=== PATIENT | male | born 1980 | race Caucasian/White ===

== ENCOUNTER 2018-07-06 05:55 | Emergency (ER) | payer OTHER, SELFPAY ==
--- NOTE | 2018-07-06 05:44 | DI.CT.S_ITS ---
PROCEDURE: CT HEAD/BRAIN WO CON INDICATIONS: decreased mental status, fall etoh TECHNIQUE: Noncontrast 4.5 mm thick angled axial sections acquired from the foramen magnum to the vertex, with coronal and sagittal reformats. For radiation dose reduction, the following was used: automated exposure control, adjustment of mA and/or kV according to patient size. COMPARISON: [facility], CT, CT CERVICAL SPINE WO CON, 07/06/2018, 8:41. FINDINGS: Image quality: There is streak artifact noted. CSF spaces: Basal cisterns are patent. No extra-axial fluid collections. Ventricles are normal in size and shape. Brain: No midline shift. No intracranial masses or hemorrhage. Santiago-white matter interface is normal. Skull and face: Calvarium and visualized facial bones are intact, without suspicious lesions. Sinuses: Visualized sinuses and mastoids are clear. IMPRESSION: Limited study, without an acute intracranial abnormality. No acute intracranial hemorrhage can be seen. Dictated by: Rupesh Crenshaw M.D. on 07/06/2018 at 8:19 Approved by: Rupesh Crenshaw M.D. on 07/06/2018 at 8:20
--- NOTE | 2018-07-06 05:45 | DI.RAD.S_ITS ---
PROCEDURE: XR CHEST 1V INDICATIONS: decreased mental status TECHNIQUE: One view of the chest was acquired. COMPARISON: [facility], CR, XR CHEST 1V, 07/06/2018, 6:49. FINDINGS: Surgical changes and devices: None. Lungs and pleura: No pleural effusions or pneumothorax. Lungs are clear. Mediastinum: Mediastinal contours appear normal. Heart size is normal. Bones and chest wall: No suspicious bony lesions. Overlying soft tissues appear unremarkable. IMPRESSION: No acute disease. Dictated by: Mark Pagan M.D. on 07/06/2018 at 7:25 Approved by: Mark Pagan M.D. on 07/06/2018 at 7:27
[2018-07-06 05:52] VITALS: BP 87/48; PULSE 81; RESP 20; O2SAT 100
--- NOTE | 2018-07-06 05:52 | ED_ITS ---
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 Ratio (1.0-2.8) Procalcitonin (<0.5) ng/mL Urine Color Urine Appearance Urine pH (4.5-8.0) Ur Specific [place] (1.000-1.035) Urine Protein (Negative) Urine Glucose (UA) (Normal) g/dL Urine Ketones (NEGATIVE) Urine Occult Blood (Negative) Urine Nitrate (Negative) Urine Bilirubin (NEGATIVE) Urine Urobilinogen (0.2) E.U./dL Ur Leukocyte Esterase (NEGATIVE) Urine RBC (0-5/HPF) Urine WBC (0-5/HPF) Ur Squamous Epith Cells Urine Bacteria (None) Ur Culture Indicated? Micro UA Comment Urine Opiates Screen (Negative) Ur Oxycodone Screen (Negative) Urine Methadone Screen (Negative) Ur Barbiturates Screen (Negative) U Tricyclic Antidepress (Negative) Ur Phencyclidine Scrn (Negative) Ur Amphetamines Screen (Negative) U Methamphetamines Scrn (Negative) Ur MDMA Scrn (Ecstasy) (Negative) U Benzodiazepines Scrn (Negative) Urine Cocaine Screen (Negative) U Marijuana (THC) Screen (Negative) Ethyl Alcohol mg/dL Ketones (<0.27) mmol/L MDM Narrative Medical decision making narrative: Received turned over from night provider. Performed my own history and physical exam. Patient is alert but is confused. His is at bedside. She states she went to bed at 0930 last night and woke up this morning found him on the ground. He was hypothermic which has improved with rewarming. He is in DKA. His receiving fluids and insulin. Head CT and cervical spine CT ordered due to the fact that he was found on the floor next to the couch. Potassium 4.4 on arrival. Repeat 4.0 will continue to monitor this to avoid hypokalemia. No other signs of external trauma. Discussed the case with intensive care medicine at [facility] who accepts the patient in transfer. I discussed the transfer with the patient's . She expressed understanding and agreement with this. Discharge Plan Departure Patient Disposition: [facility] Clinical Impression: DKA (diabetic ketoacidoses), Hypothermia, Fall, Altered mental status Discharge Date/Time: 07/06/18 10:00 Interventions: ED Discharge Assessment Last Done: 07/06/18 10:02 Prescriptions: No Action metoprolol succinate 100 mg Tablet Extended Release 24 Hr 100 mg PO DAILY RF: 0 simvastatin 40 mg Tablet 40 mg PO QPM RF: 0 citalopram 20 mg Tablet 20 mg PO DAILY RF: 0 lisinopril 10 mg Tablet 10 mg PO DAILY RF: 0 prazosin 2 mg Capsule 2 mg PO BID RF: 0 insulin lispro [Humalog KwikPen Insulin] 100 unit/mL Insulin Pen 1 dose subcut ACHS RF: 0 bupropion HCl 150 mg Tablet Extended Release 24 Hr 150 mg PO QAM RF: 0 insulin glargine [Basaglar KwikPen U-100 Insulin] 100 unit/mL (3 mL) Insulin Pen 45 units subcut DAILY RF: 0
[2018-07-06] MEDS: SODIUM CHLORIDE 0.9% 1,000 ML 1000 ML IV ×2 (06:00→07:06)
--- NOTE | 2018-07-06 06:07 | PC.NURSE ---
Pt cold to touch. Oral temp 85F. Dr Hill aware. Currently placing temp-sensing hemphill for accurate core temp. Pt responds to voice, obeys commands.
[2018-07-06 06:17] LABS: HCO3 VBG 4 mmol/L (24-28); PCO2 VBG 21.7 mmHg (45-50); PO2 VBG 81 mmHg (35-45); pH VBG 6.88 (7.31-7.41)
[2018-07-06 06:18] LABS: Oxygen Saturation VBG 84 % (70-75); Total CO2 VBG < 5 mmol/L (24-29)
[2018-07-06 06:26] LABS: Lactate (Lactic Acid) 4.7 mmol/L (0.7-2.1)
[2018-07-06 06:28] LABS: Alanine Aminotransferase 147 IU/L (21-72); Albumin 3.3 g/dL (3.5-5.0); Albumin Globulin Ratio 1.6 (1.0-2.8); Alkaline Phosphatase 178 U/L (38-126); Aspartate Aminotransferase 95 IU/L (17-59); BUN Creatinine Ratio 9.4 (6-22); Bilirubin Total 1.3 mg/dL (0.2-1.3); Blood Urea Nitrogen 17 mg/dL (9-20); Calcium 10.8 mg/dL (8.4-10.2); Chloride 83 mmol/L (98-107); Estimated Glomerular Filt Rate 42.4 mL/min (>60); Ethanol (ETOH) < 10 mg/dL; Globulin 2.1 g/dL (1.7-4.1); Potassium 4.4 mmol/L (3.4-5.1); Sodium 123 mmol/L (137-145); Total Protein 5.4 g/dL (6.3-8.2)
--- NOTE | 2018-07-06 06:30 | PC.NURSE ---
patient placed in soft restraints. Provider aware.
[2018-07-06 06:45] LABS: Glucose 889 mg/dL (70-100)
[2018-07-06 06:46] LABS: Carbon Dioxide < 5 mmol/L (22-32)
--- NOTE | 2018-07-06 06:46 | DI.RAD.S_ITS ---
PROCEDURE: XR CHEST 1V INDICATIONS: failed attempt right IJ TECHNIQUE: One view of the chest was acquired. COMPARISON: [facility], CR, XR CHEST 1V, 07/06/2018, 5:53. FINDINGS: Surgical changes and devices: None. Lungs and pleura: No pleural effusions or pneumothorax. Lung volumes are low. No acute consolidation. There is scattered subsegmental atelectasis and/or scarring Mediastinum: Mediastinal contours appear normal. Heart size is normal. Bones and chest wall: No suspicious bony lesions. Overlying soft tissues appear unremarkable. IMPRESSION: No acute disease. Low lung volumes and scattered atelectasis Dictated by: Mark Pagan M.D. on 07/06/2018 at 7:12 Approved by: Mark Pagan M.D. on 07/06/2018 at 7:12
[2018-07-06 06:55] LABS: Urine Amphetamines Negative (Negative); Urine Cocaine Negative (Negative); Urine Methamphetamines Negative (Negative); Urine Morphine/Opi cutoff 2000 Negative (Negative); Urine Phencyclidine Negative (Negative); Urine Tetrahydrocannabinol Negative (Negative)
[2018-07-06 06:56] LABS: Urine Barbiturates Negative (Negative); Urine Benzodiazepines Negative (Negative); Urine MDMA Negative (Negative); Urine Methadone Negative (Negative); Urine Oxycodone Negative (Negative); Urine Tricyclic Antidepressant Negative (Negative)
[2018-07-06 07:00] VITALS: BP 117/94; PULSE 68; O2SAT 100
--- NOTE | 2018-07-06 07:01 | PC.NURSE ---
patient temp 87.0 via temperature sensing foley. LOPEZ aware.
[2018-07-06 07:15] LABS: HEMOLYSIS 19 (0-50)
[2018-07-06 07:20] VITALS: BP 140/114; PULSE 70; O2SAT 100
--- NOTE | 2018-07-06 07:20 | PC.NURSE ---
patients rectal temperature is 87.4 F. Provider aware.
[2018-07-06 07:22] LABS: Procalcitonin 2.88 ng/mL (<0.5)
[2018-07-06] MEDS: INSULIN REGULAR, HUMAN 100 UNIT in SODIUM CHLORIDE 0.9% 100 ML 6 ML IV (07:27)
[2018-07-06] MEDS: SODIUM CHLORIDE 0.9% 1,000 ML 200 ML IV (07:30)
[2018-07-06 08:11] LABS: Add Manual Diff / Slide Review NO; Basophils Percent Auto 0.9 % (0-2); Eosinophils Percent Auto 0.2 % (2-4); Hematocrit 40.2 % (41-53); Hemoglobin 13.1 g/dL (13.5-17.5); Lymphocytes Percent Auto 9.2 % (25-40); Mean Corpuscular HGB Conc 32.7 % (30-36); Mean Corpuscular Hemoglobin 33.9 PG (26-34); Mean Corpuscular Volume 103.9 fL (80-100); Monocytes Percent Auto 8.5 % (3-14); Neutrophils Absolute Auto 12300 /uL (3000-5900); Neutrophils Percent Auto 81.2 % (50-75); Platelet Count 256 X10^3/uL (150-400); Red Blood Cell Count 3.87 X10^6/uL (4.5-5.9); Red Cell Distribution Width 13.9 % (11.6-14.8); White Blood Cell Count 15.1 X10^3/uL (4.5-11.0)
--- NOTE | 2018-07-06 08:12 | PC.NURSE ---
dr. beebe placed r femeral central line/ 3 luman. labs drawn at that time pt daisy well. at bedside. apparetnly pt non compliant with meds/ also hx of mental health issues.
[2018-07-06 08:16] VITALS: BP 111/60; PULSE 80; RESP 22
[2018-07-06 08:24] LABS: Chloride 93 mmol/L (98-107); HEMOLYSIS < 15 (0-50); Magnesium 2.2 mg/dL (1.6-2.3); Phosphorous 7.1 mg/dL (2.5-4.5); Sodium 127 mmol/L (137-145)
[2018-07-06 08:27] LABS: Carbon Dioxide < 5 mmol/L (22-32)
[2018-07-06 08:29] LABS: Appearance Urine UA CLEAR; Bilirubin Urine UA NEGATIVE (NEGATIVE); Color Urine UA YELLOW; Glucose Urine UA 1+ g/dL (Normal); Ketones Urine UA 3+ (NEGATIVE); Leukocyte Esterase Urine UA NEGATIVE (NEGATIVE); Nitrite Urine UA NEGATIVE (Negative); Occult Blood Urine UA 1+ (Negative); Protein Urine UA TRACE (Negative); Urobilinogen Urine UA 0.2 E.U./dL (0.2)
[2018-07-06 08:38] VITALS: BP 104/67; PULSE 82; RESP 22; O2SAT 100
--- NOTE | 2018-07-06 08:40 | PC.NURSE ---
temp 90 core/hemphill
[2018-07-06 08:44] LABS: Bacteria Urine Moderate (10-30); Culture Indicated Urine Cult Not Indicated; RBC Urine 0-1/HPF (0-5/HPF); Squamous Epithelial Cell Urine 0-1 /HPF; WBC Urine 1-5/HPF (0-5/HPF)
--- NOTE | 2018-07-06 08:46 | DI.CT.S_ITS ---
PROCEDURE: CT CERVICAL SPINE WO CON INDICATIONS: fall TECHNIQUE: Noncontrast 3 mm thick sections acquired from the skull base to the T4 level. Sagittal and coronal reformats were then constructed. For radiation dose reduction, the following was used: automated exposure control, adjustment of mA and/or kV according to patient size. COMPARISON: None. FINDINGS: Image quality: Excellent. Bones: No fractures or dislocations. Visualized superior ribs are intact. Soft tissues: Prevertebral soft tissues are normal in thickness. No paravertebral hematomas. No apical pneumothoraces. IMPRESSION: No trauma found. Dictated by: Derrell Caldwell M.D. on 07/06/2018 at 9:20 Approved by: Derrell Caldwell M.D. on 07/06/2018 at 9:21
[2018-07-06 08:55] LABS: Glucose 726 mg/dL (70-100)
[2018-07-06 09:17] VITALS: BP 112/74; PULSE 86; RESP 22; O2SAT 100
--- NOTE | 2018-07-06 09:19 | PC.NURSE ---
ct/ c-collar placed prior to ct of neck and head. while in ct. pt pulled out r femoral vein line. pressure held. md aware. pt daisy ct well. glucose in 700 by blood work. iv cont. 2 18g ac lines hemphill cont anitra choi to keep warm pt awake, verbal at times. opens eyes moves x 4. c-collar removed by md when arrived into pt room. insulin gtt cont/ plan transfer to [facility]. temp = 91.8
[2018-07-06] MEDS: POTASSIUM CHLORIDE 40 MEQ in SODIUM CHLORIDE 0.9% 500 ML 130 ML IV (09:35)
[2018-07-06 09:53] LABS: BUN Creatinine Ratio 11.9 (6-22); Blood Urea Nitrogen 19 mg/dL (9-20); Calcium 9.5 mg/dL (8.4-10.2); Chloride 96 mmol/L (98-107); Estimated Glomerular Filt Rate 48.6 mL/min (>60); HEMOLYSIS < 15 (0-50); Potassium 3.9 mmol/L (3.4-5.1); Sodium 132 mmol/L (137-145)
[2018-07-06 09:54] LABS: Carbon Dioxide < 5 mmol/L (22-32); Glucose 623 mg/dL (70-100)
--- NOTE | 2018-07-06 10:08 | PC.NURSE ---
last lab work, called into [facility]. k=3.9 and glucose 623
[2018-07-06 10:13] LABS: Reflexed Lactate in 2 Hours Y
--- NOTE | 2018-07-06 10:20 | PC.NURSE ---
pt weight 146/ report to transfer center. Sunil. phone # [phone]
--- NOTE | 2018-07-06 14:47 | PC.NURSE ---
late entry/ pt on continuous monitor/ hr/ oximeter/ etc..
[2018-07-08 04:17] LABS: Acinetobacter baumannii Not Detected (Not Detect); Enterococcus species Not Detected (Not Detect); Listeria monocytogenes Not Detected (Not Detect); Staphylococcus species Not Detected (Not Detect); Streptococcus agalactiae (Gr B Not Detected (Not Detect); Streptococcus pneumonia Not Detected (Not Detect); Streptococcus pyogenes (Gr A) Not Detected (Not Detect); Streptococcus species Not Detected (Not Detect)
[2018-07-08 04:18] LABS: Candida albicans Not Detected (Not Detect); Candida glabrata Not Detected (Not Detect); Candida krusei Not Detected (Not Detect); Candida parapsilosis Not Detected (Not Detect); Candida tropicalis Not Detected (Not Detect); E. coli Not Detected (Not Detect); Enterobacter cloacae complex Not Detected (Not Detect); Enterobacteriaceae species Not Detected (Not Detect); Haemophilus influenzae Not Detected (Not Detect); Neisseria meningitidis Not Detected (Not Detect); Proteus species Not Detected (Not Detect); Pseudomonas aeruginosa Not Detected (Not Detect); Serratia marcescens Not Detected (Not Detect)
== END 2018-07-06 10:00 | disposition short-term general hospital (02) ==
PROVIDERS: Emergency Medicine; Emergency Provider Emergency Medicine
DX: E13.10 Other specified diabetes mellitus with ketoacidosis without coma (principal); T68.XXXA Hypothermia, initial encounter; W19.XXXA Unspecified fall, initial encounter; R41.82 Altered mental status, unspecified
CPT/HCPCS: 36415; 51705; 70450; 71045; 72125; 80048; 80051; 80053; 80305; 80320; 81001; 82009; 82805; 82947; 82962; 83605; 83735; 84100; 84145; 85025; 87040; 87077; 87150; 87205; 93005; 93010; 96361; 96365; 96366; 96368; 99285; 99291; 99292; J3480

== ENCOUNTER 2019-08-21 14:24 | Inpatient (IN) | payer OTHER, SELFPAY ==
[2019-08-21] VITALS (14 sets, daily range): BP systolic 129–196; BP diastolic 86–120; PULSE 104–137; RESP 12–24; TEMP 36.6–37.6; O2SAT 97–100; BMI 28.8
--- NOTE | 2019-08-21 14:40 | ED_ITS ---
HPI - Nausea/Vomiting/Diarrhea General Chief complaint: Nausea/Vomiting/Diarrhea Stated complaint: N/V Time Seen by Provider: 08/21/19 14:31 Source: patient Mode of arrival: Wheelchair Limitations: no limitations History of Present Illness HPI Narrative: Patient is a 39-year-old male type 1 diabetic on insulin prese nting with his nausea vomiting for last 2 days. He says Thanksgiving which was 4 days ago started feeling nauseous today after on Thursday he started vomiting. Sugars were high insulin however he continues to vomit and feel nauseous. He has sweats and chills. He did have a cough, but denies any chest pain. He has some epigastric pain. He has had DKA in the past but it has been awhile he has been fairly well controlled up until now. MD complaint: nausea, vomiting and abdominal pain Onset (ago): day(s) (3) Description of Diarrhea: none Review of Systems Review of Systems Narrative: GENERAL: Denies chills, fatigue, malaise, fever, sweats, travel HEENT: Denies sinus pain, ear pain, sore throat, difficulty swallowing, neck pain RESPIRATORY: Denies dyspnea, cough, wheezing, hemoptysis, sputum. CARDIOVASCULAR: Denies chest pain, palpitations, orthopnea, edema GASTROINTESTINAL: See HPI : Denies dysuria, frequency, incontinence, hematuria, urinary retention, flank pain. MUSCULOSKELETAL: Denies weakness, joint pain, or bony pain SKIN: No rash, no erythema, no pruritus NEUROLOGIC: Denies weakness, dizziness, headache, numbness, change in speech, confusion PSYCHIATRIC: No concerning psychosocial issues. 12 point review of systems is negative except for those stated above and HPI Patient History Medical History (Updated 08/21/19 @ 17:14 by Seamus Kim MD) Anxiety (Acute) Hypokalemia (Acute) PTSD (post-traumatic stress disorder) (Acute) Type 1 diabetes (Acute) Family History (Updated 08/21/19 @ 17:15 by Seamus Kim MD) Father Diabetes mellitus Social History household members: spouse Smoking Status: Never smoker Exam Initial Vital Signs Initial Vital Signs: Vital Signs Temperature 97.9 F 08/21/19 14:39 Pulse Rate 125 H 08/21/19 14:39 Respiratory Rate 24 08/21/19 14:39 Pulse Oximetry 97 08/21/19 14:39 GENERAL: Alert male appears weak HEENT: Head atraumatic,EOMI, pupils reactive, face symmetric, dry mucous membranes CARDIOVASCULAR: Regular rate and rhythm without murmurs, rubs or gallops. RESPIRATORY: Breath sounds equal bilaterally, no wheezes rales or rhonchi. ABDOMEN: Soft, nontender. Normoactive bowel sounds all 4 quadrants. No guarding or rebound. EXTREMITIES: Normal range of motion, no clubbing or edema. Neurovascularly intact NEUROLOGICAL: Alert and oriented x4.Normal gait and speech. SKIN: Warm, dry, no laceration, no petechiae, no rashes or lesions. Course Orders Ordered: ED Orders 08/21/19 14:38 XR chest 1V Stat EKG-12 Lead Stat 08/21/19 14:42 Venous Blood Gas Stat 08/21/19 14:45 Complete Blood Count AUTO DIFF Stat Comprehensive Metabolic Panel Stat Ketones (Beta-Hydroxybutyrate) Stat Lactate (Lactic Acid) Stat Procalcitonin Stat 08/21/19 15:38 Blood Culture Stat 08/22/19 Basic Metabolic Panel Stat Complete Blood Count AUTO DIFF Stat Acetaminophen (Tylenol) 650 mg PO Q4HR PRN PRN Reason: As Needed for Fever/Mild Pain Dextrose (D50w) 25 gm IV PRN PRN PRN Reason: Hypoglycemia Enoxaparin Sodium (Lovenox) 40 mg SUBCUT DAILY LEAH Hydralazine HCl (Apresoline) 10 mg IV Q6HR PRN PRN Reason: Hypertension Last Admin: 08/21/19 17:41 Dose: 10 mg Documented by: LILLIE Insulin Human Regular 100 unit (/ Sodium Chloride) 100 mls @ 6 mls/hr IV TITRATE ELAH; Protocol Last Titration: 08/21/19 16:59 Dose: 6 mls/hr, 6 mls/hr Documented by: DELPHINE Cosigned by: KEYANNA Admin: 08/21/19 15:49 Dose: 6 mls/hr, 6 mls/hr Documented by: DELPHINE Cosigned by: KEYANNA Sodium Chloride (Normal Saline 0.45%) 1,000 mls @ 100 mls/hr IV CONT LEAH Last Admin: 08/21/19 17:41 Dose: 100 mls/hr Documented by: LILLIE Insulin Human Regular 100 unit (/ Sodium Chloride) 100 mls @ 6 mls/hr IV TITR ATE LEAH; Protocol Last Admin: 08/21/19 17:43 Dose: Not Given Documented by: LILLIE Dextrose/Sodium Chloride (Dextrose 5%-0.45% Ns) 1,000 mls @ 125 mls/hr IV CONT LEAH Naloxone HCl (Narcan) 0.2 mg IV Q2MIN PRN PRN Reason: Opiate Reversal Ondansetron HCl (Zofran) 4 mg IV Q4HR PRN PRN Reason: Nausea And Vomiting Discontinued Medications Sodium Chloride (Normal Saline 0.9%) 1,000 mls @ 1,000 mls/hr IV BOLUS ONE Stop: 08/21/19 15:37 Last Infusion: 08/21/19 16:40 Dose: 0 mls/hr Documented by: Admin: 08/21/19 14:53 Dose: 1,000 mls/hr Documented by: PERLA Potassium Chloride 40 meq/ (Sodium Chloride) 520 mls @ 130 mls/hr IV NOW ONE Stop: 08/21/19 15:52 Last Infusion: 08/21/19 17:00 Dose: 130 mls/hr Documented by: DELPHINE Cosigned by: KEYANNA Admin: 08/21/19 16:36 Dose: 130 mls/hr Documented by: DELPHINE Cosigned by: NENA Ondansetron HCl (Zofran) 4 mg IV NOW ONE Stop: 08/21/19 14:39 Last Admin: 08/21/19 14:53 Dose: 4 mg Documented by: PERLA Vital Signs Vital signs: Vital Signs - 8 hr 08/21/19 14:39 08/21/19 15:35 Temperature 97.9 F Pulse Rate 125 H 132 H Respiratory Rate 24 16 Blood Pressure [Left Arm] 180/103 H Pulse Oximetry 97 MDM - Nausea/Vomiting/Diarrhea Lab Data Attestation: I reviewed the patient's lab results. Result diagrams: 08/21/19 14:45 08/21/19 14:45 Labs: Lab Results 08/21/19 08/21/19 08/21/19 Range/Units 14:42 14:45 14:45 WBC 13.7 H (4.5-11.0) X10^3/uL RBC 5.48 (4.5-5.9) X10^6/uL Hgb 18.3 H (13.5-17.5) g/dL Hct 54.1 H (41-53) % MCV 98.7 (80-100) fL MCH 33.3 (26-34) PG MCHC 33.8 (30-36) % RDW 12.3 (11.6-14.8) % Plt Count 239 (150-400) X10^3/uL Neut % (Auto) 86.4 H (50-75) % Lymph % (Auto) 6.2 L (25-40) % [place] % (Auto) 7.1 (3-14) % Eos % (Auto) 0.0 L (2-4) % Baso % (Auto) 0.3 (0-2) % Neut # (Auto) 67171 H (9748-7792) /uL Lymph # (Auto) 800 L (4159-6061) /uL [place] # (Auto) 1000 H (0-900) /uL Eos # (Auto) 0 (0-450) /uL Baso # (Auto) 0 (0-100) /uL VBG pH 7.22 L (7.33-7.43) VBG pCO2 19.9 L (45-50) mmHg VBG pO2 39 (35-45) mmHg VBG HCO3 8 L (23-28) mmol/L VBG Total CO2 9 L (24-29) mmol/L VBG O2 Saturation 65 L (70-75) % VBG Base Excess -20.0 L (0-4) mmol/L Sodium (137-145) mmol/L Potassium (3.4-5.1) mmol/L Chloride (98-107) mmol/L Carbon Dioxide (22-32) mmol/L BUN (9-20) mg/dL Creatinine (0.66-1.25) mg/dL Estimated GFR (>60) mL/min BUN/Creatinine Ratio (6-22) Glucose (70-100) mg/dL Lactate (0.7-2.1) mmol/L Calcium (8.4-10.2) mg/dL Total Bilirubin (0.2-1.3) mg/dL AST (17-59) IU/L ALT (<50) IU/L Alkaline Phosphatase (38-126) U/L Total Protein (6.3-8.2) g/dL Albumin (3.5-5.0) g/dL Globulin (1.7-4.1) g/dL Albumin/Globulin Ratio (1.0-2.8) Procalcitonin 0.56 H (<0.5) ng/mL Ketones (<0.27) mmol/L 08/21/19 08/21/19 Range/Units 14:45 14:45 WBC (4.5-11.0) X10^3/uL RBC (4.5-5.9) X10^6/uL Hgb (13.5-17.5) g/dL Hct (41-53) % MCV (80-100) fL MCH (26-34) PG MCHC (30-36) % RDW (11.6-14.8) % Plt Count (150-400) X10^3/uL Neut % (Auto) (50-75) % Lymph % (Auto) (25-40) % [place] % (Auto) (3-14) % Eos % (Auto) (2-4) % Baso % (Auto) (0-2) % Neut # (Auto) (7269-3983) /uL Lymph # (Auto) (1383-1578) /uL [place] # (Auto) (0-900) /uL Eos # (Auto) (0-450) /uL Baso # (Auto) (0-100) /uL VBG pH (7.33-7.43) VBG pCO2 (45-50) mmHg VBG pO2 (35-45) mmHg VBG HCO3 (23-28) mmol/L VBG Total CO2 (24-29) mmol/L VBG O2 Saturation (70-75) % VBG Base Excess (0-4) mmol/L Sodium 136 L (137-145) mmol/L Potassium 3.3 L (3.4-5.1) mmol/L Chloride 93 L (98-107) mmol/L Carbon Dioxide 8 L* (22-32) mmol/L BUN 57 H (9-20) mg/dL Creatinine 1.80 H (0.66-1.25) mg/dL Estimated GFR 42.2 L (>60) mL/min BUN/Creatinine Ratio 31.7 H (6-22) Glucose 621 H* (70-100) mg/dL Lactate 1.9 (0.7-2.1) mmol/L Calcium 9.9 (8.4-10.2) mg/dL Total Bilirubin 1.3 (0.2-1.3) mg/dL AST 55 (17-59) IU/L ALT 35 (<50) IU/L Alkaline Phosphatase 211 H (38-126) U/L Total Protein 9.0 H (6.3-8.2) g/dL Albumin 5.2 H (3.5-5.0) g/dL Globulin 3.8 (1.7-4.1) g/dL Albumin/Globulin Ratio 1.4 (1.0-2.8) Procalcitonin (<0.5) ng/mL Ketones 13.38 H (<0.27) mmol/L Imaging Data Chest x-ray: Radiologist's impression: PROCEDURE: XR CHEST 1V INDICATIONS: cough chest pain TECHNIQUE: One view of the chest was acquired. COMPARISON: None. FINDINGS: Surgical changes and devices: None. Lungs and pleura: Lungs are clear. No pleural effusions or pneumothorax. Mediastinum: Mediastinal contours appear normal. Heart size is normal. Bones and chest wall: No suspicious bony lesions. Overlying soft tissues appear unremarkable. IMPRESSION: No acute cardiopulmonary findings. Dictated by: Bhavana Elizabeth M.D. on 08/21/2019 at 14:18 ECG Data Attestation: I personally reviewed and interpreted this ECG as follows: Prior ECG tracings: not available for review Interpretation: Normal sinus rhythm rate 134 do not agree with computer readout of atrial fibrillation MDM Narrative Medical decision making narrative: Anion gap 35. Patient has DKA with acidosis of 7.2. Unclear cause at this time. He is started on an insulin drip and IV fluids. Dr. kim in ED to see and evaluate patient. He will be going to the ICU for further management. Discharge Plan Departure Patient Disposition: Admitted As Inpatient Clinical Impression: Type 1 diabetes mellitus Discharge Date/Time: 08/21/19 17:01 Admit Date/Time: 08/21/19 15:53 Admit Provider: Seamus Kim
[2019-08-21] MEDS: ONDANSETRON 4 MG/2 ML INJ IV ×2 (14:53→20:11)
[2019-08-21] MEDS: SODIUM CHLORIDE 0.9% 1,000 ML 1000 ML IV (14:53)
[2019-08-21 14:56] LABS: Add Manual Diff / Slide Review NO; Basophils Absolute Auto 0 /uL (0-100); Basophils Percent Auto 0.3 % (0-2); Eosinophils Absolute Auto 0 /uL (0-450); Hematocrit 54.1 % (41-53); Hemoglobin 18.3 g/dL (13.5-17.5); Lymphocytes Absolute Auto 800 /uL (1100-4500); Lymphocytes Percent Auto 6.2 % (25-40); Mean Corpuscular HGB Conc 33.8 % (30-36); Mean Corpuscular Hemoglobin 33.3 PG (26-34); Mean Corpuscular Volume 98.7 fL (80-100); Monocytes Absolute Auto 1000 /uL (0-900); Monocytes Percent Auto 7.1 % (3-14); Neutrophils Absolute Auto 11800 /uL (1500-7000); Neutrophils Percent Auto 86.4 % (50-75); Platelet Count 239 X10^3/uL (150-400); Red Blood Cell Count 5.48 X10^6/uL (4.5-5.9); Red Cell Distribution Width 12.3 % (11.6-14.8); White Blood Cell Count 13.7 X10^3/uL (4.5-11.0)
[2019-08-21 15:06] LABS: HEMOLYSIS 43 (0-50)
[2019-08-21 15:11] LABS: Alanine Aminotransferase 35 IU/L (<50); Albumin 5.2 g/dL (3.5-5.0); Albumin Globulin Ratio 1.4 (1.0-2.8); Alkaline Phosphatase 211 U/L (38-126); Aspartate Aminotransferase 55 IU/L (17-59); BUN Creatinine Ratio 31.7 (6-22); Bilirubin Total 1.3 mg/dL (0.2-1.3); Blood Urea Nitrogen 57 mg/dL (9-20); Calcium 9.9 mg/dL (8.4-10.2); Chloride 93 mmol/L (98-107); Estimated Glomerular Filt Rate 42.2 mL/min (>60); Globulin 3.8 g/dL (1.7-4.1); Potassium 3.3 mmol/L (3.4-5.1); Sodium 136 mmol/L (137-145)
[2019-08-21 15:12] LABS: Lactate (Lactic Acid) 1.9 mmol/L (0.7-2.1)
[2019-08-21 15:18] LABS: PCO2 VBG 19.9 mmHg (45-50); PO2 VBG 39 mmHg (35-45)
[2019-08-21 15:19] LABS: HCO3 VBG 8 mmol/L (23-28); Oxygen Saturation VBG 65 % (70-75); Total CO2 VBG 9 mmol/L (24-29); pH VBG 7.22 (7.33-7.43)
[2019-08-21 15:28] LABS: Carbon Dioxide 8 mmol/L (22-32)
[2019-08-21 15:29] LABS: Glucose 621 mg/dL (70-100)
[2019-08-21 15:32] LABS: Procalcitonin 0.56 ng/mL (<0.5)
[2019-08-21] MEDS: INSULIN REGULAR, HUMAN 100 UNIT in SODIUM CHLORIDE 0.9% 100 ML 6 ML IV (15:49)
--- NOTE | 2019-08-21 15:57 | P.HP_ITS ---
History of Present Illness History of Present Illness Date Patient Seen: 08/21/19 Time Patient Seen: 17:29 Chief complaint: N/V Narrative: Tyrone Marquez is a 39-year-old male who presents to the ED with DKA, he has had 7-8 episodes of DKA since he has been diagnosed at age 25. His last DKA hospitalization was in June 2019 at [facility]. He says that his c urrent symptoms are similar to his last episode. On 08/14 he started to feel nauseous and by Sunday 08/19 he vomited on multiple occasions. According to his he was not able to keep any solids or liquids down all week. On Tuesday 08/21 it became severe enough that his decided that he needed to come into the hospital. He complains of headache, sore throat, and shortness of breath due to his multiple episodes of vomiting. He denies fever, vision changes, dizziness, and lightheadedness. He is well aware of the hospital course to get him back to normal health. He has been compliant with his insulin regimen and his strict low carb diet. 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 Review of Systems Constitutional Constitutional: Denies headache(s) Eyes Eyes: Denies blind spots, Denies blurry vision and Denies eye pain ENT Ears, Nose, Mouth, and Throat: No headache(s), No hearing loss, No pain with swallowing and Yes sore throat (due to frequent vomiting) Cardiovascular Cardiovascular: Reports chest pain and Reports shortness of breath Respiratory Respiratory: Denies pain with cough and Reports dyspnea Gastrointestinal Gastrointestinal: Denies abdominal pain, Denies constipation, Denies odynophagia and Reports vomiting Genitourinary Genitourinary: Denies hematuria and Denies difficulty urinating Musculoskeletal Musculoskeletal: Denies myalgias and Denies arthralgias Integumentary/Breasts Skin/Breast: Denies acne and Denies rash Neurologic Neurologic: Denies headache(s) Psychiatric Psychiatric: Reports anxiety Exam Vital Signs (past 8 hours): - 08/21/19 14:39 08/21/19 15:35 Temperature 97.9 F Pulse Rate 125 H 132 H Respiratory Rate 24 16 Blood Pressure [Left Arm] 180/103 H Pulse Oximetry 97 Oxygen Delivery Method Room Air Const General: cooperative, well groomed and in distress Orientation: alert, awake and oriented x3 HENMT Head: normocephalic and atraumatic Nose: external nose normal and nares normal Face and sinus: dry mucous membranes Mouth: other (dry mucous membranes ) Teeth and gingiva: dentition normal Throat: other (Erythematous oropharynx) Eyes Sclera: sclerae normal Pupils: PERRL EOM: EOM intact bilaterally Chest Chest: normal inspection of the chest Resp Effort & Inspection: able to speak in complete sentences, abnormal respiratory pattern, no cough and no use of accessory muscles Auscultation: clear to auscultation bilaterally Cardio Rate: regular rate and tachycardic Rhythm: regular rhythm Heart Sounds: S1 normal and S2 normal GI Inspection: normal to inspection Palpation: soft, no hepatosplenomegaly, guarding and No tender Skin General: no rashes or lesions noted Neuro General: alert, awake and oriented x3 Psych Appearance: grossly normal Attitude: cooperative Thought Process: normal Thought Content: normal Objective Labs Result Diagrams: 08/21/19 14:45 08/21/19 14:45 Labs: Laboratory Results - last 24 hr 08/21/19 08/21/19 08/21/19 14:42 14:45 14:45 WBC 13.7 H RBC 5.48 Hgb 18.3 H Hct 54.1 H MCV 98.7 MCH 33.3 MCHC 33.8 RDW 12.3 Plt Count 239 Neut % (Auto) 86.4 H Lymph % (Auto) 6.2 L [place] % (Auto) 7.1 Eos % (Auto) 0.0 L Baso % (Auto) 0.3 Neut # (Auto) 37056 H Lymph # (Auto) 800 L [place] # (Auto) 1000 H Eos # (Auto) 0 Baso # (Auto) 0 VBG pH 7.22 L VBG pCO2 19.9 L VBG pO2 39 VBG HCO3 8 L VBG Total CO2 9 L VBG O2 Saturation 65 L VBG Base Excess -20.0 L Sodium Potassium Chloride Carbon Dioxide BUN Creatinine Estimated GFR BUN/Creatinine Ratio Glucose Lactate Calcium Total Bilirubin AST ALT Alkaline Phosphatase Total Protein Albumin Globulin Albumin/Globulin Ratio Procalcitonin 0.56 H 08/21/19 08/21/19 14:45 14:45 WBC RBC Hgb Hct MCV MCH MCHC RDW Plt Count Neut % (Auto) Lymph % (Auto) [place] % (Auto) Eos % (Auto) Baso % (Auto) Neut # (Auto) Lymph # (Auto) [place] # (Auto) Eos # (Auto) Baso # (Auto) VBG pH VBG pCO2 VBG pO2 VBG HCO3 VBG Total CO2 VBG O2 Saturation VBG Base Excess Sodium 136 L Potassium 3.3 L Chloride 93 L Carbon Dioxide 8 L* BUN 57 H Creatinine 1.80 H Estimated GFR 42.2 L BUN/Creatinine Ratio 31.7 H Glucose 621 H* Lactate 1.9 Calcium 9.9 Total Bilirubin 1.3 AST 55 ALT 35 Alkaline Phosphatase 211 H Total Protein 9.0 H Albumin 5.2 H Globulin 3.8 Albumin/Globulin Ratio 1.4 Procalcitonin Assessment & Plan Assessment & Plan narrative: Diabetic Ketoacidosis -started on insulin drip, IV fluids, and Zofran in the ED -assess chemistries/ anion gap every 4 hours -Follow DKA protocol in ICU Hypokalemia -Correct with IV potassium - Follow q4hrs Elevated blood pressure -administer hydralazine 10 mg IV as needed Polycythemia Secondary to hemoconcentration - Repeat CBC in am after IV fluid PTSD - Hydroxyzine prn Anxiety -Hydroxyzine prn
[2019-08-21] MEDS: POTASSIUM CHLORIDE 40 MEQ in SODIUM CHLORIDE 0.9% 500 ML 130 ML IV (16:36)
[2019-08-21 17:35] LABS: Bacteria Urine None Seen; WBC Urine None Seen (0-5/HPF)
[2019-08-21 17:36] LABS: Appearance Urine UA CLEAR; Bilirubin Urine UA 1+ (NEGATIVE); Color Urine UA YELLOW; Glucose Urine UA 2+ g/dL (Negative); Ketones Urine UA 3+ (NEGATIVE); Leukocyte Esterase Urine UA NEGATIVE (NEGATIVE); Nitrite Urine UA NEGATIVE (Negative); Occult Blood Urine UA 1+ (Negative); Protein Urine UA 1+ (Negative); Urobilinogen Urine UA 0.2 E.U./dL (0.2); pH Urine UA 5.5 (4.5-8.0)
[2019-08-21] MEDS: HYDRALAZINE 20 MG/ML VIAL 10 MG IV (17:41)
[2019-08-21] MEDS: SODIUM CHLORIDE 0.45% 1,000 ML 100 ML IV (17:41)
[2019-08-21 17:47] LABS: Amorphous Sediment Urine 2+; Hyaline Casts Urine 0-1/LPF; Ictotest Urine Negative (Negative); RBC Urine 1-5/HPF (0-5/HPF)
[2019-08-21 17:48] LABS: Culture Indicated Urine Cult Not Indicated
[2019-08-21 18:23] LABS: Ketones (Beta-Hydroxybutyrate) 13.38 mmol/L (<0.27)
[2019-08-21] MEDS: DEXTROSE 5%-0.45% NS 1,000 ML 125 ML IV (19:39)
[2019-08-21] MEDS: SODIUM CHLORIDE 0.9% 1,000 ML 500 ML IV (21:00)
--- NOTE | 2019-08-21 22:20 | PM.EVENT ---
Event Note Date Patient Seen: 08/21/19 Time Patient Seen: 20:03 Event Note: Follow-up on diabetic ketoacidosis. Mr. Tyrone Marquez is a 39-year-old male who presents to the ED with DKA, he has had 7-8 episodes of DKA since he has been diagnosed at age 25. His last DKA hospitalization was in June 2019 at [facility]. The patient is presently admitted to the ICU and is found to be tachycardic in the 140s, is hypertensive and uncomfortable appearing. The patient denies pain and states his nausea resolved with medication received in the ER. Patient's most recent glucose is 148 and continues on insulin infusion with normal saline infusing at 100 cc/hour. The patient continues to appear dehydrated. Laboratory results are reviewed and significant for potassium 2.9, chloride of 108, CO of 18, BUN of 51 and improvement in creatinine from 1.8 to 1.1, his magnesium is 2.4 and his phosphorus is 0.9. Blood sugar is 143. Acute diabetic ketoacidosis, improving. -initial VBG showed a pH of 7.22 with a bedside very pleased CO2 of 19.9. The patient was tachypneic at 24 on admission down to respiratory rate of 20 now -serum CO level at 18 improved from 8. -patient remains tachycardic in the 130s, 1 L normal saline bolus over 2 hours. -will continue glucose infusion with transition of patient to D5 1/2 NS at 125 cc/hour. -will continue serial electrolyte monitoring and treat as indicated. -Reglan 10 mg IV as needed for epigastric discomfort. Hypophosphatemia, acute -phosphate on laboratory analysis found to be 0.9. The patient is started on potassium phosphate 15 millimoles. -will recheck phosphate upon completion of infusion. Hypokalemia, acute -the patient previously received 40 mEq of potassium IV. -on recheck potassium level is 2.9. -will provide an additional 60 mEq of potassium IV. Patient receive 22.5 mEq potassium through the K-Phos infusion. Essential hypertension, chronic -patient with minimal response to hydralazine 25 mg IV, blood pressure is 196/115. -labetalol 10 mg IV every 4 hours as needed for SBP greater than 180 or DBP greater than 110. -losartan 50 mg p.o. daily
[2019-08-21 22:27] LABS: Magnesium 2.4 mg/dL (1.6-2.3)
[2019-08-21 22:28] LABS: BUN Creatinine Ratio 46.4 (6-22); Blood Urea Nitrogen 51 mg/dL (9-20); Calcium 8.8 mg/dL (8.4-10.2); Carbon Dioxide 18 mmol/L (22-32); Chloride 108 mmol/L (98-107); Estimated Glomerular Filt Rate > 60.0 mL/min (>60); Glucose 143 mg/dL (70-100); HEMOLYSIS < 15 (0-50); Potassium 2.9 mmol/L (3.4-5.1); Sodium 139 mmol/L (137-145)
[2019-08-21] MEDS: METOCLOPRAMIDE 10 MG/2 ML INJ IV (22:29)
[2019-08-21 22:34] LABS: Phosphorous 0.9 mg/dL (2.5-4.5)
[2019-08-21] MEDS: LABETALOL 20 MG/4 ML SYRINGE 10 MG IV (22:54)
--- NOTE | 2019-08-21 23:09 | PC.NURSE ---
2300- Labs returned orders rec. from Otoniel SINGH. BP remains high hydralazine given x1 then Labetolol IV given x1 will recheck BP in 30min. Bolus x1 .9ns 1 liter given per order. Remains tachy cardic. Insulin gtt infusion going at 2ml/hr. Reglan given for abdominal discomfort.
[2019-08-22] VITALS (10 sets, daily range): BP systolic 149–183; BP diastolic 84–109; PULSE 72–110; RESP 6–22; TEMP 36.4–37.7; O2SAT 96–100
[2019-08-22] MEDS: POTASSIUM CHLORIDE 60 MEQ in SODIUM CHLORIDE 0.9% 500 ML 88.333 ML IV (00:40)
[2019-08-22] MEDS: POTASSIUM PHOSPHATE 15 MMOL in DEXTROSE 5% IN WATER 250 ML 63.75 ML IV (00:41)
[2019-08-22 01:51] LABS: BUN Creatinine Ratio 48.9 (6-22); Blood Urea Nitrogen 44 mg/dL (9-20); Calcium 8.2 mg/dL (8.4-10.2); Carbon Dioxide 22 mmol/L (22-32); Chloride 110 mmol/L (98-107); Estimated Glomerular Filt Rate > 60.0 mL/min (>60); Glucose 153 mg/dL (70-100); HEMOLYSIS < 15 (0-50); Magnesium 2.2 mg/dL (1.6-2.3); Sodium 139 mmol/L (137-145)
[2019-08-22] MEDS: DEXTROSE 5%-0.45% NS 1,000 ML 125 ML IV (03:31)
[2019-08-22 05:45] LABS: Add Manual Diff / Slide Review NO; Basophils Absolute Auto 0 /uL (0-100); Basophils Percent Auto 0.4 % (0-2); Eosinophils Absolute Auto 0 /uL (0-450); Hematocrit 42.3 % (41-53); Hemoglobin 14.8 g/dL (13.5-17.5); Lymphocytes Absolute Auto 1200 /uL (1100-4500); Lymphocytes Percent Auto 12.4 % (25-40); Mean Corpuscular HGB Conc 35.1 % (30-36); Mean Corpuscular Volume 94.1 fL (80-100); Monocytes Absolute Auto 1000 /uL (0-900); Monocytes Percent Auto 10.6 % (3-14); Neutrophils Absolute Auto 7300 /uL (1500-7000); Neutrophils Percent Auto 76.6 % (50-75); Platelet Count 166 X10^3/uL (150-400); Red Blood Cell Count 4.49 X10^6/uL (4.5-5.9); Red Cell Distribution Width 12.1 % (11.6-14.8); White Blood Cell Count 9.5 X10^3/uL (4.5-11.0)
[2019-08-22 05:56] LABS: BUN Creatinine Ratio 51.3 (6-22); Blood Urea Nitrogen 41 mg/dL (9-20); Calcium 7.9 mg/dL (8.4-10.2); Carbon Dioxide 21 mmol/L (22-32); Chloride 110 mmol/L (98-107); Estimated Glomerular Filt Rate > 60.0 mL/min (>60); Glucose 177 mg/dL (70-100); HEMOLYSIS 35 (0-50); Potassium 3.4 mmol/L (3.4-5.1); Sodium 140 mmol/L (137-145)
[2019-08-22 05:57] LABS: Magnesium 2.2 mg/dL (1.6-2.3); Phosphorous 1.4 mg/dL (2.5-4.5)
--- NOTE | 2019-08-22 06:46 | PC.NURSE ---
J2Ee Programmer Note-Patient has been fatigued, burping frequently but denies nausea, diet advanced as tolerated, taking liquids well so far. CBGs 141-228, insulin gtt titrated 2-8.5units/hr per protocol. K+ rider and K+phos infused along with D5 1/2NS @ 125ml/hr overnight.
[2019-08-22 08:39] LABS: Hemoglobin A1C% w Est Avg Glu 10.5 % (4.0-6.0)
[2019-08-22] MEDS: ENOXAPARIN 40 MG/0.4 ML SYRINGE SUBCUT (08:47)
[2019-08-22] MEDS: INSULIN GLARGINE 100 UNIT/ML 3ML PEN 10 UNIT SUBCUT (08:47)
[2019-08-22] MEDS: LOSARTAN 50 MG TABLET PO ×2 (08:47→14:22)
--- NOTE | 2019-08-22 10:46 | CM.DANOTE ---
DCP: Case received, EMR reviewed and met with patient. Introduced self and role. Was able to meet with patient and obtain baseline health and activity information. DCP assessment completed with information currently available. Patient is a 39 year old male who admitted yesterday afternoon to the care of the hospitalist team. PCP: Dr. Ava Gil. Payer: confirmed: [employer]. Patient came to the hospital via family vehicle secondary to nausea and vomiting. Patient has history of Diabetes type 1. He holds current diagnosis of diabetes ketoacidosis. Patient also has hypokalemia, as well as polycythemia. Met with patient in his room. He is alert and oriented, laying in bed. 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 He is independent. Dr. Gil is is provider, verified, and manages his diabetes as well. Patient stated he is not having any issues with his medications, or insulin. He resides in [place] with his spouse, Peyton. P: DCP to continue to follow. He should be able to go home when he is medically stable, possibly tomorrow. Mayela Palma RN/Flyer Builder
[2019-08-22] MEDS: INSULIN ASPART 100 UNIT/ML INSULN PEN SUBCUT (12:19)
--- NOTE | 2019-08-22 13:15 | PM.DS.1 ---
History of Present Illness History of Present Illness Date Patient Seen: 08/21/19 Chief complaint: N/V Narrative: Written by Dr. Kim: Tyrone Marquez is a 39-year-old male who presents to the ED with DKA, he has had 7-8 episodes of DKA since he has been diagnosed at age 25. His last DKA hospitalization was in June 2019 at [facility]. He says that his current symptoms are similar to his last episode. On 08/14 he started to feel nauseous and by Sunday 08/19 he vomited on multiple occasions. According to his he was not able to keep any solids or liquids down all week. On Tuesday 08/21 it became severe enough that his decided that he needed to come into the hospital. He complains of headache, sore throat, and shortness of breath due to his multiple episodes of vomiting. He denies fever, vision changes, dizziness, and lightheadedness. He is well aware of the hospital course to get him back to normal health. He has been compliant with his insulin regimen and his strict low carb diet. He presented with Glucose of 621, HCO3 of 8, pH 7.22, Anion Gap of 35, and K+ 3.3 Discharge Providers Provider Date of admission: 08/21/19 15:53 Discharge Date: 08/22/19 Primary care physician: Ava Gil MD Discharge provider: Rosa Kumar DO Summary Hospital Course Discharge Diagnosis: 1. Acute diabetic ketoacidosis, present on admission. Resolved. 2. Acute kidney injury, present on admission. Resolved. 3. Hypertension, chronic, present on admission. Stable. 4. Polycythemia secondary to hemoconcentration, present on admission. Resolved. 5. PTSD, chronic, present on admission. Stable. 6. Anxiety, chronic, present on admission. Stable. Hospital Course: Tyrone Marquez is a 39-year-old male with a past medical history significant for diabetes mellitus type 1 who presented to the ED with DKA. 1. Acute diabetic ketoacidosis, present on admission. Resolved. -Hemoglobin A1c 10.5% reflective of poor glycemic control likely due to medical non-compliance as patient readily admits to forgetting Lantus dose occasionally. -Patient has had recent DKA hospitalization with most recent 06/2019 at [facility]. He reports 7-8 episodes of DKA since he has been diagnosed at age 25. -Initial blood glucose 621. Serum ketones 13.38. Anion Gap 35. VBG demonstrarted metabolic acidosis with respiratory compensation pH 7.22, pCO2 20, pO2 39, HCO3 8. -Chest x-ray did not demonstrate any acute cardiopulmonary process. Respiratory viral PCR negative. Urinalysis did not appear to be infected. -Initiated DKA protocol with insulin gtt, fluid replacement with normal saline then transitioned to 0.45% normal saline and then D5 0.45% normal saline until blood glucose was less than 250. Monitored blood glucose and electrolytes every 4 hours until anion gap closed and repleted as necessary. Transitioned off insulin gtt and restarted home regimen. -Continued Lantus increased from 22 to 25 units daily at bedtime, nutritional insulin with NovoLog 12 units with meals and medium dose correctional scale insulin. 2. Acute kidney injury, present on admission. Resolved. -Secondary to prerenal azotemia with decreased PO intake and nausea/vomiting. -Initial creatinine 1.8. Creatinine now 0.80. -Avoided nephrotoxin agents. -Continued IV fluid hydration until adequately hydrated then discontinued. 3. Hypertension, chronic, present on admission. Stable. -Patient reports blood pressure has been elevated in the past and at other times normal. -Started losartan at 50 mg daily and increase to 100 mg daily for further blood pressure control. 4. Polycythemia secondary to hemoconcentration, present on admission. Resolved. -Initial hemoglobin 18.3. Continued IV fluid hydration until adequately hydrated discontinued. Hemoglobin now normal at 14.8. 5. PTSD, chronic, present on admission. Stable. -Continued hydroxyzine 12.5 mg as needed. 6. Anxiety, chronic, present on admission. Stable. -Continued hydroxyzine 12.5 mg as needed. Exam Vital Signs (past 8 hours): - 08/22/19 06:00 08/22/19 07:50 08/22/19 09:39 Temperature 99.3 F Pulse Rate 109 H 103 H 104 H Respiratory Rate 20 19 18 Blood Pressure 168/105 H 183/109 H 149/106 H Pulse Oximetry 96 100 08/22/19 12:28 Temperature 98.1 F Pulse Rate 96 H Respiratory Rate 17 Blood Pressure 159/95 H Pulse Oximetry 99 Oxygen Delivery Method Room Air Oxygen Flow Rate 0 Narrative Exam Narrative: General: Middle-aged gentleman lying in bed and in no acute distress, well-developed, well-nourished, appears fatigued and mildly flushed, appropriately interactive. HEENT: Normocephalic, atraumatic. External ears without defect. Pupils equal, round, and reactive to light and accommodation. Anicteric sclerae, moist conjunctivae, and no lid lag. Neck: Supple with full range of motion. No lymphadenopathy or thyromegaly. Cardiovascular: Regular rhythm and rate without murmurs, rubs, or gallops appreciated. Pulmonary: Clear to auscultation bilaterally without crackles, wheezes, or rhonchi. Normal respiratory effort with no use of accessory muscles. Abdomen: Soft, bowel sounds present, nontender, nondistended. No hepatosplenomegaly or masses appreciated. Extremities: No clubbing, cyanosis, or edema. Skin: Normal temperature, turgor, and texture; no rash, ulcers, or subcutaneous nodules appreciated. Neurological: Cranial nerves grossly intact. Psychiatric: Normal mood and flat affect. Alert and oriented to person, place, and time. Objective Labs Result Diagrams: 08/22/19 05:31 08/22/19 05:31 Labs: Laboratory Results - last 24 hr 08/21/19 08/21/19 08/21/19 14:42 14:45 14:45 WBC 13.7 H RBC 5.48 Hgb 18.3 H Hct 54.1 H MCV 98.7 MCH 33.3 MCHC 33.8 RDW 12.3 Plt Count 239 Neut % (Auto) 86.4 H Lymph % (Auto) 6.2 L [place] % (Auto) 7.1 Eos % (Auto) 0.0 L Baso % (Auto) 0.3 Neut # (Auto) 87857 H Lymph # (Auto) 800 L [place] # (Auto) 1000 H Eos # (Auto) 0 Baso # (Auto) 0 VBG pH 7.22 L VBG pCO2 19.9 L VBG pO2 39 VBG HCO3 8 L VBG Total CO2 9 L VBG O2 Saturation 65 L VBG Base Excess -20.0 L Sodium Potassium Chloride Carbon Dioxide BUN Creatinine Estimated GFR BUN/Creatinine Ratio Glucose Hemoglobin A1c Lactate Calcium Phosphorus Magnesium Total Bilirubin AST ALT Alkaline Phosphatase Total Protein Albumin Globulin Albumin/Globulin Ratio Procalcitonin 0.56 H Urine Color Urine Appearance Urine pH Ur Specific [place] Urine Protein Urine Glucose (UA) Urine Ketones Urine Occult Blood Urine Nitrate Urine Bilirubin Urine Ictotest Urine Urobilinogen Ur Leukocyte Esterase Urine RBC Urine WBC Amorphous Sediment Urine Bacteria Hyaline Casts Ur Culture Indicated? Nasal Screen MRSA (PCR) Ketones 08/21/19 08/21/19 08/21/19 14:45 14:45 17:05 WBC RBC Hgb Hct MCV MCH MCHC RDW Plt Count Neut % (Auto) Lymph % (Auto) [place] % (Auto) Eos % (Auto) Baso % (Auto) Neut # (Auto) Lymph # (Auto) [place] # (Auto) Eos # (Auto) Baso # (Auto) VBG pH VBG pCO2 VBG pO2 VBG HCO3 VBG Total CO2 VBG O2 Saturation VBG Base Excess Sodium 136 L Potassium 3.3 L Chloride 93 L Carbon Dioxide 8 L* BUN 57 H Creatinine 1.80 H Estimated GFR 42.2 L BUN/Creatinine Ratio 31.7 H Glucose 621 H* Hemoglobin A1c Lactate 1.9 Calcium 9.9 Phosphorus Magnesium Total Bilirubin 1.3 AST 55 ALT 35 Alkaline Phosphatase 211 H Total Protein 9.0 H Albumin 5.2 H Globulin 3.8 Albumin/Globulin Ratio 1.4 Procalcitonin Urine Color Urine Appearance Urine pH Ur Specific [place] Urine Protein Urine Glucose (UA) Urine Ketones Urine Occult Blood Urine Nitrate Urine Bilirubin Urine Ictotest Urine Urobilinogen Ur Leukocyte Esterase Urine RBC Urine WBC Amorphous Sediment Urine Bacteria Hyaline Casts Ur Culture Indicated? Nasal Screen MRSA (PCR) Negative for mrsa Ketones 13.38 H 08/21/19 08/21/19 08/21/19 17:30 21:56 21:56 WBC RBC Hgb Hct MCV MCH MCHC RDW Plt Count Neut % (Auto) Lymph % (Auto) [place] % (Auto) Eos % (Auto) Baso % (Auto) Neut # (Auto) Lymph # (Auto) [place] # (Auto) Eos # (Auto) Baso # (Auto) VBG pH VBG pCO2 VBG pO2 VBG HCO3 VBG Total CO2 VBG O2 Saturation VBG Base Excess Sodium 139 Potassium 2.9 L Chloride 108 H Carbon Dioxide 18 L BUN 51 H Creatinine 1.10 Estimated GFR > 60.0 BUN/Creatinine Ratio 46.4 H Glucose 143 H D Hemoglobin A1c Lactate Calcium 8.8 Phosphorus 0.9 L* Magnesium 2.4 H Total Bilirubin AST ALT Alkaline Phosphatase Total Protein Albumin Globulin Albumin/Globulin Ratio Procalcitonin Urine Color Yellow Urine Appearance Clear Urine pH 5.5 Ur Specific [place] 1.010 Urine Protein 1+ H Urine Glucose (UA) 2+ H Urine Ketones 3+ H Urine Occult Blood 1+ H Urine Nitrate Negative Urine Bilirubin 1+ H Urine Ictotest Negative Urine Urobilinogen 0.2 Ur Leukocyte Esterase Negative Urine RBC 1-5/hpf Urine WBC None seen Amorphous Sediment 2+ Urine Bacteria None seen Hyaline Casts 0-1/lpf Ur Culture Indicated? Cult not indicated Nasal Screen MRSA (PCR) Ketones 08/22/19 08/22/19 08/22/19 01:31 01:31 05:31 WBC 9.5 RBC 4.49 L Hgb 14.8 Hct 42.3 MCV 94.1 D MCH 33.0 MCHC 35.1 RDW 12.1 Plt Count 166 Neut % (Auto) 76.6 H Lymph % (Auto) 12.4 L [place] % (Auto) 10.6 Eos % (Auto) 0.0 L Baso % (Auto) 0.4 Neut # (Auto) 7300 H Lymph # (Auto) 1200 [place] # (Auto) 1000 H Eos # (Auto) 0 Baso # (Auto) 0 VBG pH VBG pCO2 VBG pO2 VBG HCO3 VBG Total CO2 VBG O2 Saturation VBG Base Excess Sodium 139 Potassium 3.0 L Chloride 110 H Carbon Dioxide 22 BUN 44 H Creatinine 0.90 Estimated GFR > 60.0 BUN/Creatinine Ratio 48.9 H Glucose 153 H Hemoglobin A1c Lactate Calcium 8.2 L Phosphorus Magnesium 2.2 Total Bilirubin AST ALT Alkaline Phosphatase Total Protein Albumin Globulin Albumin/Globulin Ratio Procalcitonin Urine Color Urine Appearance Urine pH Ur Specific [place] Urine Protein Urine Glucose (UA) Urine Ketones Urine Occult Blood Urine Nitrate Urine Bilirubin Urine Ictotest Urine Urobilinogen Ur Leukocyte Esterase Urine RBC Urine WBC Amorphous Sediment Urine Bacteria Hyaline Casts Ur Culture Indicated? Nasal Screen MRSA (PCR) Ketones 08/22/19 08/22/19 08/22/19 05:31 05:31 05:31 WBC RBC Hgb Hct MCV MCH MCHC RDW Plt Count Neut % (Auto) Lymph % (Auto) [place] % (Auto) Eos % (Auto) Baso % (Auto) Neut # (Auto) Lymph # (Auto) [place] # (Auto) Eos # (Auto) Baso # (Auto) VBG pH VBG pCO2 VBG pO2 VBG HCO3 VBG Total CO2 VBG O2 Saturation VBG Base Excess Sodium 140 Potassium 3.4 Chloride 110 H Carbon Dioxide 21 L BUN 41 H Creatinine 0.80 Estimated GFR > 60.0 BUN/Creatinine Ratio 51.3 H Glucose 177 H Hemoglobin A1c Lactate Calcium 7.9 L Phosphorus 1.4 L Magnesium 2.2 Total Bilirubin AST ALT Alkaline Phosphatase Total Protein Albumin Globulin Albumin/Globulin Ratio Procalcitonin Urine Color Urine Appearance Urine pH Ur Specific [place] Urine Protein Urine Glucose (UA) Urine Ketones Urine Occult Blood Urine Nitrate Urine Bilirubin Urine Ictotest Urine Urobilinogen Ur Leukocyte Esterase Urine RBC Urine WBC Amorphous Sediment Urine Bacteria Hyaline Casts Ur Culture Indicated? Nasal Screen MRSA (PCR) Ketones 08/22/19 05:31 WBC RBC Hgb Hct MCV MCH MCHC RDW Plt Count Neut % (Auto) Lymph % (Auto) [place] % (Auto) Eos % (Auto) Baso % (Auto) Neut # (Auto) Lymph # (Auto) [place] # (Auto) Eos # (Auto) Baso # (Auto) VBG pH VBG pCO2 VBG pO2 VBG HCO3 VBG Total CO2 VBG O2 Saturation VBG Base Excess Sodium Potassium Chloride Carbon Dioxide BUN Creatinine Estimated GFR BUN/Creatinine Ratio Glucose Hemoglobin A1c 10.5 H Lactate Calcium Phosphorus Magnesium Total Bilirubin AST ALT Alkaline Phosphatase Total Protein Albumin Globulin Albumin/Globulin Ratio Procalcitonin Urine Color Urine Appearance Urine pH Ur Specific [place] Urine Protein Urine Glucose (UA) Urine Ketones Urine Occult Blood Urine Nitrate Urine Bilirubin Urine Ictotest Urine Urobilinogen Ur Leukocyte Esterase Urine RBC Urine WBC Amorphous Sediment Urine Bacteria Hyaline Casts Ur Culture Indicated? Nasal Screen MRSA (PCR) Ketones Discharge Plan Discharge Plan Patient Disposition: Home Discharge comment: You are being discharged home. Your hemoglobin A1c is 10.5% indicative of very poor blood glucose control and an average blood glucose level of 250 at all times. You were hospitalized for DKA which is likely from missing your Lantus dose. Your Lantus dose has been increased from 22 units to 25 units at bedtime. Please do not miss your Lantus dose and try to stay well hydrated. Recommend you be referred to Endocrinology for further management of your diabetes and consideration of an insulin pump. Your blood pressure has been elevated and you were started on losartan 100 mg daily. Your kidney function will need to be checked in the next 5-7 days while on these medications. Discharge orders & Medications Prescriptions: New losartan 100 mg tablet 100 mg PO DAILY Qty: 30 RF: 0 Continued hydroxyzine HCl 25 mg tablet 12.5 mg PRN (Reason: Anxiety) RF: 0 insulin lispro 100 unit/mL insulin pen SUBCUT RF: 0 Changed Lantus U-100 Insulin 25 units subcut BEDTIME Qty: 0 RF: 0 Other Ambulatory Orders: Basic Metabolic Panel (Stat) Timeframe: 5 Days Facility: [facility] - Location: Laboratory Ordered By: Rosa Kumar Follow up/Referrals: Ava Gil MD [Primary Care Provider] - 1 Week (Please call and schedule this appointment today and let Dr. Gil's office know that you have been instructed to follow up within a week. ) Diet/Activity/Treatments Diet: Carb-consistent/Diabetic, Low-fat, Low-sodium and Low-cholesterol Activity: Activity as tolerated Visit Report/Discharge Packet Instructions: The Mediterranean Diet and Good Health, The DASH Diet, DI for Diabetic Ketoacidosis, Losartan (By mouth) Visit Report Forms: Patient Portal/API, Stroke Signs & Symptoms Discharge Data Primary Care Provider: Ava Gil Discharges patient from system. Discharge Date/Time: 08/22/19 14:40
--- NOTE | 2019-08-22 14:43 | PC.NURSE ---
Pt d/c'd to home per order. Provided d/c packet, medication list, educational materials and provided verbal review. Gave pt/ hard rx for lantus and losartan. Reviewed med list, doses, times, next dose due. Reviewed purpose and side effects. Both pt and verbalized understanding. Removed PIV x2 with cath tips intact. Pt dressed self and ambulated independently to POV with and this RN in no acute distress.
[2019-08-22 14:51] LABS: Adenovirus Not Detected (Not Detect); Bordetella pertussis Not Detected (Not Detect); Chlamydophila pneumoniae Not Detected (Not Detect); Coronavirus 229E Not Detected (Not Detect); Coronavirus HKU1 Not Detected (Not Detect); Coronavirus NL 63 Not Detected (Not Detect); Coronavirus OC43 Not Detected (Not Detect); Human Metapneumovirus Not Detected (Not Detect); Human Rhinovirus/Enterovirus Not Detected (Not Detect); Influenza A Not Detected (Not Detect); Influenza B Not Detected (Not Detect); Mycoplasma pneumoniae Not Detected (Not Detect); Parainfluenza Virus 1 Not Detected (Not Detect); Parainfluenza Virus 2 Not Detected (Not Detect); Parainfluenza Virus 3 Not Detected (Not Detect); Parainfluenza Virus 4 Not Detected (Not Detect); Respiratory Syncytial Virus Not Detected (Not Detect)
== END 2019-08-22 14:40 | disposition home or self-care (01) | DRG 639 ==
LOC: ED 14:31 → AC 15:54 → ICU 17:03
PROVIDERS: Internal Medicine; Nurse Practitioner Adult Health; Admitting Provider Family Medicine; Emergency Provider Emergency Medicine; PCP Internal Medicine; Visit Provider Family Medicine
DX: E10.10 Type 1 diabetes mellitus with ketoacidosis without coma (principal); E87.6 Hypokalemia; E83.39 Other disorders of phosphorus metabolism; I10 Essential (primary) hypertension; D75.1 Secondary polycythemia; F41.9 Anxiety disorder, unspecified; F43.10 Post-traumatic stress disorder, unspecified; R07.9 Chest pain, unspecified
CPT/HCPCS: 36415; 71045; 80048; 80053; 81001; 82009; 82805; 82962; 83036; 83605; 83735; 84100; 84145; 85025; 87040; 87633; 87797; 93005; 96361; 96374; 99284; 99285; J0360; J1650; J2405; J2765; J3480; J7050

== ENCOUNTER → 2022-01-31 13:13 | Outpatient (CLI) | payer OTHER, SELFPAY ==
[2022-01-31 11:39] VITALS: BMI 28.8
--- NOTE | 2022-01-31 13:15 | DI.RAD.S_ITS ---
PROCEDURE: XR CHEST 2V INDICATIONS: short of breath TECHNIQUE: 2 views of the chest were acquired. COMPARISON: [facility], CR, XR CHEST 1V, 07/06/2018, 6:49. FINDINGS: Surgical changes and devices: None. Lungs and pleura: Patchy airspace opacities are seen scattered in bilateral mid to lower lung obrien concerning for bilateral multilobar infiltrates.. No pleural effusions or pneumothorax. Mediastinum: Mediastinal contours are normal. Heart size is normal. Bones and chest wall: No suspicious bony abnormalities. Soft tissues appear unremarkable. IMPRESSION: Finding is suggestive of bilateral mid to lower lung field small patchy infiltrate/atelectasis. No pleural effusion or pneumothorax. Dictated by: Corbin Martinez M.D. on 01/31/2022 at 13:32 Approved by: Corbin Martinez M.D. on 01/31/2022 at 13:38
== END ==
PROVIDERS: PCP Internal Medicine; Referring Provider Physician Assistant; Visit Provider Physician Assistant
DX: R06.02 Shortness of breath (principal)
CPT/HCPCS: 71046

== ENCOUNTER 2024-04-12 12:49 | Inpatient (IN) | payer OTHER, SELFPAY ==
[2022-01-31 11:39] VITALS: BMI 28.8
[2024-04-12] VITALS (25 sets, daily range): BP systolic 115–195; BP diastolic 58–131; PULSE 100–125; RESP 12–52; TEMP 36.4–37.1; O2SAT 95–100; BMI 31.9
--- NOTE | 2024-04-12 13:58 | DI.RAD.S_ITS ---
PROCEDURE: XR FOOT RT MIN 3V INDICATIONS: necrotic diabetic foot wound TECHNIQUE: 3 views of the foot were acquired. COMPARISON: None. FINDINGS: Bones: Mild scattered degenerative changes. There is slight valgus alignment. Possible trace osseous irregularity in osteopenia is seen at the medial 1st metatarsal head. Soft tissues: Soft tissue irregularity is seen adjacent to the 1st metatarsal head. There are vascular calcifications. IMPRESSION: Possible mild osseous irregularity of the 1st metatarsal head, adjacent to a possible soft tissue ulcer. If there is high concern for further derangement, consider MRI evaluation. Dictated by: Troy Reza M.D. on 04/12/2024 at 15:35 Approved by: Troy Reza M.D. on 04/12/2024 at 15:36
--- NOTE | 2024-04-12 14:00 | ED_ITS ---
HPI - General Adult General Chief complaint: Diabetic Problem Stated complaint: poss foot ulcer, diabetic problem,high blood sugar Time Seen by Provider: 04/12/24 13:12 Source: patient Mode of arrival: Ambulatory History of Present Illness HPI narrative: 44-year-old male with history of insulin-dependent diabetes, PTSD, anxiety, depression presents for foul-smelling ulcer on right foot. Patient states that he peeled a callus off of his foot and developed a worsening infection in the area of the removed callus. Patient has bad peripheral neuropathy and normally does not feel his feet, but has a dull aching sensation in the area of the ulcer. Patient states his blood sugars has been in the 200s or above recently. No recent A1c Related Data Home Medications Medication Instructions Recorded Confirmed insulin lispro 100 unit/mL 6 - 15 dose SUBCUT ACHS 07/06/18 04/12/24 subcutaneous pen (Humalog KwikPen (U-100) Insulin) escitalopram oxalate 10 mg tablet 10 mg PO DAILY 04/12/24 04/12/24 insulin glargine-yfgn 100 unit/mL 40 unit SUBCUT QPM 04/12/24 04/12/24 (3 mL) subcutaneous pen (Semglee (insulin glargine-yfgn) Pen) lisinopril 20 mg tablet 20 mg PO DAILY 04/12/24 04/12/24 trazodone 50 mg tablet 100 mg PO ONCE PM PRN Sleep 04/12/24 04/12/24 Allergies Allergy/AdvReac Type Severity Reaction Status Date / Time No Known Drug Allergies Allergy Verified 09/23/23 10:28 Patient History Medical History Anxiety Hypokalemia PTSD (post-traumatic stress disorder) Type 1 diabetes Insulin dependent diabetes mellitus Family History Father Diabetes mellitus Social History marital status: household members: spouse and children occupational status: employed Smoking Status: Never smoker Smoking Status: Never smoker alcohol intake frequency: holidays/special occasions only Substance Use Type: marijuana Exam Initial Vital Signs Initial Vital Signs: Vital Signs Temperature 97.9 F 04/12/24 12:57 Pulse Rate 125 H 07/23/24 12:57 Respiratory Rate 32 H 04/12/24 12:57 Blood Pressure 187/80 H 04/12/24 12:57 Pulse Oximetry 100 04/12/24 12:57 Oxygen Delivery Method Room Air 04/12/24 12:57 Const: Awake, alert, anxious, ill-appearing, nontoxic Cardiac: Tachycardia, regular rhythm RESP: unlabored, clear bilaterally, no wheezing MSK: No deformity, 3 cm diameter necrotic ulcer plantar side base of right foot, unstageable Skin: 3 cm necrotic ulcer right foot, surrounding erythema and warmth Neuro: AO x3, CN II-XII grossly intact, moves all extremities Course Orders Ordered: ED Orders 04/14/24 06:14 Vancomycin Trough Urgent 04/14/24 06:41 Basic Metabolic Panel DAILY Complete Blood Count AUTO DIFF DAILY 04/15/24 05:00 Basic Metabolic Panel DAILY Complete Blood Count AUTO DIFF DAILY Acetaminophen (Acetaminophen 325 Mg Tablet) 650 mg PO Q6H PRN PRN Reason: Fever/Mild Pain (1-3) Escitalopram Oxalate (Escitalopram 10 Mg Tablet) 10 mg PO DAILY [facility] Last Admin: 04/14/24 08:51 Dose: Not Given Documented By: Admin: 04/13/24 08:35 Dose: 10 mg Documented By: Heparin Sodium (Porcine) (Heparin 5,000 Unit/Ml Vial) 5,000 unit SUBCUT BID [facility] Last Admin: 04/13/24 21:05 Dose: 5,000 unit Documented By: Admin: 04/13/24 08:35 Dose: 5,000 unit Documented By: Admin: 04/12/24 20:39 Dose: 5,000 unit Documented By: JAY Piperacillin Sod/Tazobactam (Sod 3.375 gm/ Sodium Chloride) 100 mls @ 25 mls/hr IV Q8H [facility] Last Infusion: 04/14/24 07:04 Dose: Infused Documented By: Admin: 04/14/24 02:55 Dose: 25 mls/hr Documented By: Infusion: 04/14/24 01:14 Dose: Infused Documented By: Admin: 04/13/24 21:14 Dose: 25 mls/hr Documented By: Infusion: 04/13/24 14:33 Dose: Infused Documented By: Admin: 04/13/24 10:33 Dose: 25 mls/hr Documented By: Infusion: 04/13/24 06:23 Dose: Infused Documented By: Admin: 04/13/24 01:59 Dose: 25 mls/hr Documented By: Infusion: 04/13/24 01:04 Dose: Infused Documented By: Admin: 04/12/24 20:38 Dose: 25 mls/hr Documented By: JAY Dextrose (D10w) 100 mls @ 999 mls/hr IV PRN PRN PRN Reason: Hypoglycemia Vancomycin HCl (Vancomycin) 1,250 mg in 250 mls @ 250 mls/hr IV Q8H [facility] Last Admin: 04/14/24 08:00 Dose: 250 mls/hr Documented By: Infusion: 04/14/24 00:55 Dose: Infused Documented By: Admin: 04/13/24 23:53 Dose: 250 mls/hr Documented By: Infusion: 04/13/24 16:44 Dose: Infused Documented By: Admin: 04/13/24 15:44 Dose: 250 mls/hr Documented By: Infusion: 04/13/24 07:11 Dose: Infused Documented By: Admin: 04/13/24 06:11 Dose: 250 mls/hr Documented By: Infusion: 04/13/24 01:04 Dose: Infused Documented By: Admin: 04/12/24 23:57 Dose: 250 mls/hr Documented By: JAY Insulin Glargine (Insulin Glargine 100 Unit/Ml 3ml Pen) 40 unit SUBCUT BEDTIME [facility] Last Admin: 04/13/24 21:04 Dose: 40 unit Documented By: KOSTAS Co-signed By: Admin: 04/12/24 20:40 Dose: 40 unit Documented By: JAY Co-signed By: Insulin Human Lispro (Insulin Lispro 100 Unit/Ml 3ml Vial) 0 unit SUBCUT ACHS [facility]; Protocol Last Admin: 04/14/24 08:44 Dose: 1 unit Documented By: DANIEL Co-signed By: Admin: 04/13/24 21:02 Dose: 7 unit Documented By: KOSTAS Co-signed By: JAY Admin: 04/13/24 17:45 Dose: 5 unit Documented By: Co-signed By: IVELISSE Admin: 04/13/24 12:26 Dose: 5 unit Documented By: Co-signed By: IVELISSE Admin: 04/13/24 08:34 Dose: 3 unit Documented By: Co-signed By: IVELISSE Admin: 04/12/24 20:41 Dose: 3 unit Documented By: JAY Co-signed By: Lisinopril (Lisinopril 20 Mg Tablet) 20 mg PO DAILY [facility] Last Admin: 04/14/24 08:14 Dose: 20 mg Documented By: Admin: 04/13/24 08:35 Dose: 20 mg Documented By: Naloxone HCl (Naloxone 0.4 Mg/Ml Vial) 0.2 mg IV Q2MIN PRN PRN Reason: Opiate Reversal Ondansetron HCl (Ondansetron 4 Mg/2 Ml Inj) 4 mg IV Q8HR PRN PRN Reason: Nausea And Vomiting Oxycodone HCl (Oxycodone Ir 5 Mg Tablet) 5 mg PO Q4HR PRN PRN Reason: Pain, Moderate (4-6) Last Admin: 04/14/24 08:19 Dose: 5 mg Documented By: DANIEL Sodium Chloride (Sodium Chloride 0.9% Flush) 10 ml IV PRN PRN PRN Reason: Flush Trazodone HCl (Trazodone 50 Mg Tablet) 100 mg PO BEDTIME PRN PRN Reason: Sleep Last Admin: 04/13/24 23:53 Dose: 100 mg Documented By: Admin: 04/13/24 01:10 Dose: 100 mg Documented By: JAY Discontinued Medications Sodium Chloride (Normal Saline 0.9%) 1,000 mls @ 1,000 mls/hr IV BOLUS ONE Stop: 04/12/24 14:57 Last Infusion: 04/12/24 15:30 Dose: Infused Documented By: Admin: 04/12/24 14:31 Dose: 1,000 mls/hr Documented By: MATTHEW Vancomycin HCl/Dextrose (Vancomycin) 2,000 mg in 400 mls @ 200 mls/hr IV NOW ONE Stop: 04/12/24 15:59 Last Infusion: 04/12/24 20:38 Dose: Infused Documented By: Infusion: 04/12/24 17:00 Dose: 200 mls/hr Documented By: Admin: 04/12/24 15:12 Dose: 200 mls/hr Documented By: MATTHEW Piperacillin Sod/Tazobactam (Sod 4.5 gm/ Sodium Chloride) 100 mls @ 200 mls/hr IV NOW ONE Stop: 04/12/24 13:59 Last Infusion: 04/12/24 15:13 Dose: Infused Documented By: Admin: 04/12/24 14:32 Dose: 200 mls/hr Documented By: MATTHEW Sodium Chloride (Normal Saline 0.9%) 1,000 mls @ 1,000 mls/hr IV BOLUS ONE Stop: 04/12/24 16:24 Last Infusion: 04/12/24 17:00 Dose: Infused Documented By: Admin: 04/12/24 15:29 Dose: 1,000 mls/hr Documented By: MATTHEW Sodium Chloride (Normal Saline 0.9%) 1,000 mls @ 1,000 mls/hr IV BOLUS ONE Stop: 04/12/24 16:37 Last Admin: 04/12/24 16:36 Dose: Not Given Documented By: MATTHEW Vancomycin HCl (Vancomycin Trough) 1 request MIS 1430 ONE Stop: 04/13/24 14:31 Last Admin: 04/13/24 17:41 Dose: Not Given Documented By: Vancomycin HCl (Vancomycin Trough) 1 request MIS 0630 LEAH Stop: 04/14/24 06:31 Vital Signs Vital signs: Vital Signs - 8 hr 04/14/24 08:00 04/14/24 08:14 Temperature 98.0 F Pulse Rate 92 H 75 Respiratory Rate 17 Blood Pressure 203/91 H 203/91 H Pulse Oximetry 98 Oxygen Flow Rate 0 Medical Decision Making Lab Data 04/14/24 06:41 04/14/24 06:41 Labs: Lab Results 04/12/24 04/12/24 04/12/24 Range/Units 13:20 15:48 19:00 WBC 10.5 (4.5-11.0) X10^3/uL RBC 4.13 L (4.5-5.9) X10^6/uL Hgb 13.6 (13.5-17.5) g/dL Hct 39.8 L (41-53) % MCV 96.2 (80-100) fL MCH 32.9 (26-34) PG MCHC 34.2 (30-36) % RDW 12.8 (11.6-14.8) % Plt Count 349 (150-400) X10^3/uL Neut % (Auto) 73.7 (50-75) % Lymph % (Auto) 16.9 L (25-40) % [place] % (Auto) 7.4 (3-14) % Eos % (Auto) 1.8 L (2-4) % Baso % (Auto) 0.2 (0-2) % Neut # (Auto) 7700 H (1211-1276) /uL Lymph # (Auto) 1800 (8130-0323) /uL [place] # (Auto) 800 (0-900) /uL Eos # (Auto) 200 (0-450) /uL Baso # (Auto) 0 (0-100) /uL ESR 69 H (0-15) MM/HR Sodium 134 L (137-145) mmol/L Potassium 4.1 (3.4-5.1) mmol/L Chloride 96 L (98-107) mmol/L Carbon Dioxide 14 L (22-32) mmol/L BUN 10 (9-20) mg/dL Creatinine 0.67 (0.66-1.25) mg/dL Estimated GFR > 60 (>60) mL/min BUN/Creatinine Ratio 14.9 (6-22) Glucose 330 H (70-100) mg/dL Hemoglobin A1c 9.6 H (4.0-6.0) % Lactate 4.8 H* 1.7 (0.7-2.1) mmol/L Calcium 9.4 (8.4-10.2) mg/dL Total Bilirubin 1.4 H (0.2-1.3) mg/dL AST 27 (17-59) IU/L ALT 64 H (<50) IU/L Alkaline Phosphatase 216 H (38-126) U/L C-Reactive Protein 5.6 H (<1.0) mg/dL Total Protein 7.9 (6.3-8.2) g/dL Albumin 4.2 (3.5-5.0) g/dL Globulin 3.7 (1.7-4.1) g/dL Albumin/Globulin Ratio 1.1 (1.0-2.8) Procalcitonin 0.234 (<0.5) ng/mL Nasal Screen MRSA (PCR) Not detected (Not Detect) Vancomycin Trough (10-20) ug/mL 04/13/24 04/14/24 04/14/24 Range/Units 05:56 06:14 06:41 WBC 6.0 5.3 (4.5-11.0) X10^3/uL RBC 3.79 L 3.63 L (4.5-5.9) X10^6/uL Hgb 12.4 L 11.9 L (13.5-17.5) g/dL Hct 36.3 L 34.6 L (41-53) % MCV 95.7 95.3 (80-100) fL MCH 32.7 32.8 (26-34) PG MCHC 34.2 34.4 (30-36) % RDW 12.8 12.6 (11.6-14.8) % Plt Count 288 277 (150-400) X10^3/uL Neut % (Auto) 52.5 D 52.9 (50-75) % Lymph % (Auto) 32.1 29.5 (25-40) % [place] % (Auto) 11.0 12.5 (3-14) % Eos % (Auto) 4.0 4.8 H (2-4) % Baso % (Auto) 0.4 0.3 (0-2) % Neut # (Auto) 3100 2800 (5115-5827) /uL Lymph # (Auto) 1900 1500 (1780-2098) /uL [place] # (Auto) 700 700 (0-900) /uL Eos # (Auto) 200 300 (0-450) /uL Baso # (Auto) 0 0 (0-100) /uL ESR (0-15) MM/HR Sodium 137 136 L (137-145) mmol/L Potassium 4.2 3.7 (3.4-5.1) mmol/L Chloride 103 105 (98-107) mmol/L Carbon Dioxide 25 24 (22-32) mmol/L BUN 10 13 (9-20) mg/dL Creatinine 0.60 L 0.61 L (0.66-1.25) mg/dL Estimated GFR > 60 > 60 (>60) mL/min BUN/Creatinine Ratio 16.7 21.3 (6-22) Glucose 213 H D 186 H (70-100) mg/dL Hemoglobin A1c (4.0-6.0) % Lactate (0.7-2.1) mmol/L Calcium 8.4 8.5 (8.4-10.2) mg/dL Total Bilirubin (0.2-1.3) mg/dL AST (17-59) IU/L ALT (<50) IU/L Alkaline Phosphatase (38-126) U/L C-Reactive Protein (<1.0) mg/dL Total Protein (6.3-8.2) g/dL Albumin (3.5-5.0) g/dL Globulin (1.7-4.1) g/dL Albumin/Globulin Ratio (1.0-2.8) Procalcitonin (<0.5) ng/mL Nasal Screen MRSA (PCR) (Not Detect) Vancomycin Trough 13.7 (10-20) ug/mL Point of Care Testing Glucose POC 190 Point of care testing: Point of Care Testing Glucose POC 190 MDM Narrative Additional Information: Foul-smelling, necrotic, unstageable ulcer the ball of the right foot. Concern is for underlying osteomyelitis. Blood cultures, wound culture, broad-spectrum antibiotics ordered including vancomycin and Zosyn. WBC count 10.5, hemoglobin 13.6, sodium 134, potassium 4.1, creatinine 0.67, glucose 330, hemoglobin A1c 9.6, initial lactic acid 4.8, repeat 1.7. T bili 1.4, AST 27, ALT 64. CRP 5.6, ESR 69, procalcitonin 0.234. X-ray shows cortical regularity concerning for osteomyelitis. Discussed case with on-call Orthopedic surgery Dr. Ram, who agreed to see patient in consult. Patient admitted for further treatment of his condition. Discharge Plan Departure Patient Disposition: Home Clinical Impression: Osteomyelitis, Diabetes mellitus with hyperglycemia, Hemoglobin A1c 8.0% or greater
[2024-04-12] MEDS: SODIUM CHLORIDE 0.9% 1,000 ML 1000 ML IV ×2 (14:31→15:29)
[2024-04-12] MEDS: PIPERACILLIN/TAZO 4.5 GM in SODIUM CHLORIDE 0.9% 100 ML IV (14:32)
[2024-04-12 14:36] LABS: Add Manual Diff / Slide Review NO; Basophils Absolute Auto 0 /uL (0-100); Basophils Percent Auto 0.2 % (0-2); Eosinophils Absolute Auto 200 /uL (0-450); Eosinophils Percent Auto 1.8 % (2-4); Hematocrit 39.8 % (41-53); Hemoglobin 13.6 g/dL (13.5-17.5); Lymphocytes Absolute Auto 1800 /uL (1100-4500); Lymphocytes Percent Auto 16.9 % (25-40); Mean Corpuscular HGB Conc 34.2 % (30-36); Mean Corpuscular Hemoglobin 32.9 PG (26-34); Mean Corpuscular Volume 96.2 fL (80-100); Monocytes Absolute Auto 800 /uL (0-900); Monocytes Percent Auto 7.4 % (3-14); Neutrophils Absolute Auto 7700 /uL (1500-7000); Neutrophils Percent Auto 73.7 % (50-75); Platelet Count 349 X10^3/uL (150-400); Red Blood Cell Count 4.13 X10^6/uL (4.5-5.9); Red Cell Distribution Width 12.8 % (11.6-14.8); White Blood Cell Count 10.5 X10^3/uL (4.5-11.0)
[2024-04-12 14:48] LABS: Lactate (Lactic Acid) 4.8 mmol/L (0.7-2.1)
[2024-04-12 14:49] LABS: Alanine Aminotransferase 64 IU/L (<50); Albumin 4.2 g/dL (3.5-5.0); Albumin Globulin Ratio 1.1 (1.0-2.8); Alkaline Phosphatase 216 U/L (38-126); Aspartate Aminotransferase 27 IU/L (17-59); BUN Creatinine Ratio 14.9 (6-22); Bilirubin Total 1.4 mg/dL (0.2-1.3); Blood Urea Nitrogen 10 mg/dL (9-20); C-Reactive Protein Quant 5.6 mg/dL (<1.0); Calcium 9.4 mg/dL (8.4-10.2); Carbon Dioxide 14 mmol/L (22-32); Chloride 96 mmol/L (98-107); Estimated Glomerular Filt Rate > 60 mL/min (>60); Globulin 3.7 g/dL (1.7-4.1); Glucose 330 mg/dL (70-100); HEMOLYSIS < 15 (0-50); Potassium 4.1 mmol/L (3.4-5.1); Sodium 134 mmol/L (137-145); Total Protein 7.9 g/dL (6.3-8.2)
[2024-04-12 14:53] LABS: Hemoglobin A1C% w Est Avg Glu 9.6 % (4.0-6.0)
[2024-04-12 14:56] LABS: Erythrocyte Sedimentation Rate 69 MM/HR (0-15)
[2024-04-12 15:02] LABS: Procalcitonin 0.234 ng/mL (<0.5)
[2024-04-12] MEDS: VANCOMYCIN 2,000 MG/400 ML PIGGYBACK 200 MG IV (15:12)
[2024-04-12 16:07] LABS: Reflexed Lactate in 2 Hours Y
[2024-04-12 16:14] LABS: Lactate 2HR (Lactic Acid Rflx) 1.7 mmol/L (0.7-2.1)
--- NOTE | 2024-04-12 16:36 | P.HP_ITS ---
History of Present Illness History of Present Illness Date Patient Seen: 04/12/24 Chief complaint: poss foot ulcer, diabetic problem,high blood sugar Narrative: From ED doctor: 44-year-old male with history of insulin-dependent diabetes, PTSD, anxiety, depression presents for foul-smelling ulcer on right foot. Patient states that he peeled a callus off of his foot and developed a worsening infection in the area of the removed callus. Patient has bad peripheral neuropathy and normally does not feel his feet, but has a dull aching sensation in the area of the ulcer. Patient states his blood sugars has been in the 200s or above recently. No recent A1c Additional information: He presents with a right foot ulcer at the ball of his foot. This is covered with a callus and apparently he pulled the callus off several days ago and since has developed a discharge and pain as well as a malodorous smell. He denies fevers or chills. He has an insulin-dependent diabetic and has relatively poor control of his sugars. They run in the 200s. He checks his sugar several times a day. He has not had an A1c for some time, it was 8.4 today. X-ray notable for some ostial changes. Orthopedics was consulted from the emergency department requested an MRI. The patient does have decreased sensation in the feet. He has no history of diabetic foot infection. He does have relatively severe PTSD from the . He was quite anxious about being in the hospital. He is , his accompanies him. He denies recent fevers, or rigors. No chest pain, or shortness a breath. All else reviewed otherwise negative. FOR[facility]LY [facility], [facility] Medical History Anxiety Hypokalemia PTSD (post-traumatic stress disorder) Type 1 diabetes Insulin dependent diabetes mellitus Family History Father Diabetes mellitus Social History household members: spouse and children occupational status: employed Smoking Status: Never smoker Meds Home Medications and Allergies Home Medications Medication Instructions Recorded Confirmed Type insulin lispro 100 unit/mL 6 - 15 dose SUBCUT ACHS 07/06/18 04/12/24 History subcutaneous pen (Humalog KwikPen (U-100) Insulin) escitalopram oxalate 10 mg tablet 10 mg PO DAILY 04/12/24 04/12/24 History insulin glargine-yfgn 100 unit/mL 40 unit SUBCUT QPM 04/12/24 04/12/24 History (3 mL) subcutaneous pen (Semglee (insulin glargine-yfgn) Pen) lisinopril 20 mg tablet 20 mg PO DAILY 04/12/24 04/12/24 History trazodone 50 mg tablet 100 mg PO ONCE PM PRN Sleep 04/12/24 04/12/24 History Allergies Allergy/AdvReac Type Severity Reaction Status Date / Time No Known Drug Allergies Allergy Verified 09/23/23 10:28 Review of Systems Review of Systems Narrative: All else reviewed and otherwise unremarkable except as noted in the history and physical. Exam Vital Signs (past 8 hours): - 04/12/24 12:57 04/12/24 13:19 04/12/24 13:28 Temperature 97.9 F Pulse Rate 125 H 119 H Respiratory Rate 32 H 43 H Blood Pressure 187/80 H 195/88 H Pulse Oximetry 100 Oxygen Delivery Method Room Air 04/12/24 13:28 04/12/24 13:30 04/12/24 13:31 Temperature Pulse Rate 118 H 118 H Respiratory Rate 46 H 52 H Blood Pressure 185/103 H Pulse Oximetry 100 100 Oxygen Delivery Method 04/12/24 13:31 04/12/24 13:45 04/12/24 13:45 Temperature Pulse Rate 118 H 116 H Respiratory Rate 37 H 31 H Blood Pressure 167/90 H Pulse Oximetry 100 100 Oxygen Delivery Method 04/12/24 14:00 04/12/24 14:01 04/12/24 14:01 Temperature Pulse Rate 112 H 111 H Respiratory Rate 29 H 26 H Blood Pressure 167/131 H Pulse Oximetry 100 100 Oxygen Delivery Method 04/12/24 14:15 04/12/24 14:15 04/12/24 14:30 Temperature Pulse Rate 109 H Respiratory Rate 20 Blood Pressure 166/72 H 160/67 H Pulse Oximetry 100 Oxygen Delivery Method 04/12/24 14:30 04/12/24 14:45 04/12/24 14:45 Temperature Pulse Rate 109 H 108 H Respiratory Rate 19 13 Blood Pressure 153/72 H Pulse Oximetry 99 99 Oxygen Delivery Method 04/12/24 15:00 04/12/24 15:01 04/12/24 15:01 Temperature Pulse Rate 106 H 106 H Respiratory Rate 27 H 17 Blood Pressure 115/59 L Pulse Oximetry 99 99 Oxygen Delivery Method 04/12/24 15:15 04/12/24 15:15 Temperature Pulse Rate 104 H Respiratory Rate 14 Blood Pressure 127/60 Pulse Oximetry 100 Oxygen Delivery Method Oxygen Delivery Method Room Air Narrative Exam Narrative: NAD, alert and oriented, fluent speech, anxious. Normocephalic skull, EOMI, anicteric sclera, symmetric pupils. Oropharynx unremarkable, no droop. Neck supple, midline trachea, no adenopathy. Lungs clear, normal rate and effort. Heart regular, no murmur gallop or rub. Abdomen is soft, non distended and non tender. Extremities are free of edema. Skin is free of rash or lesions. Joints are not swollen or deformed. Judgment appears to be normal. He does have a large black ulcer about the size of 2 quarters over the right foot, ball of the foot. This is malodorous. There is a rim of erythema around this. There has no fluctuance or active drainage when I looked at it. Objective Imaging Foot X-ray:: Radiologist's impression: Possible mild osseous irregularity of the 1st metatarsal head, adjacent to a possible soft tissue ulcer. If there is high concern for further derangement, consider MRI evaluation. Labs 04/12/24 13:20 04/12/24 13:20 Labs: Laboratory Results - last 24 hr 04/12/24 04/12/24 13:20 15:48 WBC 10.5 RBC 4.13 L Hgb 13.6 Hct 39.8 L MCV 96.2 MCH 32.9 MCHC 34.2 RDW 12.8 Plt Count 349 Neut % (Auto) 73.7 Lymph % (Auto) 16.9 L [place] % (Auto) 7.4 Eos % (Auto) 1.8 L Baso % (Auto) 0.2 Neut # (Auto) 7700 H Lymph # (Auto) 1800 [place] # (Auto) 800 Eos # (Auto) 200 Baso # (Auto) 0 ESR 69 H Sodium 134 L Potassium 4.1 Chloride 96 L Carbon Dioxide 14 L BUN 10 Creatinine 0.67 Estimated GFR > 60 BUN/Creatinine Ratio 14.9 Glucose 330 H Hemoglobin A1c 9.6 H Lactate 4.8 H* 1.7 Calcium 9.4 Total Bilirubin 1.4 H AST 27 ALT 64 H Alkaline Phosphatase 216 H C-Reactive Protein 5.6 H Total Protein 7.9 Albumin 4.2 Globulin 3.7 Albumin/Globulin Ratio 1.1 Procalcitonin 0.234 Assessment & Plan Assessment & Plan narrative: 1. Right diabetic foot infection, present on admission and active. 2. IDDM, present on admission and active. 3. PTSD, present on admission and active. 4. Anxiety and depression, present on admission and active. PLAN: -broad-spectrum antibiotics with Zosyn and vancomycin. -MRI of the foot to rule out osteomyelitis. -orthopedics consult for recommendations. -assess diabetic control, A1c is over 8. He is full resuscitation. Observation status, expected 1 night need for stay well reassess the wound and come up with an antibiotic plan. COSTA is 04/13. Time-Based Coding :: 35 spent with patient and on the chart (including review of chart, obtaining history, exam, reviewing outside data, placing orders, documenting exam and treatment plan, and counseling patient) on 04/12. Quality MIPS - Admit The patient?s Advance Care plan is not present because I confirmed today that the patient does not wish or was not able to name a surrogate decision maker or provide an Advance Care Plan.: Yes MIPS - Meds 'Current medications' to include all prescriptions, [id number] products, herbals, cannabis/cannabidiol products, and vitamin/mineral/dietary (nutritional) supplements. I have utilized all available resources to obtain, update, or review the patient?s current medications. [If Yes, STOP here]: No
--- NOTE | 2024-04-12 17:50 | DI.MRI.S_ITS ---
PROCEDURE: MR FOOT RT WO/W CON INDICATIONS: Diabetic foot infection TECHNIQUE: Multiphasic, multisequence MRI of the forefoot was performed, before and after intravenous contrast administration. COMPARISON: [facility], CR, XR FOOT RT MIN 3V, 04/12/2024, 14:01. FINDINGS: Image quality: Diagnostic. There is subtle increased T2 signal intensity involving the head of the 1st metatarsal correlating with possible osseous erosions seen on comparison radiograph. There is a joint effusion with joint capsule enhancement involving the 1st metatarsophalangeal joint. No suspicious intraosseous lesions. There is diffuse soft tissue edema and enhancement of the right forefoot. No evidence for organized fluid collection seen. No acute fracture identified. IMPRESSION: Subtle increased T2 marrow signal intensity and enhancement of the distal 1st metatarsal correlating with area of possible osseous erosion seen on comparison radiograph. There is associated enhancing effusion of the 1st metatarsophalangeal joint. Additionally, diffuse soft tissue edema of the right forefoot. Combination of findings are concerning for osteomyelitis with possible infectious/inflammatory joint effusion. Dictated by: Tobin Saab M.D. on 04/12/2024 at 20:26 Approved by: Tobin Saab M.D. on 04/12/2024 at 20:34
[2024-04-12 20:20] LABS: MRSA (Nasal) PCR NOT DETECTED (Not Detect)
[2024-04-12] MEDS: PIPERACILLIN/TAZO 3.375 GM in SODIUM CHLORIDE 0.9% 100 ML IV (20:38)
[2024-04-12] MEDS: HEPARIN 5,000 UNIT/ML VIAL 5000 UNIT SUBCUT (20:39)
[2024-04-12] MEDS: INSULIN GLARGINE 100 UNIT/ML 3ML PEN 40 UNIT SUBCUT (20:40)
[2024-04-12] MEDS: INSULIN LISPRO 100 UNIT/ML 3ML VIAL SUBCUT (20:41)
[2024-04-12] MEDS: VANCOMYCIN 1,250 MG/250 ML PIGGYBACK 250 MG IV (23:57)
[2024-04-13] VITALS (10 sets, daily range): BP systolic 150–195; BP diastolic 66–87; PULSE 90–107; RESP 17; TEMP 36.6; O2SAT 93–99
--- NOTE | 2024-04-13 00:57 | RT ---
At 0057 this morning, spoke to pt's RN Mainor regarding pending ER EKG for this patient that has not been done. per Mainor, EKG is not needed at this time
[2024-04-13] MEDS: TRAZODONE 50 MG TABLET 100 MG PO ×2 (01:10→23:53)
[2024-04-13] MEDS: PIPERACILLIN/TAZO 3.375 GM in SODIUM CHLORIDE 0.9% 100 ML IV ×3 (01:59→21:14)
[2024-04-13] MEDS: VANCOMYCIN 1,250 MG/250 ML PIGGYBACK 250 MG IV ×3 (06:11→23:53)
[2024-04-13 06:12] LABS: Add Manual Diff / Slide Review NO; Basophils Absolute Auto 0 /uL (0-100); Basophils Percent Auto 0.4 % (0-2); Eosinophils Absolute Auto 200 /uL (0-450); Hematocrit 36.3 % (41-53); Hemoglobin 12.4 g/dL (13.5-17.5); Lymphocytes Absolute Auto 1900 /uL (1100-4500); Lymphocytes Percent Auto 32.1 % (25-40); Mean Corpuscular HGB Conc 34.2 % (30-36); Mean Corpuscular Hemoglobin 32.7 PG (26-34); Mean Corpuscular Volume 95.7 fL (80-100); Monocytes Absolute Auto 700 /uL (0-900); Neutrophils Absolute Auto 3100 /uL (1500-7000); Neutrophils Percent Auto 52.5 % (50-75); Platelet Count 288 X10^3/uL (150-400); Red Blood Cell Count 3.79 X10^6/uL (4.5-5.9); Red Cell Distribution Width 12.8 % (11.6-14.8)
[2024-04-13 06:22] LABS: BUN Creatinine Ratio 16.7 (6-22); Blood Urea Nitrogen 10 mg/dL (9-20); Calcium 8.4 mg/dL (8.4-10.2); Carbon Dioxide 25 mmol/L (22-32); Chloride 103 mmol/L (98-107); Estimated Glomerular Filt Rate > 60 mL/min (>60); Glucose 213 mg/dL (70-100); HEMOLYSIS < 15 (0-50); Potassium 4.2 mmol/L (3.4-5.1); Sodium 137 mmol/L (137-145)
[2024-04-13] MEDS: INSULIN LISPRO 100 UNIT/ML 3ML VIAL SUBCUT ×4 (08:34→21:02)
[2024-04-13] MEDS: lisinopriL 20 MG TABLET PO (08:35)
[2024-04-13] MEDS: ESCITALOPRAM 10 MG TABLET PO (08:35)
[2024-04-13] MEDS: HEPARIN 5,000 UNIT/ML VIAL 5000 UNIT SUBCUT ×2 (08:35→21:05)
--- NOTE | 2024-04-13 08:42 | PM.PN.1 ---
Subjective Subjective Interval history: He is doing well. No pain from the ulcer. His anxietie is reasonably controlled. No dyspnea. Exam Vital Signs (past 8 hours): - 04/13/24 08:35 Pulse Rate 90 Blood Pressure 195/87 H Oxygen Delivery Method Room Air Oxygen Flow Rate 0 Narrative Exam Narrative: NAD, alert and oriented. Fluent speech. Lungs are clear, normal rate and effort. Heart is regular, no murmur gallop or rub. Abdomen is soft, non distended. Extremities are free of edema. Objective Imaging Foot MRI:: Radiologist's impression: Subtle increased T2 marrow signal intensity and enhancement of the distal 1st metatarsal correlating with area of possible osseous erosion seen on comparison radiograph. There is associated enhancing effusion of the 1st metatarsophalangeal joint. Additionally, diffuse soft tissue edema of the right forefoot. Combination of findings are concerning for osteomyelitis with possible infectious/inflammatory joint effusion. Labs 04/13/24 05:56 04/13/24 05:56 Labs: Laboratory Results - last 24 hr 04/12/24 04/12/24 04/12/24 13:20 15:48 19:00 WBC 10.5 RBC 4.13 L Hgb 13.6 Hct 39.8 L MCV 96.2 MCH 32.9 MCHC 34.2 RDW 12.8 Plt Count 349 Neut % (Auto) 73.7 Lymph % (Auto) 16.9 L [place] % (Auto) 7.4 Eos % (Auto) 1.8 L Baso % (Auto) 0.2 Neut # (Auto) 7700 H Lymph # (Auto) 1800 [place] # (Auto) 800 Eos # (Auto) 200 Baso # (Auto) 0 ESR 69 H Sodium 134 L Potassium 4.1 Chloride 96 L Carbon Dioxide 14 L BUN 10 Creatinine 0.67 Estimated GFR > 60 BUN/Creatinine Ratio 14.9 Glucose 330 H Hemoglobin A1c 9.6 H Lactate 4.8 H* 1.7 Calcium 9.4 Total Bilirubin 1.4 H AST 27 ALT 64 H Alkaline Phosphatase 216 H C-Reactive Protein 5.6 H Total Protein 7.9 Albumin 4.2 Globulin 3.7 Albumin/Globulin Ratio 1.1 Procalcitonin 0.234 Nasal Screen MRSA (PCR) Not detected 04/13/24 05:56 WBC 6.0 RBC 3.79 L Hgb 12.4 L Hct 36.3 L MCV 95.7 MCH 32.7 MCHC 34.2 RDW 12.8 Plt Count 288 Neut % (Auto) 52.5 D Lymph % (Auto) 32.1 [place] % (Auto) 11.0 Eos % (Auto) 4.0 Baso % (Auto) 0.4 Neut # (Auto) 3100 Lymph # (Auto) 1900 [place] # (Auto) 700 Eos # (Auto) 200 Baso # (Auto) 0 ESR Sodium 137 Potassium 4.2 Chloride 103 Carbon Dioxide 25 BUN 10 Creatinine 0.60 L Estimated GFR > 60 BUN/Creatinine Ratio 16.7 Glucose 213 H D Hemoglobin A1c Lactate Calcium 8.4 Total Bilirubin AST ALT Alkaline Phosphatase C-Reactive Protein Total Protein Albumin Globulin Albumin/Globulin Ratio Procalcitonin Nasal Screen MRSA (PCR) [facility] Medical History Anxiety Hypokalemia PTSD (post-traumatic stress disorder) Type 1 diabetes Insulin dependent diabetes mellitus Family History Father Diabetes mellitus Social History household members: spouse and children occupational status: employed Smoking Status: Never smoker Assessment & Plan Assessment & Plan narrative: 1. Right diabetic foot infection, present on admission and active. MRI suggestive of 1st metatarsal osteomyelitis. 2. IDDM, present on admission and active. 3. PTSD, present on admission and active. 4. Anxiety and depression, present on admission and active. PLAN: -broad-spectrum antibiotics with Zosyn and vancomycin. -MRI of the foot to rule out osteomyelitis. -orthopedics consult for recommendations. -assess diabetic control, A1c is over 8. He is full resuscitation. Observation status, expected 1 night need for stay well reassess the wound and come up with an antibiotic plan. Time-Based Coding :: 30 min spent with patient and on the chart (including review of chart, obtaining history, exam, reviewing outside data, placing orders, documenting exam and treatment plan, and counseling patient) on 04/13.
--- NOTE | 2024-04-13 13:57 | DIET.CONS ---
Dietary Consultation Note Admission Date: 04/12/2024 16:15 Assessment: 44 y M admitted for diabetic foot infection. PMH DM1. Nutrition consulted for foot ulcer. Met w/ pt at bedside. Reports checking BG 2x/d manually before meals d/t previously CGM not working accurately. BG running in 200s. Plans to see endo to get set up w/ CGM. Pt open to John BID. Ht: 172.72 cm Wt: 95.254 kg BMI: 31.9 UBW: 99.535 kg 09/23/23 Last BM: 04/13/24 (04/13/24 10:00) MNA: 14 Otis Score: 22 Diet: 04/12/24 Dinner Carbohydrate Consistent Diet Diet Modifications: Carbohydrate level: Medium (3 CHO) Reflex DM orders: No Nutrition Percent Meal Consumed 100% 04/13/24 10:00 Percent Meal Consumed 50% 04/12/24 18:00 Labs: RBC 3.79 X10^6/uL (4.5-5.9) L 04/13/24 05:56 Hgb 12.4 g/dL (13.5-17.5) L 04/13/24 05:56 Hct 36.3 % (41-53) L 04/13/24 05:56 Creatinine 0.60 mg/dL (0.66-1.25) L 04/13/24 05:56 Hemoglobin A1c 9.6 % (4.0-6.0) H 04/12/24 13:20 Lactate 1.7 mmol/L (0.7-2.1) 04/12/24 15:48 Nutrition Diagnosis: Increased nutrient needs (protein) r/t wound healing aeb foot ulcer Altered lab value (A1c) r/t endocrine dysfunction aeb A1c 9.6% on 04/12/24 Interventions: John BID Recc referral from future PCP for outpatient diabetes educ w/ [facility] EER: 95-105 g protein (1.25 g/kg wound healing) Monitoring/Evaluations: BG, po intakes, John tolerance Electronically Signed by: Carolina Cheema 04/13/24 13:57 Clinical Dietitian [address] [address]
--- NOTE | 2024-04-13 16:21 | PM.CN ---
History of Present Illness Consult details Date Patient Seen: 04/13/24 Time Patient Seen: 12:00 Chief complaint: poss foot ulcer, diabetic problem,high blood sugar Narrative: 44 yo male w/ h/o insulin-dependent diabetes and resultant peripheral neuropathy, no h/o diabetic foot ulcer. Had a callus on the ball of his right foot that he peeled off several days ago. Since that time, he developed discharge and noticed a foul odor from the foot. Blood sugars normally in the 200s. He was admitted for IV abx and work up for osteomyelitis. Dr Ram was consulted and requested an MRI to rule out an abscess. Meds Home Medications and Allergies Home Medications Medication Instructions Recorded Confirmed Type insulin lispro 100 unit/mL 6 - 15 dose SUBCUT ACHS 07/06/18 04/12/24 History subcutaneous pen (Humalog KwikPen (U-100) Insulin) escitalopram oxalate 10 mg tablet 10 mg PO DAILY 04/12/24 04/12/24 History insulin glargine-yfgn 100 unit/mL 40 unit SUBCUT QPM 04/12/24 04/12/24 History (3 mL) subcutaneous pen (Semglee (insulin glargine-yfgn) Pen) lisinopril 20 mg tablet 20 mg PO DAILY 04/12/24 04/12/24 History trazodone 50 mg tablet 100 mg PO ONCE PM PRN Sleep 04/12/24 04/12/24 History Allergies Allergy/AdvReac Type Severity Reaction Status Date / Time No Known Drug Allergies Allergy Verified 09/23/23 10:28 Review of Systems Review of Systems Narrative: Noncontributory. Exam Vital Signs (past 8 hours): - 04/13/24 08:35 04/13/24 08:36 04/13/24 08:37 Pulse Rate 90 98 H Blood Pressure 195/87 H 195/87 H Pulse Oximetry 98 04/13/24 08:37 Pulse Rate 98 H Blood Pressure Pulse Oximetry 99 Oxygen Delivery Method Room Air Oxygen Flow Rate 0 Narrative Exam Narrative: There is a large, area of eschar over the skin overlying the 1st MTP joint on the sole of the foot, about 4 cm in diameter. The periwound area is erythematous and raised forming a rim of about 3mm around the eschar, and there is purulent drainage noted between the eschar and the skin. Pt is able to wiggle toes, but sensation to touch is absent in the plantar foot. DP and PT pulses intact. Calf is soft and compressible. Objective Imaging MRI right foot: Radiologist's impression: FINDINGS: Image quality: Diagnostic. There is subtle increased T2 signal intensity involving the head of the 1st metatarsal correlating with possible osseous erosions seen on comparison radiograph. There is a joint effusion with joint capsule enhancement involving the 1st metatarsophalangeal joint. No suspicious intraosseous lesions. There is diffuse soft tissue edema and enhancement of the right forefoot. No evidence for organized fluid collection seen. No acute fracture identified. IMPRESSION: Subtle increased T2 marrow signal intensity and enhancement of the distal 1st metatarsal correlating with area of possible osseous erosion seen on comparison radiograph. There is associated enhancing effusion of the 1st metatarsophalangeal joint. Additionally, diffuse soft tissue edema of the right forefoot. Combination of findings are concerning for osteomyelitis with possible infectious/inflammatory joint effusion. Labs 04/13/24 05:56 04/13/24 05:56 Labs: Laboratory Results - last 24 hr 04/12/24 04/13/24 19:00 05:56 WBC 6.0 RBC 3.79 L Hgb 12.4 L Hct 36.3 L MCV 95.7 MCH 32.7 MCHC 34.2 RDW 12.8 Plt Count 288 Neut % (Auto) 52.5 D Lymph % (Auto) 32.1 [place] % (Auto) 11.0 Eos % (Auto) 4.0 Baso % (Auto) 0.4 Neut # (Auto) 3100 Lymph # (Auto) 1900 [place] # (Auto) 700 Eos # (Auto) 200 Baso # (Auto) 0 Sodium 137 Potassium 4.2 Chloride 103 Carbon Dioxide 25 BUN 10 Creatinine 0.60 L Estimated GFR > 60 BUN/Creatinine Ratio 16.7 Glucose 213 H D Calcium 8.4 Nasal Screen MRSA (PCR) Not detected [facility] Medical History Anxiety Hypokalemia PTSD (post-traumatic stress disorder) Type 1 diabetes Insulin dependent diabetes mellitus Family History Father Diabetes mellitus Social History household members: spouse and children occupational status: employed Tobacco & Substance Use Smoking Status: Never smoker Assessment & Plan Assessment and plan (1) Osteomyelitis: Status: Acute (2) Diabetic foot ulcer associated with type 1 diabetes mellitus: Status: Acute Plan: Dr Ram discussed case w/ Dr Payan. Dr Ram does not feel this is currently presents a need for surgical I&D and recommends obtaining a wound care consult. Dr Payan will also assess pt during this admission. I let Dr Gar, current hospitalist, know Dr Ram's recommendations and that Dr Payan would also give her input. Time-Based Coding :: [TOTAL MINUTES] spent with patient and on the chart (including review of chart, obtaining history, exam, reviewing outside data, placing orders, documenting exam and treatment plan, and counseling patient) on [DATE].
--- NOTE | 2024-04-13 17:34 | PM.CN ---
History of Present Illness Consult details Date Patient Seen: 04/13/24 Time Patient Seen: 16:15 Chief complaint: poss foot ulcer, diabetic problem,high blood sugar Narrative: The patient is a 44-year-old male with poorly controlled diabetes and peripheral neuropathy who was admitted to the hospital with a right diabetic foot infection. He reports that he had a large callus on the plantar aspect of his foot that fell off and the area became infected. He describes a dull aching pain and some slight drainage with a foul odor. The patient denies having any fever or chills. The patient has never had any similar problems in the past. He does not use any diabetic footwear or inserts. Patient reports a good appetite and denies having any other recent changes in his overall health. MRI showed possible early osteomyelitis involving the 1st metatarsal head and some surrounding cellulitis. Hemoglobin A1c is elevated. The patient does not smoke cigarettes. The patient was seen by orthopedic surgery who did not feel that he requires surgical debridement. Meds Home Medications and Allergies Home Medications Medication Instructions Recorded Confirmed Type insulin lispro 100 unit/mL 6 - 15 dose SUBCUT ACHS 07/06/18 04/12/24 History subcutaneous pen (Humalog KwikPen (U-100) Insulin) escitalopram oxalate 10 mg tablet 10 mg PO DAILY 04/12/24 04/12/24 History insulin glargine-yfgn 100 unit/mL 40 unit SUBCUT QPM 04/12/24 04/12/24 History (3 mL) subcutaneous pen (Semglee (insulin glargine-yfgn) Pen) lisinopril 20 mg tablet 20 mg PO DAILY 04/12/24 04/12/24 History trazodone 50 mg tablet 100 mg PO ONCE PM PRN Sleep 04/12/24 04/12/24 History Allergies Allergy/AdvReac Type Severity Reaction Status Date / Time No Known Drug Allergies Allergy Verified 09/23/23 10:28 Review of Systems Constitutional Comments: No fever or chills Cardiovascular Comments: No chest pain Respiratory Comments: No shortness of breath Exam Vital Signs (past 8 hours): Oxygen Delivery Method Room Air Oxygen Flow Rate 0 Const Other: Well-developed well-nourished male who is alert and oriented and in no apparent distress Skin Other: Necrotic Castro 3 diabetic ulcer plantar aspect right foot over head of 1st metatarsal associated with foul odor and slight serous drainage, mild periwound erythema Neuro Other: Decreased lower extremity sensation Extrem Other: Palpable pedal pulses Objective Labs 04/13/24 05:56 04/13/24 05:56 Labs: Laboratory Results - last 24 hr 04/12/24 04/13/24 19:00 05:56 WBC 6.0 RBC 3.79 L Hgb 12.4 L Hct 36.3 L MCV 95.7 MCH 32.7 MCHC 34.2 RDW 12.8 Plt Count 288 Neut % (Auto) 52.5 D Lymph % (Auto) 32.1 [place] % (Auto) 11.0 Eos % (Auto) 4.0 Baso % (Auto) 0.4 Neut # (Auto) 3100 Lymph # (Auto) 1900 [place] # (Auto) 700 Eos # (Auto) 200 Baso # (Auto) 0 Sodium 137 Potassium 4.2 Chloride 103 Carbon Dioxide 25 BUN 10 Creatinine 0.60 L Estimated GFR > 60 BUN/Creatinine Ratio 16.7 Glucose 213 H D Calcium 8.4 Nasal Screen MRSA (PCR) Not detected [facility] Medical History Anxiety Hypokalemia PTSD (post-traumatic stress disorder) Type 1 diabetes Insulin dependent diabetes mellitus Family History Father Diabetes mellitus Social History household members: spouse and children occupational status: employed Tobacco & Substance Use Smoking Status: Never smoker Assessment & Plan Assessment and plan (1) Diabetic foot ulcer associated with type 1 diabetes mellitus: Status: Acute (2) Non-pressure chronic ulcer of right heel and midfoot with fat layer exposed: Status: Acute (3) Cellulitis of foot, right: Status: Acute Assessment & Plan narrative: Ulcer will need surgical debridement. If this is not done during this hospital stay the patient should be seen at the wound center shortly after discharge so the ulcer can be debrided and appropriate wound care initiated. Continue antibiotic therapy until all signs and symptoms of infection have resolved and would recommend discussion with ID service regarding type and duration of antibiotic therapy since he likely has osteomyelitis. In the meantime we will start dressing changes with Iodoflex. Time-Based Coding :: [50 minutes] spent with patient and on the chart (including review of chart, obtaining history, exam, reviewing outside data, placing orders, documenting exam and treatment plan, and counseling patient) on [04/13/24].
--- NOTE | 2024-04-13 19:38 | PM.CN ---
History of Present Illness Consult details Date Patient Seen: 04/13/24 Time Patient Seen: 19:39 Chief complaint: poss foot ulcer, diabetic problem,high blood sugar Reason for consult: foot ulcer Requesting provider: Phyllis Ram Narrative: 44 yo male w/ h/o insulin-dependent diabetes and resultant peripheral neuropathy, no h/o diabetic foot ulcer. Had a callus on the ball of his right foot that he peeled off several days to a week ago. Since that time, he developed discharge and noticed a foul odor from the foot. Blood sugars normally in the 200s. He was admitted for IV abx and work up for osteomyelitis. I was asked by my partner Dr. Ram to evaluate the patient. He has a right plantar forefoot full-thickness eschar unstageable ulcer with necrotic eschar. He has had diabetes for about 20 years in his insulin dependent. Actually previously took care of his for an unrelated foot injury. He endorses some decreased sensation up to about the ankle level. No previous history of diabetic ulcers or infections. He does have a remote history of a staph infection in his knee that required surgeries in packing changes Meds Home Medications and Allergies Home Medications Medication Instructions Recorded Confirmed Type insulin lispro 100 unit/mL 6 - 15 dose SUBCUT ACHS 07/06/18 04/12/24 History subcutaneous pen (Humalog KwikPen (U-100) Insulin) escitalopram oxalate 10 mg tablet 10 mg PO DAILY 04/12/24 04/12/24 History insulin glargine-yfgn 100 unit/mL 40 unit SUBCUT QPM 04/12/24 04/12/24 History (3 mL) subcutaneous pen (Semglee (insulin glargine-yfgn) Pen) lisinopril 20 mg tablet 20 mg PO DAILY 04/12/24 04/12/24 History trazodone 50 mg tablet 100 mg PO ONCE PM PRN Sleep 04/12/24 04/12/24 History Allergies Allergy/AdvReac Type Severity Reaction Status Date / Time No Known Drug Allergies Allergy Verified 09/23/23 10:28 Review of Systems Review of Systems ROS: Yes All systems reviewed with the patient and are negative except as otherwise documented Exam Vital Signs (past 8 hours): Oxygen Delivery Method Room Air Oxygen Flow Rate 0 Narrative Exam Narrative: Alert oriented male in no acute distress sitting in bed. I watched him use the walker to navigate nonweightbearing with a walker to the bed. Lungs clear to auscultation bilaterally. Heart regular rate and rhythm Bilateral upper extremities benign. Left lower extremity benign no lesions. Palpable dorsalis pedis pulse Right lower extremity palpable dorsalis pedis pulse. Calf is soft. No ascending cellulitis. There is a large black eschar at the plantar 1st MTP joint proximally 4 x 4 cm plantar to the 1st MTP joint and sesamoid area. There is some foul smelling purulence around the edges but no gross fluctuance or ascending erythema. No other foot wounds are noted. Patient is able to dorsiflex 10? plantar flex 40?. Decreased sensation with peripheral neuropathy to ankle level Objective Imaging mri foot right: My impression: MRI of the right foot is viewed. There was a plantar ulceration at the level of the 1st MTP joint plantarly. Some questionable signal within the medial sesamoid. Possible early osteomyelitis versus inflammation. Also 1st MTP effusion Radiologist's impression: Subtle?increased?T2?marrow?signal?intensity?and?enhancement?of?the?distal?1st?metatarsal?correlating?with?area?of?possible?osseous?erosion?seen?on?comparison?radiograph.??There?is?associated?enhancing?effusion?of?the?1st?metatarsophalangeal?joint.??A dditionally,?diffuse?soft?tissue?edema?of?the?right?forefoot.??Combination?of?findings?are?concerning?for?osteomyelitis?with?possible?infectious/inflammatory?joint?effusion. Dictated?by:?Tobin?Katiana?Deepak?on?04/12/2024?at?20:26?? Labs 04/13/24 05:56 04/13/24 05:56 Labs: Laboratory Results - last 24 hr 04/12/24 04/13/24 19:00 05:56 WBC 6.0 RBC 3.79 L Hgb 12.4 L Hct 36.3 L MCV 95.7 MCH 32.7 MCHC 34.2 RDW 12.8 Plt Count 288 Neut % (Auto) 52.5 D Lymph % (Auto) 32.1 [place] % (Auto) 11.0 Eos % (Auto) 4.0 Baso % (Auto) 0.4 Neut # (Auto) 3100 Lymph # (Auto) 1900 [place] # (Auto) 700 Eos # (Auto) 200 Baso # (Auto) 0 Sodium 137 Potassium 4.2 Chloride 103 Carbon Dioxide 25 BUN 10 Creatinine 0.60 L Estimated GFR > 60 BUN/Creatinine Ratio 16.7 Glucose 213 H D Calcium 8.4 Nasal Screen MRSA (PCR) Not detected [facility] Medical History Anxiety Hypokalemia PTSD (post-traumatic stress disorder) Type 1 diabetes Insulin dependent diabetes mellitus Family History Father Diabetes mellitus Social History marital status: household members: spouse and children occupational status: employed Tobacco & Substance Use Smoking Status: Never smoker Assessment & Plan Assessment and plan (1) Diabetic foot ulcer associated with type 1 diabetes mellitus: Qualifiers: Diabetic foot ulcer location: unspecified part of foot Non-pressure ulcer stage: unspecified non-pressure ulcer stage Laterality: right Qualified Code(s): E10.621 - Type 1 diabetes mellitus with foot ulcer; L97.519 - Non-pressure chronic ulcer of other part of right foot with unspecified severity Status: Acute Plan Tyrone Marquez is a 44-year-old type 1 diabetic with a right foot ulcer, stage IV unstageable with eschar. Came in with cellulitis and eschar has been on IV antibiotics. Hemoglobin A1c is 8.4. Concern for deep involvement with a large necrotic eschar. No current sepsis or ascending erythema. Discussed debridement of the eschar deep tissue, bone biopsy possible sesamoidectomy. Would potentially need additional surgeries or multiple debridements depending on progress. Discussed risk for need for multiple procedures risks for need for prolonged wound care and risks of amputation. Discussed with the patient based on operative timing either myself or 1 of my partners would work on getting him onto the operative schedule for debridement and biopsy of his foot wound. Discussed this would be packed with wet-to-dry dressings or dressing changes which would then be taken over with the wound care center. The patient understands and agrees with the plan. Surgical consent was signed. Will discuss with my other partners and we will work on OR availability. Addendum I did discuss the patient with Dr. Rowley,who was some operative time tomorrow. we will work on scheduling a debridement with Dr. Rowley tomorrow afternoon. If for some reason there is a change in schedule or need to be an adjustment would be available on late in the evening on 04/14/2024 or 04/15/2024 in the evening as well. Time-Based Coding :: 55 spent with patient and on the chart (including review of chart, obtaining history, exam, reviewing outside data, placing orders, documenting exam and treatment plan, and counseling patient) on 04/13/25
[2024-04-13] MEDS: INSULIN GLARGINE 100 UNIT/ML 3ML PEN 40 UNIT SUBCUT (21:04)
[2024-04-14] VITALS (24 sets, daily range): BP systolic 109–222; BP diastolic 62–110; PULSE 75–100; RESP 15–20; TEMP 35.8–37.2; O2SAT 91–100; BMI 31.9
[2024-04-14] MEDS: PIPERACILLIN/TAZO 3.375 GM in SODIUM CHLORIDE 0.9% 100 ML IV ×3 (02:55→19:56)
[2024-04-14 06:52] LABS: Add Manual Diff / Slide Review NO; Basophils Absolute Auto 0 /uL (0-100); Basophils Percent Auto 0.3 % (0-2); Eosinophils Absolute Auto 300 /uL (0-450); Eosinophils Percent Auto 4.8 % (2-4); Hematocrit 34.6 % (41-53); Hemoglobin 11.9 g/dL (13.5-17.5); Lymphocytes Absolute Auto 1500 /uL (1100-4500); Lymphocytes Percent Auto 29.5 % (25-40); Mean Corpuscular HGB Conc 34.4 % (30-36); Mean Corpuscular Hemoglobin 32.8 PG (26-34); Mean Corpuscular Volume 95.3 fL (80-100); Monocytes Absolute Auto 700 /uL (0-900); Monocytes Percent Auto 12.5 % (3-14); Neutrophils Absolute Auto 2800 /uL (1500-7000); Neutrophils Percent Auto 52.9 % (50-75); Platelet Count 277 X10^3/uL (150-400); Red Blood Cell Count 3.63 X10^6/uL (4.5-5.9); Red Cell Distribution Width 12.6 % (11.6-14.8); White Blood Cell Count 5.3 X10^3/uL (4.5-11.0)
[2024-04-14 07:05] LABS: BUN Creatinine Ratio 21.3 (6-22); Blood Urea Nitrogen 13 mg/dL (9-20); Calcium 8.5 mg/dL (8.4-10.2); Carbon Dioxide 24 mmol/L (22-32); Chloride 105 mmol/L (98-107); Estimated Glomerular Filt Rate > 60 mL/min (>60); Glucose 186 mg/dL (70-100); HEMOLYSIS < 15 (0-50); Potassium 3.7 mmol/L (3.4-5.1); Sodium 136 mmol/L (137-145)
[2024-04-14 07:20] LABS: Vancomycin Trough 13.7 ug/mL (10-20)
[2024-04-14] MEDS: VANCOMYCIN 1,250 MG/250 ML PIGGYBACK 250 MG IV ×2 (08:00→17:01)
[2024-04-14] MEDS: lisinopriL 20 MG TABLET PO (08:14)
--- NOTE | 2024-04-14 08:18 | P.PN_ITS ---
Subjective Subjective Interval history: S: Doing about the same. No real pain issues from his foot ulcer. He was scheduled for debridement and some bone resection today. Cultures are not quite finalized. He appears to have some Enterococcus in the wound. Exam Vital Signs (past 8 hours): - 04/14/24 08:14 Pulse Rate 75 Blood Pressure 203/91 H Oxygen Delivery Method Room Air Oxygen Flow Rate 0 Narrative Exam Narrative: NAD, alert and oriented. Fluent speech. Lungs are clear, normal rate and effort. Heart is regular, no murmur gallop or rub. Abdomen is soft, non distended. Extremities are free of edema. Malodorous foot ulcer. Objective Labs 04/14/24 06:41 04/14/24 06:41 Labs: Laboratory Results - last 24 hr 04/14/24 04/14/24 06:14 06:41 WBC 5.3 RBC 3.63 L Hgb 11.9 L Hct 34.6 L MCV 95.3 MCH 32.8 MCHC 34.4 RDW 12.6 Plt Count 277 Neut % (Auto) 52.9 Lymph % (Auto) 29.5 [place] % (Auto) 12.5 Eos % (Auto) 4.8 H Baso % (Auto) 0.3 Neut # (Auto) 2800 Lymph # (Auto) 1500 [place] # (Auto) 700 Eos # (Auto) 300 Baso # (Auto) 0 Sodium 136 L Potassium 3.7 Chloride 105 Carbon Dioxide 24 BUN 13 Creatinine 0.61 L Estimated GFR > 60 BUN/Creatinine Ratio 21.3 Glucose 186 H Calcium 8.5 Vancomycin Trough 13.7 PFSH Medical History Anxiety Hypokalemia PTSD (post-traumatic stress disorder) Type 1 diabetes Insulin dependent diabetes mellitus Family History Father Diabetes mellitus Social History marital status: household members: spouse and children occupational status: employed Smoking Status: Never smoker Assessment & Plan Assessment & Plan narrative: 1. Right diabetic foot infection, present on admission and active. MRI suggestive of 1st metatarsal osteomyelitis. 2. IDDM, present on admission and active. 3. PTSD, present on admission and active. 4. Anxiety and depression, present on admission and active. PLAN: -broad-spectrum antibiotics with Zosyn and vancomycin. Await cultures and bone cultures. -MRI of the foot consistent with osteomyelitis. -orthopedics consult for debridement today. -assess diabetic control, A1c is over 8. Increase to moderate correctional. -he will likely need access for long-term IV antibiotics as cultures become available. -have yet to discuss the case with ID pending cultures and debridement results. Full resuscitation. He has exceed a reasonable period for observation services, he was appropriate for inpatient status. He was still require surgical debridement and ongoing IV antibiotics. Time-Based Coding :: 25 min spent with patient and on the chart (including review of chart, obtaining history, exam, reviewing outside data, placing orders, documenting exam and treatment plan, and counseling patient) on 04/14.
[2024-04-14] MEDS: OXYCODONE IR 5 MG TABLET PO ×2 (08:19→17:21)
[2024-04-14] MEDS: INSULIN LISPRO 100 UNIT/ML 3ML VIAL SUBCUT ×3 (08:44→20:41)
--- NOTE | 2024-04-14 12:27 | CM.DANOTE ---
Patient is a 44 yo male who was admitted OBS and changed to INPT Status on 04/12/24 for foot ulcer/r/o osteo. Pt has [employer] for insurance and his PCP is Dr. Ava Gil. EMR was reviewed. Per MD, pt with hx of DM, PTSD, anxiety, depression and foot neuropathy and admitted for foot ulcer and IV-Abx and MRI results concerning for possible osteomyelitis. 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 SW met bedside with pt and spouse and explained role and they confirm they lives at home in [place] and both are active and independent at baseline and have kids at home. Pt currently not working and spouse will assist with applying for short term disability. Pt does not use DME for ambulation at baseline but does not have much feeling in his feet and still drives and denies any hx of HH or SNF. Spouse recently had a planned foot surgery herself and therefore they have crutches, walking boot, and knee scooter at home for use if needed pending I&D results and eventual PT eval. 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 Plan: SW to follow closely after 1400 I&D today and cultures and biopsy to r/o group home IV-Abx, possible additional I&Ds, PT eval and any further discharge planning needs. AUBREY Garrett Discharge Planning/Care Management CM Discharge Assessment Start: 04/14/24 11:56 Freq: Status: Active Protocol: Document 04/14/24 11:56 BF (Rec: 04/14/24 12:27 BF [id number]) Discharge Planning Assessment Assigned Insurance Adjuster AUBREY Dinh DPOA/Assigned Designee Name informally spouse Peyton Contact Information [phone] Advance Directives? No Advance Directives on File No History Provided By Patient,Significant Other, Medical Record Has Patient been admitted in last 30 No days? Prior Living Arrangements House Household Members spouse,children Type of transporation used prior to Drives own vehicle admit Independent with ADL's Yes Is patient alert and oriented? Yes Caregiver for Another No Comment spouse has crutches and boot and knee scooter at home that pt can use if needed Comment Pending I&D and recommendations, r/o IV-Abx Discharge Plan Home [facility] IV Therapy Transportation Arrangement Spouse Additional Comment Pending I&D and if IV-Abx needed and PT eval Whiteboard Updated in Patient Room with Yes name and ext. # of Insurance Adjuster Review Status In Process Please Provide Date Initial DC 04/14/24 Assessment Was Performed Next Review Type Continued Stay Review
--- NOTE | 2024-04-14 15:26 | PM.HP.1 ---
History of Present Illness History of Present Illness Date Patient Seen: 04/14/24 Time Patient Seen: 15:26 Chief complaint: poss foot ulcer, diabetic problem,high blood sugar Narrative: This is a 44-year-old male who I am seeing in preoperative holding unit for discussion of debridement of a diabetic foot ulcer. He was previously seen by my partner Dr. Payan and operative plan was made. He has not had any changes in the last 24 hours. [facility] Medical History Anxiety Hypokalemia PTSD (post-traumatic stress disorder) Type 1 diabetes Insulin dependent diabetes mellitus Family History Father Diabetes mellitus Social History marital status: household members: spouse and children occupational status: employed Smoking Status: Never smoker Meds Home Medications and Allergies Home Medications Medication Instructions Recorded Confirmed Type insulin lispro 100 unit/mL 6 - 15 dose SUBCUT ACHS 07/06/18 04/12/24 History subcutaneous pen (Humalog KwikPen (U-100) Insulin) escitalopram oxalate 10 mg tablet 10 mg PO DAILY 04/12/24 04/12/24 History insulin glargine-yfgn 100 unit/mL 40 unit SUBCUT QPM 04/12/24 04/12/24 History (3 mL) subcutaneous pen (Semglee (insulin glargine-yfgn) Pen) lisinopril 20 mg tablet 20 mg PO DAILY 04/12/24 04/12/24 History trazodone 50 mg tablet 100 mg PO ONCE PM PRN Sleep 04/12/24 04/12/24 History Allergies Allergy/AdvReac Type Severity Reaction Status Date / Time No Known Drug Allergies Allergy Verified 09/23/23 10:28 Review of Systems Review of Systems ROS: Yes All systems reviewed with the patient and are negative except as otherwise documented Exam Vital Signs (past 8 hours): - 04/14/24 08:00 04/14/24 08:14 04/14/24 09:00 Temperature 98.0 F Pulse Rate 92 H 75 Respiratory Rate 17 Blood Pressure 203/91 H 203/91 H Pulse Oximetry 98 Oxygen Delivery Method Room Air Oxygen Flow Rate 0 04/14/24 12:35 Temperature Pulse Rate 98 H Respiratory Rate 20 Blood Pressure 170/72 H Pulse Oximetry 100 Oxygen Delivery Method Oxygen Flow Rate 0 Oxygen Delivery Method Room Air Oxygen Flow Rate 0 Narrative Exam Narrative: HEENT: Head atraumatic eyes anicteric moist mucous membranes Cardiovascular: Palpable peripheral pulses extremities are warm and well perfused Respiratory: Breathing comfortably on room air Psychiatric: Appropriate mood and affect Neuro: No acute deficits Musculoskeletal: Exam of the right lower extremity demonstrates a large 4x4s cm diabetic foot ulcer. No sensation around the lesion. 2+ dorsalis pedis pulse. Able to flex EHL, FHL, tibialis anterior, gastrocs Objective Labs 04/14/24 06:41 04/14/24 06:41 Labs: Laboratory Results - last 24 hr 04/14/24 04/14/24 06:14 06:41 WBC 5.3 RBC 3.63 L Hgb 11.9 L Hct 34.6 L MCV 95.3 MCH 32.8 MCHC 34.4 RDW 12.6 Plt Count 277 Neut % (Auto) 52.9 Lymph % (Auto) 29.5 [place] % (Auto) 12.5 Eos % (Auto) 4.8 H Baso % (Auto) 0.3 Neut # (Auto) 2800 Lymph # (Auto) 1500 [place] # (Auto) 700 Eos # (Auto) 300 Baso # (Auto) 0 Sodium 136 L Potassium 3.7 Chloride 105 Carbon Dioxide 24 BUN 13 Creatinine 0.61 L Estimated GFR > 60 BUN/Creatinine Ratio 21.3 Glucose 186 H Calcium 8.5 Vancomycin Trough 13.7 Assessment & Plan Assessment & Plan narrative: Assessment: 44-year-old male with right diabetic foot ulcer Plan: We discussed irrigation and debridement of the right foot ulcer. Risks and benefits of surgery were discussed again including the risk of infection, damage to internal structures, bleeding, nerve injury, instability, need for revision surgery, blood clots, anesthesia and . No guarantees were made regarding outcomes. Patient expressed understanding and accepted these risks and wished to go forward with surgery and consent was signed. Time-Based Coding :: [TOTAL MINUTES] spent with patient and on the chart (including review of chart, obtaining history, exam, reviewing outside data, placing orders, documenting exam and treatment plan, and counseling patient) on [DATE].
[2024-04-14] MEDS: LACTATED RINGERS 1,000 ML 42 ML IV (15:37)
--- NOTE | 2024-04-14 15:56 | SUR.OPER ---
Supine on padded OR bed, head on pillow, arms secured on padded arm boards at <90 degrees abduction, legs uncrossed, safety belt at thigh, tape over blanket over lower left leg
[2024-04-14] MEDS: BUPIVACAINE 0.25% (PF) 30 ML, EPINEPHrine 0.15 MG INJ (16:05)
--- NOTE | 2024-04-14 16:10 | PM.OP.1 ---
Operative Date/Time/Diagnoses Date of procedure: 04/14/24 Time of procedure: 16:11 Pre-op diagnosis: Right diabetic foot ulcer Post-op diagnosis: same Procedure & Clinicians Procedure: Irrigation debridement of skin, subcutaneous tissue, and bone right foot Same procedure as scheduled: Yes Indications: This is a 44-year-old man with a right diabetic foot ulcer. To prevent rapid progression and infection we discussed performing irrigation debridement. Risks and benefits of surgery were discussed again including the risk of infection, damage to internal structures, bleeding, nerve injury, instability, need for revision surgery, blood clots, anesthesia and . No guarantees were made regarding outcomes. Patient expressed understanding and accepted these risks and wished to go forward with surgery and consent was signed. Surgeon: Drake Rowley Click Yes if Unassisted: Yes Anesthesia Type: General Operative Notes Findings: 3 x 3 cm diabetic foot ulcer over the 1st MTP sesamoids on the plantar surface Closure Type: non-primary Specimen(s): other (Soft tissue and bone cultures) Prosthetic devices, grafts, tissues, transplants, or devices: None Estimated Blood Loss (mL): 5 Procedure in detail: Patient was met in the preoperative holding area his right lower extremity was marked with initials. He was given 2 g of Ancef IV. He was then brought back to the operating room placed supine on the operating table. All bony prominences were padded. He underwent smooth induction of anesthesia. The right lower extremity was prepped and draped in the standard sterile fashion. A time-out was performed and my initials were again confirmed on the right foot. I began the procedure with sharp dissection around the plantar ulcer. This was taken down to subcutaneous tissue, fat and down to bone. The debridement was taken back to healthy bleeding tissue. A rongeur was used to obtain a sample of bone for culture. I then used a curette for thorough debridement while irrigating with 3 L of sterile saline. After this was performed a wet-to-dry dressing was placed followed by Kerlix and a Sanket bandage. Wet-to-dry dressing changes will be commenced within 24 hours and be performed b.i.d. Complications: none Post-operative Condition: stable Disposition: PACU Plan for aftercare: Wet-to-dry dressing changes b.i.d.
[2024-04-14] MEDS: AMLODIPINE 5 MG TABLET PO (17:01)
[2024-04-14] MEDS: ACETAMINOPHEN 325 MG TABLET 650 MG PO (17:21)
[2024-04-14] MEDS: INSULIN GLARGINE 100 UNIT/ML 3ML PEN 40 UNIT SUBCUT (20:42)
[2024-04-14] MEDS: HEPARIN 5,000 UNIT/ML VIAL 5000 UNIT SUBCUT (21:29)
[2024-04-15] MEDS: OXYCODONE IR 5 MG TABLET PO ×4 (00:21→23:56)
[2024-04-15] MEDS: TRAZODONE 50 MG TABLET 100 MG PO ×2 (00:21→23:56)
[2024-04-15] MEDS: VANCOMYCIN 1,250 MG/250 ML PIGGYBACK 250 MG IV ×2 (00:21→08:17)
[2024-04-15] MEDS: PIPERACILLIN/TAZO 3.375 GM in SODIUM CHLORIDE 0.9% 100 ML IV ×3 (02:50→17:58)
[2024-04-15 04:54] LABS: Add Manual Diff / Slide Review NO; Basophils Absolute Auto 0 /uL (0-100); Basophils Percent Auto 0.1 % (0-2); Eosinophils Absolute Auto 300 /uL (0-450); Eosinophils Percent Auto 4.1 % (2-4); Hematocrit 35.3 % (41-53); Hemoglobin 12.1 g/dL (13.5-17.5); Lymphocytes Absolute Auto 1400 /uL (1100-4500); Lymphocytes Percent Auto 20.6 % (25-40); Mean Corpuscular HGB Conc 34.3 % (30-36); Mean Corpuscular Volume 96.1 fL (80-100); Monocytes Absolute Auto 700 /uL (0-900); Monocytes Percent Auto 9.8 % (3-14); Neutrophils Absolute Auto 4500 /uL (1500-7000); Neutrophils Percent Auto 65.4 % (50-75); Platelet Count 278 X10^3/uL (150-400); Red Blood Cell Count 3.67 X10^6/uL (4.5-5.9); White Blood Cell Count 6.9 X10^3/uL (4.5-11.0)
[2024-04-15 05:25] LABS: BUN Creatinine Ratio 18.2 (6-22); Blood Urea Nitrogen 10 mg/dL (9-20); Calcium 8.3 mg/dL (8.4-10.2); Carbon Dioxide 25 mmol/L (22-32); Chloride 104 mmol/L (98-107); Estimated Glomerular Filt Rate > 60 mL/min (>60); Glucose 170 mg/dL (70-100); HEMOLYSIS < 15 (0-50); Potassium 3.6 mmol/L (3.4-5.1); Sodium 136 mmol/L (137-145)
--- NOTE | 2024-04-15 06:02 | PC.NURSE ---
Moderate pain in R foot - relieved with 5mg oxycodone. Wound dressing change to be done today and then BID.
[2024-04-15 07:19] VITALS: BP 144/67; O2SAT 94
[2024-04-15 07:24] VITALS: BP 144/67; PULSE 94; RESP 18; TEMP 36.2; O2SAT 93
--- NOTE | 2024-04-15 07:42 | PM.PN.1 ---
Subjective Subjective Date Patient Seen: 04/15/24 Time Patient Seen: 08:25 Interval history: Yesterday: Doing about the same. No real pain issues from his foot ulcer. He was scheduled for debridement and some bone resection today. Cultures are not quite finalized. He appears to have some Enterococcus in the wound. Interval history: Underwent debridement yesterday of right 1st MTP 3x3cm foot ulcer with bone biopsy. He has no complaints today. Wound culture is growing out enterococcus from 04/12/2025. Exam Vital Signs (past 8 hours): - 04/15/24 07:24 Temperature 97.1 F L Pulse Rate 94 H Respiratory Rate 18 Blood Pressure 144/67 H Pulse Oximetry 93 Oxygen Flow Rate 0 Oxygen Delivery Method Room Air Oxygen Flow Rate 0 Narrative Exam Narrative: GENERAL: This is a well-nourished, well-developed patient, in no apparent distress. EYES: Pupils equal round and reactive. Extraocular motions intact. No scleral icterus. No injection or drainage. ENT: Mucous membranes pink and moist. NECK: Supple, nontender, no meningeal signs. CARDIOVASCULAR: Regular rate and rhythm without murmurs, gallops, or rubs. RESPIRATORY: Clear to auscultation. GASTROINTESTINAL: Abdomen soft, non-tender, nondistended. EXTREMITIES: No clubbing, cyanosis, or edema. BACK: Nontender without deformity or crepitance. No flank tenderness. NEUROLOGIC: Alert, oriented, speech fluent, full upper and lower motor strength, no focal deficits evident. DERMATOLOGIC: Right foot bandage in place, clean, dry and intact. Distal toes are uncovered and sensation is intact, no cellulitic changes. Objective Labs 04/15/24 04:10 04/15/24 04:10 Labs: Laboratory Results - last 24 hr 04/15/24 04:10 WBC 6.9 RBC 3.67 L Hgb 12.1 L Hct 35.3 L MCV 96.1 MCH 33.0 MCHC 34.3 RDW 13.0 Plt Count 278 Neut % (Auto) 65.4 Lymph % (Auto) 20.6 L [place] % (Auto) 9.8 Eos % (Auto) 4.1 H Baso % (Auto) 0.1 Neut # (Auto) 4500 Lymph # (Auto) 1400 [place] # (Auto) 700 Eos # (Auto) 300 Baso # (Auto) 0 Sodium 136 L Potassium 3.6 Chloride 104 Carbon Dioxide 25 BUN 10 Creatinine 0.55 L Estimated GFR > 60 BUN/Creatinine Ratio 18.2 Glucose 170 H Calcium 8.3 L [facility] Medical History Anxiety Hypokalemia PTSD (post-traumatic stress disorder) Type 1 diabetes Insulin dependent diabetes mellitus Family History Father Diabetes mellitus Social History marital status: household members: spouse and children occupational status: employed Smoking Status: Never smoker Assessment & Plan Assessment & Plan narrative: 1. Right diabetic foot infection, present on admission and active, status post surgical debridement . MRI suggestive of 1st metatarsal osteomyelitis. Bone biopsy obtained and pending. G positive cocci growing out on deep wound culture 04/14/2024, and gentamicin resistant Enterococcus on initial surface culture from 04/12/2024. 2. IDDM, present on admission and active. Inadequate control. Compliance encouraged. 3. PTSD, present on admission and active. 4. Anxiety and depression, present on admission and active. PLAN: -broad-spectrum antibiotics with Zosyn, stop vancomycin at this point. Await cultures and bone cultures. -MRI of the foot consistent with osteomyelitis. -orthopedics consult appreciated -assess diabetic control, A1c is over 8. Increase to moderate correctional. -he will likely need access for long-term IV antibiotics as cultures become available. PICC line placed today. -case reviewed by phone today with Dr. Vero Aj of [facility] who will see him in outpatient follow-up, and offer further advice over the weekend pending culture Full resuscitation. Time-Based Coding :: [TOTAL MINUTES] spent with patient and on the chart (including review of chart, obtaining history, exam, reviewing outside data, placing orders, documenting exam and treatment plan, and counseling patient) on [DATE]. PROFEE Charge codes Subsequent inpatient/observation care: 26808
--- NOTE | 2024-04-15 07:52 | P.PN_ITS ---
Subjective Subjective Interval history: Tyrone is a pleasant 44 year old male w/ mphx sig for IDDM who is POD#1 s/p Irrigation debridement of skin, subcutaneous tissue, and bone right foot by Dr. Rowley. Patient reports he is doing well overall, no significant pain. He feels foot pain is well controlled oral oxycodone. He lives at home w/ his who is willing and able to aid in his post-op pain. He has a walker and knee scooter at home already which he can use for NWB to his RLE. No specific questions or concerns for me today. Denies fever, chills, chest pain, SOB, nausea, vomiting. Exam Vital Signs (past 8 hours): - 04/15/24 07:24 Temperature 97.1 F L Pulse Rate 94 H Respiratory Rate 18 Blood Pressure 144/67 H Pulse Oximetry 93 Oxygen Flow Rate 0 Oxygen Delivery Method Room Air Oxygen Flow Rate 0 Narrative Exam Narrative: Patient lying comfortably in bed during our interview today. No acute distress. AOx3. 5/5 strength with DF, PF, EHL bilaterally. Gross sensation intact throughout the RLE. Calves soft and non-tender bilaterally. SCDs are on and functioning. Post-surgical dressing intact, there is no drainage through the Kerlix and shar bandage. Resp Effort & Inspection: normal respiratory effort and able to speak in complete sentences Psych Appearance: grossly normal Mental Status: mental status grossly normal Speech and Movement: speech and movement normal Objective Labs 04/15/24 04:10 04/15/24 04:10 Labs: Laboratory Results - last 24 hr 04/15/24 04:10 WBC 6.9 RBC 3.67 L Hgb 12.1 L Hct 35.3 L MCV 96.1 MCH 33.0 MCHC 34.3 RDW 13.0 Plt Count 278 Neut % (Auto) 65.4 Lymph % (Auto) 20.6 L [place] % (Auto) 9.8 Eos % (Auto) 4.1 H Baso % (Auto) 0.1 Neut # (Auto) 4500 Lymph # (Auto) 1400 [place] # (Auto) 700 Eos # (Auto) 300 Baso # (Auto) 0 Sodium 136 L Potassium 3.6 Chloride 104 Carbon Dioxide 25 BUN 10 Creatinine 0.55 L Estimated GFR > 60 BUN/Creatinine Ratio 18.2 Glucose 170 H Calcium 8.3 L PFSH Medical History Anxiety Hypokalemia PTSD (post-traumatic stress disorder) Type 1 diabetes Insulin dependent diabetes mellitus Family History Father Diabetes mellitus Social History marital status: household members: spouse and children occupational status: employed Smoking Status: Never smoker Assessment & Plan Post-op Postoperative Procedures: Procedures Operation Date: 04/14/24 14:15 Actual Procedure Side Surgeon p Incision and Drainage Foot, diabetic infection, biopsy Right Drake Rowley MD Postoperative day: 1 Postoperative plan narrative: 1) Discharge disposition per Medicine. Still pending wound cultures, will likely require IV abx upon discharge. 2) Continue multimodal pain management. 3) He is currently getting Heparin for DVT prophylaxis. 4) Continue to work w/ PT. NWB to the [facility]. 5) Currently getting Zosyn for abx, still awaiting final wound cultures. Abx management per medicine, may need ID consult once cultures are back. 6) Patient will need wet-to-dry dressing changes b.i.d. 7) Follow up at [facility] orthopedics in 1 week for a postop appointment and wound check. All patient's questions were answered, he demonstrates understanding and is in agreement with the plan. Call our office if any questions or concerns arise.
[2024-04-15] MEDS: HEPARIN 5,000 UNIT/ML VIAL 5000 UNIT SUBCUT ×2 (08:11→20:13)
[2024-04-15 08:16] VITALS: BP 144/67; PULSE 80
[2024-04-15] MEDS: ESCITALOPRAM 10 MG TABLET PO (08:16)
[2024-04-15] MEDS: lisinopriL 20 MG TABLET PO (08:16)
[2024-04-15] MEDS: SODIUM CHLORIDE 0.9% 250 ML 21 ML IV (08:16)
[2024-04-15] MEDS: AMLODIPINE 5 MG TABLET PO (08:16)
[2024-04-15] MEDS: INSULIN LISPRO 100 UNIT/ML 3ML VIAL SUBCUT ×4 (08:17→20:54)
[2024-04-15] MEDS: LACTOBACILLUS ACIDOPHILUS TABLET 1 EACH PO ×2 (09:52→16:21)
--- NOTE | 2024-04-15 11:34 | DI.RAD.S_ITS ---
PROCEDURE: XR CHEST 1V INDICATIONS: PICC placement TECHNIQUE: One view of the chest was acquired. COMPARISON: [facility], CR, XR CHEST 2V, 01/31/2022, 13:03. FINDINGS: Surgical changes and devices: Left PICC line is present distal tip projecting over the distal SVC. Lungs and pleura: Lungs are clear. No pleural effusions or pneumothorax. Mediastinum: Mediastinal contours appear normal. Heart size is normal. Bones and chest wall: No suspicious bony lesions. Overlying soft tissues appear unremarkable. IMPRESSION: No acute pulmonary process. Left PICC line projecting over the distal SVC. Dictated by: Dinorah Barroso M.D. on 04/15/2024 at 12:18 Approved by: Dinorah Barroso M.D. on 04/15/2024 at 12:18
--- NOTE | 2024-04-15 14:40 | CM.DPC ---
DCP Cont: Per Ortho, I&D completed and biopsy of bone taken and awaiting cultures for likely need of correction IV-Abx. Per MD, PICC order placed and consulted with Dr. Aj at [facility] and she will follow for recommendations. Per RN, PICC placed this afternoon and PT orderd placed and pending. SW called [facility] and provided new referral and still awaiting cultures to determine IV-Abx frequency and dosing towards determining any out of pocket costs. [facility] will continue to follow. KOSTAS Syed kindly faxed new referral to review. No referral sent to outpt [facility]fusion [facility] yet as they are closed today Thu and this weekend and still waiting to determine if once a day or multiple times a day frequency. Plan: SW to follow closely in the AM to determine if culture results returned yet and PT eval towards ongoing discussion with pt and spouse for d/c planning needs. AUBREY Garrett
[2024-04-15] MEDS: ACETAMINOPHEN 325 MG TABLET 650 MG PO (16:20)
[2024-04-15 20:07] VITALS: O2SAT 95
[2024-04-15 20:08] VITALS: BP 189/79; PULSE 92; O2SAT 94
[2024-04-15 20:25] VITALS: BP 189/79; PULSE 93; RESP 18; TEMP 36.8; O2SAT 97
[2024-04-15] MEDS: INSULIN GLARGINE 100 UNIT/ML 3ML PEN 40 UNIT SUBCUT (20:54)
[2024-04-16] MEDS: PIPERACILLIN/TAZO 3.375 GM in SODIUM CHLORIDE 0.9% 100 ML IV ×3 (02:11→18:00)
[2024-04-16 07:37] VITALS: O2SAT 92
[2024-04-16 07:38] VITALS: BP 158/74; PULSE 111; O2SAT 99
[2024-04-16 07:45] VITALS: BP 158/74; PULSE 110; RESP 18; TEMP 36.4; O2SAT 99
[2024-04-16] MEDS: lisinopriL 20 MG TABLET PO (08:22)
[2024-04-16] MEDS: ESCITALOPRAM 10 MG TABLET PO (08:22)
[2024-04-16] MEDS: HEPARIN 5,000 UNIT/ML VIAL 5000 UNIT SUBCUT ×2 (08:22→21:13)
[2024-04-16] MEDS: INSULIN LISPRO 100 UNIT/ML 3ML VIAL SUBCUT ×4 (08:22→21:14)
[2024-04-16] MEDS: AMLODIPINE 5 MG TABLET PO (08:22)
[2024-04-16] MEDS: LACTOBACILLUS ACIDOPHILUS TABLET 1 EACH PO ×2 (08:25→17:00)
[2024-04-16] MEDS: OXYCODONE IR 5 MG TABLET PO (08:27)
--- NOTE | 2024-04-16 09:13 | PM.PN.1 ---
Subjective Subjective Date Patient Seen: 04/16/24 Time Patient Seen: 08:10 Interval history: The patient has no complaints. No new events. Exam Vital Signs (past 8 hours): - 04/16/24 07:45 Temperature 97.6 F Pulse Rate 110 H Respiratory Rate 18 Blood Pressure 158/74 H Pulse Oximetry 99 Oxygen Flow Rate 0 Oxygen Delivery Method Room Air Oxygen Flow Rate 0 Narrative Exam Narrative: GENERAL: This is a well-nourished, well-developed patient, in no apparent distress. ENT: Mucous membranes pink and moist. NECK: Supple. EXTREMITIES: No clubbing, cyanosis, or edema. NEUROLOGIC: Alert, oriented, speech fluent, full upper and lower motor strength, no focal deficits evident. DERMATOLOGIC: Right foot bandage in place, clean, dry and intact. Distal toes are uncovered and sensation is intact, no cellulitic changes. Objective Labs 04/15/24 04:10 04/15/24 04:10 [facility] Medical History Anxiety Hypokalemia PTSD (post-traumatic stress disorder) Type 1 diabetes Insulin dependent diabetes mellitus Family History Father Diabetes mellitus Social History marital status: household members: spouse and children occupational status: employed Smoking Status: Never smoker Assessment & Plan Assessment & Plan narrative: 1. Right diabetic foot infection with osteomyelitis, present on admission and active, status post surgical debridement 04/14/2024. MRI suggestive of 1st metatarsal osteomyelitis. Bone biopsy obtained and final culture pending for anaerobes, with E. faecalis growing out on deep wound culture 04/14/2024, and gentamicin resistant Enterococcus on initial surface culture from 04/12/2024. 2. IDDM, present on admission and active. Inadequate control. Compliance encouraged. 3. PTSD, present on admission and active. 4. Anxiety and depression, present on admission and active. PLAN: -broad-spectrum antibiotics with Zosyn. Await anaerobe cultures and bone biopsy. -MRI of the foot consistent with osteomyelitis. -orthopedics and ID consult appreciated -assess diabetic control, A1c is over 8. Increase to moderate correctional. -he will likely need access for long-term IV antibiotics as cultures become available. PICC line placed today. -case reviewed by phone again today with Dr. Vero Aj of [facility] who will see him in outpatient follow-up, and offer further advice over the weekend pending culture Full resuscitation. Time-Based Coding :: [TOTAL MINUTES] spent with patient and on the chart (including review of chart, obtaining history, exam, reviewing outside data, placing orders, documenting exam and treatment plan, and counseling patient) on [DATE]. PROFEE Charge codes Subsequent inpatient/observation care: 93892
--- NOTE | 2024-04-16 11:30 | PT.IIE ---
Current Diagnoses Type 1 diabetes mellitus with foot ulcer (04/14/24) Cellulitis of right lower limb (04/14/24) Non-pressure chronic ulcer of right heel and midfoot with fat layer exposed (04/14/24) Non-pressure chronic ulcer of other part of unspecified foot with unspecified severity (04/14/24) Non-pressure chronic ulcer of other part of right foot with unspecified severity (04/14/24) Osteomyelitis, unspecified (04/14/24) Surgery Performed Operation Date: 04/14/24 14:15 Actual Procedures p Incision and Drainage Foot, diabetic infection, biopsy(Right) - Drake Rowley MD Medical History (Last Reviewed 04/16/24 @ 09:15 by Ranulfo Reyes MD) Anxiety Hypokalemia Insulin dependent diabetes mellitus PTSD (post-traumatic stress disorder) Type 1 diabetes Physical Therapy Inpatient Evaluation/Re-Eval M1 PT/OT-IP Prior Functional Status Start: 04/16/24 13:11 Freq: NEEDED Status: Active Protocol: Document 04/16/24 11:30 AB (Rec: 04/16/24 13:33 AB [id number]) Medical Review Prior Functional Status Medical History Reviewed Yes Communication able to make needs known Mobility and Gait pt stated that he was indpendent with all mobilities and ambulation without AD Social History Household Members spouse,children Living Arrangements House Number of Floors (Floors) Two Floors Number of Stairs To Enter/Railing? pt stays on main level of the house has 4 steps L rail ascending to enter the house Home Environment Standard Height Toilet,Walk in Shower,Tub/Shower,Built-In Shower Seat Home Equipment Front Wheel Walker,Hand Held Shower Additional Social History Comment pt has a knee scooter M2 PT-IP Current Condition Start: 04/16/24 13:11 Freq: NEEDED Status: Active Protocol: Document 04/16/24 11:30 AB (Rec: 04/16/24 13:33 AB [id number]) Physical Therapy Current Condition Current Condition Evaluation Date 04/16/24 Treatment Diagnosis R foot osteomyelitis s/p I&D; difficulty in walking Onset Date 04/14/24 M3 PT-IP Subjective Start: 04/16/24 13:11 Freq: NEEDED Status: Active Protocol: Document 04/16/24 11:30 AB (Rec: 04/16/24 13:33 [id number]) Subjective Physical Therapy Visit Type Type Initial Evaluation Visit Start Time 11:30 Visit Stop Time 12:15 Number of SENIOR PATROL AGENT Visits 0 Physical Therapy Visit Comments Patient Comments agreeable to do PT Therapy Pain Assessment Pain When Pain Assessed At Rest Pain Present Pain Present Pain Reported Location Right Foot Intensity 4 Scale Used Numeric (0 - 10) Pain Behaviors Guarding Pain Management Techniques Distraction,Modification of Treatment,Re-positioning, Timing of Activity with Medications M4 PT-IP Mobility and Gait Start: 04/16/24 13:11 Freq: NEEDED Status: Active Protocol: Document 04/16/24 11:30 AB (Rec: 04/16/24 13:33 [id number]) PT-Bed Mobility Assessment Supine to Sit Supine to Sit Standby Assistance Sit to Supine Sit to Supine Standby Assistance PT-Transfer Assessment Sit to and From Stand Sit to and from Stand Contact Guard Assistance,1 Person Assistance,Use of Upper Extremities Equipment Transfer Assistive Device Gait Belt,Front Wheeled Walker Orthotic/Prosthetic Devices or Brace: No Comments Mobility Comments pt supine in bed and agreeable to do PT. obtained PLOF and home set up from pt. pt completed supine to sit SBA. able to sit on EOB SBA. pt educated on NWB on RLE and pt understood. completed sit to stand CGA and cues. presents with unsteadiness with initial standing. pt ambulated in room using FWW SBA to CGA. pt was able to maintain NWB on RLE. pt sat back on EOB. pt agreed to use crutches to assess if he will be able to use crutches for stair climbing. educated pt on how to use crutches. pt completed sit to stand min A and only able to ambulate 2 ft using crutches and instructed to sit back on EOB. pt requiring min to mod A and presents with unsteady gait and unable to clear the floor much during ambulation. informed pt regarding use of FWW for transfers and ambulation. pt agreed. informed pt regarding concern with stair climbing as pt has 4 steps to enter with only L rail ascending. pt stated that he can have his son on the R side of him to sort of carry him up the step. will continue to assess for best safe way to do stairs for pt. informed housing case manager. pt requested to go back in bed . sit to supine SBA. positioned pt in bed. call light and table placed within reach. Gait Assessment Gait Gait Assistance Required: Standby Assistance,Contact Guard Assist Distance (Feet) 20 Able to Maintain Weight Bearing Status Yes During Gait Assistive Devices Assistive Device Gait Belt,Front Wheeled Walker ,Axillary Crutches Orthotic/Prosthetic Devices or Brace: No Gait Deviations General Gait Pattern Decreased Feet Clearance Factors Limiting Gait Function Factors Limiting Gait Function Decreased Activity Tolerance, Decreased Sensation,Decreased Strength,Limited Range of Motion,Pain,Poor Balance,Poor Safety Awareness PT-Balance Assessment Sitting Balance and Reactions Static Sitting Balance Ability Normal Dynamic Sitting Balance Ability Good Standing Balance and Reactions Static Standing Balance Ability Fair Dynamic Standing Balance Ability Fair Device Used FWW M5 PT-IP Objective Assessments Start: 04/16/24 13:11 Freq: NEEDED Status: Active Protocol: Document 04/16/24 11:30 AB (Rec: 04/16/24 13:33 AB [id number]) Orientation Orientation/Cognition Level of Alertness Alert Orientation Name,Place,Situation Language Function Ability No Deficits Noted Safety Awareness Understands Safety Issues Memory Description No Deficits Noted Gross Range of Motion Lower Extremity ROM Assessment Within Functional Limits Strength Lower Extremity Strength Hip 4-/5 Knee 4-/5 Sensation Assessment Sensation Sensation Description Numbness Comments Sensation Comments BLE neuropathy Muscle Tone Muscle Tone WNL Yes M6 PT-IP Treatment Start: 04/16/24 13:11 Freq: NEEDED Status: Active Protocol: Document 04/16/24 11:30 AB (Rec: 04/16/24 13:33 AB [id number]) Physical Therapy Treatment Education Education Provided Weight Bearing Status,Safety M7 PT-IP Assessment and Plan Start: 04/16/24 13:11 Freq: NEEDED Status: Active Protocol: Document 04/16/24 11:30 AB (Rec: 04/16/24 13:33 AB [id number]) PT Summary Assessment and Plan Potential Rehabilitation Potential Fair Status of Condition at Evaluation Evolving Summary Impairments Pain,ROM,Strength,Balance, Coordination,Sensation,Tone, Cognition,Bed Mobility, Transfers,Gait,Activity Tolerance Assessment Summary pt is a 44 y/o M who had a R foot ulcer/osteomyelitis and underwent I&D. pt is NWB on RLE per PA. pt requiring SBA to CGA with mobility using FWW . pt will have his family to assist him at home. pt has stairs to enter the house will continue effort to address how pt will be able to safely get into his house with NWB on RLE. will continue to assess . Goals Bed Mobility Goal Independent Transfer Goal Independent,Front Wheeled Walker Gait Goal Independent,Front Wheel Walker Gait Distance 100 Other Goals up/down 4 steps using L rail SBA Days to Meet Goals 10 Frequency of Treatment Frequency Of Treatment Once a Day Treatment Plan Physical Therapy Treatment Plan Bed Mobility Training,Transfer Training,Gait Training, Therapeutic Exercise,Balance Retraining,Post Op Education, Discharge Planning,Hot or Cold Pack,Neuromuscular Re-ed, Coordination Retraining,Manual Therapy Precautions Other Precautions contact precautions: R foot ulcer Weight Bearing Status Weight Bearing Status Non-Weight Bearing Allowed Weight Bearing Amount (enter % RLE NWB or #) (%) Recommendations To Nursing Amount of Assist Needed 1 Person Assist Discharge Recommendations PT Discharge Recommendations Home with Assistance,Home Health Transportation Needs at Discharge Private Vehicle,Wheelchair/ Cabulance
--- NOTE | 2024-04-16 11:44 | P.PN_ITS ---
Subjective Subjective Interval history: Tyrone is a pleasant 44 year old male w/ mphx sig for IDDM who is POD#2 s/p Irrigation debridement of skin, subcutaneous tissue, and bone right foot by Dr. Rowley. Patient reports he is doing well overall, no significant pain. He feels foot pain is well controlled oral oxycodone. He lives at home w/ his who is willing and able to aid in his post-op care. He has a walker and knee scooter at home already which he can use for NWB to his RLE although he does have 4 steps up to his home. He will work w/ PT today to evaluate how stable patient is w/ using crutches and stairs. No new concerns for me today. Denies fever, chills, chest pain, SOB, nausea, vomiting. Exam Vital Signs (past 8 hours): - 04/16/24 07:00 04/16/24 07:45 Temperature 97.6 F Pulse Rate 110 H Respiratory Rate 18 Blood Pressure 158/74 H Pulse Oximetry 99 Oxygen Delivery Method Room Air Oxygen Flow Rate 0 Oxygen Delivery Method Room Air Oxygen Flow Rate 0 Narrative Exam Narrative: Patient sitting comfortably in bed during our interview today. No acute distress. AOx3. 5/5 strength with DF, PF, EHL bilaterally. Gross sensation intact throughout the RLE. Calves soft and non-tender bilaterally. SCDs are on and functioning. Post-surgical dressing intact, there is no drainage through the Kerlix and shar bandage. Resp Effort & Inspection: normal respiratory effort and able to speak in complete sentences Psych Appearance: grossly normal Mental Status: mental status grossly normal Speech and Movement: speech and movement normal Objective Labs 04/15/24 04:10 04/15/24 04:10 [facility] Medical History Anxiety Hypokalemia PTSD (post-traumatic stress disorder) Type 1 diabetes Insulin dependent diabetes mellitus Family History Father Diabetes mellitus Social History marital status: household members: spouse and children occupational status: employed Smoking Status: Never smoker Assessment & Plan Post-op Postoperative Procedures: Procedures Operation Date: 04/14/24 14:15 Actual Procedure Side Surgeon p Incision and Drainage Foot, diabetic infection, biopsy Right Drake Rowley MD Postoperative day: 2 Postoperative plan narrative: 1) Discharge disposition per Medicine, likely tomorrow. Still pending final wound cultures, so far they are growing Enterococcus. Will likely require IV abx upon discharge. May need ID consult once final cultures are back. 2) Continue multimodal pain management. 3) He is currently getting Heparin for DVT prophylaxis. 4) Continue to work w/ PT. NWB to the [facility]. 5) Currently getting Zosyn for abx, still awaiting final wound cultures. 6) Patient will need wet-to-dry dressing changes b.i.d. 7) Follow up at [facility] orthopedics in 1 week for a postop appointment and wound check. All patient's questions were answered, he demonstrates understanding and is in agreement with the plan. Call our office if any questions or concerns arise.
--- NOTE | 2024-04-16 12:15 | PC.NURSE ---
Per ortho: wound care to be performed BID. Wet to dry, krillex, shar wrap. Completed at 1210, patient tolerated well.
[2024-04-16 19:00] VITALS: BP 189/80; PULSE 94; RESP 18; TEMP 36.6; O2SAT 100
[2024-04-16 21:02] VITALS: BP 175/76
[2024-04-16] MEDS: INSULIN GLARGINE 100 UNIT/ML 3ML PEN 40 UNIT SUBCUT (21:14)
[2024-04-17] MEDS: OXYCODONE IR 5 MG TABLET PO (00:13)
[2024-04-17] MEDS: TRAZODONE 50 MG TABLET 100 MG PO ×2 (00:14→21:15)
[2024-04-17] MEDS: PIPERACILLIN/TAZO 3.375 GM in SODIUM CHLORIDE 0.9% 100 ML IV ×3 (02:25→17:47)
[2024-04-17 07:45] VITALS: BP 209/87; PULSE 90; RESP 14; TEMP 36.6; O2SAT 98
[2024-04-17] MEDS: ESCITALOPRAM 10 MG TABLET PO (08:02)
[2024-04-17] MEDS: HEPARIN 5,000 UNIT/ML VIAL 5000 UNIT SUBCUT ×2 (08:02→21:10)
[2024-04-17] MEDS: AMLODIPINE 5 MG TABLET PO (08:02)
[2024-04-17] MEDS: lisinopriL 20 MG TABLET PO (08:02)
[2024-04-17] MEDS: LACTOBACILLUS ACIDOPHILUS TABLET 1 EACH PO ×2 (08:03→17:16)
--- NOTE | 2024-04-17 09:32 | PM.PNPO.1 ---
Subjective Subjective Date Patient Seen: 04/17/24 Time Patient Seen: 09:32 Interval history: Tyrone is a pleasant 44 year old male w/ mphx sig for IDDM diabetes type 1 who is POD#3 s/p Irrigation debridement of skin, subcutaneous tissue, and bone right foot by Dr. Rowley. Patient reports he is doing well overall, no significant pain. He feels foot pain is well controlled oral oxycodone. He lives at home w/ his who is willing and able to aid in his post-op care. He has a walker and knee scooter at home already which he can use for NWB to his RLE although he does have 4 steps up to his home. Cultures growing Enterococcus. Hospitalist team coordinating with the [facility] Infectious Disease. He has been getting b.i.d. wet-to-dry dressing changes on the floor. No new concerns for me today. Denies fever, chills, chest pain, SOB, nausea, vomiting. Exam Vital Signs (past 8 hours): - 04/17/24 07:00 04/17/24 07:45 Temperature 97.9 F Pulse Rate 90 Respiratory Rate 14 Blood Pressure 209/87 H Pulse Oximetry 98 Oxygen Delivery Method Room Air Oxygen Flow Rate 0 Oxygen Delivery Method Room Air Oxygen Flow Rate 0 Narrative Exam Narrative: Alert and oriented male in no acute distress Sitting in bed. Right lower extremity an interesting in a wrap around the foot. This was taken down. Wet-to-dry dressing is removed and wound evaluated. Wound bed is approximately 5 x 5 cm round area with exposed medial sesamoid and partial exposure FHL. Small areas of fibrinous tissue. No gross purulence or malodor today. Mild surrounding erythema locally. Calf is soft. Brisk capillary refill. Objective Labs 04/15/24 04:10 04/15/24 04:10 [facility] Medical History Anxiety Hypokalemia PTSD (post-traumatic stress disorder) Type 1 diabetes Insulin dependent diabetes mellitus Family History Father Diabetes mellitus Social History marital status: household members: spouse and children occupational status: employed Smoking Status: Never smoker Assessment & Plan Post-op Postoperative Procedures: Procedures Operation Date: 04/14/24 14:15 Actual Procedure Side Surgeon p Incision and Drainage Foot, diabetic infection, biopsy Right Drake Rowley MD Postoperative day: 3 Postoperative status: doing well Postoperative plan: routine post-op care Postoperative plan narrative: Postoperative plan narrative: 1) Discharge disposition per Medicine, Still pending final wound cultures, so far they are growing Enterococcus. likely require IV abx upon discharge. Recommend ID consult-per hospitalist have discussed with infectious disease at [facility] Dr. Aj 2) Continue multimodal pain management. 3) He is currently getting Heparin for DVT prophylaxis. 4) Continue to work w/ PT. NWB to the E. 5) Currently getting Zosyn for abx, still awaiting final wound cultures. 6) Patient will need wet-to-dry dressing changes b.i.d. --recommend establishing outpatient with [facility] for ongoing wound care and monitoring. Discussed risk for potential need for further surgery or amputation with diabetic foot infections--if unable to granulate over sesamoid and FHL may need additional surgery which can include debridement, resection arthroplasty or amputation 7) Follow up at [facility] orthopedics in 1 week for a postop appointment and wound check. 8) wet-to-dry dressing changed this morning Time Spent With Patient Time with patient: 15-24 minutes Quality VTE Deep Vein Thrombosis/Pulmonary Embolism Present on Admission: No
[2024-04-17] MEDS: INSULIN GLARGINE 100 UNIT/ML 3ML PEN 10 UNIT SUBCUT (10:42)
--- NOTE | 2024-04-17 11:34 | PT.IPTN ---
Current Diagnoses Type 1 diabetes mellitus with foot ulcer (04/14/24) Cellulitis of right lower limb (04/14/24) Non-pressure chronic ulcer of right heel and midfoot with fat layer exposed (04/14/24) Non-pressure chronic ulcer of other part of unspecified foot with unspecified severity (04/14/24) Non-pressure chronic ulcer of other part of right foot with unspecified severity (04/14/24) Osteomyelitis, unspecified (04/14/24) Surgery Performed Operation Date: 04/14/24 14:15 Actual Procedures p Incision and Drainage Foot, diabetic infection, biopsy(Right) - Drake Rowley MD Physical Therapy Treatment Note M2 PT-IP Current Condition Start: 04/16/24 13:11 Freq: NEEDED Status: Active Protocol: Document 04/16/24 11:30 AB (Rec: 04/16/24 13:33 AB [id number]) Physical Therapy Current Condition Current Condition Evaluation Date 04/16/24 Treatment Diagnosis R foot osteomyelitis s/p I&D; difficulty in walking Onset Date 04/14/24 M3 PT-IP Subjective Start: 04/16/24 13:11 Freq: NEEDED Status: Active Protocol: Document 04/17/24 11:20 KS (Rec: 04/17/24 12:54 KS [id number]) Subjective Physical Therapy Visit Type Type Treatment Note Visit Start Time 11:20 Visit Stop Time 11:34 Number of SURGICAL PATHOLOGIST Visits 1 Physical Therapy Visit Comments Patient Comments agreeable to do PT M4 PT-IP Mobility and Gait Start: 04/16/24 13:11 Freq: NEEDED Status: Active Protocol: Document 04/17/24 11:20 KS (Rec: 04/17/24 12:54 KS [id number]) PT-Bed Mobility Assessment Supine to Sit Supine to Sit Standby Assistance Sit to Supine Sit to Supine Standby Assistance PT-Transfer Assessment Sit to and From Stand Sit to and from Stand Contact Guard Assistance,1 Person Assistance,Use of Upper Extremities Equipment Transfer Assistive Device Gait Belt,Front Wheeled Walker Orthotic/Prosthetic Devices or Brace: No Transfers Transfer Destination Bed Transfer Technique ambulated/hopped w/ FWW Transfer Ability Level of Assist Standby Assistance,Contact Guard Assistance Comments Mobility Comments Pt in bed upon arrival, agreeable to practice ambulating. Ambulated w/ FWW ~ 40 ft and expressed fatigue following. Only requires SBA t o CGA throughout. Has FWW and scooter at home and supportive family. Gait Assessment Gait Gait Assistance Required: Standby Assistance,Contact Guard Assist,1 Person Assist Distance (Feet) 40 Able to Maintain Weight Bearing Status Yes During Gait Assistive Devices Assistive Device Gait Belt,Front Wheeled Walker Orthotic/Prosthetic Devices or Brace: No Gait Deviations General Gait Pattern Decreased Feet Clearance Factors Limiting Gait Function Factors Limiting Gait Function Decreased Activity Tolerance, Decreased Sensation,Decreased Strength,Limited Range of Motion,Pain,Poor Balance,Poor Safety Awareness PT-Balance Assessment Sitting Balance and Reactions Static Sitting Balance Ability Normal Dynamic Sitting Balance Ability Good Standing Balance and Reactions Static Standing Balance Ability Fair Dynamic Standing Balance Ability Fair Device Used FWW M5 PT-IP Objective Assessments Start: 04/16/24 13:11 Freq: NEEDED Status: Active Protocol: Document 04/16/24 11:30 AB (Rec: 04/16/24 13:33 AB [id number]) Orientation Orientation/Cognition Level of Alertness Alert Orientation Name,Place,Situation Language Function Ability No Deficits Noted Safety Awareness Understands Safety Issues Memory Description No Deficits Noted Gross Range of Motion Lower Extremity ROM Assessment Within Functional Limits Strength Lower Extremity Strength Hip 4-/5 Knee 4-/5 Sensation Assessment Sensation Sensation Description Numbness Comments Sensation Comments BLE neuropathy Muscle Tone Muscle Tone WNL Yes M6 PT-IP Treatment Start: 04/16/24 13:11 Freq: NEEDED Status: Active Protocol: Document 04/17/24 11:20 KS (Rec: 04/17/24 12:54 KS [id number]) Physical Therapy Treatment Education Education Provided Weight Bearing Status,Safety M7 PT-IP Assessment and Plan Start: 04/16/24 13:11 Freq: NEEDED Status: Active Protocol: Document 04/17/24 11:20 KS (Rec: 04/17/24 12:54 KS [id number]) PT Summary Assessment and Plan Potential Rehabilitation Potential Fair Status of Condition at Evaluation Evolving Summary Impairments Pain,ROM,Strength,Balance, Coordination,Sensation,Tone, Cognition,Bed Mobility, Transfers,Gait,Activity Tolerance Progress Towards Goals Progressing Toward Goals Assessment Summary Pt doing well maintaining NWB status while using FWW. SBA to CGA. States that his son will help him upstairs when going home and there is a rail. Feels he can maintain NWB while performing stairs. Goals Bed Mobility Goal Independent Transfer Goal Independent,Front Wheeled Walker Gait Goal Independent,Front Wheel Walker Gait Distance 100 Other Goals up/down 4 steps using L rail SBA Days to Meet Goals 10 Frequency of Treatment Frequency Of Treatment Once a Day Treatment Plan Physical Therapy Treatment Plan Bed Mobility Training,Transfer Training,Gait Training, Therapeutic Exercise,Balance Retraining,Post Op Education, Discharge Planning,Hot or Cold Pack,Neuromuscular Re-ed, Coordination Retraining,Manual Therapy Precautions Other Precautions contact precautions: R foot ulcer Weight Bearing Status Weight Bearing Status Non-Weight Bearing Allowed Weight Bearing Amount (enter % RLE NWB or #) (%) Recommendations To Nursing Amount of Assist Needed 1 Person Assist Discharge Recommendations PT Discharge Recommendations Home with Assistance,Home Health Transportation Needs at Discharge Private Vehicle,Wheelchair/ Cabulance
[2024-04-17] MEDS: INSULIN LISPRO 100 UNIT/ML 3ML VIAL SUBCUT ×3 (12:09→21:14)
--- NOTE | 2024-04-17 13:43 | PM.PN.1 ---
Subjective Subjective Date Patient Seen: 04/17/24 Time Patient Seen: 12:40 Interval history: The patient has no complaints today, with stable right foot wound and dressing in place. He has a tendency for blood sugars to be in the 130s to 140 in the morning but up to the 300 in the evening. Exam Vital Signs (past 8 hours): - 04/17/24 07:00 04/17/24 07:45 Temperature 97.9 F Pulse Rate 90 Respiratory Rate 14 Blood Pressure 209/87 H Pulse Oximetry 98 Oxygen Delivery Method Room Air Oxygen Flow Rate 0 Oxygen Delivery Method Room Air Oxygen Flow Rate 0 Narrative Exam Narrative: GENERAL: This is a well-nourished, well-developed patient, in no apparent distress. ENT: Mucous membranes pink and moist. NECK: Supple. EXTREMITIES: No clubbing, cyanosis, or edema. NEUROLOGIC: Alert, oriented, speech fluent, full upper and lower motor strength, no focal deficits evident. DERMATOLOGIC: Right foot bandage in place, clean, dry and intact. Distal toes are uncovered and sensation is intact, no cellulitic changes. Objective Labs 04/15/24 04:10 04/15/24 04:10 [facility] Medical History Anxiety Hypokalemia PTSD (post-traumatic stress disorder) Type 1 diabetes Insulin dependent diabetes mellitus Family History Father Diabetes mellitus Social History marital status: household members: spouse and children occupational status: employed Smoking Status: Never smoker Assessment & Plan Assessment & Plan narrative: 1. Right diabetic foot infection with osteomyelitis, present on admission and active, status post surgical debridement 04/14/2024. MRI suggestive of 1st metatarsal osteomyelitis. Bone biopsy obtained and final culture pending for anaerobes, with E. faecalis growing out on deep wound culture 04/14/2024, and gentamicin resistant Enterococcus on initial surface culture from 04/12/2024. Discussed with microbiology. Anticipate return of final anaerobic cultures tomorrow. If normal may go out on ampicillin infusion. If anaerobes present will need anaerobic coverage such as Zosyn. This will be coordinated through outpatient IV services through a left arm PICC line which was placed on 04/15/2024. Linezolid is contraindicated given psychotropic medications. 2. IDDM, present on admission and active. Inadequate control with hemoglobin A1c 9.6% on 04/12/2024. Compliance encouraged. 3. PTSD, present on admission and active. 4. Anxiety and depression, present on admission and active. PLAN: -broad-spectrum antibiotics with Zosyn. Await anaerobe cultures and bone biopsy. -orthopedics and ID consult appreciated -split Lantus to 10 units in the morning, 30 units in the evening. Likely increase doses further at discharge. Outpatient endocrinology consultation for insulin pump advised -he will likely need access for long-term IV antibiotics as cultures become available. PICC line placed 04/15/2024. -case reviewed by phone yesterday with Dr. Vero Aj of [facility] who will see him in outpatient follow-up, and offer further advice at discharge pending culture Full resuscitation. Time-Based Coding :: [TOTAL MINUTES] spent with patient and on the chart (including review of chart, obtaining history, exam, reviewing outside data, placing orders, documenting exam and treatment plan, and counseling patient) on [DATE]. Quality VTE Deep Vein Thrombosis/Pulmonary Embolism Present on Admission: No IH PROFEE Charge codes Subsequent inpatient/observation care: [id number]
[2024-04-17] MEDS: ACETAMINOPHEN 325 MG TABLET 650 MG PO (17:47)
[2024-04-17 20:07] VITALS: BP 154/67; PULSE 67; RESP 16; O2SAT 100
[2024-04-17] MEDS: INSULIN GLARGINE 100 UNIT/ML 3ML PEN 30 UNIT SUBCUT (21:13)
[2024-04-18] MEDS: PIPERACILLIN/TAZO 3.375 GM in SODIUM CHLORIDE 0.9% 100 ML IV (02:16)
[2024-04-18 07:35] VITALS: BP 172/89; PULSE 98; RESP 20; O2SAT 100
[2024-04-18] MEDS: ACETAMINOPHEN 325 MG TABLET 650 MG PO (08:08)
[2024-04-18] MEDS: OXYCODONE IR 5 MG TABLET PO (08:08)
[2024-04-18 08:13] VITALS: BP 172/89; PULSE 99
[2024-04-18] MEDS: ESCITALOPRAM 10 MG TABLET PO (08:13)
[2024-04-18] MEDS: lisinopriL 20 MG TABLET PO (08:13)
[2024-04-18] MEDS: LACTOBACILLUS ACIDOPHILUS TABLET 1 EACH PO (08:13)
[2024-04-18] MEDS: AMLODIPINE 5 MG TABLET PO (08:13)
[2024-04-18] MEDS: HEPARIN 5,000 UNIT/ML VIAL 5000 UNIT SUBCUT (08:13)
[2024-04-18] MEDS: hydrOXYzine HCL 25 MG TABLET PO (08:27)
[2024-04-18] MEDS: INSULIN GLARGINE 100 UNIT/ML 3ML PEN 10 UNIT SUBCUT (08:30)
[2024-04-18] MEDS: INSULIN LISPRO 100 UNIT/ML 3ML VIAL SUBCUT ×2 (08:30→12:08)
[2024-04-18] MEDS: AMPICILLIN 2,000 MG in SODIUM CHLORIDE 0.9% 100 ML 200 MG IV ×2 (09:45→13:04)
[2024-04-18] MEDS: SODIUM CHLORIDE 0.9% 250 ML 21 ML IV (09:46)
--- NOTE | 2024-04-18 10:53 | CM.DPC ---
Addendum entered by Allegra Jensen, STAFF TOXICOLOGIST 04/18/24 15:34: ADD: [facility] has reached out to pt to get him on their schedule for this week on Thu. MARIPOSA spoke to Dr. Aj [phone] and faxed pt's discharge summary and clinicals to their [facility] ID office at fax [phone] to review and get auth for outpt f/u. 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 F2F and referral already made and d/c summ faxed. SW updated pt and provided [facility] brochure and he remains agreeable. BF Original Note: DCP DIscharge home with Infusion and HH and wound care Per MD, after discussion with ID MD Dr. Aj decision of IV Ampicillin 2g Q4 continuous infusion and Dr. Aj to follow outpt. Pt to have one dose of Ampicillin prior to discharge today to confirm he can tolerate and per RN dose has now been infused. Pt medically stable to discharge today if IV-Abx set up. Per Ortho, continue wet to dry dressing changes daily and recommend outpt Wound Clinic. Dr. Hall met bedside with pt a few days ago and [facility] aware of patient. MARIPOSA faxed facesheet and left voicemail stating pt likely to discharge home today and to please get pt on their schedule. Per PT, home with assist and HH and will work with pt today on plan to manage the 4 stairs into the home for discharge. MARIPOSA faxed IV-Abx script and PICC insertion note to [facility] and confirmed with Luis that pt has $0 out of pocket, no deductible, no copay and they have an RN available for teach today at 1500 in the home. MARIPOSA met bedside with pt and explained role and provided [facility] brochure and explained home infusion and pt agreeable with discharge home and hopeful for around lunch time. MARIPOSA discussed recommendation of HH RN (for wound care and PICC) and likely PT/OT and maybe WORKSITE WELLNESS PRACTITIONER. Pt remains agreeable and preference is [facility] after reviewing HH Choice List. Pt also in agreement with [facility] and aware they will call him to get scheduled. MARIPOSA made [facility] referral for RN/PT/OT/WORKSITE WELLNESS PRACTITIONER and sent completed F2F and orders. [facility] does not have RN available until next week. SW made new referral to [facility] as they will take pt's insurance and waiting for confirmation their RN can start this week. MARIPOSA updated MD and RN. Plan: Patient to discharge home today via spouse POV and will have new [facility] for strengthening and wound care/PICC as well as [facility] for IV Ampicillin with Dr. Aj ID to follow and [facility] outpt Wound Clinic. AUBREY Garrett
--- NOTE | 2024-04-18 11:14 | PM.DS.1 ---
History of Present Illness History of Present Illness Chief complaint: poss foot ulcer, diabetic problem,high blood sugar Narrative: From ED doctor: 44-year-old male with history of insulin-dependent diabetes, PTSD, anxiety, depression presents for foul-smelling ulcer on right foot. Patient states that he peeled a callus off of his foot and developed a worsening infection in the area of the removed callus. Patient has bad peripheral neuropathy and normally does not feel his feet, but has a dull aching sensation in the area of the ulcer. Patient states his blood sugars has been in the 200s or above recently. No recent A1c Additional information: He presents with a right foot ulcer at the ball of his foot. This is covered with a callus and apparently he pulled the callus off several days ago and since has developed a discharge and pain as well as a malodorous smell. He denies fevers or chills. He has an insulin-dependent diabetic and has relatively poor control of his sugars. They run in the 200s. He checks his sugar several times a day. He has not had an A1c for some time, it was 8.4 today. X-ray notable for some ostial changes. Orthopedics was consulted from the emergency department requested an MRI. The patient does have decreased sensation in the feet. He has no history of diabetic foot infection. He does have relatively severe PTSD from the . He was quite anxious about being in the hospital. He is , his accompanies him. He denies recent fevers, or rigors. No chest pain, or shortness a breath. All else reviewed otherwise negative. 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 Right diabetic foot infection with osteomyelitis, present on admission and active, status post surgical debridement 04/14/2024. MRI suggestive of 1st metatarsal osteomyelitis. Bone biopsy obtained and final culture with E. faecalis growing out on deep wound culture 04/14/2024. This will be coordinated through outpatient IV services through a left arm PICC line which was placed on 04/15/2024. Linezolid is contraindicated given psychotropic medications. 2. IDDM, present on admission and active. Inadequate control with hemoglobin A1c 9.6% on 04/12/2024. Compliance encouraged. 3. PTSD, present on admission and active. 4. Anxiety and depression, present on admission and active. Hospital Course: He was admitted with a diabetic foot ulcer. He underwent debridement and ultimately cultures grew out Enterococcus. The patient has chronic anxiety and diabetes with peripheral neuropathy. The patient was treated with vancomycin and Zosyn until cultures were negative for MRSA in the vancomycin was stopped. The patient was given a test dose of ampicillin on the day of discharge, after discussing with Infectious Disease. Their recommendation is for ampicillin 2 g IV q.4 hours, continuous infusion for 4-6 weeks. The patient was having no fevers, or chills and was felt to be stable for discharge on home infusion IV antibiotics. [facility] was able to provide the service of home IV antibiotics. There were no other acute medical issues other than his acute on chronic anxiety. He will see Dr. Aj of infectious Disease in 2 weeks. Status at Discharge Cognitive/behavioral status at discharge: oriented Functional status at discharge: uses cane/walker Overall status at discharge: patient is progressing back to baseline Exam Vital Signs (past 8 hours): - 04/18/24 07:35 04/18/24 08:13 04/18/24 08:59 Pulse Rate 98 H 99 H Respiratory Rate 20 Blood Pressure 172/89 H 172/89 H Pulse Oximetry 100 Oxygen Delivery Method Room Air Oxygen Flow Rate 0 Oxygen Delivery Method Room Air Oxygen Flow Rate 0 Narrative Exam Narrative: NAD, alert and oriented. Fluent speech. Lungs are clear, normal rate and effort. Heart is regular, no murmur gallop or rub. Abdomen is soft, non distended. Extremities are free of edema. The right foot was wrapped. Good capillary refill. Objective Imaging Multiple studies:: Radiologist's impression: MRI foot: Subtle increased T2 marrow signal intensity and enhancement of the distal 1st metatarsal correlating with area of possible osseous erosion seen on comparison radiograph. There is associated enhancing effusion of the 1st metatarsophalangeal joint. Additionally, diffuse soft tissue edema of the right forefoot. Combination of findings are concerning for osteomyelitis with possible infectious/inflammatory joint effusion. CXR: No acute pulmonary process. Left PICC line projecting over the distal SVC. Foot X-ray: Possible mild osseous irregularity of the 1st metatarsal head, adjacent to a possible soft tissue ulcer. If there is high concern for further derangement, consider MRI evaluation. Labs 04/15/24 04:10 04/15/24 04:10 [facility] Medical History Anxiety Hypokalemia PTSD (post-traumatic stress disorder) Type 1 diabetes Insulin dependent diabetes mellitus Family History Father Diabetes mellitus Social History marital status: household members: spouse and children occupational status: employed Smoking Status: Never smoker Discharge Assessment & Plan Assessment and Plan Assessment: 1. Right diabetic foot infection with osteomyelitis, present on admission and active, status post surgical debridement 04/14/2024. MRI suggestive of 1st metatarsal osteomyelitis. Bone biopsy obtained and final culture with E. faecalis growing out on deep wound culture 04/14/2024. This will be coordinated through outpatient IV services through a left arm PICC line which was placed on 04/15/2024. Linezolid is contraindicated given psychotropic medications. 2. IDDM, present on admission and active. Inadequate control with hemoglobin A1c 9.6% on 04/12/2024. Compliance encouraged. 3. PTSD, present on admission and active. 4. Anxiety and depression, present on admission and active. Plan of Treatment: Charge home with 4-6 weeks of IV antibiotics and follow up with Infectious Disease (Dr. Aj) in 2 weeks at [facility]. Discharge Plan Discharge Plan Patient Disposition: Home Health Service Transfer to: [facility] Provider Discharge Comment: Stable for discharge home with home IV antibiotics. Ampicillin for 4-6 weeks, Dr. Aj at Infectious Disease in 2 weeks. Discharge orders & Medications Prescriptions: New ampicillin sodium 2 gram Recon Soln 2,000 mg IV Q4H Qty: 6 0RF Continued insulin lispro [Humalog KwikPen Insulin] 100 unit/mL Insulin Pen 6 - 15 dose subcut ACHS Patient Comments: sliding scale Rx Instructions: slidding scale at home per patients blood sugar. trazodone 50 mg tablet 100 mg PO ONCE PM PRN (Reason: Sleep) lisinopril 20 mg tablet 20 mg PO DAILY escitalopram oxalate 10 mg tablet 10 mg PO DAILY insulin glargine-yfgn [Semglee(insulin glarg-yfgn)Pen] 100 unit/mL (3 mL) insulin pen 40 unit SUBCUT QPM Patient Comments: [NO ORIGINAL SIG] Medication counseling provided by Pharmacist: Yes Follow up/Referrals: Vero Aj MD [Non-Staff] - (Follow up w/ Dr Vero Aj at [facility] for management of IV abx.) Imtiaz Hall MD [Physician] - (Follow up w/ [facility] wound care as outpt for monitoring and recommendations.) Sepideh Payan MD [Physician] - 1 Week (Follow up w/ Dr Payan or Dr Rowley at [facility] for wound check.) Doctor Leon MD [Primary Care Provider] - Diet/Activity/Treatments Diet: Regular Activity: Non-weightbearing to RLE. Skin/Wound/Dressing Care Report to your healthcare provider any signs of infection, such as:: chills, fever, night sweats, increased pain, unusual drainage and unusual redness Dressing: Wet-to-dry dressing changes BID until wound care taken over by outpt wound clinic. Visit Report/Discharge Packet Instructions: DI for Incision and Drainage of a Joint, DI for Incision and Drainage, [facility]: Wound Care Stand Alone Forms: Patient Portal/API Discharge Data Primary Care Provider: Doctor Edward Quality VTE Deep Vein Thrombosis/Pulmonary Embolism Present on Admission: No MIPS - DC The patient has a history of heart transplant or Left Ventricular Assist Device (LVAD). If yes, STOP here.: No The patient has current or prior documentation of left ventricular ejection fraction (LVEF) less than or equal to 40%, or moderate or severely depressed left ventricular systolic function.: No
--- NOTE | 2024-04-18 11:31 | PT.IPTN ---
Current Diagnoses Type 1 diabetes mellitus with foot ulcer (04/14/24) Cellulitis of right lower limb (04/14/24) Non-pressure chronic ulcer of right heel and midfoot with fat layer exposed (04/14/24) Non-pressure chronic ulcer of other part of unspecified foot with unspecified severity (04/14/24) Non-pressure chronic ulcer of other part of right foot with unspecified severity (04/14/24) Osteomyelitis, unspecified (04/14/24) Surgery Performed Operation Date: 04/14/24 14:15 Actual Procedures p Incision and Drainage Foot, diabetic infection, biopsy(Right) - Drake Rowley MD Physical Therapy Treatment Note M2 PT-IP Current Condition Start: 04/16/24 13:11 Freq: NEEDED Status: Active Protocol: Document 04/16/24 11:30 AB (Rec: 04/16/24 13:33 AB [id number]) Physical Therapy Current Condition Current Condition Evaluation Date 04/16/24 Treatment Diagnosis R foot osteomyelitis s/p I&D; difficulty in walking Onset Date 04/14/24 M3 PT-IP Subjective Start: 04/16/24 13:11 Freq: NEEDED Status: Active Protocol: Document 04/18/24 11:00 MB (Rec: 04/18/24 11:31 MB [id number]) Subjective Physical Therapy Visit Type Type Treatment Note Visit Start Time 11:00 Visit Stop Time 11:23 Number of DANCE CRITIC Visits 0 Physical Therapy Visit Comments Patient Comments Pt is agreeable to PT, agrees that he feels up to trying stair training. Therapy Pain Assessment Pain When Pain Assessed At Rest Pain Present Pain Present Denied Pain M4 PT-IP Mobility and Gait Start: 04/16/24 13:11 Freq: NEEDED Status: Active Protocol: Document 04/18/24 11:00 MB (Rec: 04/18/24 11:31 MB [id number]) PT-Bed Mobility Assessment Supine to Sit Supine to Sit Independent,Head of Bed Elevated Sit to Supine Sit to Supine Independent,Head of Bed Elevated Scooting Scooting to Edge of Bed Standby Assistance PT-Transfer Assessment Sit to and From Stand Sit to and from Stand Contact Guard Assistance,1 Person Assistance,Use of Upper Extremities Equipment Transfer Assistive Device Gait Belt,Front Wheeled Walker Orthotic/Prosthetic Devices or Brace: No Transfers Transfer Destination Bed,Wheelchair Transfer Technique Hop gait with RW Transfer Ability Level of Assist Contact Guard Assistance,1 Person Assistance,Use of Upper Extremities Comments Mobility Comments Pt does well with all transfers bed to RW, RW to w/c , w/c to steps, steps to w/c with CGA and cues. He does not do well with final transfer from w/c to RW as he starts standing as PT is trying to get equipment ready and leans forward for bed that is 3' away from w/c. PT must strongly cue pt to stop and wait for RW and PT assistance Gait Assessment Gait Gait Assistance Required: Standby Assistance,Contact Guard Assist,1 Person Assist Distance (Feet) 10 Able to Maintain Weight Bearing Status Yes During Gait Assistive Devices Assistive Device Gait Belt,Front Wheeled Walker Orthotic/Prosthetic Devices or Brace: No Factors Limiting Gait Function Factors Limiting Gait Function Poor Balance,Poor Safety Awareness Comments Gait Comments 10'x1, 5'x2, 3'x1 with RW and NWB RLE hop gait and pt does well with RW Stair Climbing Assessment Evaluation Level of Assist On Stairs Standby Assistance,Minimal Assistance Devices Stair Climbing Assistive Devices Front Wheel Walker,Left Railing Technique/Endurance Stair Climbing Direction Ascend and Descend Stair Climbing Technique Step to Step,Sitting Bump Stair Climbing Set # Repetitions (reps) 2 Comments Stair Climbing Comments Attempted retro gait hopping up backwards with RW in front and PT holding onto RW: pt has trouble following commands and clearing left foot on the second step. Second, tried sitting bump up and pt does well with ascend and has trouble standing up and scoots to bottom step before trying to stand and he requires mod A and cues to stand up. He will bump up at home. PT-Balance Assessment Sitting Balance and Reactions Static Sitting Balance Ability Normal Dynamic Sitting Balance Ability Good Standing Balance and Reactions Static Standing Balance Ability Fair Dynamic Standing Balance Ability Fair Device Used FWW M5 PT-IP Objective Assessments Start: 04/16/24 13:11 Freq: NEEDED Status: Active Protocol: Document 04/16/24 11:30 AB (Rec: 04/16/24 13:33 AB [id number]) Orientation Orientation/Cognition Level of Alertness Alert Orientation Name,Place,Situation Language Function Ability No Deficits Noted Safety Awareness Understands Safety Issues Memory Description No Deficits Noted Gross Range of Motion Lower Extremity ROM Assessment Within Functional Limits Strength Lower Extremity Strength Hip 4-/5 Knee 4-/5 Sensation Assessment Sensation Sensation Description Numbness Comments Sensation Comments BLE neuropathy Muscle Tone Muscle Tone WNL Yes M6 PT-IP Treatment Start: 04/16/24 13:11 Freq: NEEDED Status: Active Protocol: Document 04/18/24 11:00 MB (Rec: 04/18/24 11:31 [id number]) Physical Therapy Treatment Education Education Provided Weight Bearing Status,Safety M7 PT-IP Assessment and Plan Start: 04/16/24 13:11 Freq: NEEDED Status: Active Protocol: Document 04/18/24 11:00 MB (Rec: 04/18/24 11:31 [id number]) PT Summary Assessment and Plan Potential Rehabilitation Potential Fair Status of Condition at Evaluation Evolving Summary Impairments Pain,ROM,Strength,Balance, Coordination,Bed Mobility, Transfers,Gait,Activity Tolerance Progress Towards Goals Progressing Toward Goals Assessment Summary Initiated stair training today and pt is going to bump up the steps in sitting at home. He con't with some impulsivity and decreased command- following and safety awareness with transfers and stair training today. He will have assistance at home at d/c . Goals Bed Mobility Goal Independent Transfer Goal Independent,Front Wheeled Walker Gait Goal Independent,Front Wheel Walker Gait Distance 100 Other Goals up/down 4 steps using L rail SBA Days to Meet Goals 10 Frequency of Treatment Frequency Of Treatment Once a Day Treatment Plan Physical Therapy Treatment Plan Bed Mobility Training,Transfer Training,Gait Training, Therapeutic Exercise,Balance Retraining,Post Op Education, Discharge Planning,Hot or Cold Pack,Neuromuscular Re-ed, Coordination Retraining Precautions Other Precautions contact precautions: R foot ulcer Weight Bearing Status Weight Bearing Status Non-Weight Bearing Allowed Weight Bearing Amount (enter % RLE NWB or #) (%) Recommendations To Nursing Amount of Assist Needed 1 Person Assist Discharge Recommendations PT Discharge Recommendations Home with Assistance,Home Health Transportation Needs at Discharge Private Vehicle,Wheelchair/ Cabulance
== END 2024-04-18 13:50 | disposition home health service (06) | DRG 629 ==
LOC: ED 13:12 → AC 16:17 → ICU 16:39
PROVIDERS: Orthopaedic Surgery; Admitting Provider Hospitalist; Emergency Provider Emergency Medicine; Referring Provider Emergency Medicine; Visit Provider Hospitalist
PROC: 0QBN0ZX Excision of Right Metatarsal, Open Approach, Diagnostic (ICD-10-PCS; principal; 2024-04-14 14:15)
DX: E10.69 Type 1 diabetes mellitus with other specified complication (principal); L03.115 Cellulitis of right lower limb; L97.412 Non-pressure chronic ulcer of right heel and midfoot with fat layer exposed; M86.8X7 Other osteomyelitis, ankle and foot; M86.9 Osteomyelitis, unspecified; Z16.29 Resistance to other single specified antibiotic; E10.621 Type 1 diabetes mellitus with foot ulcer; F43.10 Post-traumatic stress disorder, unspecified; F41.9 Anxiety disorder, unspecified; F32.A Depression, unspecified; E10.65 Type 1 diabetes mellitus with hyperglycemia; E10.42 Type 1 diabetes mellitus with diabetic polyneuropathy; B95.2 Enterococcus as the cause of diseases classified elsewhere; B96.89 Other specified bacterial agents as the cause of diseases classified elsewhere
CPT/HCPCS: 36415; 71045; 73630; 73720; 80048; 80053; 80202; 82962; 83036; 83605; 84145; 85025; 85651; 86140; 87070; 87075; 87077; 87186; 87205; 87797; 96365; 96366; 96367; 97116; 97162; 97530; 99284; 99285; G0378; A9270; A9579; J0171; J0290; J1644; J1815; J2405; J2543; J2704; J3010

== ENCOUNTER → 2024-04-22 09:10 | Outpatient (CLI) | payer OTHER, SELFPAY ==
[2024-04-12 17:09] VITALS: BMI 31.9
== END ==
LOC: WC 09:15
PROVIDERS: Referring Provider Hospitalist; Visit Provider Physician Assistant
DX: E10.621 Type 1 diabetes mellitus with foot ulcer (principal); L97.516 Non-pressure chronic ulcer of other part of right foot with bone involvement without evidence of necrosis; L84 Corns and callosities; L97.522 Non-pressure chronic ulcer of other part of left foot with fat layer exposed; M86.179 Other acute osteomyelitis, unspecified ankle and foot; R60.0 Localized edema; Z79.899 Other long term (current) drug therapy
CPT/HCPCS: 11042; 97597; 99214

== ENCOUNTER → 2024-04-29 09:24 | Outpatient (CLI) | payer OTHER, SELFPAY ==
[2024-04-12 17:09] VITALS: BMI 31.9
== END ==
LOC: WC 09:24
PROVIDERS: Referring Provider Hospitalist; Visit Provider Physician Assistant
DX: E10.621 Type 1 diabetes mellitus with foot ulcer (principal); E10.40 Type 1 diabetes mellitus with diabetic neuropathy, unspecified; M86.179 Other acute osteomyelitis, unspecified ankle and foot; L97.516 Non-pressure chronic ulcer of other part of right foot with bone involvement without evidence of necrosis; L84 Corns and callosities; R60.0 Localized edema
CPT/HCPCS: 11042; 99214

== ENCOUNTER → 2024-05-05 07:26 | Outpatient (CLI) | payer OTHER, SELFPAY ==
[2024-04-12 17:09] VITALS: BMI 31.9
--- NOTE | 2024-05-05 07:27 | DI.US.S_ITS ---
PROCEDURE: US ARTERIAL DUPLEX LE BI INDICATIONS: Non-healing wound of bilateral lower extremities. TECHNIQUE: Color and pulse Doppler interrogation was performed of both lower extremity arterial systems, with image documentation. COMPARISON: None. LIMITATIONS: The right foot was bandaged and was not evaluated. FINDINGS: Right lower extremity: Common femoral artery: 130 cm/sec, wit Proximal superficial femoral artery: 101 Mid superficial femoral artery: 93 cm/sec, Distal superficial femoral artery: 63 cm/sec,. Popliteal artery: 57 cm/sec, with 57 Posterior tibial artery: 66 cm/sec, Anterior tibial artery/dorsalis pedis: 71 cm/sec Santiago-scale imaging description: Minimal atherosclerotic plaque seen Left lower extremity: Common femoral artery: 107 cm/sec, Proximal superficial femoral artery: 107 cm/sec, Mid superficial femoral artery: 80 cm/sec Distal superficial femoral artery: 77 cm/sec,. Popliteal artery: 65 cm/sec, Posterior tibial artery: 66 cm/sec,. Anterior tibial artery/dorsalis pedis: 26 cm/sec, Santiago-scale imaging description: Minimal atherosclerotic plaque seen Spectral waveforms bilaterally: Triphasic waveforms are seen throughout except in the bilateral anterior tibial/dorsalis pedis were biphasic/monophasic postobstructive waveforms are seen IMPRESSION: 1. Postobstructive waveforms in the anterior tibial/dorsalis pedis arteries bilaterally , especially on the left. 2. Otherwise no hemodynamically significant stenosis or obstruction seen Dictated by: Donnie Sales M.D. on 05/06/2024 at 12:29 Approved by: Donnie Sales M.D. on 05/06/2024 at 12:39
== END ==
LOC: US 07:27
PROVIDERS: PCP Internal Medicine; Referring Provider Physician Assistant; Visit Provider Physician Assistant
DX: S91.302A Unspecified open wound, left foot, initial encounter (principal); L97.412 Non-pressure chronic ulcer of right heel and midfoot with fat layer exposed
CPT/HCPCS: 93925

== ENCOUNTER → 2024-05-06 09:48 | Outpatient (CLI) | payer OTHER, SELFPAY ==
[2024-04-12 17:09] VITALS: BMI 31.9
== END ==
LOC: WC 09:49
PROVIDERS: PCP Internal Medicine; Referring Provider Internal Medicine; Visit Provider Physician Assistant
DX: E10.621 Type 1 diabetes mellitus with foot ulcer (principal); L97.516 Non-pressure chronic ulcer of other part of right foot with bone involvement without evidence of necrosis; L97.522 Non-pressure chronic ulcer of other part of left foot with fat layer exposed; M86.179 Other acute osteomyelitis, unspecified ankle and foot; E10.40 Type 1 diabetes mellitus with diabetic neuropathy, unspecified; R60.0 Localized edema; L84 Corns and callosities
CPT/HCPCS: 11042; 87070; 87075; 87077; 87186; 87205; 97597; 99214

== ENCOUNTER → 2024-05-16 11:02 | Outpatient (CLI) | payer OTHER, SELFPAY ==
[2024-04-12 17:09] VITALS: BMI 31.9
== END ==
PROVIDERS: PCP Internal Medicine; Referring Provider Hospitalist; Visit Provider Surgery
DX: M86.179 Other acute osteomyelitis, unspecified ankle and foot (principal); E10.40 Type 1 diabetes mellitus with diabetic neuropathy, unspecified; E10.621 Type 1 diabetes mellitus with foot ulcer; L89.899 Pressure ulcer of other site, unspecified stage; L97.516 Non-pressure chronic ulcer of other part of right foot with bone involvement without evidence of necrosis
CPT/HCPCS: 99183; G0277

== ENCOUNTER → 2024-05-17 10:34 | Outpatient (CLI) | payer OTHER, SELFPAY ==
[2024-04-12 17:09] VITALS: BMI 31.9
== END ==
PROVIDERS: PCP Internal Medicine; Referring Provider Hospitalist; Visit Provider Surgery
DX: M86.179 Other acute osteomyelitis, unspecified ankle and foot (principal); E10.40 Type 1 diabetes mellitus with diabetic neuropathy, unspecified; E10.621 Type 1 diabetes mellitus with foot ulcer; L89.899 Pressure ulcer of other site, unspecified stage; L97.516 Non-pressure chronic ulcer of other part of right foot with bone involvement without evidence of necrosis
CPT/HCPCS: 99183; G0277

== ENCOUNTER → 2024-05-18 10:58 | Outpatient (CLI) | payer OTHER, SELFPAY ==
[2024-04-12 17:09] VITALS: BMI 31.9
== END ==
PROVIDERS: PCP Internal Medicine; Referring Provider Hospitalist; Visit Provider Surgery
DX: M86.179 Other acute osteomyelitis, unspecified ankle and foot (principal); E10.40 Type 1 diabetes mellitus with diabetic neuropathy, unspecified; E10.621 Type 1 diabetes mellitus with foot ulcer; L89.899 Pressure ulcer of other site, unspecified stage; L97.516 Non-pressure chronic ulcer of other part of right foot with bone involvement without evidence of necrosis
CPT/HCPCS: 99183; G0277

== ENCOUNTER → 2024-05-19 10:25 | Outpatient (CLI) | payer OTHER, SELFPAY ==
[2024-04-12 17:09] VITALS: BMI 31.9
== END ==
PROVIDERS: PCP Internal Medicine; Referring Provider Hospitalist; Visit Provider Surgery
DX: M86.179 Other acute osteomyelitis, unspecified ankle and foot (principal); E10.40 Type 1 diabetes mellitus with diabetic neuropathy, unspecified; E10.621 Type 1 diabetes mellitus with foot ulcer; L89.899 Pressure ulcer of other site, unspecified stage; L97.516 Non-pressure chronic ulcer of other part of right foot with bone involvement without evidence of necrosis
CPT/HCPCS: 99183; G0277

== ENCOUNTER → 2024-05-20 08:46 | Outpatient (CLI) | payer OTHER, SELFPAY ==
[2024-04-12 17:09] VITALS: BMI 31.9
== END ==
PROVIDERS: PCP Internal Medicine; Referring Provider Hospitalist; Visit Provider Physician Assistant
DX: M86.179 Other acute osteomyelitis, unspecified ankle and foot (principal); E10.40 Type 1 diabetes mellitus with diabetic neuropathy, unspecified; E10.621 Type 1 diabetes mellitus with foot ulcer; L89.899 Pressure ulcer of other site, unspecified stage; L97.516 Non-pressure chronic ulcer of other part of right foot with bone involvement without evidence of necrosis; L84 Corns and callosities; R60.0 Localized edema; Z79.899 Other long term (current) drug therapy
CPT/HCPCS: 11042; 99183; 99214; G0277

== ENCOUNTER → 2024-05-24 13:04 | Outpatient (CLI) | payer OTHER, SELFPAY ==
[2024-04-12 17:09] VITALS: BMI 31.9
== END ==
PROVIDERS: PCP Internal Medicine; Referring Provider Hospitalist; Visit Provider Surgery
DX: M86.179 Other acute osteomyelitis, unspecified ankle and foot (principal); E10.40 Type 1 diabetes mellitus with diabetic neuropathy, unspecified; E10.621 Type 1 diabetes mellitus with foot ulcer; L89.899 Pressure ulcer of other site, unspecified stage; L97.516 Non-pressure chronic ulcer of other part of right foot with bone involvement without evidence of necrosis
CPT/HCPCS: 99183; G0277

== ENCOUNTER → 2024-05-25 09:53 | Outpatient (CLI) | payer OTHER, SELFPAY ==
[2024-04-12 17:09] VITALS: BMI 31.9
== END ==
PROVIDERS: PCP Internal Medicine; Referring Provider Hospitalist; Visit Provider Surgery
DX: M86.179 Other acute osteomyelitis, unspecified ankle and foot (principal); E10.40 Type 1 diabetes mellitus with diabetic neuropathy, unspecified; E10.621 Type 1 diabetes mellitus with foot ulcer; L89.899 Pressure ulcer of other site, unspecified stage; L97.516 Non-pressure chronic ulcer of other part of right foot with bone involvement without evidence of necrosis
CPT/HCPCS: 99183; G0277

== ENCOUNTER → 2024-05-26 08:35 | Outpatient (CLI) | payer OTHER, SELFPAY ==
[2024-04-12 17:09] VITALS: BMI 31.9
== END ==
PROVIDERS: PCP Internal Medicine; Referring Provider Hospitalist; Visit Provider Surgery
DX: M86.179 Other acute osteomyelitis, unspecified ankle and foot (principal); E10.40 Type 1 diabetes mellitus with diabetic neuropathy, unspecified; E10.621 Type 1 diabetes mellitus with foot ulcer; L89.899 Pressure ulcer of other site, unspecified stage; L97.516 Non-pressure chronic ulcer of other part of right foot with bone involvement without evidence of necrosis; L84 Corns and callosities; R60.0 Localized edema
CPT/HCPCS: 99183; G0277

== ENCOUNTER → 2024-05-27 08:38 | Outpatient (CLI) | payer OTHER, SELFPAY ==
[2024-04-12 17:09] VITALS: BMI 31.9
== END ==
PROVIDERS: PCP Internal Medicine; Referring Provider Hospitalist; Visit Provider Nurse Practitioner Family
DX: M86.179 Other acute osteomyelitis, unspecified ankle and foot (principal); E10.40 Type 1 diabetes mellitus with diabetic neuropathy, unspecified; E10.621 Type 1 diabetes mellitus with foot ulcer; L89.899 Pressure ulcer of other site, unspecified stage; L97.516 Non-pressure chronic ulcer of other part of right foot with bone involvement without evidence of necrosis
CPT/HCPCS: 99183; G0277

== ENCOUNTER → 2024-05-30 09:45 | Outpatient (CLI) | payer OTHER, SELFPAY ==
[2024-04-12 17:09] VITALS: BMI 31.9
== END ==
PROVIDERS: PCP Internal Medicine; Referring Provider Hospitalist; Visit Provider Surgery
DX: M86.179 Other acute osteomyelitis, unspecified ankle and foot (principal); E10.40 Type 1 diabetes mellitus with diabetic neuropathy, unspecified; E10.621 Type 1 diabetes mellitus with foot ulcer; L89.899 Pressure ulcer of other site, unspecified stage; L97.516 Non-pressure chronic ulcer of other part of right foot with bone involvement without evidence of necrosis
CPT/HCPCS: 99183; G0277

== ENCOUNTER → 2024-05-31 08:43 | Outpatient (CLI) | payer OTHER, SELFPAY ==
[2024-04-12 17:09] VITALS: BMI 31.9
== END ==
LOC: WC 08:46
PROVIDERS: PCP Internal Medicine; Referring Provider Hospitalist; Visit Provider Surgery
DX: M86.179 Other acute osteomyelitis, unspecified ankle and foot (principal); E10.40 Type 1 diabetes mellitus with diabetic neuropathy, unspecified; E10.621 Type 1 diabetes mellitus with foot ulcer; L89.899 Pressure ulcer of other site, unspecified stage; L97.516 Non-pressure chronic ulcer of other part of right foot with bone involvement without evidence of necrosis
CPT/HCPCS: 99183; G0277

== ENCOUNTER → 2024-06-01 09:26 | Outpatient (CLI) | payer OTHER, SELFPAY ==
[2024-04-12 17:09] VITALS: BMI 31.9
== END ==
PROVIDERS: PCP Internal Medicine; Referring Provider Hospitalist; Visit Provider Surgery
DX: M86.179 Other acute osteomyelitis, unspecified ankle and foot (principal); E10.40 Type 1 diabetes mellitus with diabetic neuropathy, unspecified; L89.899 Pressure ulcer of other site, unspecified stage; L97.516 Non-pressure chronic ulcer of other part of right foot with bone involvement without evidence of necrosis
CPT/HCPCS: 99183; G0277

== ENCOUNTER → 2024-06-02 08:38 | Outpatient (CLI) | payer OTHER, SELFPAY ==
[2024-04-12 17:09] VITALS: BMI 31.9
== END ==
LOC: WC 08:39
PROVIDERS: PCP Internal Medicine; Referring Provider Hospitalist; Visit Provider Surgery
DX: M86.179 Other acute osteomyelitis, unspecified ankle and foot (principal); E10.40 Type 1 diabetes mellitus with diabetic neuropathy, unspecified; E10.621 Type 1 diabetes mellitus with foot ulcer; L97.516 Non-pressure chronic ulcer of other part of right foot with bone involvement without evidence of necrosis
CPT/HCPCS: 99183; G0277

== ENCOUNTER → 2024-06-03 08:38 | Outpatient (CLI) | payer OTHER, SELFPAY ==
[2024-04-12 17:09] VITALS: BMI 31.9
== END ==
LOC: WC 08:39
PROVIDERS: PCP Internal Medicine; Referring Provider Hospitalist; Visit Provider Physician Assistant
DX: M86.179 Other acute osteomyelitis, unspecified ankle and foot (principal); E10.40 Type 1 diabetes mellitus with diabetic neuropathy, unspecified; E10.621 Type 1 diabetes mellitus with foot ulcer; L89.899 Pressure ulcer of other site, unspecified stage; L97.516 Non-pressure chronic ulcer of other part of right foot with bone involvement without evidence of necrosis; R60.0 Localized edema; L84 Corns and callosities
CPT/HCPCS: 11042; 99183; 99214; G0277

== ENCOUNTER → 2024-06-06 08:43 | Outpatient (CLI) | payer OTHER, SELFPAY ==
[2024-04-12 17:09] VITALS: BMI 31.9
== END ==
LOC: WC 08:44
PROVIDERS: PCP Internal Medicine; Referring Provider Internal Medicine; Visit Provider Surgery
DX: M86.179 Other acute osteomyelitis, unspecified ankle and foot (principal); E10.40 Type 1 diabetes mellitus with diabetic neuropathy, unspecified; E10.621 Type 1 diabetes mellitus with foot ulcer; L89.899 Pressure ulcer of other site, unspecified stage; L97.516 Non-pressure chronic ulcer of other part of right foot with bone involvement without evidence of necrosis
CPT/HCPCS: 99183; G0277

== ENCOUNTER → 2024-06-07 10:14 | Outpatient (CLI) | payer OTHER, SELFPAY ==
[2024-04-12 17:09] VITALS: BMI 31.9
== END ==
LOC: WC 10:15
PROVIDERS: PCP Internal Medicine; Referring Provider Internal Medicine; Visit Provider Surgery
DX: E10.40 Type 1 diabetes mellitus with diabetic neuropathy, unspecified (principal); E10.621 Type 1 diabetes mellitus with foot ulcer; L97.516 Non-pressure chronic ulcer of other part of right foot with bone involvement without evidence of necrosis; R60.0 Localized edema; L84 Corns and callosities; M86.179 Other acute osteomyelitis, unspecified ankle and foot; L89.899 Pressure ulcer of other site, unspecified stage
CPT/HCPCS: 11042; 97605; 99183; G0277

== ENCOUNTER → 2024-06-08 08:44 | Outpatient (CLI) | payer OTHER, SELFPAY ==
[2024-04-12 17:09] VITALS: BMI 31.9
== END ==
LOC: WC 08:45
PROVIDERS: PCP Internal Medicine; Referring Provider Hospitalist; Visit Provider Surgery
DX: M86.179 Other acute osteomyelitis, unspecified ankle and foot (principal); E10.40 Type 1 diabetes mellitus with diabetic neuropathy, unspecified; E10.621 Type 1 diabetes mellitus with foot ulcer; L89.899 Pressure ulcer of other site, unspecified stage; L97.516 Non-pressure chronic ulcer of other part of right foot with bone involvement without evidence of necrosis
CPT/HCPCS: 99183; G0277

== ENCOUNTER → 2024-06-09 08:53 | Outpatient (CLI) | payer OTHER, SELFPAY ==
[2024-04-12 17:09] VITALS: BMI 31.9
== END ==
LOC: WC 08:53
PROVIDERS: PCP Internal Medicine; Referring Provider Hospitalist; Visit Provider Surgery
DX: E10.621 Type 1 diabetes mellitus with foot ulcer (principal); L97.516 Non-pressure chronic ulcer of other part of right foot with bone involvement without evidence of necrosis; L84 Corns and callosities; R60.0 Localized edema; M86.179 Other acute osteomyelitis, unspecified ankle and foot; E10.40 Type 1 diabetes mellitus with diabetic neuropathy, unspecified; L89.899 Pressure ulcer of other site, unspecified stage
CPT/HCPCS: 97605; 99183; G0277

== ENCOUNTER → 2024-06-10 09:29 | Outpatient (CLI) | payer OTHER, SELFPAY ==
[2024-04-12 17:09] VITALS: BMI 31.9
== END ==
LOC: WC 09:30
PROVIDERS: PCP Internal Medicine; Referring Provider Hospitalist; Visit Provider Surgery
DX: M86.179 Other acute osteomyelitis, unspecified ankle and foot (principal); E10.40 Type 1 diabetes mellitus with diabetic neuropathy, unspecified; E10.621 Type 1 diabetes mellitus with foot ulcer; L89.899 Pressure ulcer of other site, unspecified stage; L97.516 Non-pressure chronic ulcer of other part of right foot with bone involvement without evidence of necrosis
CPT/HCPCS: 99183; G0277

== ENCOUNTER → 2024-06-14 13:07 | Outpatient (CLI) | payer OTHER, SELFPAY ==
[2024-04-12 17:09] VITALS: BMI 31.9
== END ==
LOC: WC 13:08
PROVIDERS: PCP Internal Medicine; Referring Provider Hospitalist; Visit Provider Surgery
DX: M86.179 Other acute osteomyelitis, unspecified ankle and foot (principal); E10.40 Type 1 diabetes mellitus with diabetic neuropathy, unspecified; E10.621 Type 1 diabetes mellitus with foot ulcer; L89.899 Pressure ulcer of other site, unspecified stage; L97.516 Non-pressure chronic ulcer of other part of right foot with bone involvement without evidence of necrosis; L84 Corns and callosities; R60.0 Localized edema
CPT/HCPCS: 11042; 97605; 99183; G0277

== ENCOUNTER → 2024-06-15 10:12 | Outpatient (CLI) | payer OTHER, SELFPAY ==
[2024-04-12 17:09] VITALS: BMI 31.9
== END ==
PROVIDERS: PCP Internal Medicine; Referring Provider Hospitalist; Visit Provider Surgery
DX: M86.179 Other acute osteomyelitis, unspecified ankle and foot (principal); E10.40 Type 1 diabetes mellitus with diabetic neuropathy, unspecified; E10.621 Type 1 diabetes mellitus with foot ulcer; L89.899 Pressure ulcer of other site, unspecified stage; L97.516 Non-pressure chronic ulcer of other part of right foot with bone involvement without evidence of necrosis
CPT/HCPCS: 99183; G0277

== ENCOUNTER → 2024-06-16 11:04 | Outpatient (CLI) | payer OTHER, SELFPAY ==
[2024-04-12 17:09] VITALS: BMI 31.9
== END ==
PROVIDERS: PCP Internal Medicine; Referring Provider Hospitalist; Visit Provider Surgery
DX: M86.179 Other acute osteomyelitis, unspecified ankle and foot (principal); E10.40 Type 1 diabetes mellitus with diabetic neuropathy, unspecified; E10.621 Type 1 diabetes mellitus with foot ulcer; L89.899 Pressure ulcer of other site, unspecified stage; L97.516 Non-pressure chronic ulcer of other part of right foot with bone involvement without evidence of necrosis; L84 Corns and callosities; R60.0 Localized edema
CPT/HCPCS: 97605; 99183; G0277

== ENCOUNTER → 2024-06-20 10:03 | Outpatient (CLI) | payer OTHER, SELFPAY ==
[2024-04-12 17:09] VITALS: BMI 31.9
== END ==
PROVIDERS: PCP Internal Medicine; Referring Provider Hospitalist; Visit Provider Surgery
DX: M86.179 Other acute osteomyelitis, unspecified ankle and foot (principal); E10.40 Type 1 diabetes mellitus with diabetic neuropathy, unspecified; E10.621 Type 1 diabetes mellitus with foot ulcer; L89.899 Pressure ulcer of other site, unspecified stage; L97.516 Non-pressure chronic ulcer of other part of right foot with bone involvement without evidence of necrosis
CPT/HCPCS: 99183; G0277

== ENCOUNTER → 2024-06-21 08:50 | Outpatient (CLI) | payer OTHER, SELFPAY ==
[2024-04-12 17:09] VITALS: BMI 31.9
== END ==
PROVIDERS: PCP Internal Medicine; Referring Provider Internal Medicine; Visit Provider Surgery
DX: M86.179 Other acute osteomyelitis, unspecified ankle and foot (principal); E10.40 Type 1 diabetes mellitus with diabetic neuropathy, unspecified; L89.899 Pressure ulcer of other site, unspecified stage; L97.516 Non-pressure chronic ulcer of other part of right foot with bone involvement without evidence of necrosis; E10.621 Type 1 diabetes mellitus with foot ulcer
CPT/HCPCS: 11042; 97605; 99183; G0277

== ENCOUNTER → 2024-06-22 12:57 | Outpatient (CLI) | payer OTHER, SELFPAY ==
[2024-04-12 17:09] VITALS: BMI 31.9
== END ==
PROVIDERS: PCP Internal Medicine; Referring Provider Hospitalist; Visit Provider Surgery
DX: M86.179 Other acute osteomyelitis, unspecified ankle and foot (principal); E10.40 Type 1 diabetes mellitus with diabetic neuropathy, unspecified; E10.621 Type 1 diabetes mellitus with foot ulcer; L89.899 Pressure ulcer of other site, unspecified stage; L97.516 Non-pressure chronic ulcer of other part of right foot with bone involvement without evidence of necrosis
CPT/HCPCS: 99183; G0277

== ENCOUNTER → 2024-06-23 08:41 | Outpatient (CLI) | payer OTHER, SELFPAY ==
[2024-04-12 17:09] VITALS: BMI 31.9
== END ==
PROVIDERS: PCP Internal Medicine; Referring Provider Hospitalist; Visit Provider Surgery
DX: M86.179 Other acute osteomyelitis, unspecified ankle and foot (principal); E10.40 Type 1 diabetes mellitus with diabetic neuropathy, unspecified; E10.621 Type 1 diabetes mellitus with foot ulcer; L89.899 Pressure ulcer of other site, unspecified stage; L97.516 Non-pressure chronic ulcer of other part of right foot with bone involvement without evidence of necrosis
CPT/HCPCS: 99183; G0277

== ENCOUNTER → 2024-06-24 09:01 | Outpatient (CLI) | payer OTHER, SELFPAY ==
[2024-04-12 17:09] VITALS: BMI 31.9
== END ==
PROVIDERS: PCP Internal Medicine; Referring Provider Hospitalist; Visit Provider Physician Assistant
DX: E11.621 Type 2 diabetes mellitus with foot ulcer (principal); L97.516 Non-pressure chronic ulcer of other part of right foot with bone involvement without evidence of necrosis; L84 Corns and callosities; R60.0 Localized edema
CPT/HCPCS: 97605; 99183; G0277

== ENCOUNTER → 2024-06-28 09:23 | Outpatient (CLI) | payer OTHER, SELFPAY ==
[2024-04-12 17:09] VITALS: BMI 31.9
== END ==
LOC: WC 09:23
PROVIDERS: PCP Internal Medicine; Referring Provider Hospitalist; Visit Provider Surgery
DX: E10.621 Type 1 diabetes mellitus with foot ulcer (principal); E10.40 Type 1 diabetes mellitus with diabetic neuropathy, unspecified; L97.516 Non-pressure chronic ulcer of other part of right foot with bone involvement without evidence of necrosis; L84 Corns and callosities; R60.0 Localized edema; M86.179 Other acute osteomyelitis, unspecified ankle and foot; Z79.899 Other long term (current) drug therapy; L89.899 Pressure ulcer of other site, unspecified stage
CPT/HCPCS: 11042; 99183; 99212; 99213; G0277

== ENCOUNTER 2024-06-29 08:57 | Day surgery (SDC) | payer OTHER, SELFPAY ==
[2024-04-12 17:09] VITALS: BMI 31.9
[2024-06-27 11:00] VITALS: BMI 31.9
--- NOTE | 2024-06-29 | PATH_ITS ---
[facility] Accession Number: [id number] No. of containers..01 Tissue . 01 Material submitted: . bone - RIGHT MEDIAL SESAMOID BONE . 01 Diagnosis: RIGHT MEDIAL SESAMOID BONE, BIOPSY: Acute osteomyelitis and osteonecrosis. MRV 07/01/2024 1405 Local . 01 Electronically signed: . Misa Hussein MD, Pathologist NPI- [id number] . 01 Gross description: . Specimen is received in formalin, labeled with two patient identifiers and designated right medial sesamoid, and consists a 1.0 x 0.5 x 0.4 cm portion of hard white bone with a minimal amount of surrounding white fibrous cartilage. The specimen is bisected and entirely submitted in cassette A1 following decalcification. ([id number]) /MRV 06/30/2024 1632 Local . 01 Pathologist provided ICD-10: M86.9 . 01 CPT . 571446 Specimen Comment: A courtesy copy of this report has been sent to [phone] Performed at: [address] [id number] MD Tyrone Nelson MD Phone: [phone]
[2024-06-29 09:22] VITALS: BP 137/92; PULSE 74; RESP 18; TEMP 36.1; O2SAT 100; BMI 32.5
[2024-06-29] MEDS: ACETAMINOPHEN 325 MG TABLET 975 MG PO (09:50)
[2024-06-29] MEDS: LACTATED RINGERS 1,000 ML 42 ML IV (10:01)
--- NOTE | 2024-06-29 10:19 | PM.PREOP ---
Pre-operative Note Interval Note History & Physical reviewed/Exam performed by Physician: Yes Changes to H&P: No
--- NOTE | 2024-06-29 10:24 | P.OP_ITS ---
Operative Date/Time/Diagnoses Date of procedure: 06/29/24 Time of procedure: 10:46 Pre-op diagnosis: Right foot diabetic ulcer with bone necrosis, osteomyelitis Post-op diagnosis: same Procedure & Clinicians Procedure: 1. Excision tibial sesamoid bone right foot CPT code 00104 2. Excisional debridement right foot diabetic ulcer CPT code 35478 3. Placement wound VAC sponge CPT code 10852 All of the above procedures performed with the modifier 58 for a staged procedure more extensive than previous. Same procedure as scheduled: Yes Indications: The patient is a 44-year-old male with a diabetic right foot ulcer with osteomyelitis. He has had 1 previous I and D, intravenous antibiotics and wound care. He has a persistent wound and he has necrotic tibial sesamoid bone. He has been indicated for staged more extensive ulcer debridement tibial sesamoid excision and wound VAC change. He will then resume wound care with [facility]. His vascular status has been optimized. The risks and benefits of the procedure have been discussed with the patient and given the opportunity to ask questions. The risks of surgery include but are not limited to infection, malunion, nonunion, persistence of pain, damage to nerves and blood vessels, posttraumatic arthritis, amputation, DVT, PE, cardiopulmonary complications and . The patient expressed a thorough understanding of the risks and benefits of surgery and has elected to proceed. Consent was signed. Surgeon: Sepideh Payan Click Yes if Unassisted: Yes Anesthesia Type: General and Local Operative Notes Findings: Necrotic tibial sesamoid bone. FHL tendon intact Closure Type: non-primary Specimen(s): other (Bone and tissue sent for aerobic, anaerobic culture, bacterial PCR and pathology.) Prosthetic devices, grafts, tissues, transplants, or devices: Tibial sesamoid bone was divided and sent for bacterial PCR and pathology Deep tissue was sent for aerobic and anaerobic Estimated Blood Loss (mL): 10 Tourniquet time (min): 0 Procedure in detail: Patient was seen in the preoperative area the site of surgery was marked informed consent confirmed. This is the right lower extremity. The patient was taken to the operating room by the anesthesia team and positioned supine. Bony prominences well padded. Well-padded thigh tourniquet was applied. SCD was applied to the contralateral lower extremity. The right lower extremity was prepped and draped in the standard sterile fashion a formal time-out procedure was performed confirming the patient's side site of surgery administration of appropriate preoperative antibiotic all were in agreement. No tourniquet was utilized. Attention was turned to right foot. Wound measurements were taken or 3.5 by 3.5 cm round plantar wound at the level of the 1st MTP. There was exposed necrotic tibial sesamoid. An excisional debridement of the ulcer was completed with a scalpel debriding the nonviable skin subcutaneous tissue and fascia and small amount of the FHL tendon. The tibial sesamoid was then excised sharply and divided and sent for bacterial PCR and pathology. This exposed the plantar 1st metatarsal head. Rongeur was used to debride the bone at the plantar metatarsal head exposed plantar cartilage to get back to good bleeding bone. The wound was then thoroughly irrigated with sterile saline. Once this was completed the wound VAC was applied to -125 mmHg suction. An Sanket wrap was applied and the drapes removed and the anesthesia was terminated and the patient was taken to the recovery room in good condition there were no immediate complications for this procedure. Counts were correct. Complications: none Post-operative Condition: stable Disposition: PACU Plan for aftercare: Nonweightbearing right foot. Resume wound care with [facility] for wound VAC changes. Follow up in Orthopedic Clinic in about 4 weeks.
--- NOTE | 2024-06-29 11:03 | SUR.OPER ---
Supine on padded OR bed, head on pillow, arms secured on padded arm boards at <90 degrees abduction, legs uncrossed, safety belt at thigh, tape over blanket over lower legs.
[2024-06-29] MEDS: CEFAZOLIN 2 GM/100 ML PREMIX 100 ML IV (11:07)
[2024-06-29 11:26] VITALS: BP 134/80; PULSE 68; RESP 17; TEMP 36.7; O2SAT 97
[2024-06-29 11:33] VITALS: BP 133/78; PULSE 71; RESP 16; TEMP 36.8; O2SAT 97
[2024-06-29 11:38] VITALS: BP 136/75; PULSE 72; RESP 18; TEMP 36.8; O2SAT 97
[2024-06-29 12:03] VITALS: BP 132/75; PULSE 71; RESP 18; TEMP 36.7; O2SAT 96
== END 2024-06-29 12:06 | disposition home or self-care (01) ==
PROVIDERS: PCP Internal Medicine; Referring Provider Orthopaedic Surgery Foot and Ankle Surgery; Visit Provider Orthopaedic Surgery Foot and Ankle Surgery
PROC: (CPT 11044; principal; 2024-06-29 10:45)
DX: E10.621 Type 1 diabetes mellitus with foot ulcer (principal); L97.514 Non-pressure chronic ulcer of other part of right foot with necrosis of bone; E10.69 Type 1 diabetes mellitus with other specified complication; Z79.4 Long term (current) use of insulin; M86.9 Osteomyelitis, unspecified; M87.9 Osteonecrosis, unspecified
CPT/HCPCS: 11044; 97605; 82962; 87070; 87075; 87077; 87186; 87205; 87801; J0690; J2250; J2405; J2704

== ENCOUNTER → 2024-06-30 08:48 | Outpatient (CLI) | payer OTHER, SELFPAY ==
[2024-04-12 17:09] VITALS: BMI 31.9
== END ==
LOC: WC 08:49
PROVIDERS: PCP Internal Medicine; Referring Provider Hospitalist; Visit Provider Surgery
DX: M86.179 Other acute osteomyelitis, unspecified ankle and foot (principal); E10.40 Type 1 diabetes mellitus with diabetic neuropathy, unspecified; E10.621 Type 1 diabetes mellitus with foot ulcer; L89.899 Pressure ulcer of other site, unspecified stage; L97.516 Non-pressure chronic ulcer of other part of right foot with bone involvement without evidence of necrosis
CPT/HCPCS: 99183; G0277

== ENCOUNTER → 2024-07-01 09:00 | Outpatient (CLI) | payer OTHER, SELFPAY ==
[2024-04-12 17:09] VITALS: BMI 31.9
== END ==
LOC: WC 09:00
PROVIDERS: PCP Internal Medicine; Referring Provider Hospitalist; Visit Provider Physician Assistant
DX: E11.621 Type 2 diabetes mellitus with foot ulcer (principal); L97.512 Non-pressure chronic ulcer of other part of right foot with fat layer exposed; L84 Corns and callosities; R60.0 Localized edema; M86.179 Other acute osteomyelitis, unspecified ankle and foot; E10.40 Type 1 diabetes mellitus with diabetic neuropathy, unspecified; E10.621 Type 1 diabetes mellitus with foot ulcer; L89.899 Pressure ulcer of other site, unspecified stage; L97.516 Non-pressure chronic ulcer of other part of right foot with bone involvement without evidence of necrosis
CPT/HCPCS: 97605; 99183; G0277

== ENCOUNTER → 2024-07-05 09:18 | Outpatient (CLI) | payer OTHER, SELFPAY ==
[2024-04-12 17:09] VITALS: BMI 31.9
== END ==
LOC: WC 09:18
PROVIDERS: PCP Internal Medicine; Referring Provider Hospitalist; Visit Provider Surgery
DX: E10.40 Type 1 diabetes mellitus with diabetic neuropathy, unspecified (principal); E10.621 Type 1 diabetes mellitus with foot ulcer; L97.516 Non-pressure chronic ulcer of other part of right foot with bone involvement without evidence of necrosis; R60.0 Localized edema; M86.171 Other acute osteomyelitis, right ankle and foot
CPT/HCPCS: 15275; Q4101

== ENCOUNTER → 2024-07-12 09:35 | Outpatient (CLI) | payer OTHER, SELFPAY ==
[2024-04-12 17:09] VITALS: BMI 31.9
== END ==
LOC: WC 09:36
PROVIDERS: PCP Internal Medicine; Referring Provider Hospitalist; Visit Provider Surgery
DX: E10.40 Type 1 diabetes mellitus with diabetic neuropathy, unspecified (principal); E10.621 Type 1 diabetes mellitus with foot ulcer; L97.516 Non-pressure chronic ulcer of other part of right foot with bone involvement without evidence of necrosis; R60.0 Localized edema; M86.171 Other acute osteomyelitis, right ankle and foot; B35.9 Dermatophytosis, unspecified
CPT/HCPCS: 11043

== ENCOUNTER → 2024-07-19 09:05 | Outpatient (CLI) | payer OTHER, SELFPAY ==
[2024-04-12 17:09] VITALS: BMI 31.9
== END ==
LOC: WC 09:06
PROVIDERS: PCP Internal Medicine; Referring Provider Hospitalist; Visit Provider Surgery
DX: E10.40 Type 1 diabetes mellitus with diabetic neuropathy, unspecified (principal); E10.621 Type 1 diabetes mellitus with foot ulcer; L97.516 Non-pressure chronic ulcer of other part of right foot with bone involvement without evidence of necrosis; R60.0 Localized edema; M86.171 Other acute osteomyelitis, right ankle and foot; B35.9 Dermatophytosis, unspecified
CPT/HCPCS: 11043; 99213

== ENCOUNTER → 2024-07-26 09:32 | Outpatient (CLI) | payer OTHER, SELFPAY ==
[2024-04-12 17:09] VITALS: BMI 31.9
== END ==
PROVIDERS: PCP Internal Medicine; Referring Provider Hospitalist; Visit Provider Surgery
DX: M86.171 Other acute osteomyelitis, right ankle and foot (principal); L97.516 Non-pressure chronic ulcer of other part of right foot with bone involvement without evidence of necrosis; E10.621 Type 1 diabetes mellitus with foot ulcer; E10.40 Type 1 diabetes mellitus with diabetic neuropathy, unspecified; L53.8 Other specified erythematous conditions; R60.0 Localized edema
CPT/HCPCS: 11042; 87070; 87075; 87077; 87147; 87205; 99214

== ENCOUNTER 2024-07-26 10:41 | Inpatient (IN) | payer OTHER, SELFPAY ==
[2024-04-12 17:09] VITALS: BMI 31.9
[2024-07-26] VITALS (19 sets, daily range): BP systolic 123–156; BP diastolic 49–87; PULSE 71–84; RESP 16–18; TEMP 36.7–37.7; O2SAT 95–99; BMI 33.4
[2024-07-26 11:29] LABS: Add Manual Diff / Slide Review NO; Basophils Absolute Auto 0 /uL (0-100); Basophils Percent Auto 0.3 % (0-2); Eosinophils Absolute Auto 300 /uL (0-450); Eosinophils Percent Auto 3.1 % (2-4); Hematocrit 42.3 % (41-53); Hemoglobin 14.4 g/dL (13.5-17.5); Lymphocytes Absolute Auto 2000 /uL (1100-4500); Lymphocytes Percent Auto 21.9 % (25-40); Mean Corpuscular HGB Conc 34.1 % (30-36); Mean Corpuscular Volume 91.1 fL (80-100); Monocytes Absolute Auto 1400 /uL (0-900); Monocytes Percent Auto 14.8 % (3-14); Neutrophils Absolute Auto 5500 /uL (1500-7000); Neutrophils Percent Auto 59.9 % (50-75); Platelet Count 336 X10^3/uL (150-400); Red Blood Cell Count 4.64 X10^6/uL (4.5-5.9); Red Cell Distribution Width 13.2 % (11.6-14.8); White Blood Cell Count 9.2 X10^3/uL (4.5-11.0)
[2024-07-26 11:32] LABS: Prothrombin Time 11.2 SECONDS (9.4-12.5)
[2024-07-26 11:34] LABS: PTT Partial Thromboplastin Tim 31 SECONDS (25.1-36.5)
[2024-07-26 11:37] LABS: Lactate (Lactic Acid) 2.3 mmol/L (0.7-2.1)
[2024-07-26 11:39] LABS: Alanine Aminotransferase 17 IU/L (<50); Albumin 3.9 g/dL (3.5-5.0); Alkaline Phosphatase 127 U/L (38-126); Aspartate Aminotransferase 22 IU/L (17-59); BUN Creatinine Ratio 29.3 (6-22); Bilirubin Total 0.5 mg/dL (0.2-1.3); Blood Urea Nitrogen 27 mg/dL (9-20); Calcium 9.6 mg/dL (8.4-10.2); Carbon Dioxide 32 mmol/L (22-32); Chloride 92 mmol/L (98-107); Estimated Glomerular Filt Rate > 60 mL/min (>60); Globulin 4.1 g/dL (1.7-4.1); Glucose 123 mg/dL (70-100); HEMOLYSIS < 15 (0-50); Lipase 20 U/L (23-300); Potassium 3.8 mmol/L (3.4-5.1); Sodium 132 mmol/L (137-145)
[2024-07-26 11:54] LABS: Procalcitonin 0.806 ng/mL (<0.5)
--- NOTE | 2024-07-26 12:07 | DI.RAD.S_ITS ---
PROCEDURE: XR FOOT RT MIN 3V INDICATIONS: worsening diabetic foot wound, concern for osteo TECHNIQUE: 3 views of the foot were acquired. COMPARISON: [facility], CR, XR FOOT RT MIN 3V, 04/12/2024, 14:01. FINDINGS: Bones: No fractures or dislocations. No suspicious bony lesions. No osseous erosions or aggressive periosteal reaction. Hallux valgus deformity. Soft tissues: No tibiotalar joint effusion. Achilles tendon appears normal. Soft tissue swelling in the 1st digit. No soft tissue gas. IMPRESSION: No aracelis evidence of osteomyelitis. Plain film radiographs can be insensitive to osteomyelitis during the initial phase of the disease process. If there is clinical concern for osteomyelitis, then three-phase nuclear medicine bone scan or MRI should be considered for further evaluation. Dictated by: Stephanie Mack MD, PhD on 07/26/2024 at 12:25 Approved by: Stephanie Mack MD, PhD on 07/26/2024 at 12:27
[2024-07-26] MEDS: levoFLOXacin 750 MG/150 ML PIGGYBACK 100 MG IV (12:15)
[2024-07-26 12:20] LABS: C-Reactive Protein Quant 6.8 mg/dL (<1.0)
--- NOTE | 2024-07-26 12:44 | ED.WOUNDLAC ---
HPI - Wound/Laceration General Chief Complaint: Wound/Laceration Stated Complaint: Possible Right foot infection,sent from wound care Time Seen by Provider: 07/26/24 12:06 Source: patient Mode of arrival: Wheelchair History of Present Illness HPI narrative: 44-year-old male history of insulin-dependent diabetes, PTSD, anxiety, depression with prior bone infection/osteomyelitis patient has had debridement in the past had a PICC line placed which was removed about a month ago and has been on oral antibiotics. Has been following with Infectious Disease with Dr. Anne and Dr. Marks orthopedic surgery. Patient was sent today by Dr. Hall wound care for concern for worsening infection and osteomyelitis. Patient had a recent upper GI illness with nausea vomiting diarrhea which she states has resolved felt little bit punky has not had any fevers but has continued to feel little unwell. Noticed some increased redness and swelling of the great toe adjacent to the ulcer that has been present. States has had some continued drainage states not a large increased. Dr. Gomez states it is purulent today. Denies any chest pain or shortness of breath, no nausea or vomiting no diarrhea constipation or urinary symptoms since patient states home medications include insulin, metoprolol, escitalopram, trazodone in his daily oral antibiotics. Denies any drug allergies. Has had 2 debridements of his foot in the past most recently a month ago with Dr. Payan. Related Data Home Medications Medication Instructions Recorded Confirmed insulin lispro 100 unit/mL 6 - 15 dose SUBCUT ACHS 07/06/18 06/29/24 subcutaneous pen (Humalog KwikPen (U-100) Insulin) escitalopram oxalate 10 mg tablet 10 mg PO DAILY 04/12/24 06/29/24 insulin glargine-yfgn 100 unit/mL 40 unit SUBCUT QPM 04/12/24 06/29/24 (3 mL) subcutaneous pen (Semglee (insulin glargine-yfgn) Pen) lisinopril 20 mg tablet 20 mg PO DAILY 04/12/24 06/29/24 trazodone 50 mg tablet 100 mg PO ONCE PM PRN Sleep 04/12/24 06/29/24 Previous Rx's Medication Instructions Recorded ampicillin sodium 2 gram solution 2,000 mg IV Q4H #6 wks 04/18/24 for injection Allergies Allergy/AdvReac Type Severity Reaction Status Date / Time No Known Drug Allergies Allergy Verified 09/23/23 10:28 Review of Systems Review of Systems ROS Unobtainable: All systems reviewed & are unremarkable except as noted in HPI and below Patient History Medical History Anxiety Hypokalemia PTSD (post-traumatic stress disorder) Type 1 diabetes Insulin dependent diabetes mellitus Family History Father Diabetes mellitus Social History marital status: household members: spouse and children occupational status: employed Smoking Status: Never smoker alcohol intake: current Smoking Status: Never smoker alcohol intake frequency: holidays/special occasions only Substance Use Type: marijuana Exam Narrative Exam Narrative: GENERAL: Alert and oriented x three, well-appearing male in mild distress HEENT: Head normocephalic, atraumatic, EOMI, pupils reactive, face symmetric, moist mucous membranes NECK: Supple, full range of motion CARDIOVASCULAR: Regular rate and rhythm without murmurs, rubs or gallops. RESPIRATORY: Breath sounds equal bilaterally, no wheezes rales or rhonchi. ABDOMEN: Soft, nontender. Normoactive bowel sounds all 4 quadrants. No guarding or rebound, rigidity, no mass : No CVA tenderness EXTREMITIES: Normal range of motion. Patient's right foot has erythema and edema of the right great toe extending towards the large ulcer on the bottom of the mid foot. There is a small amount of the yellowish drainage and there some white yellow discolored granulation tissue, no foul odor. Scant amount of purulent drainage. Patient is nontender to touch but has decreased sensation. Cap refills less than 2 seconds throughout the foot. Neurovascularly intact. NEUROLOGICAL: Cranial nerves II through XII grossly intact. Moving all extremities SKIN: Warm, dry, no petechiae. Initial Vital Signs Initial Vital Signs: Vital Signs Pulse Rate 75 07/26/24 10:47 Blood Pressure 139/67 07/26/24 10:47 Pulse Oximetry 98 07/26/24 10:47 Course Orders Ordered: ED Orders 07/26/24 11:00 RT Consult Eval and Treat NOW 07/26/24 11:05 CRP [C-Reactive Protein Quant] Stat Complete Blood Count AUTO DIFF Stat Comprehensive Metabolic Panel Stat Lactate (Lactic Acid) Stat Lipase Stat PTT Partial Thromboplastin Delvis Stat Procalcitonin Stat Prothrombin Time INR Stat 07/26/24 11:21 Blood Culture Stat 07/26/24 12:07 XR foot RT min 3V Stat 07/26/24 12:11 Wound Culture and Gram Stain Stat 07/26/24 13:25 EKG-12 Lead Stat 07/27/24 05:00 Complete Blood Count AUTO DIFF DAILY Comprehensive Metabolic Panel DAILY Erythrocyte Sedimentation Rate Urgent Hemoglobin A1C% w Est Avg Glu Routine Magnesium DAILY 07/28/24 05:00 Complete Blood Count AUTO DIFF DAILY Comprehensive Metabolic Panel DAILY Magnesium DAILY 07/29/24 05:00 Complete Blood Count AUTO DIFF DAILY Comprehensive Metabolic Panel DAILY Magnesium DAILY Acetaminophen (Acetaminophen 325 Mg Tablet) 650 mg PO Q6H PRN PRN Reason: Fever/Mild Pain (1-3) Meropenem 1 gm/ Sodium (Chloride) 100 mls @ 200 mls/hr IV Q8H LEAH Naloxone HCl (Naloxone 0.4 Mg/Ml Vial) 0.2 mg IV Q2MIN PRN PRN Reason: Opiate Reversal Ondansetron HCl (Ondansetron 4 Mg/2 Ml Inj) 4 mg IV Q8HR PRN PRN Reason: Nausea And Vomiting Oxycodone HCl (Oxycodone Ir 5 Mg Tablet) 5 mg PO Q3H PRN PRN Reason: Pain, Moderate (4-6) Discontinued Medications Levofloxacin (Levaquin) 750 mg in 150 mls @ 100 mls/hr IV NOW ONE Stop: 07/26/24 13:37 Last Admin: 07/26/24 12:15 Dose: 100 mls/hr Documented By: [facility] Ondansetron HCl (Ondansetron 4 Mg/2 Ml Inj) 4 mg IV NOW PRN PRN Reason: Nausea And Vomiting Ondansetron HCl (Ondansetron 4 Mg Odt) 4 mg SL NOW PRN PRN Reason: Nausea And Vomiting Vital Signs Vital signs: Vital Signs - 8 hr 07/26/24 10:47 07/26/24 10:47 07/26/24 10:54 Temperature 98.8 F Pulse Rate 75 74 Respiratory Rate 16 Blood Pressure 139/67 139/67 Pulse Oximetry 98 98 Oxygen Delivery Method Room Air 07/26/24 11:00 07/26/24 11:00 07/26/24 11:30 Temperature Pulse Rate 71 71 Respiratory Rate Blood Pressure 133/69 Pulse Oximetry 98 97 Oxygen Delivery Method 07/26/24 12:00 07/26/24 12:30 07/26/24 12:58 Temperature Pulse Rate 73 73 73 Respiratory Rate Blood Pressure Pulse Oximetry 96 97 96 Oxygen Delivery Method 07/26/24 12:58 07/26/24 13:00 07/26/24 13:00 Temperature Pulse Rate 73 Respiratory Rate Blood Pressure 129/82 127/77 Pulse Oximetry 96 Oxygen Delivery Method Room Air MDM - Wound/Laceration Lab Data 07/26/24 11:05 07/26/24 11:05 Labs: Lab Results 07/26/24 07/26/24 Range/Units 11:05 13:25 WBC 9.2 (4.5-11.0) X10^3/uL RBC 4.64 (4.5-5.9) X10^6/uL Hgb 14.4 (13.5-17.5) g/dL Hct 42.3 (41-53) % MCV 91.1 (80-100) fL MCH 31.0 (26-34) PG MCHC 34.1 (30-36) % RDW 13.2 (11.6-14.8) % Plt Count 336 (150-400) X10^3/uL Neut % (Auto) 59.9 (50-75) % Lymph % (Auto) 21.9 L (25-40) % [place] % (Auto) 14.8 H (3-14) % Eos % (Auto) 3.1 (2-4) % Baso % (Auto) 0.3 (0-2) % Neut # (Auto) 5500 (5512-6173) /uL Lymph # (Auto) 2000 (0918-8026) /uL [place] # (Auto) 1400 H (0-900) /uL Eos # (Auto) 300 (0-450) /uL Baso # (Auto) 0 (0-100) /uL PT 11.2 (9.4-12.5) SECONDS INR 1.0 (0.9-1.3) APTT 31 (25.1-36.5) SECONDS Sodium 132 L (137-145) mmol/L Potassium 3.8 (3.4-5.1) mmol/L Chloride 92 L (98-107) mmol/L Carbon Dioxide 32 (22-32) mmol/L BUN 27 H (9-20) mg/dL Creatinine 0.92 (0.66-1.25) mg/dL Estimated GFR > 60 (>60) mL/min BUN/Creatinine Ratio 29.3 H (6-22) Glucose 123 H (70-100) mg/dL Lactate 2.3 H 1.3 (0.7-2.1) mmol/L Calcium 9.6 (8.4-10.2) mg/dL Total Bilirubin 0.5 (0.2-1.3) mg/dL AST 22 (17-59) IU/L ALT 17 (<50) IU/L Alkaline Phosphatase 127 H (38-126) U/L C-Reactive Protein 6.8 H (<1.0) mg/dL Total Protein 8.0 (6.3-8.2) g/dL Albumin 3.9 (3.5-5.0) g/dL Globulin 4.1 (1.7-4.1) g/dL Albumin/Globulin Ratio 1.0 (1.0-2.8) Lipase 20 L (23-300) U/L Procalcitonin 0.806 H (<0.5) ng/mL MDM Narrative Medical decision making narrative: Foot x-ray shows no aracelis evidence of osteomyelitis but soft tissue swelling of the 1st digit. Labs show white count of 9.2 hemoglobin of 14 platelets of 336., sodium 132 potassium 3.8 chloride 92 CO2 of 32 BUN 27 creatinine of 0.92 glucose of 123 lactate is 2.3 alk-phos is 127 with a CRP of 6.8. ESR was not obtained as sick is a send out currently and takes greater than 24 hours to result. Procalcitonin [address] Hall who saw patient in the office today patient is feeling unwell he states what appears infected and concern for osteomyelitis. He was spoke with Dr. Anne from Infectious Disease who recommended admission has had a recent culture which did show Enterobacter cloacae and state lab did call stating patient had some carbapenem resistance. Spoke with Dr. Marks, orthopedic surgery she was planning to see the patient this evening she was aware of the patient was supposed to see her earlier today she also spoke to Dr. Anne from Infectious Disease. Plan for OR probably tomorrow asked for meropenem as per ID recommendations. Did ask if Dr. Marks would like for us to send out ESR, she states she was fine continuing with CRP. Spoke with Dr. Nuñez, accepts for inpatient osteomyelitis versus infected diabetic foot wound. He also spoke with Dr. Anne, plan for Levaquin and meropenem for antibiotic coverage. Does ask for EKG for screening for OR tomorrow. Aware of plan from Orthopedic surgery Discharge Plan Departure Patient Disposition: Admitted As Inpatient Clinical Impression: Osteomyelitis of foot Admit Date/Time: 07/26/24 13:26 Admit Provider: Kt Nuñez
[2024-07-26 12:53] LABS: Reflexed Lactate in 2 Hours Y
--- NOTE | 2024-07-26 13:25 | EKG_ITS ---
[facility] [address], [place] [address] Test Date: 2024-07-26 Pat Name: Tyrone Marquez Department: [facility] Room: 90A Gender: Male Clinical Program Director: PAOLA : 1980 Requested By: Order Number: [id number] Reading MD: Adarsh Barillas MD Measurements Intervals [place] Rate: 77 P: 29 SC: 140 QRS: 0 QRSD: 88 T: 1 QT: 424 QTc: 479 Interpretive Statements Normal sinus rhythm Possible Anterior infarct , age undetermined Electronically Signed On 07-26-2024 15:08:55 PST by Adarsh Barillas MD
[2024-07-26 13:48] LABS: Lactate 2HR (Lactic Acid Rflx) 1.3 mmol/L (0.7-2.1)
[2024-07-26] MEDS: MEROPENEM 1 GM in SODIUM CHLORIDE 0.9% 100 ML IV ×2 (13:57→22:08)
--- NOTE | 2024-07-26 14:24 | P.HP_ITS ---
History of Present Illness History of Present Illness Date Patient Seen: 07/26/24 Time Patient Seen: 14:25 Chief complaint: Possible Right foot infection,sent from wound care Narrative: 44-year-old male with history of insulin-dependent diabetes, PTSD, anxiety, depression, previous osteomyelitis of his R foot presents for worsening R foot infection. He has had this ongoing infection for the past 5-6 months, been following with wound care and orthopedic surgery Dr. Payan. He had completed a course of IV antibiotics with line removed a bit over a month ago. He was sent to the ER from wound care today with concerns for worsening infection. Patient did notice the last few days some increasing redness over his R toe, and slight pain maybe a 2/10. He has not noticed and changes in drainage. He thought he was just going for a check up today. He denies fever, chills, knee pain, abdominal pain, chest pain, shortness of breath. In the emergency room, the patient's vitals were unremarkable. There was no leukocytosis, with an unremarkable CBC. Chemistries were also unremarkable, CRP was mildly elevated at 6.8, procalcitonin was also mildly elevated at 0.806. He was admitted to medicine service. [facility] Medical History Anxiety Hypokalemia PTSD (post-traumatic stress disorder) Type 1 diabetes Insulin dependent diabetes mellitus Family History Father Diabetes mellitus Social History marital status: household members: spouse and children occupational status: employed Smoking Status: Never smoker alcohol intake: current Meds Home Medications and Allergies Home Medications Medication Instructions Recorded Confirmed Type insulin lispro 100 unit/mL 6 - 15 dose SUBCUT ACHS 07/06/18 06/29/24 History subcutaneous pen (Humalog KwikPen (U-100) Insulin) escitalopram oxalate 10 mg tablet 10 mg PO DAILY 04/12/24 06/29/24 History insulin glargine-yfgn 100 unit/mL 40 unit SUBCUT QPM 04/12/24 06/29/24 History (3 mL) subcutaneous pen (Semglee (insulin glargine-yfgn) Pen) lisinopril 20 mg tablet 20 mg PO DAILY 04/12/24 06/29/24 History trazodone 50 mg tablet 100 mg PO ONCE PM PRN Sleep 04/12/24 06/29/24 History ampicillin sodium 2 gram solution 2,000 mg IV Q4H #6 wks 04/18/24 06/29/24 Rx for injection Allergies Allergy/AdvReac Type Severity Reaction Status Date / Time No Known Drug Allergies Allergy Verified 07/26/24 14:39 Review of Systems Review of Systems Narrative: All other systems reviewed with the patient and are negative unless otherwise stated. Exam Vital Signs (past 8 hours): - 07/26/24 10:47 07/26/24 10:47 07/26/24 10:54 Temperature 98.8 F Pulse Rate 75 74 Respiratory Rate 16 Blood Pressure 139/67 139/67 Pulse Oximetry 98 98 Oxygen Delivery Method Room Air 07/26/24 11:00 07/26/24 11:00 07/26/24 11:30 Temperature Pulse Rate 71 71 Respiratory Rate Blood Pressure 133/69 Pulse Oximetry 98 97 Oxygen Delivery Method 07/26/24 12:00 07/26/24 12:30 07/26/24 12:58 Temperature Pulse Rate 73 73 73 Respiratory Rate Blood Pressure Pulse Oximetry 96 97 96 Oxygen Delivery Method 07/26/24 12:58 07/26/24 13:00 07/26/24 13:00 Temperature Pulse Rate 73 Respiratory Rate Blood Pressure 129/82 127/77 Pulse Oximetry 96 Oxygen Delivery Method Room Air 07/26/24 13:42 Temperature 99.9 F H Pulse Rate Respiratory Rate Blood Pressure Pulse Oximetry Oxygen Delivery Method Oxygen Delivery Method Room Air Narrative Exam Narrative: NAD, alert and oriented. Fluent speech. Lungs are clear, normal rate and effort. Heart is regular, no murmur gallop or rub. Abdomen is soft, non distended. Extremities are free of edema. Good capillary refill. Objective ECG Impression: NST. Qtc 479. No evidence of acute ischemia. Labs 07/26/24 11:05 07/26/24 11:05 Labs: Laboratory Results - last 24 hr 07/26/24 07/26/24 11:05 13:25 WBC 9.2 RBC 4.64 Hgb 14.4 Hct 42.3 MCV 91.1 MCH 31.0 MCHC 34.1 RDW 13.2 Plt Count 336 Neut % (Auto) 59.9 Lymph % (Auto) 21.9 L [place] % (Auto) 14.8 H Eos % (Auto) 3.1 Baso % (Auto) 0.3 Neut # (Auto) 5500 Lymph # (Auto) 2000 [place] # (Auto) 1400 H Eos # (Auto) 300 Baso # (Auto) 0 PT 11.2 INR 1.0 APTT 31 Sodium 132 L Potassium 3.8 Chloride 92 L Carbon Dioxide 32 BUN 27 H Creatinine 0.92 Estimated GFR > 60 BUN/Creatinine Ratio 29.3 H Glucose 123 H Lactate 2.3 H 1.3 Calcium 9.6 Total Bilirubin 0.5 AST 22 ALT 17 Alkaline Phosphatase 127 H C-Reactive Protein 6.8 H Total Protein 8.0 Albumin 3.9 Globulin 4.1 Albumin/Globulin Ratio 1.0 Lipase 20 L Procalcitonin 0.806 H Assessment & Plan Assessment & Plan narrative: 1. Right diabetic foot infection, possible osteomyelitis, present on admission and active - Prior cultures with enterobacter, possible partial carbapenem resistance. Also with prior E. coli - Discussed with Dr. Payan, would like MRI of the R foot to further evaluate possible osteo and for any possible fluid collections - Discussed with Dr. Aj, recommends Levofloxacin and Meropenem therapy for now. Monitor qtc. - Continue tele for a few days for Qt evaluations. - NPO at midnight for probable I&D tomorrow with orthopedics. 2. IDDM, present on admission and active. - cut insulin in half for tomorrow, continue sliding scale. Will give 20 U tonight instead of usual 40 and continue mealtime at 6U AC, holding if NPO. - Check A1c. - hold home lisinopril prior to OR planned for tomorrow. 3. PTSD, present on admission and active. - continue escitalopram 4. Anxiety and depression, present on admission and active. - continue escitalopram 10 mg daily. 5. HTN - hold home lisinopril prior to OR Code: Full, surrogate is patient's spouse DVT: Lovenox daily I have utilized all available immediate resources to obtain, update, or review the patient's current medications. Dispo: patient admitted under inpatient status. Unclear if will be able to discharge home or possible SNF, will have PT/OT evaluations. Additional history obtained via discussions with the ER provider, Infectious disease provider and orthopedic surgeon. These discussions contributed to the creation of the above assessment and plan. I have reviewed patient's presenting documentation, labs, and imaging personally. Time-Based Coding :: [TOTAL MINUTES] spent with patient and on the chart (including review of chart, obtaining history, exam, reviewing outside data, placing orders, documenting exam and treatment plan, and counseling patient) on [DATE].
--- NOTE | 2024-07-26 16:25 | DI.MRI.S_ITS ---
PROCEDURE: MR FOOT RT WO/W CON INDICATIONS: R foot infection, possible recurrent osteo TECHNIQUE: Noncontrast coronal T1 spin echo and STIR, sagittal T1 spin echo with fat saturation and STIR, axial T1 spin echo and T2 fast spin echo with fat saturation. After the administration of contrast, axial/sagittal/coronal T1 spin echo with fat saturation through the right foot . COMPARISON: [facility], MR, MR FOOT RT WO/W CON, 04/12/2024, 19:05. [facility], CR, XR FOOT RT MIN 3V, 07/26/2024, 12:09. FINDINGS: Image quality: Diagnostic Bones: Background [id number] degenerative changes. Hallux valgus alignment. There is replacement of the normal T1 signal at the head of the 1st metatarsal, and underlying sesamoids. Signal abnormality extends partially to the base of the 1st proximal phalanx. On T2 weighted and postcontrast images, edema is seen in this region extending to the 1st metatarsal shaft. Enhancement is also seen throughout the 1st proximal phalanx, also extending into the distal phalanx. First MTP joint effusion is present Soft tissues: There is enhancement in fluid involving the 1st flexor tendon, starting from the neck of the 1st metatarsal, extending to the distal phalanx, involving a length of at least 7.3 cm. Ulceration is seen medial to the 1st metatarsal head, with fluid and enhancement. There is moderate surrounding soft tissue edema. IMPRESSION: Medial soft tissue ulcer adjacent to the 1st metatarsal head with adjacent 1st MTP joint effusion. Unequivocal osteomyelitis involves the 1st metatarsal head. There is more early stage edema and enhancement, likely reactive changes, involving the 1st metatarsal shaft and 1st ray phalanges. Pyo-tenosynovitis of the 1st flexor tendon. Dictated by: Troy Reza M.D. on 07/26/2024 at 20:22 Approved by: Troy Reza M.D. on 07/26/2024 at 20:28
[2024-07-26] MEDS: INSULIN LISPRO 100 UNIT/ML 3ML VIAL 6 UNIT SUBCUT (16:51)
[2024-07-26] MEDS: INSULIN LISPRO 100 UNIT/ML 3ML VIAL SUBCUT ×2 (16:51→22:09)
--- NOTE | 2024-07-26 17:53 | P.CONS_ITS ---
History of Present Illness Consult details Date Patient Seen: 07/26/24 Time Patient Seen: 17:54 Chief complaint: Possible Right foot infection,sent from wound care Reason for consult: Diabetic infection Requesting provider: Manuela Lizarraga Narrative: Tyrone is a 44-year-old male diabetic had a history of plantar 1st MTP ulceration and osteomyelitis of the medial sesamoid. He is status post I and D and then status post repeat I&D and medial sesamoidectomy. Receiving wound care and antibiotics from [facility] Infectious Disease. He appeared to be making some slow progress in his wound healing until recently when he was noted to have a worsening appearance of the ulceration at his wound care appointment today. He was supposed to see me in [facility] in the evening but was instructed to come to the ER. He states he was sick last week with a stomach bug. It did not notice any acute worsening of his foot. He has been getting weekly changes wound care and been doing other dressing changes at home. Meds Home Medications and Allergies Home Medications Medication Instructions Recorded Confirmed Type insulin lispro 100 unit/mL 6 - 15 dose SUBCUT ACHS 07/06/18 07/26/24 History subcutaneous pen (Humalog KwikPen (U-100) Insulin) escitalopram oxalate 10 mg tablet 10 mg PO DAILY 04/12/24 07/26/24 History insulin glargine-yfgn 100 unit/mL 30 unit SUBCUT QPM 04/12/24 07/26/24 History (3 mL) subcutaneous pen (Semglee (insulin glargine-yfgn) Pen) lisinopril 20 mg tablet 20 mg PO DAILY 04/12/24 07/26/24 History trazodone 50 mg tablet 100 mg PO ONCE PM PRN Sleep 04/12/24 07/26/24 History ampicillin sodium 2 gram solution 2,000 mg IV Q4H #6 wks 04/18/24 07/26/24 Rx for injection Allergies Allergy/AdvReac Type Severity Reaction Status Date / Time No Known Drug Allergies Allergy Verified 07/26/24 14:39 Review of Systems Review of Systems Narrative: No fevers or chills. Had a GI bug last week. Exam Vital Signs (past 8 hours): - 07/26/24 10:47 07/26/24 10:47 07/26/24 10:54 Temperature 98.8 F Pulse Rate 75 74 Respiratory Rate 16 Blood Pressure 139/67 139/67 Pulse Oximetry 98 98 Oxygen Delivery Method Room Air Oxygen Flow Rate 07/26/24 11:00 07/26/24 11:00 07/26/24 11:30 Temperature Pulse Rate 71 71 Respiratory Rate Blood Pressure 133/69 Pulse Oximetry 98 97 Oxygen Delivery Method Oxygen Flow Rate 07/26/24 12:00 07/26/24 12:30 07/26/24 12:58 Temperature Pulse Rate 73 73 73 Respiratory Rate Blood Pressure Pulse Oximetry 96 97 96 Oxygen Delivery Method Oxygen Flow Rate 07/26/24 12:58 07/26/24 13:00 07/26/24 13:00 Temperature Pulse Rate 73 Respiratory Rate Blood Pressure 129/82 127/77 Pulse Oximetry 96 Oxygen Delivery Method Room Air Oxygen Flow Rate 07/26/24 13:26 07/26/24 13:30 07/26/24 13:40 Temperature 98.2 F Pulse Rate 79 76 Respiratory Rate 18 Blood Pressure 126/49 L 138/78 Pulse Oximetry 98 99 Oxygen Delivery Method Oxygen Flow Rate 0 07/26/24 13:40 07/26/24 13:42 07/26/24 14:00 Temperature 99.9 F H Pulse Rate 74 Respiratory Rate Blood Pressure 137/75 Pulse Oximetry 97 Oxygen Delivery Method Oxygen Flow Rate 07/26/24 14:00 07/26/24 14:30 07/26/24 14:30 Temperature Pulse Rate 76 76 Respiratory Rate Blood Pressure 141/65 H Pulse Oximetry 99 95 Oxygen Delivery Method Oxygen Flow Rate 07/26/24 15:30 07/26/24 17:26 Temperature 98.0 F Pulse Rate 83 Respiratory Rate 18 Blood Pressure 123/67 Pulse Oximetry 97 98 Oxygen Delivery Method Room Air Oxygen Flow Rate 0 0 Oxygen Delivery Method Room Air Oxygen Flow Rate 0 Narrative Exam Narrative: Alert oriented male in no acute distress. Lying in the hospital bed. Heart regular rate and rhythm Respiratory unlabored lungs clear to auscultation Moving upper extremities without limitation Right lower extremity demonstrates ulceration plantar 1st MTP proximally 4 x 4 cm. There is some erythema along the proximal phalanx of the right great toe and a hallux valgus deformity with contracture. Weak plantar flexion of the digit tight toe extensor. No erythema up the foot or the ankle. Palpable dorsalis pedis pulse. No malodor. Objective Labs 07/26/24 11:05 07/26/24 11:05 Labs: Laboratory Results - last 24 hr 07/26/24 07/26/24 11:05 13:25 WBC 9.2 RBC 4.64 Hgb 14.4 Hct 42.3 MCV 91.1 MCH 31.0 MCHC 34.1 RDW 13.2 Plt Count 336 Neut % (Auto) 59.9 Lymph % (Auto) 21.9 L [place] % (Auto) 14.8 H Eos % (Auto) 3.1 Baso % (Auto) 0.3 Neut # (Auto) 5500 Lymph # (Auto) 2000 [place] # (Auto) 1400 H Eos # (Auto) 300 Baso # (Auto) 0 PT 11.2 INR 1.0 APTT 31 Sodium 132 L Potassium 3.8 Chloride 92 L Carbon Dioxide 32 BUN 27 H Creatinine 0.92 Estimated GFR > 60 BUN/Creatinine Ratio 29.3 H Glucose 123 H Lactate 2.3 H 1.3 Calcium 9.6 Total Bilirubin 0.5 AST 22 ALT 17 Alkaline Phosphatase 127 H C-Reactive Protein 6.8 H Total Protein 8.0 Albumin 3.9 Globulin 4.1 Albumin/Globulin Ratio 1.0 Lipase 20 L Procalcitonin 0.806 H COUNTS INCLUDE 234 BEDS AT THE [facility] Medical History Anxiety Hypokalemia PTSD (post-traumatic stress disorder) Type 1 diabetes Insulin dependent diabetes mellitus Family History Father Diabetes mellitus Social History marital status: household members: spouse and children occupational status: employed Tobacco & Substance Use Smoking Status: Never smoker alcohol intake: current Assessment & Plan Assessment and plan (1) Osteomyelitis of foot: Qualifiers: Osteomyelitis type: chronic, with draining sinus Laterality: right Qualified Code(s): M86.471 - Chronic osteomyelitis with draining sinus, right ankle and foot Status: Acute Plan Chronic diabetic foot ulcer with osteomyelitis. Has increased erythema today worsening redness around the proximal phalanx and plantar 1st MTP. Does not appear to have any ascending cellulitis. There is some scant purulence. His procalcitonin is elevated CRP is elevated. Previous cultures were Enterobacter resistant to ertapenem. He has been started on meropenem and Levaquin. I discussed the patient infectious disease physician Dr. Perry earlier in the day. And I have discussed the patient's appearance with the patient. We discussed options. We are going to order an MRI of the foot to assess proximal level of the involvement. I have offered the patient several options. One option is potentially curative and would be a partial 1st ray resection including 1st metatarsal head and great toe amputation this would potentially allow wound closure or near wound closure potentially be curative. Risks are for wound healing problems or need for additional surgery or need for a shoe filler. Discussed with the patient even with toe salvage likely would not be very functional great toe but a potential option would be a resection arthroplasty of the 1st MTP joint with an I and D and placement of an antibiotic cement spacer. If this allowed eradication of the organism could later come back for a 1st MTP fusion. We discussed if this worsens however he may still need partial ray amputation. Initially he does not want a great toe amputation. I discussed we can review this again after the MRI for shared decision-making. He currently does not have any evidence of ascending infection so we can discuss potential curative partial amputations versus toe salvage and resection antibiotic cement arthroplasty with the understanding of additional future surgeries or risk for failure. Patient understands and agrees with the plan. He will be NPO after midnight for OR tomorrow or tomorrow we will either be partial amputation or resection arthroplasty with cement spacer based on post MRI discussion. High-level medical complexity decision for surgeries involving diabetic infection, osteomyelitis and potential need for multiple procedures, IV antibiotics and additional wound care. Time-Based Coding :: [TOTAL MINUTES] spent with patient and on the chart (including review of chart, obtaining history, exam, reviewing outside data, placing orders, documenting exam and treatment plan, and counseling patient) on [DATE].
--- NOTE | 2024-07-26 19:41 | PC.NURSE ---
Off unit for MRI.
--- NOTE | 2024-07-26 20:12 | PC.NURSE ---
Patient back on unit from MRI, tele leads reapplied.
[2024-07-26] MEDS: INSULIN GLARGINE 100 UNIT/ML 3ML PEN 20 UNIT SUBCUT (22:09)
[2024-07-26] MEDS: TRAZODONE 50 MG TABLET 100 MG PO (23:37)
[2024-07-27] VITALS (22 sets, daily range): BP systolic 105–175; BP diastolic 60–95; PULSE 72–99; RESP 11–20; TEMP 36.1–36.9; O2SAT 93–100; BMI 33.3
--- NOTE | 2024-07-27 | PATH_ITS ---
[facility] Accession Number: [id number] No. of containers..01 Tissue . 01 Material submitted: . METATARSAL - FIRST METATARSAL . 01 Diagnosis: BONE, FIRST METATARSAL, BIOPSY: Fragment of bone with acute inflammation, fibrosis, and remodeling; please see comment. Negative for malignancy. [facility] 08/01/2024 1058 Local . 01 Comment: The histologic findings are compatible with acute osteomyelitis, if imaging studies support. Negative for malignancy. . 01 Electronically signed: . Liv Ralph MD, Pathologist NPI- [id number] . 01 Gross description: . Received in formalin with two patient identifiers and first metatarsal, is a lim fragment of bone, 0.9 x 0.4 x 0.3 cm. Submitted entirely in A1 following decalcification. ([id number]) /MRV 07/29/2024 1915 Local . 01 Pathologist provided ICD-10: M86.471 . 01 CPT . 657810, [id number] Specimen Comment: A courtesy copy of this report has been sent to [phone] Performed at: [address] [id number] MD Tyrone Nelson MD Phone: [phone]
[2024-07-27] MEDS: MEROPENEM 1 GM in SODIUM CHLORIDE 0.9% 100 ML IV ×3 (05:21→23:38)
[2024-07-27 06:06] LABS: Add Manual Diff / Slide Review NO; Basophils Absolute Auto 0 /uL (0-100); Basophils Percent Auto 0.2 % (0-2); Eosinophils Absolute Auto 300 /uL (0-450); Eosinophils Percent Auto 3.8 % (2-4); Hematocrit 40.8 % (41-53); Hemoglobin 13.7 g/dL (13.5-17.5); Lymphocytes Absolute Auto 1800 /uL (1100-4500); Lymphocytes Percent Auto 20.8 % (25-40); Mean Corpuscular HGB Conc 33.6 % (30-36); Mean Corpuscular Hemoglobin 30.6 PG (26-34); Mean Corpuscular Volume 91.1 fL (80-100); Monocytes Absolute Auto 1300 /uL (0-900); Monocytes Percent Auto 14.3 % (3-14); Neutrophils Absolute Auto 5400 /uL (1500-7000); Neutrophils Percent Auto 60.9 % (50-75); Platelet Count 306 X10^3/uL (150-400); Red Blood Cell Count 4.49 X10^6/uL (4.5-5.9); Red Cell Distribution Width 13.1 % (11.6-14.8); White Blood Cell Count 8.8 X10^3/uL (4.5-11.0)
[2024-07-27 06:30] LABS: Alanine Aminotransferase 12 IU/L (<50); Albumin 3.7 g/dL (3.5-5.0); Alkaline Phosphatase 113 U/L (38-126); Aspartate Aminotransferase 22 IU/L (17-59); BUN Creatinine Ratio 28.9 (6-22); Bilirubin Total 0.5 mg/dL (0.2-1.3); Blood Urea Nitrogen 22 mg/dL (9-20); Carbon Dioxide 31 mmol/L (22-32); Chloride 95 mmol/L (98-107); Estimated Glomerular Filt Rate > 60 mL/min (>60); Globulin 3.6 g/dL (1.7-4.1); Glucose 166 mg/dL (70-100); HEMOLYSIS < 15 (0-50); Hemoglobin A1C% w Est Avg Glu 9.2 % (4.0-6.0); Magnesium 2.3 mg/dL (1.6-2.3); Potassium 3.7 mmol/L (3.4-5.1); Sodium 134 mmol/L (137-145); Total Protein 7.3 g/dL (6.3-8.2)
[2024-07-27] MEDS: LACTATED RINGERS 1,000 ML 42 ML IV (08:10)
--- NOTE | 2024-07-27 09:01 | PM.PREOP ---
Pre-operative Note Interval Note History & Physical reviewed/Exam performed by Physician: Yes Changes to H&P: No
--- NOTE | 2024-07-27 11:29 | PM.OP.1 ---
Operative Date/Time/Diagnoses Date of procedure: 07/27/24 Time of procedure: 12:10 Pre-op diagnosis: Right foot diabetic foot ulcer, flexor hallucis longus tenosynovitis, osteomyelitis Post-op diagnosis: same Procedure & Clinicians Procedure: Irrigation debridement bone biopsy and tenosynovectomy right foot diabetic infection 40703 Resection arthroplasty 1st MTP joint similar to Siegel arthroplasty CPT code 88582 Placement of manually prepared antibiotic spacer [id number] Same procedure as scheduled: Yes Indications: The patient is 44-year-old diabetic male with osteomyelitis of the right foot. He is evaluated for an acute worsening of his known right foot ulcer and osteomyelitis sent in by wound care with new worsening erythema and purulent drainage. He is found to have flexor hallucis longus tenosynovitis and increased uptake at his 1st MTP joint concerning for osteomyelitis. We discussed options for great toe amputation versus attempted toe salvage. Patient desires for toe salvage. Discussed a resection arthroplasty with bone biopsy excision of the FHL and tenosynovectomy and wound debridement. Discussed possibility of additional surgery required or definitive fusion or for worsening amputation. He understands and agrees with the plan. We discussed we would plan a staged procedure involving bone biopsy resection arthroplasty antibiotic cement and pinning. He would have IV antibiotics once infection treated in about 6-8 weeks would come back for cement and pin removal and potential definitive fusion surgery at that time. The patient understands and agrees with the plan. Consent signed. The risks and benefits of the procedure have been discussed with the patient and given the opportunity to ask questions. The risks of surgery include but are not limited to infection, malunion, nonunion, persistence of pain, damage to nerves and blood vessels, posttraumatic arthritis, DVT, PE, coardiopulmonary complications and . The patient expressed a thorough understanding of the risks and benefits of surgery and has elected to proceed. Consent was signed Surgeon: Sepideh Payan Click Yes if Unassisted: Yes Anesthesia Type: General and Local Operative Notes Findings: FHL tenosynovitis, and tearing ulcer plantar 1st MTP 5x5 cm Closure Type: primary Specimen(s): other (bone 1st MT for pcr, gram stain, culture, pathology) Prosthetic devices, grafts, tissues, transplants, or devices: First metatarsal bone sent for pathology, culture, Gram stain, bacterial PCR Estimated Blood Loss (mL): 30 Blood products transfused: none Tourniquet time (min): 3 Procedure in detail: Patient was seen in the preoperative area the site of surgery was marked informed consent confirmed. This was the right foot. The patient was brought back to the operating room. Positioned supine on operative table. Bony prominences were well padded. The patient was on scheduled antibiotics but also received additional 2 g of Ancef. The right lower extremity was prepped and draped in standard sterile fashion. A formal time-out procedure was performed confirming the patient's side and site of surgery administration of appropriate antibiotic. All were in agreement. Attention turned to the right foot. [place] exsanguination was utilized and the tourniquet Tourniquet was raised on the thigh to 250 mm of mercury but only stayed the 3 minutes because it was venous. This was let down for the duration of the case. The plantar ulcer was ellipsed sized with the incision extended plantar along the course of the FHL tendon to the distal phalanx and proximally to the level of the proximal 1st metatarsal. The FHL tendon was traced distally and released. There was some purulent material this was evacuated this was then extended proximally and the FHL tendon was excised and allowed to retract. The entire ulcer bed was removed down to the level of the 1st metatarsal joint. The lateral sesamoid was exposed and was soft so this was excised. The cartilage of the 1st MTP joint was exposed and the PPS saw was used to remove the cartilage and distal bone for the resection arthroplasty. Next the 8 gauge trocar needle was used to take bone samples intramedullary at the 1st metatarsal proximal to the level of resection and was sent for pathology, PCR, culture and Gram stain. The tPs saw was also used to remove the cartilage surface off the base of the proximal phalanx for the resection arthroplasty. This was checked on positioning and then pinned in place with 20.6 K-wires. The proximal 1 was bent and buried for later removal in the OR. Distal pin was brought out the toe cut and K-wire cap placed. Next antibiotic cement spacer was fashioned using 140 g bag of cement, 2.4 g of tobramycin and 80 mg of gentamicin and rolled into small dowels this was placed into the depth of the wound and along the FHL tendon sheath. The wound was closed over with 2-0 PDS, 3-0 nylon and 2-0 nylon suture. I was able to approximate the ulceration with some tissue mobilization. An incisional wound VAC was then applied. And a soft dressing. There was brisk capillary refill. Local anesthetic was infiltrated. The patient was awoken from anesthesia and taken to recovery room in good condition there were no immediate complications from this procedure. Counts were correct. Complications: none Post-operative Condition: stable Disposition: PACU Plan for aftercare: heel WB R foot. protect pin incisional wound vac 2-3 days-- will be removed prior to DC home. continue abx per ID f/u ortho [address] Payan. Sooner if there are concerns for worsening. planned staged removal wires at 6-8 weeks and removal abx cement and fusion.
--- NOTE | 2024-07-27 12:49 | SUR.OPER ---
Supine on padded OR bed, head on pillow, arms secured on padded arm boards at <90 degrees abduction, legs uncrossed, safety belt at thigh, tape over blanket over lower legs.
[2024-07-27] MEDS: BUPIVACAINE 0.25% (PF) 30 ML, EPINEPHrine 0.15 MG INJ (13:45)
[2024-07-27] MEDS: TOBRAMYCIN 1.2 GM VIAL INTRA-ARTI (13:47)
[2024-07-27] MEDS: GENTAMICIN 80 MG in SODIUM CHLORIDE 0.9% 100 ML 102 MG TOP (13:51)
[2024-07-27] MEDS: INSULIN REGULAR 100 UNIT/ML 3 ML VIAL IV (14:30)
[2024-07-27] MEDS: levoFLOXacin 750 MG/150 ML PIGGYBACK 100 MG IV (16:37)
--- NOTE | 2024-07-27 16:44 | PM.PN.1 ---
Subjective Subjective Interval history: 44 M admitted with diabetic foot infection, pending operative debridement with ortho today. He reports no changes in redness or discomfort today, though mentions they were mild yesterday. No chest pain, shortness of breath, fever, or chills. Exam Vital Signs (past 8 hours): - 07/27/24 11:00 07/27/24 11:26 07/27/24 14:10 Temperature 97.9 F 98.2 F Pulse Rate 99 H 91 H Respiratory Rate 20 16 Blood Pressure 137/92 H 149/82 H Pulse Oximetry 99 100 100 Oxygen Delivery Method Room Air Room Air Simple Mask Oxygen Flow Rate 0 9 07/27/24 14:15 07/27/24 14:20 07/27/24 14:25 Temperature Pulse Rate 90 91 H 88 Respiratory Rate 11 L 16 13 Blood Pressure 156/94 H 147/87 H 138/82 Pulse Oximetry 100 100 100 Oxygen Delivery Method Room Air Simple Mask Simple Mask Oxygen Flow Rate 6 6 07/27/24 14:35 07/27/24 14:51 07/27/24 15:00 Temperature Pulse Rate 90 95 H 95 H Respiratory Rate 14 12 12 Blood Pressure 134/81 131/83 137/83 Pulse Oximetry 100 95 93 Oxygen Delivery Method Room Air Room Air Room Air Oxygen Flow Rate 07/27/24 15:00 07/27/24 15:15 07/27/24 15:45 Temperature 97.2 F L 97.7 F Pulse Rate 99 H 95 H Respiratory Rate 12 12 Blood Pressure 158/80 H 137/72 Pulse Oximetry 98 98 95 Oxygen Delivery Method Room Air Oxygen Flow Rate 0 07/27/24 16:15 Temperature 97.2 F L Pulse Rate 72 Respiratory Rate 14 Blood Pressure 117/77 Pulse Oximetry 97 Oxygen Delivery Method Oxygen Flow Rate Oxygen Delivery Method Room Air Oxygen Flow Rate 0 Narrative Exam Narrative: NAD, alert and oriented. Fluent speech. Lungs are clear, normal rate and effort. Heart is regular, no murmur gallop or rub. Abdomen is soft, non distended. Extremities are free of edema. Good capillary refill. Left plantar hallux area with approx 3 cm ulceration, no active drainage, small area of erythema extending towards his 1st digit. Mildly tender, slight warmth. Objective Labs 07/27/24 05:23 07/27/24 05:23 Labs: Laboratory Results - last 24 hr 07/27/24 05:23 WBC 8.8 RBC 4.49 L Hgb 13.7 Hct 40.8 L MCV 91.1 MCH 30.6 MCHC 33.6 RDW 13.1 Plt Count 306 Neut % (Auto) 60.9 Lymph % (Auto) 20.8 L [place] % (Auto) 14.3 H Eos % (Auto) 3.8 Baso % (Auto) 0.2 Neut # (Auto) 5400 Lymph # (Auto) 1800 [place] # (Auto) 1300 H Eos # (Auto) 300 Baso # (Auto) 0 Sodium 134 L Potassium 3.7 Chloride 95 L Carbon Dioxide 31 BUN 22 H Creatinine 0.76 Estimated GFR > 60 BUN/Creatinine Ratio 28.9 H Glucose 166 H Hemoglobin A1c 9.2 H Calcium 9.0 Magnesium 2.3 Total Bilirubin 0.5 AST 22 ALT 12 Alkaline Phosphatase 113 Total Protein 7.3 Albumin 3.7 Globulin 3.6 Albumin/Globulin Ratio 1.0 PFSH Medical History Anxiety Hypokalemia PTSD (post-traumatic stress disorder) Type 1 diabetes Insulin dependent diabetes mellitus Family History Father Diabetes mellitus Social History marital status: household members: spouse and children occupational status: employed Smoking Status: Never smoker alcohol intake: current Assessment & Plan Assessment & Plan narrative: 1. Right diabetic foot ulcer with osteomyelitis, present on admission and active - Prior cultures with enterobacter, possible partial carbapenem resistance. Also with prior E. coli - OR planned for today with orthopedics for I&D. - Discussed with Dr. Aj, recommends Levofloxacin and Meropenem therapy for now. Monitor qtc. - Continue tele for a few days for Qt evaluations. Can stop if not prolonged tomorrow. - follow up OR cultures, discuss with patient's ID physician Dr. Aj after final cultures and completion of OR procedures for antibiotic recommendations and outpatient follow up planning. - will need PICC line prior to discharge. 2. IDDM, present on admission and active. - cut insulin in half for OR today, continue sliding scale. Increase lantus to 30 tonight given diet will resume. Continue short acting 6 U AC for meals. - A1c 9.2% - hold home lisinopril prior to OR planned for tomorrow. 3. PTSD, present on admission and active. - continue escitalopram 4. Anxiety and depression, present on admission and active. - continue escitalopram 10 mg daily. 5. HTN - hold home lisinopril prior to OR, normotensive today restart if hypertensive again. Code: Full, surrogate is patient's spouse DVT: Lovenox daily I have utilized all available immediate resources to obtain, update, or review the patient's current medications. Dispo: patient admitted under inpatient status. likely home with outpatient IV antibiotics. Additional history obtained via discussions with case resource manager and infectious disease provider today. These discussions contributed to the creation of the above assessment and plan. I have reviewed patient's presenting documentation, labs, and imaging personally. Time-Based Coding :: [TOTAL MINUTES] spent with patient and on the chart (including review of chart, obtaining history, exam, reviewing outside data, placing orders, documenting exam and treatment plan, and counseling patient) on [DATE].
[2024-07-27] MEDS: INSULIN LISPRO 100 UNIT/ML 3ML VIAL 6 UNIT SUBCUT (16:50)
[2024-07-27] MEDS: INSULIN LISPRO 100 UNIT/ML 3ML VIAL SUBCUT ×2 (16:51→21:50)
[2024-07-27] MEDS: ACETAMINOPHEN 325 MG TABLET 650 MG PO (21:48)
[2024-07-27] MEDS: TRAZODONE 50 MG TABLET 100 MG PO (21:49)
[2024-07-27] MEDS: OXYCODONE IR 5 MG TABLET PO (21:49)
[2024-07-27] MEDS: INSULIN GLARGINE 100 UNIT/ML 3ML PEN 30 UNIT SUBCUT (21:50)
[2024-07-28] VITALS (10 sets, daily range): BP systolic 120–154; BP diastolic 32–99; PULSE 79–106; RESP 16–22; TEMP 36.6–37; O2SAT 96–98
[2024-07-28 06:29] LABS: Add Manual Diff / Slide Review NO; Basophils Absolute Auto 0 /uL (0-100); Basophils Percent Auto 0.2 % (0-2); Eosinophils Absolute Auto 200 /uL (0-450); Eosinophils Percent Auto 2.8 % (2-4); Hematocrit 37.5 % (41-53); Hemoglobin 12.7 g/dL (13.5-17.5); Lymphocytes Absolute Auto 1600 /uL (1100-4500); Lymphocytes Percent Auto 20.3 % (25-40); Mean Corpuscular HGB Conc 33.9 % (30-36); Mean Corpuscular Hemoglobin 30.9 PG (26-34); Mean Corpuscular Volume 91.3 fL (80-100); Monocytes Absolute Auto 1200 /uL (0-900); Monocytes Percent Auto 15.3 % (3-14); Neutrophils Absolute Auto 5000 /uL (1500-7000); Neutrophils Percent Auto 61.4 % (50-75); Platelet Count 328 X10^3/uL (150-400); Red Blood Cell Count 4.11 X10^6/uL (4.5-5.9); White Blood Cell Count 8.1 X10^3/uL (4.5-11.0)
[2024-07-28 06:52] LABS: Alanine Aminotransferase 14 IU/L (<50); Albumin 3.6 g/dL (3.5-5.0); Alkaline Phosphatase 117 U/L (38-126); Aspartate Aminotransferase 23 IU/L (17-59); Bilirubin Total 0.5 mg/dL (0.2-1.3); Blood Urea Nitrogen 17 mg/dL (9-20); Calcium 8.6 mg/dL (8.4-10.2); Carbon Dioxide 32 mmol/L (22-32); Chloride 98 mmol/L (98-107); Estimated Glomerular Filt Rate > 60 mL/min (>60); Globulin 3.6 g/dL (1.7-4.1); Glucose 124 mg/dL (70-100); HEMOLYSIS < 15 (0-50); Magnesium 2.3 mg/dL (1.6-2.3); Potassium 3.8 mmol/L (3.4-5.1); Sodium 135 mmol/L (137-145); Total Protein 7.2 g/dL (6.3-8.2)
--- NOTE | 2024-07-28 07:09 | PM.PNPO.1 ---
Subjective Subjective Date Patient Seen: 07/28/24 Time Patient Seen: 07:09 Interval history: Patient denies pain. No fever chills. No nausea or vomiting. Exam Vital Signs (past 8 hours): - 07/28/24 00:00 07/28/24 02:51 07/28/24 04:00 Temperature 97.9 F 98.2 F Pulse Rate 89 85 Respiratory Rate 20 Blood Pressure 127/81 143/90 H Pulse Oximetry 97 97 96 Oxygen Delivery Method Room Air Oxygen Flow Rate 0 0 Oxygen Delivery Method Room Air Oxygen Flow Rate 0 Narrative Exam Narrative: 44-year-old male sitting up in bed watching a movie on his computer in no apparent distress. Dressing is clean, dry and intact right lower extremity. Const General: cooperative and comfortable Objective Labs 07/28/24 05:48 07/28/24 05:48 Labs: Laboratory Results - last 24 hr 07/27/24 07/28/24 05:23 05:48 WBC 8.1 RBC 4.11 L Hgb 12.7 L Hct 37.5 L MCV 91.3 MCH 30.9 MCHC 33.9 RDW 13.0 Plt Count 328 Neut % (Auto) 61.4 Lymph % (Auto) 20.3 L [place] % (Auto) 15.3 H Eos % (Auto) 2.8 Baso % (Auto) 0.2 Neut # (Auto) 5000 Lymph # (Auto) 1600 [place] # (Auto) 1200 H Eos # (Auto) 200 Baso # (Auto) 0 Sodium 135 L Potassium 3.8 Chloride 98 Carbon Dioxide 32 BUN 17 Creatinine 0.74 Estimated GFR > 60 BUN/Creatinine Ratio 23.0 H Glucose 124 H Calcium 8.6 Magnesium 2.3 Total Bilirubin 0.5 AST 23 ALT 14 Alkaline Phosphatase 117 Total Protein 7.2 Albumin 3.6 Globulin 3.6 Albumin/Globulin Ratio 1.0 Ref Test (Refrig) Comment [facility] Medical History Anxiety Hypokalemia PTSD (post-traumatic stress disorder) Type 1 diabetes Insulin dependent diabetes mellitus Family History Father Diabetes mellitus Social History marital status: household members: spouse and children occupational status: employed Smoking Status: Never smoker alcohol intake: current Assessment & Plan Post-op Postoperative Procedures: Procedures Operation Date: 07/27/24 11:45 Actual Procedure Side Surgeon p Incision and Drainage Foot possible partial amputation Right Sepideh Payan MD Postoperative day: 1 Postoperative status narrative: Stable status post irrigation debridement bone biopsy and tenosynovectomy right foot diabetic infection, resection arthroplasty 1st MTP joint similar to Siegel arthroplasty, placement of manually prepared antibiotic spacer Postoperative plan narrative: Heel weight-bearing right foot Protect pin right foot Incisional wound VAC 2-3 days, wound VAC will be removed prior to discharge home Continue antibiotics per Infectious Disease Follow up [address] Payan. Sooner if there are concerns for worsening. planned staged removal wires at 6-8 weeks and removal abx cement and fusion.
[2024-07-28] MEDS: METOPROLOL ER 50 MG TABLET PO (09:15)
[2024-07-28] MEDS: MEROPENEM 1 GM in SODIUM CHLORIDE 0.9% 100 ML IV ×3 (09:18→23:36)
[2024-07-28] MEDS: INSULIN LISPRO 100 UNIT/ML 3ML VIAL 6 UNIT SUBCUT ×2 (12:07→17:15)
[2024-07-28] MEDS: INSULIN LISPRO 100 UNIT/ML 3ML VIAL SUBCUT ×3 (12:07→21:15)
--- NOTE | 2024-07-28 15:25 | CM.DANOTE ---
Initial DCP Assessment Visit Note Reviewed EMR and team rounds for status updates. Met with pt and spouse at bedside to introduce self and role, pt was found to be alert/oriented, and able to discuss his home setup and plan for home IV antibiotics at d/c. He lives modified independently with his and children in their own home in [place]. His will transport him home once he's medically cleared for d/c. Payor: Taylor PCP: Dr. Ava Gil Pt is a 44 year-old M with a hx of type-I diabetes, PTSD, anxiety, depression and prior hx of osteomyelitis of his right foot for the last 6-months. He presented to the ED after being sent by the woundcare clinic with worsening infection. He had just completed a course of IV antibiotics about a month ago, however he now has worsening redness and swelling of his R-great toe. Ortho was consulted, and the plan was made for him to be taken to the OR again by Dr. Payan for I&D and an antibiotic spacer placed inside the toe. He is on IV antibiotics now, will have a wound vac placed for 2-days, then will need OP IV antibiotics for approx. 6-8 weeks at home. [facility] is already involved prior to his admit. Cultures are currently pending for final ABO plan. DCP will continue to follow and assist with d/c transition needs home. Discharge Planning/Care Management CM Discharge Assessment Start: 07/28/24 15:22 Freq: Status: Active Protocol: Document 07/28/24 15:22 DPL (Rec: 07/28/24 15:25 DPL [id number]) Discharge Planning Assessment Assigned [employer] AUBREY [place] Advance Directives? No Advance Directives on File No History Provided By Patient,Significant Other, Medical Record Has Patient been admitted in last 30 No days? Prior Living Arrangements House Household Members spouse,children Type of transporation used prior to Relies on Others admit Independent with ADL's No: modified independent with a walker or a scooter Is patient alert and oriented? Yes Needs Assistance With Home Chores / Shopping Caregiver for Another Yes Community Services used prior to Wound Care admission: Comment spouse has crutches and boot and knee scooter at home that pt can use if needed Comment OP woundcare, OP IV antibiotics Barriers to Discharge No Discharge Plan Home Transportation Arrangement Spouse Additional Comment Pending cultures and final ID recommendations. Whiteboard Updated in Patient Room with Yes name and ext. # of [employer] Review Status In Process Please Provide Date Initial DC 07/28/24 Assessment Was Performed
[2024-07-28] MEDS: levoFLOXacin 750 MG/150 ML PIGGYBACK 100 MG IV (17:58)
--- NOTE | 2024-07-28 18:18 | P.PN_ITS ---
Subjective Subjective Interval history: 44 M admitted with diabetic foot infection, s/p orthopedic interventions yesterday Exam Vital Signs (past 8 hours): - 07/28/24 11:00 07/28/24 15:00 07/28/24 16:27 Temperature 98.2 F Pulse Rate 91 H Respiratory Rate 16 Blood Pressure 133/32 L Pulse Oximetry 97 97 98 Oxygen Delivery Method Room Air Room Air Oxygen Flow Rate 0 Oxygen Delivery Method Room Air Oxygen Flow Rate 0 Narrative Exam Narrative: NAD, alert and oriented. Fluent speech. Lungs are clear, normal rate and effort. Heart is regular, no murmur gallop or rub. Abdomen is soft, non distended. Extremities are free of edema. dressing today is c/d/i. Objective Labs 07/28/24 05:48 07/28/24 05:48 Labs: Laboratory Results - last 24 hr 07/27/24 07/28/24 05:23 05:48 WBC 8.1 RBC 4.11 L Hgb 12.7 L Hct 37.5 L MCV 91.3 MCH 30.9 MCHC 33.9 RDW 13.0 Plt Count 328 Neut % (Auto) 61.4 Lymph % (Auto) 20.3 L [place] % (Auto) 15.3 H Eos % (Auto) 2.8 Baso % (Auto) 0.2 Neut # (Auto) 5000 Lymph # (Auto) 1600 [place] # (Auto) 1200 H Eos # (Auto) 200 Baso # (Auto) 0 Sodium 135 L Potassium 3.8 Chloride 98 Carbon Dioxide 32 BUN 17 Creatinine 0.74 Estimated GFR > 60 BUN/Creatinine Ratio 23.0 H Glucose 124 H Calcium 8.6 Magnesium 2.3 Total Bilirubin 0.5 AST 23 ALT 14 Alkaline Phosphatase 117 Total Protein 7.2 Albumin 3.6 Globulin 3.6 Albumin/Globulin Ratio 1.0 Ref Test (Refrig) Comment [facility] Medical History Anxiety Hypokalemia PTSD (post-traumatic stress disorder) Type 1 diabetes Insulin dependent diabetes mellitus Family History Father Diabetes mellitus Social History marital status: household members: spouse and children occupational status: employed Smoking Status: Never smoker alcohol intake: current Assessment & Plan Assessment & Plan narrative: 1. Right diabetic foot ulcer with osteomyelitis, present on admission and active - Prior cultures with enterobacter, possible partial carbapenem resistance. Also with prior E. coli - s/p antibiotic spacer placement with orthopedics, needs wound vac for 2-3 days, awaiting cultures. - Discussed with Dr. Aj, recommends Levofloxacin and Meropenem therapy for now. Monitor qtc. There has been no change in qt on tele will stop tele. Repeat EKG ordered for tomorrow AM. - follow up OR cultures, discuss with patient's ID physician Dr. Aj after final cultures and completion of OR procedures for antibiotic recommendations and outpatient follow up planning. - will need PICC line prior to discharge. 2. IDDM, present on admission and active. - cut insulin in half for OR, continue sliding scale. Increased lantus to 30 given diet resumed with glucose this morning of 124, will not adjust further. Continue short acting 6 U AC for meals. - A1c 9.2% 3. PTSD, present on admission and active. - continue escitalopram 4. Anxiety and depression, present on admission and active. - continue escitalopram 10 mg daily. 5. HTN - resumed home metoprolol 50 mg daily. Code: Full, surrogate is patient's spouse DVT: Lovenox daily I have utilized all available immediate resources to obtain, update, or review the patient's current medications. Dispo: patient admitted under inpatient status. likely home with outpatient IV antibiotics. Additional history obtained via discussions with foster care case manager and infectious disease provider today. These discussions contributed to the creation of the above assessment and plan. I have reviewed patient's presenting documentation, labs, and imaging personally. Time-Based Coding :: [TOTAL MINUTES] spent with patient and on the chart (including review of chart, obtaining history, exam, reviewing outside data, placing orders, documenting exam and treatment plan, and counseling patient) on [DATE].
[2024-07-28] MEDS: INSULIN GLARGINE 100 UNIT/ML 3ML PEN 30 UNIT SUBCUT (21:16)
[2024-07-28] MEDS: ACETAMINOPHEN 325 MG TABLET 650 MG PO (23:35)
[2024-07-28] MEDS: OXYCODONE IR 5 MG TABLET PO (23:35)
[2024-07-28] MEDS: TRAZODONE 50 MG TABLET 100 MG PO (23:36)
[2024-07-29] VITALS: O2SAT 97
[2024-07-29 04:00] VITALS: BP 151/84; PULSE 67; RESP 22; TEMP 35.7; O2SAT 99
[2024-07-29 06:49] LABS: Add Manual Diff / Slide Review NO; Basophils Absolute Auto 0 /uL (0-100); Basophils Percent Auto 0.2 % (0-2); Eosinophils Absolute Auto 200 /uL (0-450); Eosinophils Percent Auto 3.7 % (2-4); Hematocrit 33.5 % (41-53); Hemoglobin 11.3 g/dL (13.5-17.5); Lymphocytes Absolute Auto 2300 /uL (1100-4500); Lymphocytes Percent Auto 35.8 % (25-40); Mean Corpuscular HGB Conc 33.7 % (30-36); Mean Corpuscular Hemoglobin 30.6 PG (26-34); Mean Corpuscular Volume 90.6 fL (80-100); Monocytes Absolute Auto 1000 /uL (0-900); Monocytes Percent Auto 15.9 % (3-14); Neutrophils Absolute Auto 2900 /uL (1500-7000); Neutrophils Percent Auto 44.4 % (50-75); Platelet Count 297 X10^3/uL (150-400); Red Blood Cell Count 3.69 X10^6/uL (4.5-5.9); Red Cell Distribution Width 13.2 % (11.6-14.8); White Blood Cell Count 6.5 X10^3/uL (4.5-11.0)
[2024-07-29 07:04] LABS: Alanine Aminotransferase 11 IU/L (<50); Albumin 3.2 g/dL (3.5-5.0); Alkaline Phosphatase 93 U/L (38-126); Aspartate Aminotransferase 18 IU/L (17-59); Bilirubin Total 0.4 mg/dL (0.2-1.3); Blood Urea Nitrogen 14 mg/dL (9-20); Calcium 8.4 mg/dL (8.4-10.2); Carbon Dioxide 32 mmol/L (22-32); Chloride 100 mmol/L (98-107); Estimated Glomerular Filt Rate > 60 mL/min (>60); Globulin 3.3 g/dL (1.7-4.1); Glucose 179 mg/dL (70-100); HEMOLYSIS < 15 (0-50); Magnesium 2.4 mg/dL (1.6-2.3); Potassium 3.9 mmol/L (3.4-5.1); Sodium 135 mmol/L (137-145); Total Protein 6.5 g/dL (6.3-8.2)
--- NOTE | 2024-07-29 07:55 | PM.PN.1 ---
Subjective Subjective Interval history: S: Doing well, no pain. He was tolerating his IV antibiotics. We are awaiting for wound cultures to return so that we can select antibiotics for his outpatient course. Exam Vital Signs (past 8 hours): - 07/29/24 00:00 07/29/24 04:00 07/29/24 04:00 Temperature 96.2 F L Pulse Rate 67 Respiratory Rate 22 Blood Pressure 151/84 H Pulse Oximetry 97 99 99 Oxygen Delivery Method Room Air Room Air Oxygen Flow Rate 0 Oxygen Delivery Method Room Air Oxygen Flow Rate 0 Narrative Exam Narrative: NAD, alert and oriented. Fluent speech. Lungs are clear, normal rate and effort. Heart is regular, no murmur gallop or rub. Abdomen is soft, non distended. Extremities are free of edema. Right foot is wrapped. Objective Labs 07/29/24 06:31 07/29/24 06:31 Labs: Laboratory Results - last 24 hr 07/29/24 06:31 WBC 6.5 RBC 3.69 L Hgb 11.3 L Hct 33.5 L MCV 90.6 MCH 30.6 MCHC 33.7 RDW 13.2 Plt Count 297 Neut % (Auto) 44.4 L Lymph % (Auto) 35.8 [place] % (Auto) 15.9 H Eos % (Auto) 3.7 Baso % (Auto) 0.2 Neut # (Auto) 2900 Lymph # (Auto) 2300 [place] # (Auto) 1000 H Eos # (Auto) 200 Baso # (Auto) 0 Sodium 135 L Potassium 3.9 Chloride 100 Carbon Dioxide 32 BUN 14 Creatinine 0.70 Estimated GFR > 60 BUN/Creatinine Ratio 20.0 Glucose 179 H Calcium 8.4 Magnesium 2.4 H Total Bilirubin 0.4 AST 18 ALT 11 Alkaline Phosphatase 93 Total Protein 6.5 Albumin 3.2 L Globulin 3.3 Albumin/Globulin Ratio 1.0 [facility] Medical History Anxiety Hypokalemia PTSD (post-traumatic stress disorder) Type 1 diabetes Insulin dependent diabetes mellitus Family History Father Diabetes mellitus Social History marital status: household members: spouse and children occupational status: employed Smoking Status: Never smoker alcohol intake: current Assessment & Plan Assessment & Plan narrative: 1. Right diabetic foot ulcer with osteomyelitis, present on admission and active - Prior cultures with enterobacter, possible partial carbapenem resistance. Also with prior E. coli - s/p antibiotic spacer placement with orthopedics, needs wound vac for 2-3 days, awaiting cultures. - Discussed with Dr. Aj, recommends Levofloxacin and Meropenem therapy for now. Monitor qtc. There has been no change in qt on tele will stop tele. Repeat EKG ordered for tomorrow AM. - PICC line - Follow cultures. 2. IDDM, present on admission and active. - cut insulin in half for OR, continue sliding scale. Increased lantus to 30 given diet resumed with glucose this morning of 124, will not adjust further. Continue short acting 6 U AC for meals. - A1c 9.2% 3. PTSD, present on admission and active. - continue escitalopram 4. Anxiety and depression, present on admission and active. - continue escitalopram 10 mg daily. 5. HTN - resumed home metoprolol 50 mg daily. Plan: -continue antibiotics pending cultures. Discussed culture when posted with Infectious Disease and select ongoing home IV antibiotics. [place]STA: 07/30, home with IV antibiotics. Code: Full, surrogate is patient's spouse DVT: Lovenox daily I have utilized all available immediate resources to obtain, update, or review the patient's current medications. Dispo: patient admitted under inpatient status. likely home with outpatient IV antibiotics. Time-Based Coding :: [TOTAL MINUTES] spent with patient and on the chart (including review of chart, obtaining history, exam, reviewing outside data, placing orders, documenting exam and treatment plan, and counseling patient) on [DATE].
[2024-07-29 08:00] VITALS: BP 174/93; PULSE 98; TEMP 36.3; O2SAT 95; O2SAT 97
--- NOTE | 2024-07-29 10:04 | DI.RAD.S_ITS ---
PROCEDURE: XR CHEST FOR PICC 1V INDICATIONS: line placement COMPARISON: [facility], EDELMIR[facility], XR CHEST 1V, 04/15/2024, 11:33. FINDINGS: PICC was placed by the intravenous therapy team from the left side. Fluoroscopic spot film demonstrates the tip of PICC projecting to the area of mid SVC. IMPRESSION: Tip of PICC projects to the area of mid SVC. Dictated by: Dinorah Barroso M.D. on 07/29/2024 at 11:34 Approved by: Dinorah Barroso M.D. on 07/29/2024 at 11:34
--- NOTE | 2024-07-29 10:22 | DIET.CONS ---
Addendum entered by Carolina Cheema 07/29/24 13:26: Request is being sent to PCP Ava Gil to see central services tech Original Note: Dietary Consultation Note Admission Date: 07/26/2024 13:26 Assessment: 44 y M admitted for diabetic foot ulcer with osteomyelitis. RD screened for pt w/ DM and diabetic ulcer now s/p I&D. PMH of DM1. Met w/ pt at bedside. Reports had tried [email or web address] milton CGM, paying out of pocket for it d/t insurance not covering for 2 months, but consistently had technical problems with it and inaccurate readings. Now checks BG 4 x/d via meter. Does not have insulin pump. Is open to obtaining insulin pump and getting a CGM again for better BG management. A1c 9.2% on 07/27/24. A1c 9.6% on 04/12/24. Has not seen endo yet. Previously tolerated John. Ht: 172.72 cm Wt: 99.6 kg BMI: 33.4 UBW: 95.254 kg on 04/12/24 Last BM: 07/28/24 (07/28/24 13:20) MNA: 14 Otis Score: 21 Diet: 07/27/24 Dinner Carbohydrate Consistent Diet Diet Modifications: Carbohydrate level: Medium (3 CHO) Reflex DM orders: No Food Texture: Level 7 - Regular Liquid Consistency: Level 0 - Thin Nutrition Percent Meal Consumed 50% 07/29/24 09:00 Percent Meal Consumed 100% 07/28/24 13:20 Percent Meal Consumed 100% 07/27/24 18:00 Labs: RBC 3.69 X10^6/uL (4.5-5.9) L 07/29/24 06:31 Hgb 11.3 g/dL (13.5-17.5) L 07/29/24 06:31 Hct 33.5 % (41-53) L 07/29/24 06:31 Creatinine 0.70 mg/dL (0.66-1.25) 07/29/24 06:31 Hemoglobin A1c 9.2 % (4.0-6.0) H 07/27/24 05:23 Lactate 1.3 mmol/L (0.7-2.1) 07/26/24 13:25 Nutrition Diagnosis: Altered nutrition related lab values (A1c) r/t endocrine dysfunction aeb 9.2% A1c Increased nutrient needs r/t wound healing aeb foot ulcer Interventions: John BID Coordinated care with [facility] - establishing referral from PCP to help coordinate supplies EER: 90 g protein (1.25 g/kg per healing needs of adjusted IBW) Monitoring/Evaluations: monitoring BG and john tolerance Electronically Signed by: Carolina Cheema 07/29/24 10:22 Clinical Dietitian [address] [address]
[2024-07-29] MEDS: OXYCODONE IR 5 MG TABLET PO ×2 (10:40→23:26)
[2024-07-29] MEDS: METOPROLOL ER 50 MG TABLET PO (10:40)
[2024-07-29] MEDS: ACETAMINOPHEN 325 MG TABLET 650 MG PO (10:40)
[2024-07-29] MEDS: MEROPENEM 1 GM in SODIUM CHLORIDE 0.9% 100 ML IV ×3 (10:44→23:56)
[2024-07-29] MEDS: INSULIN LISPRO 100 UNIT/ML 3ML VIAL 6 UNIT SUBCUT ×2 (11:37→17:14)
[2024-07-29] MEDS: INSULIN LISPRO 100 UNIT/ML 3ML VIAL SUBCUT ×3 (11:38→21:24)
--- NOTE | 2024-07-29 11:43 | EKG_ITS ---
[facility] [address] [place] [address] Test Date: 2024-07-29 Pat Name: Tyrone Marquez Department: [facility] Room: 207 Gender: Male Instruction Dean: : 1980 Requested By: Order Number: [id number] Reading MD: Adarsh Barillas MD Measurements Intervals [place] Rate: 84 P: 23 KS: 150 QRS: -4 QRSD: 88 T: -8 QT: 392 QTc: 463 Interpretive Statements Normal sinus rhythm Electronically Signed On 07-29-2024 14:51:26 PST by Adarsh Barillas MD
--- NOTE | 2024-07-29 14:31 | P.PN_ITS ---
Subjective Subjective Interval history: Tyrone is a 44 year old male who is POD#2 s/p irrigation debridement bone biopsy and tenosynovectomy right foot diabetic infection, resection arthroplasty 1st MTP joint similar to Siegel arthroplasty, placement of manually prepared antibiotic spacer by Dr. Payan. This afternoon patient reports he is doing well overall. Denies any pain. No complaints, questions or concerns for me. He has been up and walking around his room w/ the assistance of a walker. Denies fever, chills, chest pain, SOB, nausea, vomiting. Exam Vital Signs (past 8 hours): - 07/29/24 08:00 Temperature 97.4 F L Pulse Rate 98 H Blood Pressure 174/93 H Pulse Oximetry 97 Oxygen Flow Rate 0 Oxygen Delivery Method Room Air Oxygen Flow Rate 0 Narrative Exam Narrative: Patient is comfortably sitting up in bed during our interview today. No acute distress, alert and oriented. Postsurgical dressings are clean dry and intact. Right 1st toe with intact wound vac, wound vac is not turned on however. Minimal drainage in the wound vac. Gross sensation intact, baseline diabetic neuropathy at the pad of the foot still present. Wiggles 2-5th toes. Objective Labs 07/29/24 06:31 07/29/24 06:31 Labs: Laboratory Results - last 24 hr 07/29/24 06:31 WBC 6.5 RBC 3.69 L Hgb 11.3 L Hct 33.5 L MCV 90.6 MCH 30.6 MCHC 33.7 RDW 13.2 Plt Count 297 Neut % (Auto) 44.4 L Lymph % (Auto) 35.8 [place] % (Auto) 15.9 H Eos % (Auto) 3.7 Baso % (Auto) 0.2 Neut # (Auto) 2900 Lymph # (Auto) 2300 [place] # (Auto) 1000 H Eos # (Auto) 200 Baso # (Auto) 0 Sodium 135 L Potassium 3.9 Chloride 100 Carbon Dioxide 32 BUN 14 Creatinine 0.70 Estimated GFR > 60 BUN/Creatinine Ratio 20.0 Glucose 179 H Calcium 8.4 Magnesium 2.4 H Total Bilirubin 0.4 AST 18 ALT 11 Alkaline Phosphatase 93 Total Protein 6.5 Albumin 3.2 L Globulin 3.3 Albumin/Globulin Ratio 1.0 PFS Medical History Anxiety Hypokalemia PTSD (post-traumatic stress disorder) Type 1 diabetes Insulin dependent diabetes mellitus Family History Father Diabetes mellitus Social History marital status: household members: spouse and children occupational status: employed Smoking Status: Never smoker alcohol intake: current Assessment & Plan Post-op Postoperative Procedures: Procedures Operation Date: 07/27/24 11:45 Actual Procedure Side Surgeon p Incision and Drainage Foot possible partial amputation Right Sepideh Payan MD Postoperative day: 2 Postoperative status narrative: Stable status post irrigation debridement bone biopsy and tenosynovectomy right foot diabetic infection, resection arthroplasty 1st MTP joint similar to Siegel arthroplasty, placement of manually prepared antibiotic spacer Postoperative plan narrative: 1) Heel weight-bearing right foot. Protect pin right foot 2) Incisional wound VAC 2-3 days, wound VAC will be removed prior to discharge home. 3) Continue antibiotics per Infectious Disease. Dr. Aj, recommends Levofloxacin and Meropenem therapy for now. Still awaiting final wound cultures, so far have grown proteus and staph aureus. 4) Follow up [address] Payan or sooner if there are concerns for worsening. Planned staged removal wires at 6-8 weeks and removal abx cement and fusion. 5) Discharge disposition per medicine, likely home tomorrow w/ IV abx and ID follow up.
--- NOTE | 2024-07-29 15:10 | CM.DPNOTE ---
DCP Continued: Reviewed EMR and team rounds for pt?s medical status. Per hospitalist, pt will need PICC placed before discharge and culture results will determine OP IV abx plan. Per CM assessment, pt was already in the services of [facility] and is familiar with a home IV plan. DCP sent initial clinicals to Hospital Liaison at [facility] via secure email and left a message, noted that final IV plans are still pending. DCP to discuss home health preference with patient for RN to assist with PICC/med management. Plan: Anticipating home on 07/30 with [facility] and home health to follow. CM Team will continue to follow for coordination of discharge plans. YOUNG Restrepo
[2024-07-29 16:00] VITALS: BP 133/73; PULSE 77; TEMP 36.6; O2SAT 94; O2SAT 98
[2024-07-29] MEDS: levoFLOXacin 750 MG/150 ML PIGGYBACK 100 MG IV (18:03)
[2024-07-29 19:00] VITALS: BP 119/73; PULSE 74; RESP 18; TEMP 36.6; O2SAT 97
[2024-07-29 20:00] VITALS: O2SAT 96
[2024-07-29] MEDS: INSULIN GLARGINE 100 UNIT/ML 3ML PEN 40 UNIT SUBCUT (21:23)
[2024-07-29] MEDS: SODIUM CHLORIDE 0.9% FLUSH 10 ML IV (21:23)
[2024-07-29] MEDS: TRAZODONE 50 MG TABLET 100 MG PO (23:26)
[2024-07-30] VITALS (9 sets, daily range): BP systolic 126–184; BP diastolic 74–94; PULSE 64–83; RESP 14–18; TEMP 36.3–36.9; O2SAT 95–99
[2024-07-30] MEDS: MEROPENEM 1 GM in SODIUM CHLORIDE 0.9% 100 ML IV ×2 (08:04→17:14)
[2024-07-30] MEDS: METOPROLOL ER 50 MG TABLET PO (08:05)
[2024-07-30] MEDS: INSULIN LISPRO 100 UNIT/ML 3ML VIAL 6 UNIT SUBCUT ×3 (08:07→17:15)
--- NOTE | 2024-07-30 08:58 | P.PN_ITS ---
Subjective Subjective Date Patient Seen: 07/30/24 Time Patient Seen: 08:58 Interval history: Patient's pain is mild. No fever or chills. No nausea or vomiting. Exam Vital Signs (past 8 hours): - 07/30/24 03:00 07/30/24 04:00 07/30/24 04:26 Temperature 98.5 F Pulse Rate 72 67 Respiratory Rate 18 Blood Pressure 175/93 H 159/94 H Pulse Oximetry 99 95 Oxygen Delivery Method Room Air Oxygen Flow Rate 0 07/30/24 08:05 Temperature Pulse Rate 64 Respiratory Rate Blood Pressure 147/87 H Pulse Oximetry Oxygen Delivery Method Oxygen Flow Rate Oxygen Delivery Method Room Air Oxygen Flow Rate 0 Narrative Exam Narrative: Pleasant male resting comfortably in bed in no apparent distress. Dressing is Clean, dry, intact. Const General: cooperative and comfortable Orientation: alert Objective Labs 07/29/24 06:31 07/29/24 06:31 [facility] Medical History Anxiety Hypokalemia PTSD (post-traumatic stress disorder) Type 1 diabetes Insulin dependent diabetes mellitus Family History Father Diabetes mellitus Social History marital status: household members: spouse and children occupational status: employed Smoking Status: Never smoker alcohol intake: current Assessment & Plan Post-op Postoperative Procedures: Procedures Operation Date: 07/27/24 11:45 Actual Procedure Side Surgeon p Incision and Drainage Foot possible partial amputation Right Sepideh Payan MD Postoperative plan narrative: Stable status post irrigation debridement bone biopsy and tenosynovectomy right foot diabetic infection, resection arthroplasty 1st MTP joint similar to Siegel arthroplasty, placement of manually prepared antibiotic spacer Postoperative plan narrative: 1) Heel weight-bearing right foot. Protect pin right foot 2) Incisional wound VAC 2-3 days, wound VAC will be removed prior to discharge home. 3) Continue antibiotics per Infectious Disease. Dr. Aj, recommends Levofloxacin and Meropenem therapy for now. Still awaiting final wound cultures, so far have grown proteus and staph aureus. 4) Follow up [address] Payan or sooner if there are concerns for worsening. Planned staged removal wires at 6-8 weeks and removal abx cement and fusion. 5) Discharge disposition per medicine, likely home tomorrow w/ IV abx and ID follow up.
[2024-07-30] MEDS: SODIUM CHLORIDE 0.9% FLUSH 10 ML IV ×2 (09:00→21:27)
[2024-07-30] MEDS: INSULIN LISPRO 100 UNIT/ML 3ML VIAL SUBCUT ×3 (12:13→21:28)
[2024-07-30] MEDS: cefTRIAXone 2,000 MG in SODIUM CHLORIDE 0.9% 100 ML 200 MG IV (12:20)
--- NOTE | 2024-07-30 12:36 | CM.DPNOTE ---
Patient ready for d/c home with HHC and IVABX. Previous note stated ref sent to [facility], however, [facility] is saying they are unaware of this referral and he was recently discharged from their services, and will be considered a new referral. Patient needs daily IVABX and [facility] is unable to see the patient until Thursday d/t weekend staffing and the holiday on Thursday. Updated Dr. Gar. Attempted to call outpatient infusion, no answer on the weekend. Patient also has private insurance that will require an auth for outpatient, if it were able to be set up. Notified [facility] of issue and holding d/c. GOPAL Hodge
--- NOTE | 2024-07-30 13:16 | PM.PN.1 ---
Subjective Subjective Interval history: Doing well, he was going to discharge today. Barriers however we will delay this. This includes inability to initiate with [facility] until Thursday. He was discussed with Infectious Disease, he will be on ceftriaxone until cefazolin sensitivities come back which were added with micro today. Subjective: No dyspnea or chest pain. No foot or leg pain. Exam Vital Signs (past 8 hours): - 07/30/24 08:00 07/30/24 08:05 07/30/24 12:00 Temperature 97.3 F L Pulse Rate 64 76 Respiratory Rate 16 Blood Pressure 147/87 H 126/74 Pulse Oximetry 95 98 Oxygen Delivery Method Room Air Oxygen Flow Rate 0 0 Oxygen Delivery Method Room Air Oxygen Flow Rate 0 Narrative Exam Narrative: NAD, alert and oriented. Fluent speech. Lungs are clear, normal rate and effort. Heart is regular, no murmur gallop or rub. Abdomen is soft, non distended. Extremities are free of edema. Left foot and lower leg are wrapped. Objective Labs 07/29/24 06:31 07/29/24 06:31 REPLACED BY [facility] Medical History Anxiety Hypokalemia PTSD (post-traumatic stress disorder) Type 1 diabetes Insulin dependent diabetes mellitus Family History Father Diabetes mellitus Social History marital status: household members: spouse and children occupational status: employed Smoking Status: Never smoker alcohol intake: current Assessment & Plan Assessment & Plan narrative: 1. Right diabetic foot ulcer with osteomyelitis, present on admission and active - Prior cultures with enterobacter, possible partial carbapenem resistance. Also with prior E. coli - s/p antibiotic spacer placement with orthopedics, needs wound vac for 2-3 days, awaiting cultures. - Discussed with Dr. Aj, recommends Ceftiraxone for now, hopefully Cephazolin after sensitivities are obtained (added to micro today). - PICC line placed. - Follow cultures. MSSA and pansensitive Proteus. 2. IDDM, present on admission and active. - cut insulin in half for OR, continue sliding scale. Increased lantus to 30 given diet resumed. Glargine increased to 40 on 07/29. - A1c 9.2% 3. PTSD, present on admission and active. - continue escitalopram 4. Anxiety and depression, present on admission and active. - continue escitalopram 10 mg daily. 5. HTN - resumed home metoprolol 50 mg daily. Plan: -continue antibiotics pending cultures. Discussed culture when posted with Infectious Disease and select ongoing home IV antibiotics. [place]STA: 08/01, home with IV antibiotics. Can start 08/02. Code: Full, surrogate is patient's spouse DVT: Lovenox daily Time-Based Coding :: [TOTAL MINUTES] spent with patient and on the chart (including review of chart, obtaining history, exam, reviewing outside data, placing orders, documenting exam and treatment plan, and counseling patient) on [DATE].
[2024-07-30] MEDS: INSULIN GLARGINE 100 UNIT/ML 3ML PEN 40 UNIT SUBCUT (21:30)
[2024-07-31] VITALS (7 sets, daily range): BP systolic 135–193; BP diastolic 63–99; PULSE 72; RESP 14–15; TEMP 36.1–36.7; O2SAT 98–100
[2024-07-31] MEDS: ACETAMINOPHEN 325 MG TABLET 650 MG PO (00:34)
[2024-07-31] MEDS: TRAZODONE 50 MG TABLET 100 MG PO (00:34)
[2024-07-31] MEDS: MEROPENEM 1 GM in SODIUM CHLORIDE 0.9% 100 ML IV (00:35)
[2024-07-31] MEDS: METOPROLOL ER 50 MG TABLET 100 MG PO ×2 (06:14→09:22)
[2024-07-31] MEDS: INSULIN LISPRO 100 UNIT/ML 3ML VIAL 6 UNIT SUBCUT ×2 (07:53→12:18)
[2024-07-31] MEDS: ENOXAPARIN 40 MG/0.4 ML SYRINGE SUBCUT (09:23)
[2024-07-31] MEDS: cefTRIAXone 2,000 MG in SODIUM CHLORIDE 0.9% 100 ML 200 MG IV (09:23)
[2024-07-31] MEDS: SODIUM CHLORIDE 0.9% FLUSH 10 ML IV (09:24)
--- NOTE | 2024-07-31 11:38 | PM.DS.1 ---
History of Present Illness History of Present Illness Chief complaint: Possible Right foot infection,sent from wound care Narrative: From H&P: 44-year-old male with history of insulin-dependent diabetes, PTSD, anxiety, depression, previous osteomyelitis of his R foot presents for worsening R foot infection. He has had this ongoing infection for the past 5-6 months, been following with wound care and orthopedic surgery Dr. Payan. He had completed a course of IV antibiotics with line removed a bit over a month ago. He was sent to the ER from wound care today with concerns for worsening infection. Patient did notice the last few days some increasing redness over his R toe, and slight pain maybe a 2/10. He has not noticed and changes in drainage. He thought he was just going for a check up today. He denies fever, chills, knee pain, abdominal pain, chest pain, shortness of breath. In the emergency room, the patient's vitals were unremarkable. There was no leukocytosis, with an unremarkable CBC. Chemistries were also unremarkable, CRP was mildly elevated at 6.8, procalcitonin was also mildly elevated at 0.806. He was admitted to medicine service. Discharge Providers Provider Date of admission: 07/26/24 13:26 Discharge Date: 07/31/24 Primary care physician: Ava Gil MD Consults: 07/26/24 16:08 Consult to Orthopedic Surgery Routine Comment: Consulting Provider: Sepideh Payan Reason for consultation: R foot infection Discharge provider: Tristan Gar MD Summary Hospital Course Discharge Diagnosis: 1. Right diabetic foot ulcer with osteomyelitis, present on admission and active - Prior cultures with enterobacter, possible partial carbapenem resistance. Also with prior E. coli - s/p antibiotic spacer placement with orthopedics, needs wound vac for 2-3 days, awaiting cultures. - Discussed with Dr. Aj, recommends Ceftiraxone for now, hopefully Cephazolin after sensitivities are obtained (added to micro today). - PICC line placed. - Follow cultures. MSSA and pansensitive Proteus. 2. IDDM, present on admission and active. - cut insulin in half for OR, continue sliding scale. Increased lantus to 30 given diet resumed. Glargine increased to 40 on 07/29. - A1c 9.2% 3. PTSD, present on admission and active. - continue escitalopram 4. Anxiety and depression, present on admission and active. - continue escitalopram 10 mg daily. 5. HTN - resumed home metoprolol 50 mg daily. Hospital Course: Patient with history of IDDM 2, and previous osteomyelitis of the right foot presents with a rate worsening right foot infection. He was started on empiric antibiotics and seen by Dr. Marks of Orthopedics. He underwent irrigation debridement as well as bone biopsy and a tenosynovectomy of the right foot on July 27. He also had a resection arthroplasty of the 1st MTP and a antibiotic spacer placed. Postop phase he was continued on broad-spectrum antibiotics and consultation with his primary infectious disease doctor, Dr. Aj. Wound care was continued. Cultures ultimately grew out Proteus mirabilis and MSSA. The patient was switched from meropenem to ceftriaxone 2 g IV daily. Cefazolin was added to the sensitivity testing on July 30. [facility] was able to accommodate daily ceftriaxone effective August 01. The patient has a follow up appointment with Infectious Disease also scheduled on August 01. He was felt to be stable medically for discharge home and has a left arm PICC in place for his IV antibiotics. He did have some hyperglycemia in his Lantus was increased to 40 while in the hospital. Status at Discharge Cognitive/behavioral status at discharge: at baseline, oriented Functional status at discharge: independent ambulation Overall status at discharge: patient is back to baseline Time Spent with Patient Time spent: Greater than 30 minutes Exam Vital Signs (past 8 hours): - 07/31/24 04:00 07/31/24 04:00 07/31/24 06:14 Temperature 97.0 F L Pulse Rate 72 72 Respiratory Rate 14 Blood Pressure 193/99 H 193/99 H Pulse Oximetry 99 99 Oxygen Delivery Method Room Air Oxygen Flow Rate 0 07/31/24 07:36 07/31/24 09:22 Temperature Pulse Rate Respiratory Rate Blood Pressure 171/87 H 171/87 H Pulse Oximetry Oxygen Delivery Method Oxygen Flow Rate Oxygen Delivery Method Room Air Oxygen Flow Rate 0 Narrative Exam Narrative: NAD, alert and oriented. Fluent speech. Lungs are clear, normal rate and effort. Heart is regular, no murmur gallop or rub. Abdomen is soft, non distended. Extremities are free of edema. Right foot is wrapped. Objective Imaging Multiple studies:: Radiologist's impression: Chest x-ray: Tip of PICC projects to the area of mid SVC. Foot MRI: IMPRESSION: Medial soft tissue ulcer adjacent to the 1st metatarsal head with adjacent 1st MTP joint effusion. Unequivocal osteomyelitis involves the 1st metatarsal head. There is more early stage edema and enhancement, likely reactive changes, involving the 1st metatarsal shaft and 1st ray phalanges. Pyo-tenosynovitis of the 1st flexor tendon. Foot x-ray: No aracelis evidence of osteomyelitis. Plain film radiographs can be insensitive to osteomyelitis during the initial phase of the disease process. If there is clinical concern for osteomyelitis, then three-phase nuclear medicine bone scan or MRI should be considered for further evaluation. Labs 07/29/24 06:31 07/29/24 06:31 [facility] Medical History Anxiety Hypokalemia PTSD (post-traumatic stress disorder) Type 1 diabetes Insulin dependent diabetes mellitus Family History Father Diabetes mellitus Social History marital status: household members: spouse and children occupational status: employed Smoking Status: Never smoker alcohol intake: current Discharge Assessment & Plan Assessment and Plan Assessment: 1. Right diabetic foot ulcer with osteomyelitis, present on admission and active - Prior cultures with enterobacter, possible partial carbapenem resistance. Also with prior E. coli - s/p antibiotic spacer placement with orthopedics, needs wound vac for 2-3 days, awaiting cultures. - Discussed with Dr. Aj, recommends Ceftiraxone for now, hopefully Cephazolin after sensitivities are obtained (added to micro today). - PICC line placed. - Follow cultures. MSSA and pansensitive Proteus. Plan of Treatment: Charge with home IV antibiotics with a course of 4-6 weeks anticipated. Ceftriaxone 2 g IV Q 24 hours with a 4-6 week course anticipated. Id follow up is with Dr. Aj tomorrow, she will also follow his IV antibiotics orders. Discharge Plan Discharge Plan Patient Disposition: Home Health Service Transfer to: [facility] Provider Discharge Comment: Stable for discharge home with IV antibiotics. The patient will be on ceftriaxone 2 g daily and see Dr. Aj of Infectious Disease tomorrow as scheduled. Discharge orders & Medications Prescriptions: New ceftriaxone 2 gram Recon Soln 2,000 mg IV Q24H Qty: 10 0RF Continued insulin lispro [Humalog KwikPen Insulin] 100 unit/mL Insulin Pen 6 - 15 dose subcut ACHS Patient Comments: sliding scale Rx Instructions: slidding scale at home per patients blood sugar. trazodone 50 mg tablet 100 mg PO ONCE PM PRN (Reason: Sleep) escitalopram oxalate 10 mg tablet 20 mg PO DAILY insulin glargine-yfgn [Semglee(insulin glarg-yfgn)Pen] 100 unit/mL (3 mL) insulin pen 30 unit SUBCUT QPM Patient Comments: [NO ORIGINAL SIG] metoprolol succinate 50 mg tablet extended release 24 hr 50 mg PO DAILY Discontinued ampicillin sodium 2 gram Recon Soln 2,000 mg IV Q4H Qty: 6 0RF Medication counseling provided by Pharmacist: No Follow up/Referrals: Ava Gil MD [Primary Care Provider] - Diet/Activity/Treatments Diet: Carb-consistent/Diabetic Diet comment: NMW Right foot. Skin/Wound/Dressing Care Report to your healthcare provider any signs of infection, such as:: chills, fever, night sweats, increased pain, unusual drainage and unusual redness Visit Report/Discharge Packet Instructions: DI for Incision and Drainage Stand Alone Forms: Patient Portal/API Discharge Data Primary Care Provider: Ava Gil
[2024-07-31] MEDS: INSULIN LISPRO 100 UNIT/ML 3ML VIAL SUBCUT (12:18)
--- NOTE | 2024-07-31 13:51 | PC.NURSE ---
D/c instructions reviewed with Pt. Discussed follow up care with infusion, and antibiotic therapy. Pt d/c with PICC. No other IVs present. Pt agreeable to d/c and confirmed that he had all belongings. Pt exited via w/c with spouse and DELIVERY DRIVER/CUSTOMER SERVICE.
--- NOTE | 2024-07-31 15:40 | CM.DPNOTE ---
DC Note Discharge home today. Aleksandra, union organizer pharmacist at [facility] confirms that they can see patient in the home Thursday afternoon. Patient has received his daily dose of IV abx today and agreeable to discharge home w/spouse, [facility] to manage IV abx, out of pocket is little to known with patient's insurance - this according to Aleksandra at [facility]. DC summary faxed to [facility] Aleksandra Pedraza. No need for LEYDA RN. JW
== END 2024-07-31 13:50 | disposition home or self-care (01) | DRG 623 ==
LOC: ED 12:51 → AC 13:26
PROVIDERS: Orthopaedic Surgery Foot and Ankle Surgery; Admitting Provider Internal Medicine; Emergency Provider Emergency Medicine; PCP Internal Medicine; Visit Provider Internal Medicine
PROC: 0LBV0ZZ Excision of Right Foot Tendon, Open Approach (ICD-10-PCS; principal; 2024-07-27 11:45)
DX: E11.621 Type 2 diabetes mellitus with foot ulcer (principal); M86.471 Chronic osteomyelitis with draining sinus, right ankle and foot; L97.519 Non-pressure chronic ulcer of other part of right foot with unspecified severity; F43.10 Post-traumatic stress disorder, unspecified; F41.9 Anxiety disorder, unspecified; F32.A Depression, unspecified; I10 Essential (primary) hypertension; M65.971 Unspecified synovitis and tenosynovitis, right ankle and foot; B96.4 Proteus (mirabilis) (morganii) as the cause of diseases classified elsewhere; B95.61 Methicillin susceptible Staphylococcus aureus infection as the cause of diseases classified elsewhere; E11.65 Type 2 diabetes mellitus with hyperglycemia; Z79.4 Long term (current) use of insulin
CPT/HCPCS: 36415; 36569; 73630; 73720; 80053; 82962; 83036; 83605; 83690; 83735; 84145; 85025; 85610; 85730; 86140; 87040; 87070; 87075; 87077; 87147; 87186; 87205; 87801; 93005; 93010; 96365; 99284; 99285; J0171; J0696; J1100; J1171; J1642; J1650; J1815; J1956; J2185; J2250; J2274; J2405; J2704; J3010

== ENCOUNTER → 2024-08-17 08:59 | Outpatient (CLI) | payer OTHER, SELFPAY ==
[2024-07-26 13:36] VITALS: BMI 33.4
== END ==
PROVIDERS: PCP Internal Medicine; Referring Provider Hospitalist; Visit Provider Physician Assistant
DX: E10.628 Type 1 diabetes mellitus with other skin complications (principal); T87.81 Dehiscence of amputation stump; L98.8 Other specified disorders of the skin and subcutaneous tissue; L53.9 Erythematous condition, unspecified; R60.0 Localized edema; L08.89 Other specified local infections of the skin and subcutaneous tissue; Z89.411 Acquired absence of right great toe
CPT/HCPCS: 97597; 99214

== ENCOUNTER → 2024-08-24 09:38 | Outpatient (CLI) | payer OTHER, SELFPAY ==
[2024-07-26 13:36] VITALS: BMI 33.4
== END ==
PROVIDERS: PCP Internal Medicine; Referring Provider Hospitalist; Visit Provider Surgery
DX: E10.628 Type 1 diabetes mellitus with other skin complications (principal); T81.31XA Disruption of external operation (surgical) wound, not elsewhere classified, initial encounter; L98.8 Other specified disorders of the skin and subcutaneous tissue; M86.171 Other acute osteomyelitis, right ankle and foot; G62.9 Polyneuropathy, unspecified
CPT/HCPCS: 11042

== ENCOUNTER → 2024-09-01 09:15 | Outpatient (CLI) | payer OTHER, SELFPAY ==
[2024-07-26 13:36] VITALS: BMI 33.4
== END ==
LOC: WC 09:16
PROVIDERS: PCP Internal Medicine; Referring Provider Hospitalist; Visit Provider Surgery
DX: E10.628 Type 1 diabetes mellitus with other skin complications (principal); T81.89XA Other complications of procedures, not elsewhere classified, initial encounter; S91.301A Unspecified open wound, right foot, initial encounter; L98.8 Other specified disorders of the skin and subcutaneous tissue; M86.171 Other acute osteomyelitis, right ankle and foot
CPT/HCPCS: 11042

== ENCOUNTER 2024-09-07 13:18 | Day surgery (SDC) | payer OTHER, SELFPAY ==
[2024-07-26 13:36] VITALS: BMI 33.4
[2024-09-01 09:57] VITALS: BMI 31.9
--- NOTE | 2024-09-07 | PATH_ITS ---
[facility] Accession Number: [id number] No. of containers..01 Tissue . 01 Material submitted: . foot - 1ST METATARSAL RIGHT FOOT . 01 Diagnosis: FIRST METATARSAL, RIGHT FOOT, BIOPSY: Fragments of bone with fibrosis, remodeling changes, and focal sparse, mild chronic inflammation without active neutrophilic inflammation, findings suggestive of chronic osteomyelitis. Negative for malignancy. MRV 09/09/2024 1723 Local . 01 Electronically signed: . Liv Ralph MD, Pathologist NPI- [id number] . 01 Gross description: . Received in formalin with two patient identifiers and right foot first metatarsal, are two lim and brown soft tissue fragments with no skin grossly identified ranging from 1.2 x 0.6 x 0.4 cm to 0.8 x 0.3 x 0.3 cm. No bone grossly identified. Both fragments submitted intact in A1. ([id number]) /MRV 09/08/2024 1818 Local . 01 Pathologist provided ICD-10: E08.621, L97.516 . 01 CPT . 941815 Specimen Comment: A courtesy copy of this report has been sent to [phone] Performed at: [address] [facility] [address], [place], [place] [id number] MD Tyrone Nelson MD Phone: [phone]
[2024-09-07 13:59] VITALS: BMI 32.6
[2024-09-07] MEDS: LACTATED RINGERS 1,000 ML 42 ML IV (14:23)
--- NOTE | 2024-09-07 14:30 | PM.PREOP ---
Pre-operative Note Interval Note History & Physical reviewed/Exam performed by Physician: Yes Changes to H&P: No
--- NOTE | 2024-09-07 14:37 | SUR.OPER ---
Supine on padded OR bed, head on pillow, arms secured on padded arm boards at <90 degrees abduction, legs uncrossed, safety belt at thigh, tape over blanket over lower legs.
[2024-09-07] MEDS: INSULIN LISPRO 100 UNIT/ML 3ML VIAL SUBCUT (14:40)
--- NOTE | 2024-09-07 14:54 | SUR.PREOP ---
See order from Pat RICHARDSON for insulin for coverage of CBG 252.
[2024-09-07] MEDS: CEFAZOLIN 2 GM/100 ML PREMIX 100 ML IV (15:10)
[2024-09-07] MEDS: BUPIVACAINE 0.25% (PF) 30 ML, EPINEPHrine 0.15 MG INJ (15:18)
[2024-09-07 15:45] VITALS: BP 154/77; PULSE 81; RESP 16; TEMP 36.6; O2SAT 97
--- NOTE | 2024-09-07 15:47 | P.OP_ITS ---
Operative Date/Time/Diagnoses Date of procedure: 09/07/24 Time of procedure: 15:00 Pre-op diagnosis: Diabetic foot ulcer, osteomyelitis, right, retained hardware Post-op diagnosis: same Procedure & Clinicians Procedure: Stage debridement diabetic foot ulcer and deep hardware removal, bone biopsy and complex closure 1. Deep implant removal CPT code 70369 right 2. Debridement right foot ulcer skin subcutaneous tissue fascia and bone CPT code 43811 right 3. Closure wound delayed primary CPT code 52194 right Procedure was performed with modifier 58 for staged more extensive surgery, planned return Same procedure as scheduled: Yes Indications: The patient is a 44-year-old male with uncontrolled diabetes that had a diabetic right foot ulcer with osteomyelitis and has required staged treatment with I and D's bone resection bone biopsies antibiotic beads and now presents for staged returned to the OR for deep hardware removal debridement closure and repeat bone biopsies. The risks and benefits of the procedure have been discussed with the patient and given the opportunity to ask questions. The risks of surgery include but are not limited to infection, malunion, nonunion, persistence of pain, damage to nerves and blood vessels, posttraumatic arthritis, DVT, PE, coardiopulmonary complications and . The patient expressed a thorough understanding of the risks and benefits of surgery and has elected to proceed. Consent was signed in the office today. Surgeon: Sepideh Payan Click Yes if Unassisted: Yes Anesthesia Type: General and Local Operative Notes Findings: Plantar ulcer 2 x 1 cm. No purulence. Wound was opened. Retained K-wire was removed. Additional metatarsal head bone was sent for pathology, culture and PCR. This was 1st metatarsal bone. The ulcer was excised and the wound edges undermined and mobilized in order to obtain a delayed primary closure. Closure Type: primary Specimen(s): other (Bone was sent for pathology, culture and PCR) Estimated Blood Loss (mL): 10 Blood products transfused: none Tourniquet time (min): 2 Procedure in detail: Patient was seen in the preoperative area the site of surgery was marked this was the right foot. The patient was taken back to the operating room by the anesthesia team positioned supine on operative table. A well-padded thigh tourniquet was applied. The right lower extremity was prepped and draped in standard sterile fashion a formal time-out procedure was performed confirming the patient's side and site of surgery administration of appropriate preoperative antibiotic. Additionally the patient had been on scheduled antibiotics as an outpatient. An SCD was placed on the contralateral lower extremity. Esmarch was used for exsanguination tourniquet raised on the thigh to 250 mmHg. This was quickly a venous tourniquet was let down after 2 minutes. Attention turned to the right foot ulcer. A scalpel was used to reopen the incision more proximally and the remaining ulcer was excised sharply using the scalpel and discarded. The retained K-wire was exposed and then removed with wire otr flatbed company truck driver. Next attention was turned to the distal 1st metatarsal and a rongeur was used to obtain bone to send for culture pathology and PCR. Additional debridement of the plantar proximal phalanx and wound margins was completed sharply. Wound was then thoroughly irrigated with saline using bulb syringe. No purulence was demonstrated. The wound flaps were mobilized carefully and did provide enough mobilization to allow primary closure after the 1st metatarsal bone was debrided.. The wound was then closed in a layered fashion with 2-0 PDS and 3-0 and 2-0 nylon suture. Some initial trauma style sutures were placed with 2-0 nylon to approximate the wound these were then filled in with simple and vertical sutures using the 3-0 nylon and then the trauma sutures were removed at the end of the case. 0.25% Marcaine with epinephrine was injected for local anesthetic. Sterile dressing was applied with Xeroform gauze and Kerlix and an Sanket wrap. The patient was awoken from anesthesia and taken to the recovery room in good condition there were no immediate complications from this procedure. Counts were correct. Complications: none Post-operative Condition: stable Disposition: PACU Plan for aftercare: Sutures remain in place for 6 weeks. Continue scheduled IV antibiotics per Infectious Disease. Culture and PCR results may take up to several weeks to return. The patient will follow up in Orthopedic Clinic as well as with Infectious Disease. Continue nonweightbearing or touchdown on the heel minimally to aid in wound healing.
[2024-09-07 15:50] VITALS: BP 158/70; PULSE 80; RESP 16; TEMP 36.5; O2SAT 97
[2024-09-07 15:55] VITALS: BP 167/87; PULSE 79; RESP 17; TEMP 36.4; O2SAT 97
[2024-09-07 16:01] VITALS: BP 164/83; PULSE 79; RESP 12; TEMP 36.4; O2SAT 97
== END 2024-09-07 16:30 | disposition home or self-care (01) ==
PROVIDERS: PCP Internal Medicine; Referring Provider Orthopaedic Surgery Foot and Ankle Surgery; Visit Provider Orthopaedic Surgery Foot and Ankle Surgery
PROC: (CPT 13160; principal; 2024-09-07 14:45)
DX: E11.621 Type 2 diabetes mellitus with foot ulcer (principal); E11.69 Type 2 diabetes mellitus with other specified complication; M86.9 Osteomyelitis, unspecified
CPT/HCPCS: 13160; 20680; 87070; 87075; 87205; 87801; J0171; J0690; J1815; J2250; J2704; J3010

== ENCOUNTER → 2024-09-08 15:05 | Outpatient (CLI) | payer OTHER, SELFPAY ==
[2024-07-26 13:36] VITALS: BMI 33.4
== END ==
PROVIDERS: PCP Internal Medicine; Referring Provider Hospitalist; Visit Provider Surgery
DX: E10.628 Type 1 diabetes mellitus with other skin complications (principal); T81.89XA Other complications of procedures, not elsewhere classified, initial encounter; S91.301A Unspecified open wound, right foot, initial encounter; R60.0 Localized edema; L53.9 Erythematous condition, unspecified; G62.9 Polyneuropathy, unspecified
CPT/HCPCS: 99213

== ENCOUNTER → 2024-09-15 13:42 | Outpatient (CLI) | payer OTHER, SELFPAY ==
[2024-07-26 13:36] VITALS: BMI 33.4
== END ==
PROVIDERS: PCP Internal Medicine; Referring Provider Hospitalist; Visit Provider Physician Assistant
DX: L98.8 Other specified disorders of the skin and subcutaneous tissue (principal); E10.40 Type 1 diabetes mellitus with diabetic neuropathy, unspecified; M86.171 Other acute osteomyelitis, right ankle and foot
CPT/HCPCS: 99212; 99213

== ENCOUNTER 2024-09-23 19:47 | Emergency (ER) | payer OTHER, SELFPAY ==
[2024-07-26 13:36] VITALS: BMI 33.4
[2024-09-23] VITALS (24 sets, daily range): BP systolic 100–147; BP diastolic 50–73; PULSE 93–109; RESP 15–38; TEMP 34–35.8; O2SAT 96–100; BMI 31.7
--- NOTE | 2024-09-23 20:03 | DI.RAD.S_ITS ---
PROCEDURE: XR CHEST 1V INDICATIONS: chest pain TECHNIQUE: One view of the chest was acquired. COMPARISON: [facility], CR, XR CHEST FOR PICC 1V, 07/29/2024, 10:02. [facility], CR, XR CHEST 1V, 04/15/2024, 11:33. FINDINGS: Surgical changes and devices: None. Lungs and pleura: Lower lung volumes. Lungs are clear. No pleural effusions or pneumothorax. Mediastinum: Mediastinal contours appear normal. Heart size is enlarged. Bones and chest wall: No suspicious bony lesions. Overlying soft tissues appear unremarkable. IMPRESSION: No acute cardiopulmonary abnormality is seen. Dictated by: Shashi Delgadillo M.D. on 09/23/2024 at 22:16 Approved by: Shashi Delgadillo M.D. on 09/23/2024 at 22:17
--- NOTE | 2024-09-23 20:03 | EKG_ITS ---
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
[2024-09-23] MEDS: SODIUM CHLORIDE 0.9% 1,000 ML 1000 ML IV (20:30)
[2024-09-23 20:37] LABS: INR 0.9 (0.9-1.3)
[2024-09-23 20:39] LABS: Appearance Urine UA CLEAR; Bilirubin Urine UA 1+ (NEGATIVE); Color Urine UA YELLOW; Glucose Urine UA 3+ g/dL (Negative); Ketones Urine UA 1+ (NEGATIVE); Leukocyte Esterase Urine UA NEGATIVE (NEGATIVE); Nitrite Urine UA NEGATIVE (Negative); Occult Blood Urine UA 2+ (Negative); Protein Urine UA 2+ (Negative); Urobilinogen Urine UA 0.2 E.U./dL (0.2)
[2024-09-23 20:40] LABS: PTT Partial Thromboplastin Tim 28 SECONDS (25.1-36.5)
[2024-09-23 20:41] LABS: Add Manual Diff / Slide Review NO; Basophils Absolute Auto 100 /uL (0-100); Basophils Percent Auto 0.4 % (0-2); Eosinophils Absolute Auto 0 /uL (0-450); Hemoglobin 14.2 g/dL (13.5-17.5); Lymphocytes Absolute Auto 900 /uL (1100-4500); Lymphocytes Percent Auto 4.5 % (25-40); Mean Corpuscular HGB Conc 33.1 % (30-36); Mean Corpuscular Hemoglobin 31.1 PG (26-34); Monocytes Absolute Auto 1000 /uL (0-900); Monocytes Percent Auto 5.2 % (3-14); Neutrophils Absolute Auto 17700 /uL (1500-7000); Neutrophils Percent Auto 89.9 % (50-75); Platelet Count 189 X10^3/uL (150-400); Red Blood Cell Count 4.58 X10^6/uL (4.5-5.9); Red Cell Distribution Width 14.1 % (11.6-14.8); White Blood Cell Count 19.7 X10^3/uL (4.5-11.0)
[2024-09-23 20:45] LABS: Alanine Aminotransferase 41 IU/L (<50); Albumin 4.6 g/dL (3.5-5.0); Albumin Globulin Ratio 1.3 (1.0-2.8); Alkaline Phosphatase 223 U/L (38-126); Aspartate Aminotransferase 104 IU/L (17-59); BUN Creatinine Ratio 15.9 (6-22); Bilirubin Total 0.9 mg/dL (0.2-1.3); Blood Urea Nitrogen 84 mg/dL (9-20); Calcium 10.3 mg/dL (8.4-10.2); Chloride 93 mmol/L (98-107); Creatine Kinase 1414 U/L (55-170); Estimated Glomerular Filt Rate 13 mL/min (>60); Globulin 3.6 g/dL (1.7-4.1); HEMOLYSIS < 15 (0-50); Magnesium 2.6 mg/dL (1.6-2.3); Potassium 3.4 mmol/L (3.4-5.1); Sodium 127 mmol/L (137-145); Total Protein 8.2 g/dL (6.3-8.2)
[2024-09-23 20:54] LABS: Bacteria Urine Occasional (0-1); Culture Indicated Urine Cult Not Indicated; Ictotest Urine Negative (Negative); RBC Urine 1-5/HPF (0-5/HPF); Squamous Epithelial Cell Urine 0-1 /HPF (0-5/HPF); Urine Volume 10mL (spun); WBC Urine 0-1/HPF (0-5/HPF)
[2024-09-23 20:58] LABS: NT-proBNP (BNP-Adult 18+) 5040 pg/mL (<125)
[2024-09-23 21:01] LABS: Carbon Dioxide < 5 mmol/L (22-32); Glucose 556 mg/dL (70-100)
[2024-09-23 21:13] LABS: Lipase 7252 U/L (23-300)
[2024-09-23 21:17] LABS: Ketones (Beta-Hydroxybutyrate) 10.4 mmol/L (<0.27)
[2024-09-23 21:21] LABS: Influenza A - CEPHEID Flu A NEGATIVE (NEGATIVE); Influenza B - CEPHEID Flu B NEGATIVE (NEGATIVE); Respiratory Syncytial Virus Negative (Negative)
[2024-09-23 21:22] LABS: COVID-19 CEPHEID 4-PLEX PCR Negative (Negative)
--- NOTE | 2024-09-23 21:23 | DI.CT.S_ITS ---
PROCEDURE: CT ABDOMEN PELVIS WO CON INDICATIONS: lipase 7000 TECHNIQUE: Axial sections were acquired from the lung bases to the pubic symphysis. Coronal and sagittal reformats were performed. For radiation dose reduction, the following was used: automated exposure control, adjustment of mA and/or kV according to patient size. COMPARISON: None. FINDINGS: Image quality: Diagnostic. Lower Chest: No significant findings. URINARY: Right Kidney: No stones or hydronephrosis. Right Ureter: No hydroureter. Left Kidney: No stones or hydronephrosis. Left Ureter: No hydroureter. Bladder: Collapsed around a Hannah catheter in situ. No stones. ABDOMEN: Liver: No contour-deforming solid mass. Gallbladder: No radiopaque gallstones or wall thickening. Biliary ducts: Mild fat stranding and inflammatory changes at the pancreatic head/uncinate process. No peripancreatic fluid collection. Pancreas: No ductal dilation. Spleen: Size is within normal limits. Adrenal Glands: No adrenal nodules. Stomach and Bowel: Normal colonic caliber, without significant wall thickening. Peritoneum: No abnormal intraperitoneal fluid. No free air. Ventral Wall: No hernia. Abdominal Nodes: No enlarged retroperitoneal or mesenteric lymph nodes. Vessels: Aorta and inferior vena cava are normal in size. Splanchnic vessel calcifications. PELVIS: Pelvic Organs: Unremarkable. Pelvic Nodes: Unremarkable. Miscellaneous: No inguinal hernias are seen. Bones: Unremarkable. IMPRESSION: Mild fat stranding/inflammation at the pancreatic head and uncinate process likely reflects acute pancreatitis in the setting of elevated lipase. No peripancreatic fluid collection. Approved by: Brenda Spencer M.D.,Ph.D. on 09/23/2024 at 23:27
[2024-09-23] MEDS: ONDANSETRON 4 MG/2 ML INJ IV ×2 (21:43→23:15)
[2024-09-23] MEDS: SODIUM CHLORIDE 0.9% 1,000 ML 2000 ML IV (21:43)
[2024-09-23 21:44] LABS: Ethanol (ETOH) < 10 mg/dL
[2024-09-23] MEDS: INSULIN REGULAR 100 UNIT/ML 3 ML VIAL IV (21:44)
[2024-09-23] MEDS: POTASSIUM CHLORIDE IN WATER 10 MEQ/100 ML PIGGYBACK 100 MEQ IV ×2 (21:47→23:15)
--- NOTE | 2024-09-23 21:59 | ED.GENADULT ---
HPI - General Adult General Chief complaint: Diabetic Problem Stated complaint: Type1 Diabetic, Vomiting, High Glucose Time Seen by Provider: 09/23/24 20:05 Source: patient History of Present Illness HPI narrative: 44-year-old male with history of diabetes, recent vomiting, unable to keep his medications down for the last couple of days. Denies throwing up blood. Denies black or red appearing stools. Some abdominal cramping. Denies any falls, traumas, new activities. Denies alcohol use, denies drug use. Chart history of osteomyelitis of the foot. Chart history of GERD. Patient seen by me with LE cellultis and history of alcohol abuse, admitted at that time here. Related Data Home Medications Medication Instructions Recorded Confirmed insulin lispro 100 unit/mL 6 - 15 dose SUBCUT ACHS 07/06/18 09/07/24 subcutaneous pen (Humalog KwikPen (U-100) Insulin) escitalopram oxalate 10 mg tablet 20 mg PO DAILY 04/12/24 09/07/24 insulin glargine-yfgn 100 unit/mL 30 unit SUBCUT QPM 04/12/24 09/07/24 (3 mL) subcutaneous pen (Semglee (insulin glargine-yfgn) Pen) trazodone 50 mg tablet 100 mg PO ONCE PM PRN Sleep 04/12/24 09/07/24 metoprolol succinate 50 mg 50 mg PO DAILY 07/27/24 09/07/24 tablet,extended release 24 hr insulin glargine-yfgn 100 unit/mL 10 unit SUBCUT DAILY 09/07/24 09/07/24 (3 mL) subcutaneous pen (Semglee (insulin glargine-yfgn) Pen) lisinopril 40 mg tablet 40 mg PO DAILY 09/07/24 09/07/24 Previous Rx's Medication Instructions Recorded ceftriaxone 2 gram solution for 2,000 mg IV Q24H #10 ea 07/31/24 injection hydrocodone 5 mg-acetaminophen 325 1 tab PO Q6H PRN pain #20 tabs 09/07/24 mg tablet Allergies Allergy/AdvReac Type Severity Reaction Status Date / Time No Known Drug Allergies Allergy Verified 09/07/24 14:05 Patient History Medical History (Updated 09/24/24 @ 01:51 by Davonte Paulson MD) Anxiety Hypokalemia PTSD (post-traumatic stress disorder) Type 1 diabetes Insulin dependent diabetes mellitus Surgical History (Updated 09/01/24 @ 10:29 by Gissell Cheema RN) History of foot surgery (07/27/24) History of foot surgery (04/14/24) Family History Father Diabetes mellitus Social History marital status: household members: spouse and children occupational status: employed Smoking Status: Never smoker alcohol intake: current Smoking Status: Never smoker alcohol intake frequency: holidays/special occasions only Exam Narrative Exam Narrative: GENERAL: Ill-appearing, slow speech, no obvious face or head trauma. No alcohol on breath. Slow speech. HEAD: Atraumatic. Normocephalic. EYES: Pupils equal round and reactive. Extraocular motions intact. No scleral icterus. No injection or drainage. ENT: Nose without bleeding, purulent drainage. Throat without erythema, tonsillar hypertrophy or exudate. Airway patent. NECK: Trachea midline. Non tender CARDIOVASCULAR: Regular rate and rhythm without murmurs, gallops, or rubs. RESPIRATORY: Tachypnea with clear lungs. Breath sounds equal bilaterally. No wheezes, rales, or rhonchi. GASTROINTESTINAL: Abdomen soft, non-tender, nondistended. EXTREMITIES: No edema or joint tenderness. BACK: Nontender without deformity or crepitance. No flank tenderness. NEURO: AOx3. Motor functions grossly nonfocal, slow speech SKIN: No rash or erythema of visible areas Initial Vital Signs Initial Vital Signs: Vital Signs Temperature 95.6 F L 09/23/24 19:54 Pulse Rate 93 H 09/23/24 19:54 Respiratory Rate 26 H 09/23/24 19:54 Blood Pressure 101/58 L 09/23/24 19:54 Pulse Oximetry 100 09/23/24 19:54 Oxygen Delivery Method Room Air 09/23/24 19:54 Course Orders Ordered: Discontinued Medications Aspirin (Aspirin Ec 325 Mg Tablet) 325 mg PO NOW ONE Stop: 09/24/24 01:29 Last Admin: 09/24/24 02:00 Dose: Not Given Documented By: VINCE Aspirin (Aspirin 300 Mg Supp) 300 mg SC NOW ONE Stop: 09/24/24 01:43 Last Admin: 09/24/24 05:23 Dose: 300 mg Documented By: VINCE Haloperidol (Haloperidol 5 Mg/Ml Vial) 5 mg IV NOW ONE Stop: 09/24/24 05:58 Last Admin: 09/24/24 06:00 Dose: 5 mg Documented By: VINCE Heparin Sodium (Porcine) (Heparin 5,000 Unit/Ml Vial) 5,000 unit IV NOW ONE Stop: 09/24/24 00:09 Last Admin: 09/24/24 00:22 Dose: 5,000 unit Documented By: VINCE Sodium Chloride (Normal Saline 0.9%) 1,000 mls @ 2,000 mls/hr IV BOLUS ONE Stop: 09/23/24 21:50 Last Infusion: 09/24/24 00:17 Dose: Infused Documented By: Admin: 09/23/24 21:43 Dose: 2,000 mls/hr Documented By: KEVYN POTASSIUM CHLORIDE IN WATER (Potassium Cl 10 Meq/100 Ml Deanna) 10 meq in 100 mls @ 100 mls/hr IV Q1H LEAH Stop: 09/23/24 23:29 Last Infusion: 09/24/24 00:18 Dose: Infused Documented By: Admin: 09/23/24 23:15 Dose: 100 mls/hr Documented By: Infusion: 09/23/24 22:47 Dose: Infused Documented By: Admin: 09/23/24 21:47 Dose: 100 mls/hr Documented By: KEVYN INSULIN DRIP PREMIX (Myxredlin Drip Premix) 100 unit in 100 mls @ 9.752 mls/hr IV TITRATE LEAH; Protocol Last Titration: 09/24/24 06:15 Dose: 0 unit/kg/hr, 0 mls/hr Documented By: VINCE Co-signed By: MADELIN Titration: 09/24/24 05:30 Dose: 0.02 unit/kg/hr, 1.95 mls/hr Documented By: VINCE Co-signed By: MADELIN Titration: 09/24/24 02:30 Dose: 0 unit/kg/hr, 0 mls/hr Documented By: VINCE Co-signed By: MADELIN Admin: 09/23/24 23:33 Dose: 0.1 unit/kg/hr, 9.752 mls/hr Documented By: VINCE Co-signed By: MADELIN Heparin Sodium/Dextrose (Heparin Drip) 25,000 unit in 500 mls @ 20.09 mls/hr IV CONT LEAH; Protocol Last Titration: 09/24/24 06:15 Dose: 0 units/kg/hr, 0 mls/hr Documented By: VINCE Co-signed By: MADELIN Admin: 09/24/24 00:34 Dose: 10.5 units/kg/hr, 20.48 mls/hr Documented By: VINCE Co-signed By: MADELIN Sodium Chloride (Normal Saline 0.9%) 1,000 mls @ 1,000 mls/hr IV BOLUS ONE Stop: 09/24/24 02:17 Last Infusion: 09/23/24 21:30 Dose: Infused Documented By: Admin: 09/23/24 20:30 Dose: 1,000 mls/hr Documented By: VINCE Sodium Chloride (Normal Saline 0.9%) 1,000 mls @ 250 mls/hr IV CONT LEAH Last Infusion: 09/24/24 03:17 Dose: Infused Documented By: Admin: 09/24/24 00:30 Dose: 250 mls/hr Documented By: VINCE Ceftriaxone Sodium 2,000 mg/ (Sodium Chloride) 100 mls @ 200 mls/hr IV NOW ONE Stop: 09/24/24 01:42 Last Infusion: 09/24/24 02:40 Dose: Infused Documented By: Admin: 09/24/24 02:18 Dose: 200 mls/hr Documented By: VINCE Vancomycin HCl 2,000 mg/ (Sodium Chloride) 500 mls @ 250 mls/hr IV NOW ONE Stop: 09/24/24 01:52 Last Admin: 09/24/24 02:39 Dose: Not Given Documented By: VINCE Vancomycin HCl/Dextrose (Vancomycin) 2,000 mg in 400 mls @ 200 mls/hr IV NOW ONE Stop: 09/24/24 04:07 Last Infusion: 09/24/24 06:08 Dose: Infused Documented By: Admin: 09/24/24 03:12 Dose: 200 mls/hr Documented By: VINCE Ceftriaxone Sodium 2,000 mg/ (Sodium Chloride) 100 mls @ 200 mls/hr IV NOW ONE Stop: 09/24/24 02:23 Last Admin: 09/24/24 03:21 Dose: Not Given Documented By: VINCE Dextrose/Sodium Chloride (Dextrose 5%-0.45% Ns) 1,000 mls @ 250 mls/hr IV CONT LEAH Last Infusion: 09/24/24 06:07 Dose: Infused Documented By: Admin: 09/24/24 03:20 Dose: 250 mls/hr Documented By: VINCE POTASSIUM CHLORIDE IN WATER (Potassium Cl 10 Meq/100 Ml Deanna) 10 meq in 100 mls @ 100 mls/hr IV Q1H LEAH Stop: 09/24/24 05:44 Last Infusion: 09/24/24 06:08 Dose: Infused Documented By: Admin: 09/24/24 04:43 Dose: 100 mls/hr Documented By: Infusion: 09/24/24 04:43 Dose: Infused Documented By: Admin: 09/24/24 03:57 Dose: 100 mls/hr Documented By: VINCE Potassium Chloride/Dextrose/Sod Cl (Dextrose 5%-0.45%Ns W/Kcl 20meq) 1,000 mls @ 150 mls/hr IV CONT [facility] Last Infusion: 09/24/24 06:15 Dose: 0 mls/hr Documented By: Admin: 09/24/24 06:02 Dose: 150 mls/hr Documented By: VINCE Insulin Human Regular (Insulin Regular 100 Unit/Ml 3 Ml Vial) 5 unit IV NOW ONE Stop: 09/23/24 21:26 Last Admin: 09/23/24 21:44 Dose: 5 unit Documented By: KEVYN Co-signed By: TRACI Metoclopramide HCl (Metoclopramide 10 Mg/2 Ml Inj) 10 mg IV NOW ONE Stop: 09/24/24 02:38 Last Admin: 09/24/24 03:04 Dose: 10 mg Documented By: VINCE Ondansetron HCl (Ondansetron 4 Mg/2 Ml Inj) 4 mg IV NOW ONE Stop: 09/23/24 21:38 Last Admin: 09/23/24 21:43 Dose: 4 mg Documented By: KEVYN Ondansetron HCl (Ondansetron 4 Mg/2 Ml Inj) 4 mg IV NOW ONE Stop: 09/23/24 23:13 Last Admin: 09/23/24 23:15 Dose: 4 mg Documented By: TRACI Prochlorperazine (Prochlorperazine 10 Mg/2 Ml Vial) 5 mg IV NOW ONE Stop: 09/24/24 00:35 Last Admin: 09/24/24 00:38 Dose: 5 mg Documented By: VINCE Vital Signs Vital signs: Vital Signs - 8 hr 09/24/24 00:30 09/24/24 00:32 09/24/24 00:32 Temperature 96.4 F L 96.4 F L Pulse Rate 111 H 111 H Respiratory Rate 37 H 37 H Blood Pressure 126/65 Pulse Oximetry 99 100 09/24/24 00:45 09/24/24 00:45 09/24/24 01:00 Temperature 96.4 F L 96.4 F L Pulse Rate 113 H 113 H Respiratory Rate 41 H 29 H Blood Pressure 125/56 L Pulse Oximetry 98 100 09/24/24 01:01 09/24/24 01:30 09/24/24 01:30 Temperature 96.4 F L Pulse Rate 114 H Respiratory Rate 27 H Blood Pressure 138/64 137/61 Pulse Oximetry 98 09/24/24 01:46 09/24/24 01:46 09/24/24 02:00 Temperature 96.6 F L Pulse Rate 114 H Respiratory Rate 20 Blood Pressure 147/90 H 143/66 H Pulse Oximetry 99 09/24/24 02:00 09/24/24 02:15 09/24/24 02:15 Temperature 96.6 F L 96.8 F L Pulse Rate 115 H 117 H Respiratory Rate 22 38 H Blood Pressure 139/65 Pulse Oximetry 100 99 09/24/24 02:30 09/24/24 02:30 09/24/24 02:45 Temperature 97.0 F L Pulse Rate 117 H Respiratory Rate 7 L Blood Pressure 135/63 132/59 L Pulse Oximetry 99 09/24/24 02:45 09/24/24 03:00 09/24/24 03:15 Temperature 97.2 F L Pulse Rate 117 H Respiratory Rate 20 Blood Pressure 130/62 109/52 L Pulse Oximetry 99 09/24/24 03:15 09/24/24 03:30 09/24/24 03:30 Temperature 97.2 F L 97.2 F L Pulse Rate 117 H 118 H Respiratory Rate 18 22 Blood Pressure 127/62 Pulse Oximetry 99 99 09/24/24 03:45 09/24/24 03:45 09/24/24 04:00 Temperature 97.2 F L Pulse Rate 118 H Respiratory Rate 18 Blood Pressure 131/91 H 136/66 Pulse Oximetry 99 09/24/24 04:00 09/24/24 04:15 09/24/24 04:30 Temperature 97.3 F L 97.3 F L Pulse Rate 119 H 119 H Respiratory Rate 34 H 18 Blood Pressure 131/67 Pulse Oximetry 99 99 09/24/24 04:30 09/24/24 04:46 09/24/24 04:46 Temperature 97.5 F L Pulse Rate 119 H Respiratory Rate 20 Blood Pressure 144/71 H 171/72 H Pulse Oximetry 98 09/24/24 05:00 09/24/24 05:00 09/24/24 05:30 Temperature 97.5 F L 97.7 F Pulse Rate 121 H 123 H Respiratory Rate 18 20 Blood Pressure 160/70 H Pulse Oximetry 98 99 09/24/24 06:00 Temperature 97.9 F Pulse Rate 122 H Respiratory Rate 22 Blood Pressure Pulse Oximetry 99 Medical Decision Making Lab Data Lab results reviewed: Yes I reviewed the patient's lab results. Lab results narrative: White blood cell count 59712, hemoglobin 14.2, platelets adequate. Sugar elevated 556, serum CO2 less than 5, BUN 84 with creatinine 5.27. Sodium 127. Potassium 3.4. Ketones elevated. VBG shows pH 7.10, pCO2 28, PaO2 37. 09/23/24 20:10 09/24/24 04:45 Labs: Lab Results 09/23/24 09/23/24 09/23/24 Range/Units 20:10 20:21 20:36 WBC 19.7 H (4.5-11.0) X10^3/uL RBC 4.58 (4.5-5.9) X10^6/uL Hgb 14.2 (13.5-17.5) g/dL Hct 43.0 (41-53) % MCV 94.0 (80-100) fL MCH 31.1 (26-34) PG MCHC 33.1 (30-36) % RDW 14.1 (11.6-14.8) % Plt Count 189 (150-400) X10^3/uL Neut % (Auto) 89.9 H (50-75) % Lymph % (Auto) 4.5 L (25-40) % [place] % (Auto) 5.2 (3-14) % Eos % (Auto) 0.0 L (2-4) % Baso % (Auto) 0.4 (0-2) % Neut # (Auto) 07281 H (1092-4356) /uL Lymph # (Auto) 900 L (7631-5129) /uL [place] # (Auto) 1000 H (0-900) /uL Eos # (Auto) 0 (0-450) /uL Baso # (Auto) 100 (0-100) /uL PT 10.0 (9.4-12.5) SECONDS INR 0.9 (0.9-1.3) APTT 28 (25.1-36.5) SECONDS Sodium 127 L (137-145) mmol/L Potassium 3.4 (3.4-5.1) mmol/L Chloride 93 L (98-107) mmol/L Carbon Dioxide < 5 L* (22-32) mmol/L BUN 84 H (9-20) mg/dL Creatinine 5.27 H (0.66-1.25) mg/dL Estimated GFR 13 L (>60) mL/min BUN/Creatinine Ratio 15.9 (6-22) Glucose 556 H* (70-100) mg/dL Lactate (0.7-2.1) mmol/L Calcium 10.3 H (8.4-10.2) mg/dL Magnesium 2.6 H (1.6-2.3) mg/dL Total Bilirubin 0.9 (0.2-1.3) mg/dL AST 104 H (17-59) IU/L ALT 41 (<50) IU/L Alkaline Phosphatase 223 H (38-126) U/L Total Creatine Kinase 1414 H (55-170) U/L Troponin I 4.420 H* (0.01-0.034) ng/mL NT-Pro-B Natriuret Pep 5040 H (<125) pg/mL Total Protein 8.2 (6.3-8.2) g/dL Albumin 4.6 (3.5-5.0) g/dL Globulin 3.6 (1.7-4.1) g/dL Albumin/Globulin Ratio 1.3 (1.0-2.8) Lipase 7252 H (23-300) U/L Urine Color Yellow Urine Appearance Clear Urine pH 5.0 (4.5-8.0) Ur Specific [place] 1.020 (1.000-1.035) Urine Protein 2+ H (Negative) Urine Glucose (UA) 3+ H (Negative) g/dL Urine Ketones 1+ H (NEGATIVE) Urine Occult Blood 2+ H (Negative) Urine Nitrate Negative (Negative) Urine Bilirubin 1+ H (NEGATIVE) Ur Bilirubin Confirm Negative (Negative) Urine Urobilinogen 0.2 (0.2) E.U./dL Ur Leukocyte Esterase Negative (NEGATIVE) Urine RBC 1-5/hpf (0-5/HPF) Urine WBC 0-1/hpf (0-5/HPF) Ur Squamous Epith Cells 0-1 /hpf (0-5/HPF) Urine Bacteria Occasional (0-1) (None) Ur Culture Indicated? Cult not indicated Vol Urine Centrifuged 10ml (spun) Ethyl Alcohol < 10 ( - 10) mg/dL Ketones 10.4 H (<0.27) mmol/L SARS-CoV-2 (PCR) Negative (Negative) Influenza A (RT-PCR) Flu a negative (NEGATIVE) Influenza B (RT-PCR) Flu b negative (NEGATIVE) RSV (PCR) Negative (Negative) 09/23/24 09/24/24 09/24/24 Range/Units 22:45 00:30 01:50 WBC (4.5-11.0) X10^3/uL RBC (4.5-5.9) X10^6/uL Hgb (13.5-17.5) g/dL Hct (41-53) % MCV (80-100) fL MCH (26-34) PG MCHC (30-36) % RDW (11.6-14.8) % Plt Count (150-400) X10^3/uL Neut % (Auto) (50-75) % Lymph % (Auto) (25-40) % [place] % (Auto) (3-14) % Eos % (Auto) (2-4) % Baso % (Auto) (0-2) % Neut # (Auto) (8685-0185) /uL Lymph # (Auto) (9917-5197) /uL [place] # (Auto) (0-900) /uL Eos # (Auto) (0-450) /uL Baso # (Auto) (0-100) /uL PT (9.4-12.5) SECONDS INR (0.9-1.3) APTT (25.1-36.5) SECONDS Sodium 130 L 130 L (137-145) mmol/L Potassium 3.3 L 3.4 (3.4-5.1) mmol/L Chloride 97 L 101 (98-107) mmol/L Carbon Dioxide 7 L* 8 L* (22-32) mmol/L BUN 85 H 84 H (9-20) mg/dL Creatinine 4.79 H 4.47 H (0.66-1.25) mg/dL Estimated GFR 15 L 16 L (>60) mL/min BUN/Creatinine Ratio 17.7 18.8 (6-22) Glucose 356 H D 257 H (70-100) mg/dL Lactate 1.1 (0.7-2.1) mmol/L Calcium 10.0 9.5 (8.4-10.2) mg/dL Magnesium (1.6-2.3) mg/dL Total Bilirubin (0.2-1.3) mg/dL AST (17-59) IU/L ALT (<50) IU/L Alkaline Phosphatase (38-126) U/L Total Creatine Kinase (55-170) U/L Troponin I 5.420 H* (0.01-0.034) ng/mL NT-Pro-B Natriuret Pep (<125) pg/mL Total Protein (6.3-8.2) g/dL Albumin (3.5-5.0) g/dL Globulin (1.7-4.1) g/dL Albumin/Globulin Ratio (1.0-2.8) Lipase (23-300) U/L Urine Color Urine Appearance Urine pH (4.5-8.0) Ur Specific [place] (1.000-1.035) Urine Protein (Negative) Urine Glucose (UA) (Negative) g/dL Urine Ketones (NEGATIVE) Urine Occult Blood (Negative) Urine Nitrate (Negative) Urine Bilirubin (NEGATIVE) Ur Bilirubin Confirm (Negative) Urine Urobilinogen (0.2) E.U./dL Ur Leukocyte Esterase (NEGATIVE) Urine RBC (0-5/HPF) Urine WBC (0-5/HPF) Ur Squamous Epith Cells (0-5/HPF) Urine Bacteria (None) Ur Culture Indicated? Vol Urine Centrifuged Ethyl Alcohol ( - 10) mg/dL Ketones (<0.27) mmol/L SARS-CoV-2 (PCR) (Negative) Influenza A (RT-PCR) (NEGATIVE) Influenza B (RT-PCR) (NEGATIVE) RSV (PCR) (Negative) 09/24/24 09/24/24 Range/Units 02:30 04:45 WBC (4.5-11.0) X10^3/uL RBC (4.5-5.9) X10^6/uL Hgb (13.5-17.5) g/dL Hct (41-53) % MCV (80-100) fL MCH (26-34) PG MCHC (30-36) % RDW (11.6-14.8) % Plt Count (150-400) X10^3/uL Neut % (Auto) (50-75) % Lymph % (Auto) (25-40) % [place] % (Auto) (3-14) % Eos % (Auto) (2-4) % Baso % (Auto) (0-2) % Neut # (Auto) (9371-6125) /uL Lymph # (Auto) (6788-3518) /uL [place] # (Auto) (0-900) /uL Eos # (Auto) (0-450) /uL Baso # (Auto) (0-100) /uL PT (9.4-12.5) SECONDS INR (0.9-1.3) APTT (25.1-36.5) SECONDS Sodium 133 L 132 L (137-145) mmol/L Potassium 3.1 L 3.4 (3.4-5.1) mmol/L Chloride 104 103 (98-107) mmol/L Carbon Dioxide 10 L 11 L (22-32) mmol/L BUN 87 H 87 H (9-20) mg/dL Creatinine 4.30 H 4.24 H (0.66-1.25) mg/dL Estimated GFR 17 L 17 L (>60) mL/min BUN/Creatinine Ratio 20.2 20.5 (6-22) Glucose 136 H D 134 H (70-100) mg/dL Lactate (0.7-2.1) mmol/L Calcium 9.5 9.4 (8.4-10.2) mg/dL Magnesium (1.6-2.3) mg/dL Total Bilirubin (0.2-1.3) mg/dL AST (17-59) IU/L ALT (<50) IU/L Alkaline Phosphatase (38-126) U/L Total Creatine Kinase (55-170) U/L Troponin I (0.01-0.034) ng/mL NT-Pro-B Natriuret Pep (<125) pg/mL Total Protein (6.3-8.2) g/dL Albumin (3.5-5.0) g/dL Globulin (1.7-4.1) g/dL Albumin/Globulin Ratio (1.0-2.8) Lipase (23-300) U/L Urine Color Urine Appearance Urine pH (4.5-8.0) Ur Specific [place] (1.000-1.035) Urine Protein (Negative) Urine Glucose (UA) (Negative) g/dL Urine Ketones (NEGATIVE) Urine Occult Blood (Negative) Urine Nitrate (Negative) Urine Bilirubin (NEGATIVE) Ur Bilirubin Confirm (Negative) Urine Urobilinogen (0.2) E.U./dL Ur Leukocyte Esterase (NEGATIVE) Urine RBC (0-5/HPF) Urine WBC (0-5/HPF) Ur Squamous Epith Cells (0-5/HPF) Urine Bacteria (None) Ur Culture Indicated? Vol Urine Centrifuged Ethyl Alcohol ( - 10) mg/dL Ketones (<0.27) mmol/L SARS-CoV-2 (PCR) (Negative) Influenza A (RT-PCR) (NEGATIVE) Influenza B (RT-PCR) (NEGATIVE) RSV (PCR) (Negative) Point of Care Testing Glucose POC 122 Point of care testing: Point of Care Testing Glucose POC 122 Imaging Data Chest x-ray: Radiologist's Impression: [address] [address] XRay Report Signed Patient: Tyrone Marquez MR#: [id number] : 1980 Acct:[id number] Age/Sex: 44 / M Date of Service: 09/23/24 Loc: ED Accession Number: [id number] Procedure: XR chest 1V Ordering Provider: Davonte Paulson MD PROCEDURE: XR CHEST 1V INDICATIONS: chest pain TECHNIQUE: One view of the chest was acquired. COMPARISON: [facility], CR, XR CHEST FOR PICC 1V, 07/29/2024, 10:02. [facility], CR, XR CHEST 1V, 04/15/2024, 11:33. FINDINGS: Surgical changes and devices: None. Lungs and pleura: Lower lung volumes. Lungs are clear. No pleural effusions or pneumothorax. Mediastinum: Mediastinal contours appear normal. Heart size is enlarged. Bones and chest wall: No suspicious bony lesions. Overlying soft tissues appear unremarkable. IMPRESSION: No acute cardiopulmonary abnormality is seen. Dictated by: Shashi Delgadillo M.D. on 09/23/2024 at 22:16 Approved by: Shashi Delgadillo M.D. on 09/23/2024 at 22:17 CT scan - abdomen/pelvis: Radiologist's Impression: [place] [address] CT Scan Report Signed Patient: Tyrone Marquez MR#: [id number] : 1980 Acct:[id number] Age/Sex: 44 / M Date of Service: 09/23/24 Loc: ED Accession Number: [id number] Procedure: CT abdomen pelvis wo con Ordering Provider: Davonte Paulson MD PROCEDURE: CT ABDOMEN PELVIS WO CON INDICATIONS: lipase 7000 TECHNIQUE: Axial sections were acquired from the lung bases to the pubic symphysis. Coronal and sagittal reformats were performed. For radiation dose reduction, the following was used: automated exposure control, adjustment of mA and/or kV according to patient size. COMPARISON: None. FINDINGS: Image quality: Diagnostic. Lower Chest: No significant findings. URINARY: Right Kidney: No stones or hydronephrosis. Right Ureter: No hydroureter. Left Kidney: No stones or hydronephrosis. Left Ureter: No hydroureter. Bladder: Collapsed around a Hannah catheter in situ. No stones. ABDOMEN: Liver: No contour-deforming solid mass. Gallbladder: No radiopaque gallstones or wall thickening. Biliary ducts: Mild fat stranding and inflammatory changes at the pancreatic head/uncinate process. No peripancreatic fluid collection. Pancreas: No ductal dilation. Spleen: Size is within normal limits. Adrenal Glands: No adrenal nodules. Stomach and Bowel: Normal colonic caliber, without significant wall thickening. Peritoneum: No abnormal intraperitoneal fluid. No free air. Ventral Wall: No hernia. Abdominal Nodes: No enlarged retroperitoneal or mesenteric lymph nodes. Vessels: Aorta and inferior vena cava are normal in size. Splanchnic vessel calcifications. PELVIS: Pelvic Organs: Unremarkable. Pelvic Nodes: Unremarkable. Miscellaneous: No inguinal hernias are seen. Bones: Unremarkable. IMPRESSION: Mild fat stranding/inflammation at the pancreatic head and uncinate process likely reflects acute pancreatitis in the setting of elevated lipase. No peripancreatic fluid collection. Approved by: Brenda Spencer M.D.,Ph.D. on 09/23/2024 at 23:27 Right foot x-ray series: Radiologist's Impression: [address] [address] XRay Report Signed Patient: Tyrone Marquez MR#: [id number] : 1980 Acct:[id number] Age/Sex: 44 / M Date of Service: 09/24/24 Loc: ED Accession Number: [id number] Procedure: XR foot RT min 3V Ordering Provider: Davonte Paulson MD PROCEDURE: XR FOOT RT MIN 3V INDICATIONS: hx osteo, in DKA, look for infection source TECHNIQUE: 3 views of the foot were acquired. COMPARISON: [facility], CR, XR FOOT RT MIN 3V, 07/26/2024, 12:09., right foot radiographs 08/26/2024 FINDINGS: Bones: Compared to prior radiograph 08/26/2024, interval removal of external pins. There are postsurgical changes at the 1st MTP joint. No definite acute or dislocations. No suspicious bony lesions. Soft tissues: No tibiotalar joint effusion. Achilles tendon appears normal. Vascular calcifications are present. IMPRESSION: Cortical irregularity and lucency of the 1st ray favored to represent postsurgical changes, however superimposed infection cannot be excluded. No acute fracture identified. Approved by: Brenda Spencer M.D.,Ph.D. on 09/24/2024 at 2:20 ECG Data Attestation: I personally reviewed and interpreted this ECG as follows: Interpretation: Normal sinus rhythm with rate of 94, no obvious ST segment elevation or depression changes. T-wave inversions lead 3 noted. SC 138, QRS 94, QTC 482. [facility] Narrative Medical decision making narrative: 44-year-old male with history of diabetes, multiple episodes nausea and vomiting, unable to keep regular medications down last couple of days, hypothermic noted, normotensive, mild sinus tachycardia. Glucose high. IV fluids initiated. Serum ketones added, VBG requested. VBG shows pH 7.10 noted, ketones elevated, serum CO2 less than 5 noted. Glucose 550 range noted. IV normal saline 2 L bolus, IV 5 unit regular insulin bolus, IV potassium 20 mEq to start. We will add insulin drip per DKA protocol, orders initiated, reviewed with nursing. Repeat BNP, hourly glucose checks. BUN creatinine quite elevated, likely prerenal. Troponin also elevated, no obvious ischemic changes on EKG. Lipase [address] abdomen and pelvis noncontrast study ordered. Chest x-ray no acute changes, see radiology report. Hypothermia with DKA, possible sepsis, blood cultures, empiric IV ceftriaxone 2gm. CT abdomen and pelvis shows mild fat stranding inflammatory change pancreatic head and uncinate process consistent with acute pancreatitis. No pseudocyst or peripancreatic fluid collection described. See radiology report. Inflammatory change pancreas noted on CT imaging. Initial troponin elevated 4, repeat further elevated 5. We will add heparin per [facility] protocol. Give aspirin oral or SC route. Transfer to higher level of care that includes services with Nephrology, Cardiology/labeling strategist, patient agreeable to transfer. Repeat BNP shows modest improvement in BUN and creatinine 85/4.79, last glucose 356, serum CO2 is now measurable at 7. Potassium 3.3, IV potassium repletion per protocol. Continue IV insulin per DKA protocol. 0100, case discussed with Lena Stack intake, await call back [phone], case discussed with Lena Stack corporate attorney Dr. iJ, accepts patient for transfer Right foot further examined, which had been held and knee flexed position with plantar foot on gurney, on plantar aspect there is a medial scar with sutures intact, no significant redness, no fluctuance, no fluid extruding, no significant redness surrounding. However history of foot osteomyelitis noted on problem list. We will additionally cover with IV vancomycin. We will obtain x-ray right foot for now. X-ray right foot series, post surgical changes, no definite osteomyelitis changes noted. See radiology report. Repeat VBG, pH 7.185, pCO2 27, improved pH. Lactate was not elevated. Most recent BMP shows continued modest improvement in BUN/creatinine, modest rise in serum CO2 now 8 from 7 from <5 unmeasurable. Repeat potassium improved. 0315, accepted for transfer to [facility]. Ground transportation available [id number], most recent of serial BMP results show further incremental improvement, serum CO2 now 11, BUN 87 with creatinine 4.24, glucose 134, on dextrose infusion and insulin infusion in progress. Repeat venous pH 7.18 improved from prior 7.10. Awaiting availability ground transport EMS for transfer, bed available at [place] [id number], ground ambulance ALS service here for transfer Critical Care Time Critical Care Time Critical Care Time: Yes Total Critical Care Time: 60 Attestation: The high probability of a clinically significant, sudden or life threatening deterioration of the [metabolic, endocrine, skeletal/orthopedic, renal, gastrointenstinal, abdominopelvic] systems required my full and direct attention, intervention and personal management. Repeated serial labs and medical interventions to treat DKA and possible underlying sepsis, dx and rx pancreatitis, coordinate with tertiary care facility/corporate attorney. The aggregate critical care time was [45] minutes. This time is in addition to time spent performing reported procedures but includes the following: [x] Data Review and interpretation [x] Patient assessment and monitoring of vital signs [x] Documentation [x] Medication orders and management Discharge Plan Departure Patient Disposition: [facility] Clinical Impression: Diabetic ketoacidosis, Acute pancreatitis, Elevated troponin, Acute kidney injury, History of osteomyelitis Prescriptions: No Action insulin lispro [Humalog KwikPen Insulin] 100 unit/mL Insulin Pen 6 - 15 dose subcut ACHS Patient Comments: sliding scale Rx Instructions: slidding scale at home per patients blood sugar. lisinopril 40 mg tablet 40 mg PO DAILY insulin glargine-yfgn [Semglee(insulin glarg-yfgn)Pen] 100 unit/mL (3 mL) insulin pen 10 unit SUBCUT DAILY Patient Comments: 10u in am hydrocodone-acetaminophen 5-325 mg tablet 1 tab PO Q6H PRN (Reason: pain) Qty: 20 0RF Rx Instructions: postop exempt trazodone 50 mg tablet 100 mg PO ONCE PM PRN (Reason: Sleep) escitalopram oxalate 10 mg tablet 20 mg PO DAILY insulin glargine-yfgn [Semglee(insulin glarg-yfgn)Pen] 100 unit/mL (3 mL) insulin pen 30 unit SUBCUT QPM Patient Comments: [NO ORIGINAL SIG] metoprolol succinate 50 mg tablet extended release 24 hr 50 mg PO DAILY ceftriaxone 2 gram Recon Soln 2,000 mg IV Q24H Qty: 10 0RF Referrals: Ava Gil MD [Primary Care Provider] -
[2024-09-23 23:06] LABS: BUN Creatinine Ratio 17.7 (6-22); Blood Urea Nitrogen 85 mg/dL (9-20); Chloride 97 mmol/L (98-107); Estimated Glomerular Filt Rate 15 mL/min (>60); Glucose 356 mg/dL (70-100); HEMOLYSIS < 15 (0-50); Potassium 3.3 mmol/L (3.4-5.1); Sodium 130 mmol/L (137-145)
[2024-09-23 23:07] LABS: Carbon Dioxide 7 mmol/L (22-32)
[2024-09-23] MEDS: INSULIN DRIP PREMIX 100 UNIT/100 ML PLAST..BAG 9.752 UNIT IV (23:33)
[2024-09-24] VITALS (23 sets, daily range): BP systolic 109–171; BP diastolic 52–91; PULSE 111–123; RESP 7–41; TEMP 35.8–36.6; O2SAT 98–100
--- NOTE | 2024-09-24 | PC.NURSE ---
pt awake, more responsive than upon arrival able to follow commands better but continues slow to respond, no dry heaving at this time, resp even and unlabored without any c/o pain ST on the monitor,
[2024-09-24] MEDS: HEPARIN 5,000 UNIT/ML VIAL 5000 UNIT IV (00:22)
[2024-09-24] MEDS: SODIUM CHLORIDE 0.9% 1,000 ML 250 ML IV (00:30)
[2024-09-24] MEDS: HEPARIN DRIP 25,000 UNIT/500 ML IV.SOLN 20.48 UNIT IV (00:34)
[2024-09-24] MEDS: PROCHLORPERAZINE 10 MG/2 ML VIAL 5 MG IV (00:38)
--- NOTE | 2024-09-24 01:00 | PC.NURSE ---
pt continues restless, with dry heaves at intervals, continues moving arms having to be reminded to keep arms straight to allow medications to infuse, pt able to follow commands, medications given and ordered
[2024-09-24 01:07] LABS: BUN Creatinine Ratio 18.8 (6-22); Blood Urea Nitrogen 84 mg/dL (9-20); Calcium 9.5 mg/dL (8.4-10.2); Chloride 101 mmol/L (98-107); Estimated Glomerular Filt Rate 16 mL/min (>60); Glucose 257 mg/dL (70-100); HEMOLYSIS 37 (0-50); Potassium 3.4 mmol/L (3.4-5.1); Sodium 130 mmol/L (137-145)
[2024-09-24 01:17] LABS: Carbon Dioxide 8 mmol/L (22-32)
--- NOTE | 2024-09-24 01:40 | DI.RAD.S_ITS ---
PROCEDURE: XR FOOT RT MIN 3V INDICATIONS: hx osteo, in DKA, look for infection source TECHNIQUE: 3 views of the foot were acquired. COMPARISON: [facility], CR, XR FOOT RT MIN 3V, 07/26/2024, 12:09., right foot radiographs 08/26/2024 FINDINGS: Bones: Compared to prior radiograph 08/26/2024, interval removal of external pins. There are postsurgical changes at the 1st MTP joint. No definite acute or dislocations. No suspicious bony lesions. Soft tissues: No tibiotalar joint effusion. Achilles tendon appears normal. Vascular calcifications are present. IMPRESSION: Cortical irregularity and lucency of the 1st ray favored to represent postsurgical changes, however superimposed infection cannot be excluded. No acute fracture identified. Approved by: Brenda Spencer M.D.,Ph.D. on 09/24/2024 at 2:20
[2024-09-24 02:13] LABS: Lactate (Lactic Acid) 1.1 mmol/L (0.7-2.1)
[2024-09-24] MEDS: cefTRIAXone 2,000 MG in SODIUM CHLORIDE 0.9% 100 ML 200 MG IV (02:18)
[2024-09-24 02:50] LABS: BUN Creatinine Ratio 20.2 (6-22); Blood Urea Nitrogen 87 mg/dL (9-20); Calcium 9.5 mg/dL (8.4-10.2); Carbon Dioxide 10 mmol/L (22-32); Chloride 104 mmol/L (98-107); Estimated Glomerular Filt Rate 17 mL/min (>60); Glucose 136 mg/dL (70-100); HEMOLYSIS < 15 (0-50); Potassium 3.1 mmol/L (3.4-5.1); Sodium 133 mmol/L (137-145)
[2024-09-24] MEDS: METOCLOPRAMIDE 10 MG/2 ML INJ IV (03:04)
[2024-09-24] MEDS: VANCOMYCIN 2,000 MG/400 ML PIGGYBACK 200 MG IV (03:12)
[2024-09-24] MEDS: DEXTROSE 5%-0.45% NS 1,000 ML 250 ML IV (03:20)
--- NOTE | 2024-09-24 03:30 | PC.NURSE ---
IV insulin stopped per protocol d/t K @ 3.1, IVF changed to D5 0.45%NS @ 250ml/hr
--- NOTE | 2024-09-24 03:39 | PC.NURSE ---
Addendum entered by Erika Perez CNA 09/24/24 04:27: [facility] called back with an updated ETA of 0520 Original Note: 09/23/24 @2330: I started calling places to transfer this patient [facility], [facility], and [facility] and they do not have beds at this time 09/24/2024 @0200: Pt was accepted by Dr. Ji at next available ALS rig cannot be here until 0700 to take this patient to and no other ambulance service has ALS at nights.
[2024-09-24] MEDS: POTASSIUM CHLORIDE IN WATER 10 MEQ/100 ML PIGGYBACK 100 MEQ IV ×2 (03:57→04:43)
--- NOTE | 2024-09-24 04:25 | PC.NURSE ---
attempted to notify of 's transfer left message to return call
--- NOTE | 2024-09-24 04:52 | PC.NURSE ---
continues with no change in condition at this time, blood drawn for every 2 hr BMP and sent
--- NOTE | 2024-09-24 05:00 | PC.NURSE ---
pt vomitus noted to be black colored fluid
[2024-09-24 05:03] LABS: BUN Creatinine Ratio 20.5 (6-22); Blood Urea Nitrogen 87 mg/dL (9-20); Calcium 9.4 mg/dL (8.4-10.2); Carbon Dioxide 11 mmol/L (22-32); Chloride 103 mmol/L (98-107); Estimated Glomerular Filt Rate 17 mL/min (>60); Glucose 134 mg/dL (70-100); HEMOLYSIS < 15 (0-50); Potassium 3.4 mmol/L (3.4-5.1); Sodium 132 mmol/L (137-145)
--- NOTE | 2024-09-24 05:15 | PC.NURSE ---
pt cleaned and gown placed on pt with linens changed
[2024-09-24] MEDS: ASPIRIN 300 MG SUPP PR (05:23)
[2024-09-24] MEDS: HALOPERIDOL 5 MG/ML VIAL IV (06:00)
[2024-09-24] MEDS: DEXTROSE 5%-0.45NS W/KCL 20MEQ 1,000 ML 150 MEQ IV (06:02)
--- NOTE | 2024-09-24 10:05 | PC.NURSE ---
Spoke with Peyton this AM and notified her of patient's transfer to .
[2024-09-24 21:29] LABS: Acinetobacter calcoa-baumannii Not Detected (Not Detect); Bacteroides fragilis Not Detected (Not Detect); Candida albicans Not Detected (Not Detect); Candida auris Not Detected (Not Detect); Candida glabrata Not Detected (Not Detect); Candida krusei Not Detected (Not Detect); Candida parapsilosis Not Detected (Not Detect); Candida tropicalis Not Detected (Not Detect); Cryptococcus neoformans/gatti Not Detected (Not Detect); Enterobacter cloacae complex Not Detected (Not Detect); Enterobacterales Not Detected (Not Detect); Enterococcus faecalis Not Detected (Not Detect); Enterococcus faecium Not Detected (Not Detect); Haemophilus influenzae Not Detected (Not Detect); Klebsiella aerogenes Not Detected (Not Detect); Listeria monocytogenes Not Detected (Not Detect); Neisseria meningitidis Not Detected (Not Detect); Proteus species Not Detected (Not Detect); Pseudomonas aeruginosa Not Detected (Not Detect); Salmonella species Not Detected (Not Detect); Serratia marcescens Not Detected (Not Detect); Staphylococcus epidermidis Not Detected (Not Detect); Staphylococcus lugdunensis Not Detected (Not Detect); Staphylococcus species Not Detected (Not Detect); Stenotrophomonas maltophilia Not Detected (Not Detect); Streptococcus agalactiae (Gr B Not Detected (Not Detect); Streptococcus pneumonia Not Detected (Not Detect); Streptococcus pyogenes (Gr A) Not Detected (Not Detect); Streptococcus species Detected (Not Detect)
== END 2024-09-24 06:49 | disposition short-term general hospital (02) ==
PROVIDERS: Emergency Provider Emergency Medicine; PCP Internal Medicine
DX: E10.10 Type 1 diabetes mellitus with ketoacidosis without coma (principal); K85.90 Acute pancreatitis without necrosis or infection, unspecified; R79.89 Other specified abnormal findings of blood chemistry; N17.9 Acute kidney failure, unspecified; Z87.39 Personal history of other diseases of the musculoskeletal system and connective tissue
CPT/HCPCS: 0241U; 36415; 71045; 73630; 74176; 80048; 80053; 80320; 81001; 82009; 82550; 82962; 83605; 83690; 83735; 83880; 84484; 85025; 85610; 85730; 87040; 87077; 87154; 93005; 96361; 96365; 96366; 96367; 96368; 96375; 96376; 99284; 99291; 99292; J0696; J0780; J1630; J1644; J2405; J2765

== ENCOUNTER → 2024-10-18 09:44 | Outpatient (CLI) | payer OTHER, SELFPAY ==
[2024-07-26 13:36] VITALS: BMI 33.4
== END ==
LOC: WC 09:45
PROVIDERS: PCP Internal Medicine; Referring Provider Hospitalist; Visit Provider Surgery
DX: T81.31XA Disruption of external operation (surgical) wound, not elsewhere classified, initial encounter (principal); S91.301A Unspecified open wound, right foot, initial encounter; E10.40 Type 1 diabetes mellitus with diabetic neuropathy, unspecified; E10.628 Type 1 diabetes mellitus with other skin complications; I10 Essential (primary) hypertension
CPT/HCPCS: 11042; 87070; 87075; 87205; 99213

== ENCOUNTER → 2024-10-25 09:15 | Outpatient (CLI) | payer OTHER, SELFPAY ==
[2024-07-26 13:36] VITALS: BMI 33.4
== END ==
PROVIDERS: PCP Internal Medicine; Referring Provider Hospitalist; Visit Provider Surgery
DX: T81.31XA Disruption of external operation (surgical) wound, not elsewhere classified, initial encounter (principal); S91.301A Unspecified open wound, right foot, initial encounter; E10.628 Type 1 diabetes mellitus with other skin complications; E10.40 Type 1 diabetes mellitus with diabetic neuropathy, unspecified
CPT/HCPCS: 11042; 99212

== ENCOUNTER → 2024-10-31 13:55 | Outpatient (CLI) | payer OTHER, SELFPAY ==
[2024-07-26 13:36] VITALS: BMI 33.4
[2024-10-31 14:41] LABS: Add Manual Diff / Slide Review NO; Basophils Absolute Auto 0 /uL (0-100); Basophils Percent Auto 0.1 % (0-2); Eosinophils Absolute Auto 300 /uL (0-450); Eosinophils Percent Auto 3.9 % (2-4); Hematocrit 39.6 % (41-53); Hemoglobin 13.3 g/dL (13.5-17.5); Lymphocytes Absolute Auto 2100 /uL (1100-4500); Lymphocytes Percent Auto 26.5 % (25-40); Mean Corpuscular HGB Conc 33.5 % (30-36); Mean Corpuscular Hemoglobin 31.7 PG (26-34); Mean Corpuscular Volume 94.7 fL (80-100); Monocytes Absolute Auto 700 /uL (0-900); Monocytes Percent Auto 8.5 % (3-14); Neutrophils Absolute Auto 4900 /uL (1500-7000); Platelet Count 306 X10^3/uL (150-400); Red Blood Cell Count 4.18 X10^6/uL (4.5-5.9); Red Cell Distribution Width 14.5 % (11.6-14.8)
[2024-10-31 14:49] LABS: Hemoglobin A1C% w Est Avg Glu 7.9 % (4.0-6.0)
[2024-10-31 14:58] LABS: Erythrocyte Sedimentation Rate 36 MM/HR (0-15)
[2024-10-31 15:07] LABS: Alanine Aminotransferase 29 IU/L (<50); Albumin 4.4 g/dL (3.5-5.0); Albumin Globulin Ratio 1.4 (1.0-2.8); Alkaline Phosphatase 142 U/L (38-126); Aspartate Aminotransferase 31 IU/L (17-59); BUN Creatinine Ratio 27.9 (6-22); Bilirubin Total 0.7 mg/dL (0.2-1.3); Blood Urea Nitrogen 19 mg/dL (9-20); C-Reactive Protein Quant 1.1 mg/dL (<1.0); Calcium 9.6 mg/dL (8.4-10.2); Carbon Dioxide 26 mmol/L (22-32); Chloride 102 mmol/L (98-107); Estimated Glomerular Filt Rate > 60 mL/min (>60); Globulin 3.1 g/dL (1.7-4.1); Glucose 75 mg/dL (70-100); HEMOLYSIS < 15 (0-50); Potassium 4.2 mmol/L (3.4-5.1); Sodium 137 mmol/L (137-145); Total Protein 7.5 g/dL (6.3-8.2)
== END ==
PROVIDERS: PCP Internal Medicine; Referring Provider Surgery; Visit Provider Surgery
DX: E11.621 Type 2 diabetes mellitus with foot ulcer (principal)
CPT/HCPCS: 36415; 80053; 83036; 85025; 85651; 86140

== ENCOUNTER → 2024-11-01 10:24 | Outpatient (CLI) | payer OTHER, SELFPAY ==
[2024-07-26 13:36] VITALS: BMI 33.4
== END ==
LOC: WC 10:25
PROVIDERS: PCP Internal Medicine; Referring Provider Hospitalist; Visit Provider Surgery
DX: T81.89XA Other complications of procedures, not elsewhere classified, initial encounter (principal); S91.301A Unspecified open wound, right foot, initial encounter; E10.628 Type 1 diabetes mellitus with other skin complications; E10.40 Type 1 diabetes mellitus with diabetic neuropathy, unspecified
CPT/HCPCS: 11042

== ENCOUNTER → 2024-11-11 09:35 | Outpatient (CLI) | payer OTHER, SELFPAY ==
[2024-07-26 13:36] VITALS: BMI 33.4
== END ==
PROVIDERS: PCP Internal Medicine; Referring Provider Internal Medicine; Visit Provider Surgery
DX: T81.89XA Other complications of procedures, not elsewhere classified, initial encounter (principal); S91.311A Laceration without foreign body, right foot, initial encounter; E10.628 Type 1 diabetes mellitus with other skin complications; E10.40 Type 1 diabetes mellitus with diabetic neuropathy, unspecified; I10 Essential (primary) hypertension
CPT/HCPCS: 11042

== ENCOUNTER → 2024-11-22 09:03 | Outpatient (CLI) | payer OTHER, SELFPAY ==
[2024-07-26 13:36] VITALS: BMI 33.4
== END ==
PROVIDERS: PCP Internal Medicine; Referring Provider Hospitalist; Visit Provider Surgery
DX: E10.628 Type 1 diabetes mellitus with other skin complications (principal); S91.301A Unspecified open wound, right foot, initial encounter; T81.31XA Disruption of external operation (surgical) wound, not elsewhere classified, initial encounter; E10.40 Type 1 diabetes mellitus with diabetic neuropathy, unspecified
CPT/HCPCS: 11042; 99213

== ENCOUNTER → 2024-11-25 08:58 | Outpatient (CLI) | payer OTHER, SELFPAY ==
[2024-07-26 13:36] VITALS: BMI 33.4
== END ==
PROVIDERS: PCP Internal Medicine; Referring Provider Hospitalist; Visit Provider Physician Assistant
DX: T81.89XA Other complications of procedures, not elsewhere classified, initial encounter (principal); S91.301A Unspecified open wound, right foot, initial encounter
CPT/HCPCS: 99213

== ENCOUNTER → 2024-12-02 09:48 | Outpatient (CLI) | payer OTHER, SELFPAY ==
[2024-07-26 13:36] VITALS: BMI 33.4
== END ==
PROVIDERS: PCP Internal Medicine; Referring Provider Hospitalist; Visit Provider Physician Assistant
DX: T81.89XA Other complications of procedures, not elsewhere classified, initial encounter (principal); S91.301A Unspecified open wound, right foot, initial encounter
CPT/HCPCS: 99213

== ENCOUNTER → 2024-12-07 15:28 | Outpatient (CLI) | payer OTHER, SELFPAY ==
[2024-07-26 13:36] VITALS: BMI 33.4
--- NOTE | 2024-12-07 | OV.WND_ITS ---
PROGRESS NOTE DETAILS PATIENT NAME: EVE BECKFORD PATIENT NUMBER: [id number] CLINICIAN: SONIA BULLARD RN PATIENT DATE OF : 1980 PHYSICIAN / START UP SPECIALIST: RICKCAMERON PATIENT SUBJECTIVE CHIEF COMPLAINT THIS INFORMATION WAS OBTAINED FROM THE PATIENT. DIABETIC FOOT ULCER. GENERAL NOTES FOOT BALL DRESSING ON AND INTACT. ALLERGIES NO KNOWN DRUG ALLERGIES HPI THIS INFORMATION WAS OBTAINED FROM THE PATIENT. THE FOLLOWING HPI ELEMENTS WERE DOCUMENTED FOR THE PATIENT'S WOUND: LOCATION: R FOOT DURATION: 10/07/24 CONTEXT: SURGICAL/DIABETIC THE PATIENT IS A 44-YEAR-OLD MALE WITH TYPE 1 DIABETES, NEUROPATHY, AND HYPERTENSION WHO RETURNS TODAY FOR FOLLOW UP OF SURGICAL WOUND OF THE RIGHT FOOT. HE ORIGINALLY HAD A JACKMAN 3 DIABETIC ULCER INVOLVING THE RIGHT 1ST METATARSAL HEAD WITH CONFIRMED OSTEOMYELITIS. HE UNDERWENT IANDD OF THE RIGHT FOOT APRIL 14, 2024 AND HIS FOOT LATER WORSENED. ON SEPTEMBER 07, 2024 HE UNDERWENT REMOVAL OF ANTIBIOTIC IMPLANT WITH DEBRIDEMENT OF SUBCUTANEOUS TISSUE AND BONE AND DELAYED PRIMARY CLOSURE. THE SUTURES WERE REMOVED ON OCTOBER 07, 2024 AND HE DEVELOPED DEHISCENCE OF THE INCISION. THE PATIENT IS RECEIVING DRESSING CHANGES WITH HYDROFERA BLUE WITH FOOTBALL DRESSING FOR PRESSURE OFFLOADING. HE MISSED HIS APPOINTMENT LAST WEEK. THE PATIENT DENIES HAVING ANY PAIN OR DISCOMFORT NOR HAS HE HAD ANY FEVER OR CHILLS. THE PATIENT REPORTS A GOOD APPETITE AND IS TAKING PROTEIN SUPPLEMENTS. HE HAS HAD GOOD CONTROL OF BLOOD SUGARS. ON SEPTEMBER 23, 2024 THE PATIENT WAS HOSPITALIZED WITH PANCREATITIS, ACUTE RENAL FAILURE, AND C. DIFF COLITIS. THE PATIENT REPORTS THAT HE MADE A FULL RECOVERY AND HE NO LONGER HAS ANY DIARRHEA. HE WAS RECENTLY SEEN BY DR. ARCEO AND WAS TOLD THAT HE DID NOT REQUIRE ANY FURTHER ANTIBIOTIC THERAPY. PREVIOUS VASCULAR EVALUATION SHOWED FLOW ADEQUATE FOR HEALING. ON EXAM TODAY THE WOUND MEASURES LARGER AND HAS UNATTACHED EDGES. THERE IS SOME PURULENT DRAINAGE ON THE DRESSING. LABS 10/31/24: HEMOGLOBIN A1C 7.9, WBC 8.0, HEMOGLOBIN 13.3, HCT 39.6, ESR 36, ELECTROLYTES NORMAL, GFR GREATER THAN 60, LFTS NORMAL, C-REACTIVE PROTEIN 1.1 10/18/24: CULTURES GREW SCANT GROWTH MIXED SKIN KATHIE 09/24/24: X-RAY RIGHT FOOT: CORTICAL IRREGULARITY AND LUCENCY OF THE 1ST RAY FAVORED TO REPRESENT POSTSURGICAL CHANGES, HOWEVER SUPERIMPOSED INFECTION CANNOT BE EXCLUDED. NO ACUTE FRACTURE IDENTIFIED. 09/23/24: WBC 19.7, HEMOGLOBIN 14.2, HCT 43.0, SODIUM 130, POTASSIUM 3.3, CARBON OXIDE 7, BUN 85, CREATININE 4.79 TROPONIN 5.42, BNP 5040, LIPASE 7252, GLUCOSE 356 07/29/24: WBC 6.5, HEMOGLOBIN 11.3, HCT 33.5, ELECTROLYTES UNREMARKABLE, GFR GREATER THAN 60 LFTS EVE BECKFORD [id number] 1980 NORMAL 07/26/24: CULTURES GREW STAPHYLOCOCCUS AUREUS AND PROTEUS MIRABILIS 07/26/24: FOOT MRI REVEALED: MEDIAL SOFT TISSUE ULCER ADJACENT TO THE 1ST METATARSAL HEAD WITH ADJACENT 1ST MTP JOINT EFFUSION. UNEQUIVOCAL OSTEOMYELITIS INVOLVES THE 1ST METATARSAL HEAD. THERE IS MORE EARLY STAGE EDEMA AND ENHANCEMENT, LIKELY REACTIVE CHANGES, INVOLVING THE 1ST METATARSAL SHAFT AND 1ST RAY PHALANGES. 06/29/24: CULTURE GREW ENTEROBACTER CLOACAE COMPLEX 05/06/24: CULTURE GREW E. COLI 05/06/24: ARTERIAL US: POSTOBSTRUCTIVE WAVEFORMS IN THE ANTERIOR TIBIAL/DORSALIS PEDIS ARTERIES BILATERALLY, ESPECIALLY ON THE LEFT. REFERRED TO VASCULAR. 04/22/24: TUAN: PAD LEFT AND RIGHT 04/15/24: WBC 6.9, HEMOGLOBIN 12.1, HCT 35.3, ELECTROLYTES UNREMARKABLE, GFR GREATER THAN 60 04/14/24: A1C 8.4 04/14/24: BONE BIOPSY SESMOID RIGHT - LIGHT ENTEROCOCCUS FAECALIS 04/12/24: MRI SHOWS EVIDENCE FOR OSTEOMYELITIS DISTAL 1ST METATARSAL AND EFFUSION OF THE 1ST METATARSALPHALANGEAL JOINT MEDICAL HISTORY THIS INFORMATION WAS OBTAINED FROM THE CHART, PATIENT. PATIENT HAS A MEDICAL HISTORY OF: ANXIETY HYPOKALEMIA PTSD TYPE 1 DIABETES INSULIN DEPENDENT DIABETES MELLITUS HYPERTENSION R FOOT DIABETIC ULCER WITH OSTEOMYELITIS (03/2024) ADDITIONAL INFORMATION DOES PATIENT HAVE A HISTORY OF CANCER? YES? COMPLETE ALL QUESTIONS.: NO SURGICAL HISTORY THIS INFORMATION WAS OBTAINED FROM THE PATIENT. PATIENT HAS A SURGICAL HISTORY OF: WISDOM TOOTH EXTRACTION- (1996) IANDD OF R FOOT- (MARCH 2024) IANDD OF R FOOT ULCER, 2 PINS PLACED AND ABX SPACER- 07/27/2024 SURGICAL CLOSURE OF RIGHT FOOT WOUND- 09/08/2024 OBJECTIVE VITALS HEIGHT/LENGTH: 68 IN (172.72 CM), WEIGHT: 238.6 LBS (108.45 KGS), BMI: 36.3, TEMPERATURE: 97.3 ?F (36.28 ?C), PULSE: 85 BPM, RESPIRATORY RATE: 16 BREATHS/MIN, BLOOD PRESSURE: 125/77 MMHG, CAPILLARY BLOOD GLUCOSE: 137 MG/DL, PULSE OXIMETRY: 86 %. GENERAL NOTES 137 GLUCOSE PER PATIENT. PHYSICAL EXAM CONSTITUTIONAL: VITAL SIGNS REVIEWED AND NOTED. WELL DEVELOPED, WELL NOURISHED, AND IN NO ACUTE DISTRESS. ALERT AND EVE BECKFORD [id number] 1980 ORIENTED X3. RESPIRATORY: EVEN RESPIRATIONS WITHOUT USE OF ACCESSORY MUSCLES. NO INTERCOASTAL RETRACTIONS NOTED. EVEN AND NON LABORED RESPIRATION. INTEGUMENTARY (HAIR, SKIN): NO ERYTHEMA. NO SWELLING OR TENDERNESS. SEE WOUND ASSESSMENT. SKIN WARM AND DRY. NO RASHES. NEUROLOGICAL: DECREASED LOWER EXTREMITY SENSATION. PSYCHIATRIC: ORIENTATION TO TIME, PLACE AND PERSON: NORMAL AFFECT WITH NORMAL THOUGHT PATTERN. ADDITIONAL INFORMATION THE PATIENT'S POTENTIAL TO HEAL IS: FAIR. WOUND ASSESSMENT(S) WOUND #5 RIGHT, PLANTAR FOOT IS AN ACUTE FULL THICKNESS SURGICAL WOUND ACQUIRED ON 10/07/2024 AND HAS RECEIVED A STATUS OF NOT HEALED. INITIAL WOUND ENCOUNTER MEASUREMENTS ARE 2CM LENGTH X 1.5CM WIDTH X 0.2 CM DEPTH, WITH AN AREA OF 3 SQ CM AND A VOLUME OF 0.6 CUBIC CM.INITIAL WOUND ENCOUNTER PREVIOUS MEASUREMENTS FROM 12/02/2024 ARE 1.1CM LENGTH X 0.5CM WIDTH X 0.2CM DEPTH, WITH AN AREA OF 0.55 SQ CM AND A VOLUME OF 0.11 CUBIC CM. ADIPOSE IS EXPOSED. NO TUNNELING HAS BEEN NOTED. UNDERMINING HAS BEEN NOTED AT 12:00 AND ENDS AT 6:00. THERE IS A MODERATE AMOUNT OF PURULENT DRAINAGE NOTED WHICH HAS A STRONG ODOR. THE PATIENT REPORTS A WOUND PAIN OF LEVEL 0/10. THE WOUND MARGIN IS ROLLED WOUND BED HAS YES, SPONGY, GRANULATION, YES SLOUGH, NO ESCHAR, NO EPITHELIALIZATION. THE PERIWOUND SKIN DID NOT EXHIBIT BRAWNY INDURATION, EDEMA, EXCORIATION, INDURATION, CALLUS, CREPITUS, FLUCTUANCE, RASH, MACERATION, ATROPHIE VIVIANA, CYANOSIS, ECCHYMOSIS, ERYTHEMA, HEMOSIDEROSIS, PALLOR AND RUBOR. THE PERIWOUND SKIN WAS FRIABLE. THE PERIWOUND SKIN WAS NOT DRY/SCALY AND MOIST. THE TEMPERATURE OF THE PERIWOUND SKIN IS WNL. PERIWOUND SKIN DOES NOT EXHIBIT SIGNS OR SYMPTOMS OF INFECTION. LOCAL PULSE IS DOPPLER. ADDITIONAL INFORMATION OTHER DEVITALIZED TISSUE PRESENT: BIOFILM, FIBRIN ASSESSMENT ACTIVE PROBLEMS ICD-10 (ENCOUNTER DIAGNOSIS) E10.40 - TYPE 1 DIABETES MELLITUS WITH DIABETIC NEUROPATHY, UNSPECIFIED (ENCOUNTER DIAGNOSIS) E10.628 - TYPE 1 DIABETES MELLITUS WITH OTHER SKIN COMPLICATIONS (ENCOUNTER DIAGNOSIS) S91.301D - UNSPECIFIED OPEN WOUND, RIGHT FOOT, SUBSEQUENT ENCOUNTER (ENCOUNTER DIAGNOSIS) T81.31XD - DISRUPTION OF EXTERNAL OPERATION (SURGICAL) WOUND, NOT ELSEWHERE CLASSIFIED, SUBSEQUENT ENCOUNTER GENERAL NOTES SURGICAL WOUND RIGHT FOOT MEASURES LARGER, ON ATTACHED EDGES, PURULENT DRAINAGE THE FOLLOWING FACTORS HAVE BEEN IDENTIFIED THAT MAY AFFECT WOUND HEALING: DEVITALIZED TISSUE BIOFILM OSTEOMYELITIS NEUROPATHY PRESSURE EXPOSED BONE AND TENDON GOALS: REMOVE DEVITALIZED TISSUE REMOVE AND PREVENT BIOFILM EVE BECKFORD [id number] 1980 TREAT INFECTION PRESSURE OFFLOADING WOUND CLOSURE PREVENT RECURRENCE PLAN: DEBRIDEMENT, WOUND CULTURE OBTAINED TODAY, SWITCH TO DAILY DRESSING CHANGES WITH HYDROFERA BLUE WITH FELT PAD AND POSTOP SURGICAL SHOE FOR PRESSURE OFFLOADING. CONTINUE PROTEIN SUPPLEMENTATION. FOLLOW UP IN 1 WEEK FOR A RECHECK. PROCEDURES WOUND #5 WOUND #5 (SURGICAL WOUND) IS LOCATED ON THE RIGHT, PLANTAR FOOT. A SKIN/SUBCUTANEOUS TISSUE LEVEL SURGICAL DEBRIDEMENT WITH A TOTAL AREA DEBRIDED OF 3.2 SQ CM. WAS PERFORMED BY CAMERON CABRERA MD. SUBCUTANEOUS WAS REMOVED ALONG WITH DEVITALIZED TISSUE: BIOFILM, FIBRIN AND SLOUGH. THE FOLLOWING INSTRUMENT(S) WERE USED: CURETTE. PAIN CONTROL WAS ACHIEVED USING EMLA LIDOCAINE/PRILOCAINE 2.5%/2.5%. A TIME OUT WAS CONDUCTED PRIOR TO THE START OF THE PROCEDURE. A MODERATE AMOUNT OF BLEEDING WAS CONTROLLED WITH SILVER NITRATE. THE PROCEDURE WAS TOLERATED WELL WITH A PAIN LEVEL OF 0 THROUGHOUT AND A PAIN LEVEL OF 0 FOLLOWING THE PROCEDURE. POST DEBRIDEMENT MEASUREMENTS: 2CM LENGTH X 1.6CM WIDTH X 0.3CM DEPTH; WITH AN AREA OF 3.2 SQ CM AND A VOLUME OF 0.96 CUBIC CM. ADDITIONAL INFORMATION MUSCLE FASCIA OR BONE REMOVED AND SENT TO PATHOLOGY?: NO PLAN WOUND ORDERS: WOUND #5 RIGHT, PLANTAR FOOT HAND HYGIENE HAND HYGIENE - WASH HANDS BEFORE AND AFTER WOUND CARE. CALL THE WOUND CENTER AT [phone] IF YOU HAVE SIGNS OR SYMPTOMS OF INFECTION, FEVER CHILLS OR SHAKES, INCREASED DRAINAGE, INCREASED ODOR OR UNUSUAL REDNESS. AFTER WOUND CENTER HOURS PLEASE NOTIFY YOUR PCP OR GO TO THE EMERGENCY ROOM. CLEANSER APPLY HYPOCHLOROUS ACID (VASHE OR SIMILAR) SOAKED 4X4 GAUZE TO WOUND BED FOR 5- 10 MINUTES AFTER PROVIDER HAS COMPLETED WOUND EXAM. REMOVE GAUZE AND DRESS WOUND ACCORDING TO DRESSING ORDERS. MAY SHOWER, LEAVE WOUND DRESSING INTACT. COVER WOUND DRESSING WITH A WATERPROOF BARRIER. KEEP DRESSING DRY. NO BATHS PLEASE. PROCEDURE / ANESTHETIC 2% TOPICAL LIDOCAINE TO WOUND BED PRIOR TO PROCEDURE, IN CLINIC ONLY. DRESSING ORDERS APPLY DRESSING(S) AND SECURE WITH: - HYDROFERA BLUE READY TRANSFER FOAM, MEXTRA, CONFORM TO SECURE. DRESSING CHANGE FREQUENCY CHANGE DRESSING DAILY. OFF-LOADING / PRESSURE RELIEF USE/WEAR WHEN WALKING: - FELT JOSE-WOUND. POST-OP SANDAL. CRUTCHES OR KNEE SCOOTER. KEEP WEIGHT OFF YOUR RIGHT FOOT. ADDITIONAL ORDERS: DIETARY TAKE VITAMIN C 1000MG BY MOUTH DAILY. TAKE ZINC 25MG BY MOUTH DAILY. FOLLOW A DIABETIC DIET. INCREASE THE PROTEIN IN YOUR DIET. OTHER NUTRITIONAL SUPPLEMENT: - WAYNE OR DIABETIC FRIENDLY PROTEIN SUPPLEMENT. EVE BECKFORD [id number] 1980 FOLLOW-UP APPOINTMENTS RETURN APPOINTMENT 1 WEEK SCRIBING ATTESTATION I ATTEST, THE NURSE, THAT I SCRIBED THESE ORDERS FOR THE WOUND CARE PROVIDER. PROVIDER REVIEW AND ATTESTATION: REVIEWED AND EVALUATED LABS. REVIEWED HOSPITAL RECORDS. DISCUSSED THE PLAN OF CARE @ BEDSIDE WITH - THE PATIENT AND I AGREE AND ATTEST TO THE ABOVE INFORMATION PROVIDED FROM OTHER LICENSED PROFESSIONALS. ANCILLARY SERVICES: LABORATORY: CULTURE WOUND PLAN OF CARE: 01. ENSURE/ESTABLISH OPTIMAL BLOOD FLOW : - COMPLETE LOWER EXTREMITY ASSESSMENT STATUS: CONTINUED DATE: 12/07/2024 - PERFORM NON-INVASIVE VASCULAR TESTING (I.E. TUAN) AND DOCUMENT FINDINGS. CONSIDER REPEATING WHEN WOUND HEALING <40% AFTER 30 DAYS OF WOUND CARE. STATUS: COMPLETED DATE: 05/05/2024 02. ASSESS FOR/TREAT INFECTION : - EVALUATE FOR SIGNS AND SYMPTOMS OF INFECTION AND DOCUMENT FINDINGS. STATUS: CONTINUED DATE: 12/07/2024 03. DEBRIDE WEEKLY OR MORE OFTEN PRN : - EVALUATE PATIENT IN CENTER WEEKLY TO ASSESS WOUND BED AND MARGINS FOR NEED FOR DEBRIDEMENT. STATUS: CONTINUED DATE: 12/07/2024 04. OPTIMIZE GLUCOSE CONTROL AND NUTRITION : - ORDER/REVIEW PERTINENT LABS TO EVALUATE RENAL FUNCTION, GLUCOSE CONTROL, AND NUTRITIONAL STATUS. STATUS: CONTINUED DATE: 12/07/2024 - COMPLETE A NUTRITION RISK ASSESSMENT. STATUS: COMPLETED DATE: 10/18/2024 05. OFFLOADING PLAN : - EVALUATE PLAN FOR OFFLOADING STATUS: CONTINUED DATE: 12/07/2024 06. OPTIMIZE HOST FACTORS: - ASSESS AND REVIEW PATIENT HISTORY FOR WOUND ETIOLOGY, CO-MORBID CONDITIONS, MEDICATION REGIME, AND SMOKING HISTORY. STATUS: CONTINUED DATE: 12/07/2024 07. DRESSING SELECTION : - EVALUATE FOR DRESSING-RELATED FACTORS, SUCH AVAILABILITY, WEAR TIME, ADAPTABILITY AND USE TO BETTER OPTIMIZE WOUND HEALING AND PATIENT COMPLIANCE. STATUS: CONTINUED DATE: 12/07/2024 08. ADVANCED MODALITIES : - EVALUATE FOR APPROPRIATENESS OF CELLULAR TISSUE PRODUCT THERAPY. STATUS: CONTINUED DATE: 12/07/2024 09. FALL PREVENTION : - COMPLETE FALL ASSESSMENT. STATUS: COMPLETED DATE: 12/07/2024 10. PAIN MANAGEMENT : - COMPLETE PAIN ASSESSMENT STATUS: CONTINUED DATE: 12/07/2024 EVE BECKFORD [id number] 1980 11. MEASURABLE GOALS FOR WOUND HEALING AND/OR HYPERBARIC OXYGEN THERAPY : - WOUND CLOSURE STATUS: CONTINUED DATE: 12/07/2024 12. DURATION/FREQUENCY OF WOUND CARE VISITS : - 1X WEEKLY FOR 30 DAYS STATUS: CONTINUED DATE: 12/07/2024 ELECTRONIC SIGNATURE(S) SIGNED BY: DATE: CAMERON CABRERA MD 12/12/2024 12:53:38 (PT) 12/07/2024 4:19:24 PM VERSION ELECTRONICALLY DATE: SIGNED BY: CAMERON CABRERA MD 12/07/2024 16:20:37 (PT) ENTERED BY: ADELITA LONGORIA ON 12/12/2024 12:47:00 (PT) EVE BECKFORD [id number] 1980
== END ==
PROVIDERS: PCP Internal Medicine; Referring Provider Hospitalist; Visit Provider Surgery
DX: T81.31XA Disruption of external operation (surgical) wound, not elsewhere classified, initial encounter (principal); S91.301A Unspecified open wound, right foot, initial encounter; E10.628 Type 1 diabetes mellitus with other skin complications; E10.40 Type 1 diabetes mellitus with diabetic neuropathy, unspecified
CPT/HCPCS: 11042; 87070; 87075; 87077; 87147; 87186; 87205; 99213

== ENCOUNTER → 2024-12-15 09:43 | Outpatient (CLI) | payer OTHER, SELFPAY ==
[2024-07-26 13:36] VITALS: BMI 33.4
--- NOTE | 2024-12-15 | OV.WND_ITS ---
PROGRESS NOTE DETAILS PATIENT NAME: EVE BECKFORD PATIENT NUMBER: [id number] CLINICIAN: CABRERA GOSS RN PATIENT DATE OF : 1980 PHYSICIAN / TOLL TEST DESK WORKER: RICK CHAITANYADANIEL PATIENT SUBJECTIVE CHIEF COMPLAINT THIS INFORMATION WAS OBTAINED FROM THE PATIENT. I HAVE NO PAIN (IN THE WOUND AREA.) GENERAL NOTES RIGHT FOOT SURGICAL WOUND ALLERGIES NO KNOWN DRUG ALLERGIES HPI THIS INFORMATION WAS OBTAINED FROM THE PATIENT. THE FOLLOWING HPI ELEMENTS WERE DOCUMENTED FOR THE PATIENT'S WOUND: LOCATION: R FOOT DURATION: 10/07/24 CONTEXT: SURGICAL/DIABETIC THE PATIENT IS A 44-YEAR-OLD MALE WITH TYPE 1 DIABETES, NEUROPATHY, AND HYPERTENSION WHO RETURNS TODAY FOR FOLLOW UP OF DIABETIC ULCER OF THE RIGHT FOOT. HE ORIGINALLY HAD A JACKMAN 3 DIABETIC ULCER INVOLVING THE RIGHT 1ST METATARSAL HEAD WITH CONFIRMED OSTEOMYELITIS. HE UNDERWENT IANDD OF THE RIGHT FOOT APRIL 14, 2024 AND HIS FOOT LATER WORSENED. ON SEPTEMBER 07, 2024 HE UNDERWENT REMOVAL OF ANTIBIOTIC IMPLANT WITH DEBRIDEMENT OF SUBCUTANEOUS TISSUE AND BONE AND DELAYED PRIMARY CLOSURE. THE SUTURES WERE REMOVED ON OCTOBER 07, 2024 AND HE DEVELOPED DEHISCENCE OF THE INCISION. THE PATIENT IS RECEIVING DRESSING CHANGES WITH HYDROFERA BLUE WITH FELT PAD FOR PRESSURE OFFLOADING. THE PATIENT DENIES HAVING ANY PAIN OR DISCOMFORT NOR HAS HE HAD ANY FEVER OR CHILLS. THE PATIENT REPORTS A GOOD APPETITE AND IS TAKING PROTEIN SUPPLEMENTS. HE HAS HAD GOOD CONTROL OF BLOOD SUGARS. ON SEPTEMBER 23, 2024 THE PATIENT WAS HOSPITALIZED WITH PANCREATITIS, ACUTE RENAL FAILURE, AND C. DIFF COLITIS. THE PATIENT REPORTS THAT HE MADE A FULL RECOVERY AND HE NO LONGER HAS ANY DIARRHEA. HE WAS RECENTLY SEEN BY DR. ARCEO AND WAS TOLD THAT HE DID NOT REQUIRE ANY FURTHER ANTIBIOTIC THERAPY. PREVIOUS VASCULAR EVALUATION SHOWED FLOW ADEQUATE FOR HEALING. ON EXAM TODAY THE ULCER IS MUCH IMPROVED BUT STILL HAS SOME UNATTACHED EDGES. NO ERYTHEMA OR PURULENCE NOTED. LABS 12/06/24: CULTURE GREW SCANT STAPHYLOCOCCUS AUREUS 2/10/25: HEMOGLOBIN A1C 7.9, WBC 8.0, HEMOGLOBIN 13.3, HCT 39.6, ESR 36, ELECTROLYTES NORMAL, GFR GREATER THAN 60, LFTS NORMAL, C-REACTIVE PROTEIN 1.1 10/18/24: CULTURES GREW SCANT GROWTH MIXED SKIN KATHIE 09/24/24: X-RAY RIGHT FOOT: CORTICAL IRREGULARITY AND LUCENCY OF THE 1ST RAY FAVORED TO REPRESENT POSTSURGICAL CHANGES, HOWEVER SUPERIMPOSED INFECTION CANNOT BE EXCLUDED. NO ACUTE FRACTURE IDENTIFIED. 09/23/24: WBC 19.7, HEMOGLOBIN 14.2, HCT 43.0, SODIUM 130, POTASSIUM 3.3, CARBON OXIDE 7, BUN 85, CREATININE 4.79 TROPONIN 5.42, BNP 5040, LIPASE 7252, GLUCOSE 356 EVE BECKFORD [id number] 1980 07/29/24: WBC 6.5, HEMOGLOBIN 11.3, HCT 33.5, ELECTROLYTES UNREMARKABLE, GFR GREATER THAN 60 LFTS NORMAL 07/26/24: CULTURES GREW STAPHYLOCOCCUS AUREUS AND PROTEUS MIRABILIS 07/26/24: FOOT MRI REVEALED: MEDIAL SOFT TISSUE ULCER ADJACENT TO THE 1ST METATARSAL HEAD WITH ADJACENT 1ST MTP JOINT EFFUSION. UNEQUIVOCAL OSTEOMYELITIS INVOLVES THE 1ST METATARSAL HEAD. THERE IS MORE EARLY STAGE EDEMA AND ENHANCEMENT, LIKELY REACTIVE CHANGES, INVOLVING THE 1ST METATARSAL SHAFT AND 1ST RAY PHALANGES. 06/29/24: CULTURE GREW ENTEROBACTER CLOACAE COMPLEX 05/06/24: CULTURE GREW E. COLI 05/06/24: ARTERIAL US: POSTOBSTRUCTIVE WAVEFORMS IN THE ANTERIOR TIBIAL/DORSALIS PEDIS ARTERIES BILATERALLY, ESPECIALLY ON THE LEFT. REFERRED TO VASCULAR. 04/22/24: TUAN: PAD LEFT AND RIGHT 04/15/24: WBC 6.9, HEMOGLOBIN 12.1, HCT 35.3, ELECTROLYTES UNREMARKABLE, GFR GREATER THAN 60 04/14/24: A1C 8.4 04/14/24: BONE BIOPSY SESMOID RIGHT - LIGHT ENTEROCOCCUS FAECALIS 04/12/24: MRI SHOWS EVIDENCE FOR OSTEOMYELITIS DISTAL 1ST METATARSAL AND EFFUSION OF THE 1ST METATARSALPHALANGEAL JOINT MEDICAL HISTORY THIS INFORMATION WAS OBTAINED FROM THE CHART, PATIENT. PATIENT HAS A MEDICAL HISTORY OF: ANXIETY HYPOKALEMIA PTSD TYPE 1 DIABETES INSULIN DEPENDENT DIABETES MELLITUS HYPERTENSION R FOOT DIABETIC ULCER WITH OSTEOMYELITIS (03/2024) ADDITIONAL INFORMATION DOES PATIENT HAVE A HISTORY OF CANCER? YES? COMPLETE ALL QUESTIONS.: NO SURGICAL HISTORY THIS INFORMATION WAS OBTAINED FROM THE PATIENT. PATIENT HAS A SURGICAL HISTORY OF: WISDOM TOOTH EXTRACTION- (1996) IANDD OF R FOOT- (MARCH 2024) IANDD OF R FOOT ULCER, 2 PINS PLACED AND ABX SPACER- 07/27/2024 SURGICAL CLOSURE OF RIGHT FOOT WOUND- 09/08/2024 OBJECTIVE VITALS HEIGHT/LENGTH: 68 IN (172.72 CM), WEIGHT: 238.6 LBS (108.45 KGS), BMI: 36.3, TEMPERATURE: 97.6 ?F (36.44 ?C), PULSE: 84 BPM, RESPIRATORY RATE: 16 BREATHS/MIN, BLOOD PRESSURE: 110/70 MMHG, PULSE OXIMETRY: 84 %. GENERAL NOTES BLOOD GLUCOSE PER PT :119 PHYSICAL EXAM CONSTITUTIONAL: EVE BECKFORD [id number] 1980 VITAL SIGNS REVIEWED AND NOTED. WELL DEVELOPED, WELL NOURISHED, AND IN NO ACUTE DISTRESS. ALERT AND ORIENTED X3. RESPIRATORY: EVEN RESPIRATIONS WITHOUT USE OF ACCESSORY MUSCLES. NO INTERCOASTAL RETRACTIONS NOTED. EVEN AND NON LABORED RESPIRATION. INTEGUMENTARY (HAIR, SKIN): NO ERYTHEMA. NO SWELLING OR TENDERNESS. SEE WOUND ASSESSMENT. SKIN WARM AND DRY. NO RASHES. NEUROLOGICAL: DECREASED LOWER EXTREMITY SENSATION. PSYCHIATRIC: ORIENTATION TO TIME, PLACE AND PERSON: NORMAL AFFECT WITH NORMAL THOUGHT PATTERN. ADDITIONAL INFORMATION THE PATIENT'S POTENTIAL TO HEAL IS: FAIR. WOUND ASSESSMENT(S) WOUND #5 RIGHT, PLANTAR FOOT IS A CHRONIC JACKMAN GRADE 2 DIABETIC ULCER ACQUIRED ON 10/07/2024 AND HAS RECEIVED A STATUS OF NOT HEALED. INITIAL WOUND ENCOUNTER MEASUREMENTS ARE 1.2CM LENGTH X 0.8CM WIDTH X 0.2 CM DEPTH, WITH AN AREA OF 0.96 SQ CM AND A VOLUME OF 0.192 CUBIC CM.INITIAL WOUND ENCOUNTER PREVIOUS MEASUREMENTS FROM 12/07/2024 ARE 2CM LENGTH X 1.5CM WIDTH X 0.2CM DEPTH, WITH AN AREA OF 3 SQ CM AND A VOLUME OF 0.6 CUBIC CM. ADIPOSE IS EXPOSED. NO TUNNELING HAS BEEN NOTED. NO SINUS TRACT HAS BEEN NOTED. NO UNDERMINING HAS BEEN NOTED. THERE IS A MODERATE AMOUNT OF SEROSANGUINEOUS DRAINAGE NOTED WHICH HAS NO ODOR. THE PATIENT REPORTS A WOUND PAIN OF LEVEL 0/10. THE WOUND MARGIN IS ROLLED WOUND BED HAS YES, SPONGY, GRANULATION, YES SLOUGH, NO ESCHAR, NO EPITHELIALIZATION. THE PERIWOUND SKIN DID NOT EXHIBIT BRAWNY INDURATION, EDEMA, EXCORIATION, INDURATION, CALLUS, CREPITUS, FLUCTUANCE, RASH, MACERATION, ATROPHIE VIVIANA, CYANOSIS, ECCHYMOSIS, ERYTHEMA, HEMOSIDEROSIS, PALLOR AND RUBOR. THE PERIWOUND SKIN WAS FRIABLE. THE PERIWOUND SKIN WAS NOT DRY/SCALY AND MOIST. THE TEMPERATURE OF THE PERIWOUND SKIN IS WNL. PERIWOUND SKIN DOES NOT EXHIBIT SIGNS OR SYMPTOMS OF INFECTION. LOCAL PULSE IS DOPPLER. ADDITIONAL INFORMATION OTHER DEVITALIZED TISSUE PRESENT: BIOFILM ASSESSMENT ACTIVE PROBLEMS ICD-10 (ENCOUNTER DIAGNOSIS) E10.40 - TYPE 1 DIABETES MELLITUS WITH DIABETIC NEUROPATHY, UNSPECIFIED (ENCOUNTER DIAGNOSIS) E10.628 - TYPE 1 DIABETES MELLITUS WITH OTHER SKIN COMPLICATIONS (ENCOUNTER DIAGNOSIS) L97.512 - NON-PRESSURE CHRONIC ULCER OF OTHER PART OF RIGHT FOOT WITH FAT LAYER EXPOSED GENERAL NOTES DIABETIC ULCER RIGHT FOOT, MUCH IMPROVED, UNATTACHED EDGES THE FOLLOWING FACTORS HAVE BEEN IDENTIFIED THAT MAY AFFECT WOUND HEALING: DEVITALIZED TISSUE BIOFILM OSTEOMYELITIS NEUROPATHY PRESSURE EXPOSED BONE AND TENDON GOALS: REMOVE DEVITALIZED TISSUE EVE BECKFORD [id number] 1980 REMOVE AND PREVENT BIOFILM TREAT INFECTION PRESSURE OFFLOADING WOUND CLOSURE PREVENT RECURRENCE PLAN: DEBRIDEMENT, CONTINUE DAILY DRESSING CHANGES WITH HYDROFERA BLUE WITH FELT PAD AND POSTOP SURGICAL SHOE FOR PRESSURE OFFLOADING. CONTINUE PROTEIN SUPPLEMENTATION. FOLLOW UP IN 1 WEEK FOR A RECHECK. PROCEDURES WOUND #5 WOUND #5 (DIABETIC ULCER) IS LOCATED ON THE RIGHT, PLANTAR FOOT. A SKIN/SUBCUTANEOUS TISSUE LEVEL SURGICAL DEBRIDEMENT WITH A TOTAL AREA DEBRIDED OF 0.96 SQ CM. WAS PERFORMED BY CAMERON CABRERA MD. SUBCUTANEOUS WAS REMOVED ALONG WITH DEVITALIZED TISSUE: BIOFILM, EXUDATE AND SLOUGH. THE FOLLOWING INSTRUMENT(S) WERE USED: CURETTE. PAIN CONTROL WAS ACHIEVED USING EMLA LIDOCAINE/PRILOCAINE 2.5%/2.5%. A TIME OUT WAS CONDUCTED PRIOR TO THE START OF THE PROCEDURE. A MODERATE AMOUNT OF BLEEDING WAS CONTROLLED WITH SILVER NITRATE. THE PROCEDURE WAS TOLERATED WELL WITH A PAIN LEVEL OF 0 THROUGHOUT AND A PAIN LEVEL OF 0 FOLLOWING THE PROCEDURE. POST DEBRIDEMENT MEASUREMENTS: 1.2CM LENGTH X 0.8CM WIDTH X 0.3CM DEPTH; WITH AN AREA OF 0.96 SQ CM AND A VOLUME OF 0.288 CUBIC CM. ADDITIONAL INFORMATION MUSCLE FASCIA OR BONE REMOVED AND SENT TO PATHOLOGY?: NO PLAN WOUND ORDERS: WOUND #5 RIGHT, PLANTAR FOOT HAND HYGIENE HAND HYGIENE - WASH HANDS BEFORE AND AFTER WOUND CARE. CALL THE WOUND CENTER AT [phone] IF YOU HAVE SIGNS OR SYMPTOMS OF INFECTION, FEVER CHILLS OR SHAKES, INCREASED DRAINAGE, INCREASED ODOR OR UNUSUAL REDNESS. AFTER WOUND CENTER HOURS PLEASE NOTIFY YOUR PCP OR GO TO THE EMERGENCY ROOM. CLEANSER APPLY HYPOCHLOROUS ACID (VASHE OR SIMILAR) SOAKED 4X4 GAUZE TO WOUND BED FOR 5- 10 MINUTES AFTER PROVIDER HAS COMPLETED WOUND EXAM. REMOVE GAUZE AND DRESS WOUND ACCORDING TO DRESSING ORDERS. MAY SHOWER, LEAVE WOUND DRESSING INTACT. COVER WOUND DRESSING WITH A WATERPROOF BARRIER. KEEP DRESSING DRY. NO BATHS PLEASE. PROCEDURE / ANESTHETIC 4% TOPICAL LIDOCAINE TO WOUND BED PRIOR TO PROCEDURE, IN CLINIC ONLY. DRESSING ORDERS APPLY DRESSING(S) AND SECURE WITH: - HYDROFERA BLUE READY TRANSFER FOAM, MEXTRA, KERLIX TO SECURE. DRESSING CHANGE FREQUENCY CHANGE DRESSING DAILY. OFF-LOADING / PRESSURE RELIEF USE/WEAR WHEN WALKING: - POST-OP SANDAL. CRUTCHES OR KNEE SCOOTER. KEEP WEIGHT OFF YOUR RIGHT FOOT. ADDITIONAL ORDERS: DIETARY TAKE VITAMIN C 1000MG BY MOUTH DAILY. TAKE ZINC 25MG BY MOUTH DAILY. FOLLOW A DIABETIC DIET. INCREASE THE PROTEIN IN YOUR DIET. OTHER NUTRITIONAL SUPPLEMENT: - WAYNE OR DIABETIC FRIENDLY PROTEIN SUPPLEMENT. FOLLOW-UP APPOINTMENTS EVE BECKFORD [id number] 1980 WE ARE PLACING AN ORDER FOR WOUND SUPPLIES ON YOUR BEHALF WITH [facility]. IF YOU HAVE NOT RECEIVED YOUR ORDER WITHIN 3 BUSINESS DAYS, PLEASE CALL [facility] AT [phone] TO SPEAK WITH A STATION MECHANIC APPRENTICE OR EMAIL: RETURN APPOINTMENT 1 WEEK SCRIBING ATTESTATION I ATTEST, THE NURSE, THAT I SCRIBED THESE ORDERS FOR THE WOUND CARE PROVIDER. PROVIDER REVIEW AND ATTESTATION: REVIEWED AND EVALUATED LABS. REVIEWED HOSPITAL RECORDS. DISCUSSED THE PLAN OF CARE @ BEDSIDE WITH - THE PATIENT AND I AGREE AND ATTEST TO THE ABOVE INFORMATION PROVIDED FROM OTHER LICENSED PROFESSIONALS. PLAN OF CARE: 01. ENSURE/ESTABLISH OPTIMAL BLOOD FLOW : - COMPLETE LOWER EXTREMITY ASSESSMENT STATUS: CONTINUED DATE: 12/07/2024 - PERFORM NON-INVASIVE VASCULAR TESTING (I.E. TUAN) AND DOCUMENT FINDINGS. CONSIDER REPEATING WHEN WOUND HEALING <40% AFTER 30 DAYS OF WOUND CARE. STATUS: COMPLETED DATE: 05/05/2024 02. ASSESS FOR/TREAT INFECTION : - EVALUATE FOR SIGNS AND SYMPTOMS OF INFECTION AND DOCUMENT FINDINGS. STATUS: CONTINUED DATE: 12/07/2024 03. DEBRIDE WEEKLY OR MORE OFTEN PRN : - EVALUATE PATIENT IN CENTER WEEKLY TO ASSESS WOUND BED AND MARGINS FOR NEED FOR DEBRIDEMENT. STATUS: CONTINUED DATE: 12/07/2024 04. OPTIMIZE GLUCOSE CONTROL AND NUTRITION : - ORDER/REVIEW PERTINENT LABS TO EVALUATE RENAL FUNCTION, GLUCOSE CONTROL, AND NUTRITIONAL STATUS. STATUS: CONTINUED DATE: 12/07/2024 - COMPLETE A NUTRITION RISK ASSESSMENT. STATUS: COMPLETED DATE: 10/18/2024 05. OFFLOADING PLAN : - EVALUATE PLAN FOR OFFLOADING STATUS: CONTINUED DATE: 12/07/2024 06. OPTIMIZE HOST FACTORS: - ASSESS AND REVIEW PATIENT HISTORY FOR WOUND ETIOLOGY, CO-MORBID CONDITIONS, MEDICATION REGIME, AND SMOKING HISTORY. STATUS: CONTINUED DATE: 12/07/2024 07. DRESSING SELECTION : - EVALUATE FOR DRESSING-RELATED FACTORS, SUCH AVAILABILITY, WEAR TIME, ADAPTABILITY AND USE TO BETTER OPTIMIZE WOUND HEALING AND PATIENT COMPLIANCE. STATUS: CONTINUED DATE: 12/07/2024 08. ADVANCED MODALITIES : - EVALUATE FOR APPROPRIATENESS OF CELLULAR TISSUE PRODUCT THERAPY. STATUS: CONTINUED DATE: 12/07/2024 09. FALL PREVENTION : - COMPLETE FALL ASSESSMENT. STATUS: COMPLETED DATE: 12/07/2024 10. PAIN MANAGEMENT : - COMPLETE PAIN ASSESSMENT STATUS: CONTINUED DATE: 12/07/2024 11. MEASURABLE GOALS FOR WOUND HEALING AND/OR HYPERBARIC OXYGEN THERAPY : - WOUND CLOSURE EVE BECKFORD [id number] 1980 STATUS: CONTINUED DATE: 12/07/2024 12. DURATION/FREQUENCY OF WOUND CARE VISITS : - 1X WEEKLY FOR 30 DAYS STATUS: CONTINUED DATE: 12/07/2024 ELECTRONIC SIGNATURE(S) SIGNED BY: DATE: CAMERON CABRERA MD 12/15/2024 12:55:37 (PT) ENTERED BY: CAMERON CABRERA MD ON 12/15/2024 12:40:47 (PT) EVE BECKFORD [id number] 1980
== END ==
PROVIDERS: PCP Internal Medicine; Referring Provider Internal Medicine; Visit Provider Surgery
DX: E10.628 Type 1 diabetes mellitus with other skin complications (principal); L97.512 Non-pressure chronic ulcer of other part of right foot with fat layer exposed; E10.40 Type 1 diabetes mellitus with diabetic neuropathy, unspecified
CPT/HCPCS: 11042

== ENCOUNTER → 2025-01-03 10:21 | Outpatient (CLI) | payer OTHER, SELFPAY ==
[2024-07-26 13:36] VITALS: BMI 33.4
== END ==
PROVIDERS: PCP Internal Medicine; Referring Provider Internal Medicine; Visit Provider Surgery
DX: E10.621 Type 1 diabetes mellitus with foot ulcer (principal); L97.512 Non-pressure chronic ulcer of other part of right foot with fat layer exposed; E10.40 Type 1 diabetes mellitus with diabetic neuropathy, unspecified
CPT/HCPCS: 11042; 99213

== ENCOUNTER → 2025-01-10 14:32 | Outpatient (CLI) | payer OTHER, SELFPAY ==
[2024-07-26 13:36] VITALS: BMI 33.4
== END ==
PROVIDERS: PCP Internal Medicine; Referring Provider Internal Medicine; Visit Provider Surgery
DX: E10.621 Type 1 diabetes mellitus with foot ulcer (principal); L97.512 Non-pressure chronic ulcer of other part of right foot with fat layer exposed; E10.40 Type 1 diabetes mellitus with diabetic neuropathy, unspecified
CPT/HCPCS: 11042

== ENCOUNTER → 2025-02-06 09:31 | Outpatient (CLI) | payer OTHER, SELFPAY ==
[2024-07-26 13:36] VITALS: BMI 33.4
== END ==
PROVIDERS: PCP Internal Medicine; Referring Provider Internal Medicine; Visit Provider Surgery
DX: Z86.31 Personal history of diabetic foot ulcer (principal)
CPT/HCPCS: 99213